=== PATIENT | male | born 1935 | race Caucasian/White ===

== ENCOUNTER 2016-11-15 17:02 | Inpatient (IN) | payer MEDICARE ==
[2016-11-15] MEDS ORDERED: hydrALAZINE HCL 20 MG/ML 1 ML VIAL IVP STA (17:36)
[2016-11-15] MEDS ORDERED: FUROSEMIDE 10 MG/ML 4 ML VIAL IV STA (17:44)
[2016-11-15] MEDS ORDERED: NITROGLYCERIN OINT 1 INCH/GM PACKET TOPICAL STA (17:44)
[2016-11-15] MEDS ORDERED: ASPIRIN 325 MG TAB PO STA (17:44)
[2016-11-15 18:03] LABS: Basophils % (A) 1 %; CH 30.2; CHCM 34.1; Eosinophils # (A) 0.3 k/uL (0-0.7); Eosinophils % (A) 4 %; HCT 45.7 % (39.0-53.0); HDW 2.97; HGB 15.4 gm/dL (13.0-17.5); Luc # (Auto) 0.15; Luc % (Auto) 2; Lymphocytes # (A) 0.7 k/uL (1.0-4.8); Lymphocytes % (A) 8 %; MCHC 33.7 g/dL (31.0-37.0); MCV 88.9 fL (80.0-100.0); Mean Platelet Volume 7.1; Monocytes # (A) 0.5 k/uL (0-1.0); Monocytes % (A) 6 %; Neutrophils # (A) 6.9 k/uL (1.3-7.7); Neutrophils % (A) 80 %; RBC 5.15 m/uL (4.30-5.90); RDW 13.2 % (11.5-15.5); WBC 8.6 k/uL (3.8-10.6); WBC (Perox) 7.59
[2016-11-15 18:13] LABS: ALT 36 U/L (21-72); AST 33 U/L (17-59); Alkaline Phosphatase 127 U/L (38-126); Anion Gap 13 mmol/L; Blood Urea Nitrogen 14 mg/dL (9-20); Calcium 9.7 mg/dL (8.4-10.2); Carbon Dioxide 26 mmol/L (22-30); Chloride 102 mmol/L (98-107); Glucose 125 mg/dL (74-99); INR 1.1 (<1.1); Non-African American GFR(MDRD) >60 (>60 ml/min/1.73 sqM); Partial Thromboplastin Time 26.5 sec (22.0-30.0); Potassium 3.7 mmol/L (3.5-5.1); Prothrombin Time 11.3 sec (9.0-12.0); Sodium 141 mmol/L (137-145); Total Bilirubin 0.9 mg/dL (0.2-1.3); Total Protein 7.4 g/dL (6.3-8.2)
[2016-11-15 18:39] LABS: Troponin I 0.035 ng/mL (0.000-0.034)
--- NOTE | 2016-11-15 18:48 | XR ---
EXAMINATION TYPE: XR chest 2V DATE OF EXAM: 11/15/2016 6:42 PM COMPARISON: NONE HISTORY: History of open-heart surgery presents with difficulty in breathing. TECHNIQUE: Frontal and lateral views of the chest are obtained. FINDINGS: Post-CABG changes with mediastinal clips and sternal wires is present. There is chronic pa renchymal change without suspicious focal air space opacity or pneumothorax seen. The cardiac silhou ette size is enlarged with atherosclerotic thoracic aorta. Small bilateral pleural effusions are pres ent. Underlying scoliosis is noted. IMPRESSION: Suspect CHF exacerbation as there is cardiomegaly with small bilateral pleural effusions , clinical correlation advised.
--- NOTE | 2016-11-15 19:47 | ED ---
SOB HPI - General Chief Complaint: Shortness of Breath Stated Complaint: Blood Pressure Time Seen by Provider: 11/15/16 17:34 Source: patient Mode of arrival: ambulatory Limitations: no limitations - History of Present Illness Initial Comments: This 81-year-old white male presents with a complaint of some shortness of breath. He is had it for approximately one month. He's had a dry cough. He complains of lower extremity edema. It feels like his abdomen is bloated. He states that the shortness of breath is worse with any exertion or with lying flat. He also presents with severe elevation of his blood pressure. He denies any actual chest pain. He states that the lower extremity edema has been present for approximately 3 weeks. His last stress test was approximately 10 years ago. 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 He has had approximately an 8 pound weight gain in the last 2-3 weeks. He was sent over from his primary care physician's office for further evaluation and treatment. No other complaints or modifying factors. - Related Data Home Medications Medication Instructions Recorded Confirmed Finasteride [Proscar] 5 mg PO DAILY 11/15/16 11/15/16 Latanoprost [Xalatan 0.005%] 1 drop RIGHT EYE HS 11/15/16 11/15/16 Naproxen Sodium [Aleve] 220 mg PO BID PRN 11/15/16 11/15/16 Allergies Allergy/AdvReac Type Severity Reaction Status Date / Time No Known Allergies Allergy Verified 11/15/16 19:07 Review of Systems ROS Statement: Those systems with pertinent positive or pertinent negative responses have been documented in the HPI. ROS Other: All systems not noted in ROS Statement are negative. Past Medical History Past Medical History: Heart Failure, Hypertension History of Any Multi-Drug Resistant Organisms: None Reported Past Surgical History: Coronary Bypass/CABG, Tonsillectomy Past Psychological History: PTSD Smoking Status: Never smoker Past Alcohol Use History: None Reported Past Drug Use History: None Reported General Exam - General Exam Comments Initial Comments: GENERAL: The patient is well nourished and well hydrated. The patient is severely hypertensive. VITAL SIGNS: Heart rate, blood pressure, respiratory rate reviewed as recorded in nurse's notes. EYES: Pupils are round and reactive. Extraocular movements are intact. No conjunctival / lid redness or swelling. ENT: No external evidence of injury, swelling, or ecchymosis. Airway is patent. Throat is clear. NECK: Nontender. No swelling or evidence of injury. No subcutaneous emphysema. Trachea is midline. No thyroid mass. HEART: Regular rate and rhythm. Good peripheral pulses. LUNGS/CHEST: Breath sounds clear and equal bilaterally. No rales, rhonchi, or wheezes. No ecchymosis, subcutaneous emphysema, or tenderness. ABDOMEN: Abdomen soft without tenderness. No palpable masses or organomegaly. No peritoneal signs. No abdominal wall swelling or ecchymosis. EXTREMITIES: No extremity tenderness. Normal muscle tone and function. No thoracolumbar tenderness. There is bilateral lower extremity pitting edema noted. NEUROLOGIC: Sensation is grossly intact. Cranial nerve exam reveals face is symmetrical, tongue is midline, speech is clear. SKIN: No abrasions or ecchymosis is noted. No induration or masses noted. PSYCHIATRIC: Alert and oriented. Appropriate behavior and judgment. Limitations: no limitations Course Vital Signs 11/15/16 11/15/16 11/15/16 17:16 17:52 18:25 Temperature 97.2 F L Pulse Rate 112 H 77 122 H Respiratory 18 18 18 Rate Blood Pressure 271/110 242/108 234/104 O2 Sat by Pulse 97 99 100 Oximetry 11/15/16 11/15/16 18:49 19:24 Temperature Pulse Rate 125 H 90 Respiratory 18 18 Rate Blood Pressure 194/91 182/77 O2 Sat by Pulse 96 97 Oximetry Medical Decision Making - Medical Decision Making The patient was seen and examined. All diagnostics were reviewed. An EKG was started and shows a normal sinus rhythm with a sinus arrhythmia with first- degree AV block. Is possible left atrial enlargement. There is left ventricular hypertrophy. There is ST-T wave changes noted diffusely. The CA interval is 218, QRS duration is 102, and QTC intervals 454. The patient had a chest x-ray which shows signs of congestive heart failure. Laboratory is reviewed and shows elevation of the BNP as well as elevation of the troponin. It is felt as though he does have congestive heart failure. Possibility of a non-ST elevation NV as well as possible as well. He doesn't appear to have a hypertensive crisis. He was given aspirin and nitroglycerin as well as some Lasix and hydralazine. He is doing markedly improved on recheck. He felt significant amount of urine. The case is discussed with internal medicine and they're agreeable to admission with cardiology to consult. Approximately 30 minutes critical care time was utilized and the treatment of the patient. - Lab Data Result diagrams: 11/15/16 17:40 11/15/16 17:40 Lab Results 11/15/16 11/15/16 11/15/16 Range/Units 17:40 17:40 17:40 WBC 8.6 (3.8-10.6) k/uL RBC 5.15 (4.30-5.90) m/uL Hgb 15.4 (13.0-17.5) gm/dL Hct 45.7 (39.0-53.0) % MCV 88.9 (80.0-100.0) fL MCH 30.0 (25.0-35.0) pg MCHC 33.7 (31.0-37.0) g/dL RDW 13.2 (11.5-15.5) % Plt Count 219 (150-450) k/uL Neutrophils % 80 % Lymphocytes % 8 % Monocytes % 6 % Eosinophils % 4 % Basophils % 1 % Neutrophils # 6.9 (1.3-7.7) k/uL Lymphocytes # 0.7 L (1.0-4.8) k/uL Monocytes # 0.5 (0-1.0) k/uL Eosinophils # 0.3 (0-0.7) k/uL Basophils # 0.0 (0-0.2) k/uL PT (9.0-12.0) sec INR (<1.1) APTT (22.0-30.0) sec Sodium 141 (137-145) mmol/L Potassium 3.7 (3.5-5.1) mmol/L Chloride 102 (98-107) mmol/L Carbon Dioxide 26 (22-30) mmol/L Anion Gap 13 mmol/L BUN 14 (9-20) mg/dL Creatinine 0.90 (0.66-1.25) mg/dL Est GFR (MDRD) Af Amer >60 (>60 ml/min/1.73 sqM) Est GFR (MDRD) Non-Af >60 (>60 ml/min/1.73 sqM) Glucose 125 H (74-99) mg/dL Calcium 9.7 (8.4-10.2) mg/dL Total Bilirubin 0.9 (0.2-1.3) mg/dL AST 33 (17-59) U/L ALT 36 (21-72) U/L Alkaline Phosphatase 127 H (38-126) U/L Total Creatine Kinase 174 H (55-170) U/L CK-MB (CK-2) 5.0 H* (0.0-2.4) ng/mL CK-MB (CK-2) Rel Index 2.9 Troponin I 0.035 H* (0.000-0.034) ng/mL NT-Pro-B Natriuret Pep pg/mL Total Protein 7.4 (6.3-8.2) g/dL Albumin 4.1 (3.5-5.0) g/dL 11/15/16 11/15/16 Range/Units 17:40 17:40 WBC (3.8-10.6) k/uL RBC (4.30-5.90) m/uL Hgb (13.0-17.5) gm/dL Hct (39.0-53.0) % MCV (80.0-100.0) fL MCH (25.0-35.0) pg MCHC (31.0-37.0) g/dL RDW (11.5-15.5) % Plt Count (150-450) k/uL Neutrophils % % Lymphocytes % % Monocytes % % Eosinophils % % Basophils % % Neutrophils # (1.3-7.7) k/uL Lymphocytes # (1.0-4.8) k/uL Monocytes # (0-1.0) k/uL Eosinophils # (0-0.7) k/uL Basophils # (0-0.2) k/uL PT 11.3 (9.0-12.0) sec INR 1.1 (<1.1) APTT 26.5 (22.0-30.0) sec Sodium (137-145) mmol/L Potassium (3.5-5.1) mmol/L Chloride (98-107) mmol/L Carbon Dioxide (22-30) mmol/L Anion Gap mmol/L BUN (9-20) mg/dL Creatinine (0.66-1.25) mg/dL Est GFR (MDRD) Af Amer (>60 ml/min/1.73 sqM) Est GFR (MDRD) Non-Af (>60 ml/min/1.73 sqM) Glucose (74-99) mg/dL Calcium (8.4-10.2) mg/dL Total Bilirubin (0.2-1.3) mg/dL AST (17-59) U/L ALT (21-72) U/L Alkaline Phosphatase (38-126) U/L Total Creatine Kinase (55-170) U/L CK-MB (CK-2) (0.0-2.4) ng/mL CK-MB (CK-2) Rel Index Troponin I (0.000-0.034) ng/mL NT-Pro-B Natriuret Pep 6510 pg/mL Total Protein (6.3-8.2) g/dL Albumin (3.5-5.0) g/dL Disposition Clinical Impression: Hypertensive crisis, CHF (congestive heart failure), NSTEMI (non-ST elevated myocardial infarction), Lower extremity edema Disposition: ADMITTED IP TO THIS HOSP Condition: Fair Referrals: Tay Edge MD [Primary Care Provider] - 1-2 days Time of Disposition: 19:50 Decision Date: 11/15/16 Decision Time: 19:50
[2016-11-15] MEDS ORDERED: hydrALAZINE HCL 20 MG/ML 1 ML VIAL IVP PRN (19:55)
[2016-11-15] MEDS ORDERED: HEPARIN SODIUM,PORCINE 5,000 UNIT/ML 1 ML VIAL IV ONE (19:55)
[2016-11-15] MEDS ORDERED: HEPARIN SODIUM,PORCINE 5,000 UNIT/ML 1 ML VIAL IV PRN (19:55)
[2016-11-15] MEDS ORDERED: HEPARIN SODIUM,PORCINE/D5W PMX 25,000 UNIT in DEXTROSE/WATER 1 500ML.BAG IV SCH (20:00)
[2016-11-15] MEDS ORDERED: FUROSEMIDE 10 MG/ML 4 ML VIAL IV SCH (20:00)
[2016-11-15] MEDS: LISINOPRIL 10 MG TAB PO SCH (20:55)
[2016-11-15] MEDS ORDERED: NITROGLYCERIN OINT 1 INCH/GM PACKET TOPICAL SCH (22:00)
[2016-11-16] MEDS: FUROSEMIDE 10 MG/ML 4 ML VIAL IV SCH ×3 (00:47→16:17)
[2016-11-16 03:29] LABS: Basophils % (A) 1 %; CH 30.1; CHCM 33.1; Eosinophils # (A) 0.1 k/uL (0-0.7); Eosinophils % (A) 1 %; HCT 48.5 % (39.0-53.0); HDW 2.77; HGB 15.8 gm/dL (13.0-17.5); Luc % (Auto) 1; Lymphocytes # (A) 0.9 k/uL (1.0-4.8); Lymphocytes % (A) 11 %; MCH 29.8 pg (25.0-35.0); MCHC 32.5 g/dL (31.0-37.0); MCV 91.6 fL (80.0-100.0); Mean Platelet Volume 7.1; Monocytes # (A) 0.3 k/uL (0-1.0); Monocytes % (A) 4 %; Neutrophils # (A) 6.5 k/uL (1.3-7.7); Neutrophils % (A) 82 %; RDW 13.5 % (11.5-15.5); WBC 7.9 k/uL (3.8-10.6); WBC (Perox) 8.13
[2016-11-16 04:20] LABS: Creatine Kinase MB 4.5 ng/mL (0.0-2.4); Troponin I 0.081 ng/mL (0.000-0.034)
[2016-11-16 06:44] LABS: Troponin I 0.102 ng/mL (0.000-0.034)
[2016-11-16] MEDS: LISINOPRIL 10 MG TAB PO SCH (08:05)
[2016-11-16] MEDS ORDERED: ASPIRIN 325 MG TAB PO SCH (09:00)
--- NOTE | 2016-11-16 09:58 | P.CRDCN ---
<Aurea Llanos E - Last Filed: 11/16/16 09:59> History of Present Illness Consult date: 11/16/16 Requesting physician: Winston Cooper Consult reason: congestive heart failure Chief complaint: Shortness of breath and weight gain History of present illness: This is an 81-year-old gentleman with history of coronary artery disease and prior bypass surgery 12 years ago, hypertension, hyperlipidemia. 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 According to the patient he had stopped taking all of his medications approximately 5 years ago. He states that for the past one month or so he has noticed worsening shortness of breath as well as increase in peripheral edema and abdominal swelling. He states that he has put on approximately 8 pounds over the past one month. Chest x-ray on admission revealed congestive heart failure exacerbation, cardiomegaly, and small bilateral pleural effusions. EKG on admission showed a normal sinus rhythm with inferior lateral ST-T wave changes and evidence of LVH strain pattern. Let pressure on arrival 271/110 with a heart rate of 112, 97% on room air. Blood pressure this morning 156/70 with a heart rate in the 70s, 97% on 2 L of oxygen. White blood cell count 7.9 , hemoglobin 15.8, platelet count 227. Potassium 3.7, BUN 14, creatinine 0.9. Troponins 0.035, 0.08, 0.102. BNP level 6510. TSH level 2.1. Patient was initiated on IV Lasix in the emergency room as well as aspirin, IV heparin, hydralazine when necessary, lisinopril 10 mg daily, and Nitropaste. Weight is down 2 kg from admission. Patient this morning does state that his breathing is improving, and he has noticed significant improvement in his peripheral edema. Past Medical History Past Medical History: Heart Failure, Eye Disorder, Hypertension Additional Past Medical History / Comment(s): glacoma, surgical procedure on bilateral eyes, PTSD History of Any Multi-Drug Resistant Organisms: None Reported Past Surgical History: Coronary Bypass/CABG, Tonsillectomy Past Anesthesia/Blood Transfusion Reactions: No Reported Reaction Past Psychological History: No Psychological Hx Reported, PTSD Smoking Status: Never smoker Past Alcohol Use History: None Reported Past Drug Use History: None Reported - Past Family History Father Family Medical History: Cancer, Congestive Heart Failure (CHF), Coronary Artery Disease (CAD) Mother Family Medical History: Congestive Heart Failure (CHF), Coronary Artery Disease (CAD) Medications and Allergies Home Medications Medication Instructions Recorded Confirmed Type Finasteride [Proscar] 5 mg PO DAILY 11/15/16 11/15/16 History Latanoprost [Xalatan 0.005%] 1 drop RIGHT EYE HS 11/15/16 11/15/16 History Naproxen Sodium [Aleve] 220 mg PO BID PRN 11/15/16 11/15/16 History Allergies Allergy/AdvReac Type Severity Reaction Status Date / Time No Known Allergies Allergy Verified 11/15/16 19:07 Physical Exam Vitals: Vital Signs Temp Pulse Pulse Resp BP BP Pulse Ox 11/16/16 07:31 98.9 F 76 16 156/70 97 11/16/16 06:02 97.8 F 71 18 144/69 98 11/16/16 04:29 75 20 142/70 98 11/16/16 03:49 69 18 141/67 99 11/16/16 02:28 97.2 F L 84 20 141/67 96 11/16/16 01:10 182/83 11/16/16 00:50 235/102 11/16/16 00:30 97.6 F 88 17 170/97 97 11/15/16 23:48 97.6 F 72 16 163/72 97 11/15/16 22:49 90 16 157/70 96 11/15/16 22:36 80 16 184/81 96 11/15/16 21:59 98 16 156/76 97 11/15/16 21:24 195/85 11/15/16 20:55 104 H 18 163/81 97 11/15/16 20:21 119 H 18 186/85 98 11/15/16 20:15 145/83 11/15/16 19:50 103 H 175/82 11/15/16 19:24 90 18 182/77 97 11/15/16 18:49 125 H 18 194/91 96 11/15/16 18:25 122 H 18 234/104 100 11/15/16 17:52 77 18 242/108 99 11/15/16 17:50 18 11/15/16 17:16 97.2 F L 112 H 18 271/110 97 Intake and Output 11/15/16 11/16/16 11/16/16 22:59 06:59 14:59 Intake Total 110.84 Output Total 2200 Balance -2200 110.84 Intake: Intake, IV Titration 110.84 Amount Heparin Sodium,Porcine/ 110.84 D5w Pmx 25,000 unit In Dextrose/Water 1 500ml. bag @ 12 UNITS/KG/HR 13.6 mls/hr IV .Q24H [facility] Rx#: [id number] Output: Urine 2200 Other: Weight 53.9 kg 51.392 kg Patient Weight 11/17/16 06:59 Weight 51.392 kg PHYSICAL EXAMINATION: HEENT: Head is atraumatic, normocephalic. Pupils equal, round. Neck is supple. There is elevated jugular venous pressure. HEART EXAMINATION: Heart S1 and S2 systolic murmur is heard. CHEST EXAMINATION: Lungs reveal diminished air entry to bilateral bases. ABDOMEN: Soft, nontender. Bowel sounds are heard. No organomegaly noted. EXTREMITIES: 2+ peripheral pulses with no evidence of peripheral edema and no calf tenderness noted. NEUROLOGIC patient is awake, alert and oriented -3. . Results 11/16/16 02:51 11/15/16 17:40 Cardiac Enzymes 11/15/16 11/15/16 11/16/16 Range/Units 17:40 17:40 02:51 AST 33 (17-59) U/L CK-MB (CK-2) 5.0 H* 4.5 H* (0.0-2.4) ng/mL Troponin I 0.035 H* 0.081 H* (0.000-0.034) ng/mL 11/16/16 Range/Units 05:42 AST (17-59) U/L CK-MB (CK-2) 4.0 H* (0.0-2.4) ng/mL Troponin I 0.102 H* (0.000-0.034) ng/mL Coagulation 11/15/16 11/16/16 Range/Units 17:40 02:51 PT 11.3 (9.0-12.0) sec APTT 26.5 45.3 H (22.0-30.0) sec CBC 11/15/16 11/16/16 Range/Units 17:40 02:51 WBC 8.6 7.9 (3.8-10.6) k/uL RBC 5.15 5.30 (4.30-5.90) m/uL Hgb 15.4 15.8 (13.0-17.5) gm/dL Hct 45.7 48.5 (39.0-53.0) % Plt Count 219 227 (150-450) k/uL Comprehensive Metabolic Panel 11/15/16 Range/Units 17:40 Sodium 141 (137-145) mmol/L Potassium 3.7 (3.5-5.1) mmol/L Chloride 102 (98-107) mmol/L Carbon Dioxide 26 (22-30) mmol/L BUN 14 (9-20) mg/dL Creatinine 0.90 (0.66-1.25) mg/dL Glucose 125 H (74-99) mg/dL Calcium 9.7 (8.4-10.2) mg/dL AST 33 (17-59) U/L ALT 36 (21-72) U/L Alkaline Phosphatase 127 H (38-126) U/L Total Protein 7.4 (6.3-8.2) g/dL Albumin 4.1 (3.5-5.0) g/dL Current Medications Generic Name Dose Route Start Last Admin Trade Name Freq PRN Reason Stop Dose Admin Aspirin 325 mg 11/16/16 09:00 11/16/16 08:05 Aspirin PO 325 mg DAILY [facility]OF[facility] Administration Furosemide 40 mg 11/16/16 00:00 11/16/16 08:05 Lasix IV 40 mg Q8HR [facility]OF[facility] Administration Heparin Sodium (Porcine) 0 unit 11/15/16 19:55 11/16/16 04:26 Heparin IV 1,350 unit PER PROTOCOL PRN Administration Low PTT Protocol Hydralazine HCl 10 mg 11/15/16 19:55 11/16/16 00:47 Apresoline IVP 10 mg Q4H PRN Administration Hypertension Heparin Sodium/Dextrose 25,000 500 mls @ 13.6 mls/hr 11/15/16 20:00 11/16/16 04:26 unit/ IV Solution IV 14 units/kg/hr .Q24H [facility] 15.87 mls/hr Protocol Titration 12 UNITS/KG/HR Lisinopril 10 mg 11/15/16 20:00 11/16/16 08:05 Zestril PO 10 mg DAILY [facility]OF[facility] Administration Nitroglycerin 1 inch 11/15/16 22:00 11/16/16 00:47 Nitro-Bid Oint TOPICAL 1 inch QID ZOFIA Administration Intake and Output 11/15/16 11/16/16 11/16/16 22:59 06:59 14:59 Intake Total 110.84 Output Total 2200 Balance -2200 110.84 Intake: Intake, IV Titration 110.84 Amount Heparin Sodium,Porcine/ 110.84 D5w Pmx 25,000 unit In Dextrose/Water 1 500ml. bag @ 12 UNITS/KG/HR 13.6 mls/hr IV .Q24H [facility] Rx#: [id number] Output: Urine 2200 Other: Weight 53.9 kg 51.392 kg Patient Weight 11/17/16 06:59 Weight 51.392 kg 11/16/16 02:51 11/15/16 17:40 EKG Interpretations (text) EKG shows a normal sinus rhythm with inferior lateral ST-T wave changes and evidence of LVH strain pattern. Assessment and Plan Plan: Assessment and plan #1 congestive cardiac failure, LV function unknown at this time. #2 accelerated hypertension #3 history of hypertension #4 history of hyperlipidemia #5 known history of coronary artery disease with prior bypass surgery 12 years ago at [facility] #6 PTSD #7 abnormal troponins, likely reflecting a type II myocardial infarction secondary to oxygen supply and demand mismatch Plan We will obtain an echocardiogram with Doppler study. Decrease aspirin to 81 mg daily. Discontinue Nitropaste and when necessary hydralazine. Add beta markus to the patient's medication regime. Optimize blood pressure. Continue IV Lasix and monitor intake and output along with daily weights. Further recommendations to follow. DNP note has been reviewed, I agree with a documented findings and plan of care. Patient was seen and examined. <Hollis Tolentino - Last Filed: 11/16/16 13:36> Physical Exam Vitals: Vital Signs Temp Pulse Pulse Resp BP BP Pulse Ox 11/16/16 12:00 98.3 F 60 18 137/60 97 11/16/16 08:00 98.0 F 72 18 192/82 98 11/16/16 07:31 98.9 F 76 16 156/70 97 11/16/16 06:02 97.8 F 71 18 144/69 98 11/16/16 04:29 75 20 142/70 98 11/16/16 03:49 69 18 141/67 99 11/16/16 02:28 97.2 F L 84 20 141/67 96 11/16/16 01:10 182/83 11/16/16 00:50 235/102 11/16/16 00:30 97.6 F 88 17 170/97 97 11/15/16 23:48 97.6 F 72 16 163/72 97 11/15/16 22:49 90 16 157/70 96 11/15/16 22:36 80 16 184/81 96 11/15/16 21:59 98 16 156/76 97 11/15/16 21:24 195/85 11/15/16 20:55 104 H 18 163/81 97 11/15/16 20:21 119 H 18 186/85 98 11/15/16 20:15 145/83 11/15/16 19:50 103 H 175/82 11/15/16 19:24 90 18 182/77 97 11/15/16 18:49 125 H 18 194/91 96 11/15/16 18:25 122 H 18 234/104 100 11/15/16 17:52 77 18 242/108 99 11/15/16 17:50 18 11/15/16 17:16 97.2 F L 112 H 18 271/110 97 Intake and Output 11/15/16 11/16/16 11/16/16 22:59 06:59 14:59 Intake Total 110.84 240 Output Total 2200 Balance -2200 110.84 240 Intake: Intake, IV Titration 110.84 Amount Heparin Sodium,Porcine/ 110.84 D5w Pmx 25,000 unit In Dextrose/Water 1 500ml. bag @ 12 UNITS/KG/HR 13.6 mls/hr IV .Q24H [facility] Rx#: [id number] Oral 240 Output: Urine 2200 Other: Weight 53.9 kg 51.392 kg Patient Weight 11/17/16 06:59 Weight 51.392 kg Results 11/16/16 02:51 11/15/16 17:40 Cardiac Enzymes 11/15/16 11/15/16 11/16/16 Range/Units 17:40 17:40 02:51 AST 33 (17-59) U/L CK-MB (CK-2) 5.0 H* 4.5 H* (0.0-2.4) ng/mL Troponin I 0.035 H* 0.081 H* (0.000-0.034) ng/mL 11/16/16 Range/Units 05:42 AST (17-59) U/L CK-MB (CK-2) 4.0 H* (0.0-2.4) ng/mL Troponin I 0.102 H* (0.000-0.034) ng/mL Coagulation 11/15/16 11/16/16 Range/Units 17:40 02:51 PT 11.3 (9.0-12.0) sec APTT 26.5 45.3 H (22.0-30.0) sec CBC 11/15/16 11/16/16 Range/Units 17:40 02:51 WBC 8.6 7.9 (3.8-10.6) k/uL RBC 5.15 5.30 (4.30-5.90) m/uL Hgb 15.4 15.8 (13.0-17.5) gm/dL Hct 45.7 48.5 (39.0-53.0) % Plt Count 219 227 (150-450) k/uL Comprehensive Metabolic Panel 11/15/16 Range/Units 17:40 Sodium 141 (137-145) mmol/L Potassium 3.7 (3.5-5.1) mmol/L Chloride 102 (98-107) mmol/L Carbon Dioxide 26 (22-30) mmol/L BUN 14 (9-20) mg/dL Creatinine 0.90 (0.66-1.25) mg/dL Glucose 125 H (74-99) mg/dL Calcium 9.7 (8.4-10.2) mg/dL AST 33 (17-59) U/L ALT 36 (21-72) U/L Alkaline Phosphatase 127 H (38-126) U/L Total Protein 7.4 (6.3-8.2) g/dL Albumin 4.1 (3.5-5.0) g/dL Current Medications Generic Name Dose Route Start Last Admin Trade Name Freq PRN Reason Stop Dose Admin Aspirin 81 mg 11/17/16 09:00 Aspirin PO DAILY [facility]OFIA Furosemide 40 mg 11/16/16 00:00 11/16/16 08:05 Lasix IV 40 mg Q8HR [facility] Administration Heparin Sodium (Porcine) 0 unit 11/15/16 19:55 11/16/16 04:26 Heparin IV 1,350 unit PER PROTOCOL PRN Administration Low PTT Protocol Heparin Sodium/Dextrose 25,000 500 mls @ 13.6 mls/hr 11/15/16 20:00 11/16/16 04:26 unit/ IV Solution IV 14 units/kg/hr .Q24H [facility] 15.87 mls/hr Protocol Titration 12 UNITS/KG/HR Lisinopril 10 mg 11/15/16 20:00 11/16/16 08:05 Zestril PO 10 mg DAILY [facility]OF[facility] Administration Metoprolol Tartrate 25 mg 11/16/16 10:00 11/16/16 10:56 Lopressor PO 25 mg BID ZOFIA Administration Intake and Output 11/15/16 11/16/16 11/16/16 22:59 06:59 14:59 Intake Total 110.84 240 Output Total 2200 Balance -2200 110.84 240 Intake: Intake, IV Titration 110.84 Amount Heparin Sodium,Porcine/ 110.84 D5w Pmx 25,000 unit In Dextrose/Water 1 500ml. bag @ 12 UNITS/KG/HR 13.6 mls/hr IV .Q24H [facility] Rx#: [id number] Oral 240 Output: Urine 2200 Other: Weight 53.9 kg 51.392 kg Patient Weight 11/17/16 06:59 Weight 51.392 kg 11/16/16 02:51 11/15/16 17:40
[2016-11-16] MEDS: METOPROLOL TARTRATE 25 MG TAB PO SCH ×2 (10:56→20:28)
--- NOTE | 2016-11-16 11:13 | ECHOF ---
Referral Reason:Heart Failure MEASUREMENTS -------- HEIGHT: 175.3 cm WEIGHT: 53.5 kg BP: 156/70 IVSd: 2.3 cm (0.6 - 1.1) LVIDd: 3.9 cm (3.9 - 5.3) LVPWd: 2.1 cm (0.6 - 1.1) IVSs: 2.5 cm LVIDs: 2.9 cm LVPWs: 2.4 cm LAESV Index (A-L): 21.67 ml/m Ao Diam: 4.4 cm (2.0 - 3.7) AV Cusp: 1.6 cm (1.5 - 2.6) LA Diam: 1.9 cm (2.7 - 3.8) MV EXCURSION: 11.453 mm (> 18.000) MV EF SLOPE: 68 mm/s (70 - 150) EPSS: 1.0 cm MV E Derrek: 0.66 m/s MV DecT: 284 ms MV A Derrek: 1.00 m/s MV E/A Ratio: 0.66 AR PHT: 440 ms RAP: 5.00 mmHg RVSP: 7.97 mmHg FINDINGS -------- Sinus rhythm. This was a technically good study. There is severe concentric left ventricular hypertrophy. Overall left ventricular systolic function is normal with, an EF between 60 - 65 %. The right ventricle is normal in size and function. Normal LA size by volume 22+/-6 ml/m2. The right atrium is normal in size. Aortic valve is trileaflet and is mildly thickened. There is mild to moderate aortic valve sclerosis. There is moderate aortic regurgitation. The mitral valve leaflets are mildly thickened. Mild mitral annular calcification present. There is trace to mild mitral regurgitation. Trace tricuspid regurgitation present. There is no evidence of pulmonary hypertension. The right ventricular systolic pressure, as measured by Doppler, is 7.97mmHg. The pulmonic valve was not well visualized. The aortic root size is normal. There is no pericardial effusion. CONCLUSIONS -------- 1. Sinus rhythm. 2. Mild mitral annular calcification present. 3. There is trace to mild mitral regurgitation. 4. Trace tricuspid regurgitation present. 5. There is no evidence of pulmonary hypertension. 6. The right ventricular systolic pressure, as measured by Doppler, is 7.97mmHg. 7. The pulmonic valve was not well visualized. 8. The aortic root size is normal. 9. There is no pericardial effusion. 10. This was a technically good study. 11. There is severe concentric left ventricular hypertrophy. 12. Overall left ventricular systolic function is normal with, an EF between 60 - 65 %. 13. Normal LA size by volume 22+/-6 ml/m2. 14. Aortic valve is trileaflet and is mildly thickened. 15. There is mild to moderate aortic valve sclerosis. 16. There is moderate aortic regurgitation. 17. The mitral valve leaflets are mildly thickened. [employer] CONSULTANT: Dewayne Good RDCS
[2016-11-16 14:40] VITALS: BMI 16.7
[2016-11-16] MEDS: FINASTERIDE 5 MG TAB PO SCH (17:55)
--- NOTE | 2016-11-16 18:16 | HP ---
DATE OF ADMISSION: PRESENTING COMPLAINT: Short of breath. HISTORY OF PRESENTING COMPLAINT: This is a pleasant 81-year-old patient of Dr. Edge, had a coronary artery bypass about 12 years ago. Patient's other chronic stable medical conditions include hypertension, PTSD. The patient presented with 4 weeks of progressive short of breath, increased leg edema, orthopnea, actually was sitting up for the last 2 to 3 days and decided to come in, found to be in congestive heart failure. No chest pressure. REVIEW OF SYSTEMS: CONSTITUTIONAL: Weak and tired. HEENT: None. RESPIRATORY: As above. CARDIOVASCULAR: As above. GASTROINTESTINAL: None. GENITOURINARY: None. MUSCULOSKELETAL: None. DERMATOLOGICAL: None. HEMATOLOGICAL: None. LYMPHATIC: None. PSYCHIATRY: None. NEUROLOGICAL: None. PAST MEDICAL HISTORY: Congestive heart failure, hypertension, glaucoma, PTSD, coronary artery disease. PAST SURGICAL HISTORY: Coronary artery bypass, tonsillectomy. SOCIAL HISTORY: No smoking. No alcohol. Lives by himself. FAMILY HISTORY: Coronary artery disease, congestive heart failure. HOME MEDICATIONS: 1. Aleve 220 mg p.o. b.i.d. p.r.n. 2. Xalatan 0.05, 1 drop to right eye q.h.s. 3. Proscar 5 mg p.o. daily. ALLERGIES: None. On exam, vital signs on presentation: Temperature 97.2, pulse 120, respiration 18, blood pressure 242/108, pulse ox 99% on 2L. GENERAL APPEARANCE: Thin build. BMI 6.7. Sitting up, short of breath. EYES: Pupils equal. Conjunctivae normal. HEENT: Oral cavity normal. NECK: JVD not raised. Mass not palpable. Respiratory effort increased. LUNGS: Decreased breath sounds. CARDIOVASCULAR: First and second sounds normal. Edema present. ABDOMEN: Soft, nontender. Liver and spleen not palpable. LYMPHATIC: No lymph nodes palpable in neck or axillae. PSYCHIATRY: Alert and oriented x3. Mood and affect normal. NEUROLOGICAL: Pupils equal. Cranial nerves grossly intact. Power and sensation grossly intact. INVESTIGATIONS: White count 8.6, hemoglobin 13.4. Potassium 3.9, BUN and creatinine are normal. Troponin 0.035 0.081, 0.102. ProBNP 6510. Chest x-ray shows venous prominence, cardiomegaly, small pleural effusion. EKG shows some ST segment depression, especially in the lateral inferolateral leads. Two-D echo EF of 60% to 65%, moderate aortic regurgitation. ASSESSMENT: 1. Acute on chronic congestive heart failure exacerbation from diastolic dysfunction; ejection fraction 60 to 65%, underlying coronary artery disease. 2. Posttraumatic stress disorder. 3. Essential hypertension, accelerated, present on admission. 4. Troponin leak because of congestive heart failure. 5. Moderate aortic regurgitation, nonrheumatic. PLAN: Patient is on IV heparin, IV Lasix. Cardiology was consulted. The patient is responding to IV Lasix.
[2016-11-16] MEDS: LATANOPROST 0.005% OPHTH DROPS 2.5 ML BTL RIGHT EYE SCH (20:30)
[2016-11-17] MEDS: FUROSEMIDE 10 MG/ML 4 ML VIAL IV SCH ×3 (00:19→16:40)
[2016-11-17 06:21] LABS: Basophils % (A) 1 %; CH 30.3; CHCM 33.2; Eosinophils # (A) 0.3 k/uL (0-0.7); Eosinophils % (A) 4 %; HDW 2.64; HGB 14.3 gm/dL (13.0-17.5); Luc # (Auto) 0.17; Luc % (Auto) 2; Lymphocytes # (A) 0.9 k/uL (1.0-4.8); Lymphocytes % (A) 13 %; MCH 30.6 pg (25.0-35.0); MCHC 33.3 g/dL (31.0-37.0); MCV 91.8 fL (80.0-100.0); Mean Platelet Volume 7.2; Monocytes # (A) 0.5 k/uL (0-1.0); Monocytes % (A) 7 %; Neutrophils # (A) 5.3 k/uL (1.3-7.7); Neutrophils % (A) 73 %; RBC 4.68 m/uL (4.30-5.90); RDW 13.4 % (11.5-15.5); WBC 7.3 k/uL (3.8-10.6); WBC (Perox) 7.62
[2016-11-17] MEDS: METOPROLOL TARTRATE 25 MG TAB PO SCH (08:39)
[2016-11-17] MEDS: LISINOPRIL 10 MG TAB PO SCH (08:39)
[2016-11-17] MEDS: ASPIRIN 81 MG CHEW PO SCH (08:39)
[2016-11-17] MEDS: FINASTERIDE 5 MG TAB PO SCH (08:39)
--- NOTE | 2016-11-17 15:40 | P.PN ---
Subjective Principal diagnosis: Congestive heart failure This is an 81-year-old gentleman with history of coronary artery disease and prior bypass surgery 12 years ago, hypertension, hyperlipidemia. 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 According to the patient he had stopped taking all of his medications approximately 5 years ago. He states that for the past one month or so he has noticed worsening shortness of breath as well as increase in peripheral edema and abdominal swelling. He states that he has put on approximately 8 pounds over the past one month. Chest x-ray on admission revealed congestive heart failure exacerbation, cardiomegaly, and small bilateral pleural effusions. EKG on admission showed a normal sinus rhythm with inferior lateral ST-T wave changes and evidence of LVH strain pattern. 11/17/2016 Patient was initiated on IV Lasix yesterday, diuresed well through the night last night. Heart rate in the 40s to 50s, blood pressure 145/67. We will discontinue the Lopressor and start the patient on Coreg today. CBC normal, and there were no lytes BUN and creatinine drawn today. We will continue current dose of IV Lasix, check daily lytes BUN and creatinine. Echocardiogram with Doppler study was performed which revealed an ejection fraction of 60-65%. Mild to moderate aortic valve sclerosis, moderate aortic regurgitation. DNP note has been reviewed, I agree with a documented findings and plan of care. Patient was seen and examined. Objective - Vital Signs Vital signs: Vital Signs Temp 97.0 F L 11/17/16 12:00 Pulse 48 L 11/17/16 12:00 Resp 18 11/17/16 12:00 BP 145/67 11/17/16 12:00 Pulse Ox 98 11/17/16 12:00 Intake & Output 11/16/16 11/17/16 11/17/16 18:59 06:59 18:59 Intake Total 480 420 Output Total 450 1600 450 Balance 30 -1600 -30 Weight 51.392 kg 53.3 kg 53.3 kg Intake: Oral 480 420 Output: Urine 450 1600 450 Other: Voiding Method Toilet Toilet Urinal Urinal # Voids 2 1 - Exam PHYSICAL EXAMINATION: HEENT: Head is atraumatic, normocephalic. Pupils equal, round. Neck is supple. There is elevated jugular venous pressure. HEART EXAMINATION: Heart S1 and S2 systolic murmur is heard. CHEST EXAMINATION: Lungs reveal diminished air entry to bilateral bases. ABDOMEN: Soft, nontender. Bowel sounds are heard. No organomegaly noted. EXTREMITIES: 2+ peripheral pulses with no evidence of peripheral edema and no calf tenderness noted. NEUROLOGIC patient is awake, alert and oriented -3. - Labs CBC & Chem 7: 11/17/16 05:47 11/15/16 17:40 Labs: Abnormal Lab Results - Last 24 Hours (Table) 11/17/16 Range/Units 05:47 Lymphocytes # 0.9 L (1.0-4.8) k/uL Assessment and Plan Plan: Assessment and plan #1 congestive cardiac failure, diastolic acute on chronic #2 accelerated hypertension #3 history of hypertension #4 history of hyperlipidemia #5 known history of coronary artery disease with prior bypass surgery 12 years ago at [facility] #6 PTSD #7 abnormal troponins, likely reflecting a type II myocardial infarction secondary to oxygen supply and demand mismatch Plan Continue current dose of IV Lasix. Discontinue beta markus and change patient to Corex 3.125 mg by mouth twice a day. Continue IV Lasix for another 24 hours check daily lytes BUN and creatinine. DNP note has been reviewed, I agree with a documented findings and plan of care. Patient was seen and examined.
[2016-11-17 16:22] LABS: Anion Gap 11 mmol/L; Blood Urea Nitrogen 37 mg/dL (9-20); Calcium 9.1 mg/dL (8.4-10.2); Carbon Dioxide 32 mmol/L (22-30); Chloride 96 mmol/L (98-107); Glucose 117 mg/dL (74-99); Non-African American GFR(MDRD) 55 (>60 ml/min/1.73 sqM); Potassium 3.5 mmol/L (3.5-5.1); Sodium 139 mmol/L (137-145)
[2016-11-17] MEDS: CARVEDILOL 3.125 MG TAB PO SCH (16:40)
--- NOTE | 2016-11-17 19:13 | PN ---
DATE OF SERVICE: 11/17/2016 PRESENTING COMPLAINT: Shortness of breath. INTERVAL HISTORY: This is an 81-year-old gentleman who presented to the emergency department with 4 weeks of progressive shortness of breath, increasing leg edema, orthopnea. Today patient looks comfortable sitting up in bed, breathing easily. No acute distress noted or voiced. No audible wheezing. Patient states he feels much better. Review of systems done for constitutional, cardiovascular, GI, pulmonary, with relevant findings as above. CURRENT MEDICATIONS: 1. Coreg. 2. Lasix. 3. Zestril. PHYSICAL EXAMINATION: VITAL SIGNS: Temperature 97.1, pulse 51, respiratory rate 18, blood pressure 173/72, heart rate 93, oxygen saturation 98% on 2 L nasal cannula. GENERAL APPEARANCE: Patient sitting up in bed. Alert, oriented. No discomfort noted or voiced. EYES: Pupils equal. Conjunctivae normal. NECK: JVD not raised. Mass not palpable. LUNGS: Breath sounds diminished with diffuse crackles noted bilaterally. RESPIRATORY: Effort normal, unlabored. CARDIOVASCULAR: First and second sounds noted. No edema. ABDOMEN: Soft, nontender. Liver and spleen not palpable. PSYCHIATRY: Alert and oriented x3. Mood and affect normal. INVESTIGATIONS: Sodium 139, potassium 3.5. BUN 37, creatinine 1.25. ASSESSMENT: 1. Acute on chronic congestive heart failure exacerbation from diastolic dysfunction; ejection fraction 60% to 65%; underlying coronary artery disease. 2. Post-traumatic stress disorder. 3. Essential hypertension, accelerated, present on admission. 4. Troponin leak because of congestive heart failure. 5. Moderate aortic regurgitation, non-rheumatic. PLAN: Patient remains on IV heparin and IV Lasix per cardiology recommendations. Patient has so far had a good response to the Lasix. Will follow labs daily. Tentative discharge planning in the next 1 to 2 days. Patient was seen and examined by nurse practitioner, Nanette Vega, and all elements of the case were discussed with attending, Dr. Cooper.
[2016-11-17] MEDS: LATANOPROST 0.005% OPHTH DROPS 2.5 ML BTL RIGHT EYE SCH (21:14)
[2016-11-18] MEDS: FUROSEMIDE 10 MG/ML 4 ML VIAL IV SCH ×2 (00:36→08:23)
[2016-11-18 07:07] LABS: Basophils % (A) 0 %; CH 30.3; CHCM 33.8; Eosinophils # (A) 0.5 k/uL (0-0.7); Eosinophils % (A) 7 %; HCT 40.9 % (39.0-53.0); HDW 2.79; HGB 13.8 gm/dL (13.0-17.5); Luc # (Auto) 0.18; Luc % (Auto) 2; Lymphocytes # (A) 0.9 k/uL (1.0-4.8); Lymphocytes % (A) 12 %; MCH 30.3 pg (25.0-35.0); MCHC 33.6 g/dL (31.0-37.0); MCV 90.1 fL (80.0-100.0); Mean Platelet Volume 6.9; Monocytes # (A) 0.5 k/uL (0-1.0); Monocytes % (A) 6 %; Neutrophils # (A) 5.3 k/uL (1.3-7.7); Neutrophils % (A) 72 %; RBC 4.54 m/uL (4.30-5.90); RDW 13.1 % (11.5-15.5); WBC 7.3 k/uL (3.8-10.6); WBC (Perox) 7.35
[2016-11-18 07:41] LABS: Anion Gap 12 mmol/L; Blood Urea Nitrogen 37 mg/dL (9-20); Calcium 8.7 mg/dL (8.4-10.2); Carbon Dioxide 30 mmol/L (22-30); Chloride 98 mmol/L (98-107); Glucose 125 mg/dL (74-99); Non-African American GFR(MDRD) >60 (>60 ml/min/1.73 sqM); Potassium 3.2 mmol/L (3.5-5.1); Sodium 140 mmol/L (137-145)
[2016-11-18] MEDS: ASPIRIN 81 MG CHEW PO SCH (08:22)
[2016-11-18] MEDS: LISINOPRIL 10 MG TAB PO SCH (08:22)
[2016-11-18] MEDS: FINASTERIDE 5 MG TAB PO SCH (08:22)
[2016-11-18] MEDS: CARVEDILOL 3.125 MG TAB PO SCH ×2 (08:23→16:40)
[2016-11-18] MEDS ORDERED: POTASSIUM CHLORIDE ER 20 MEQ TAB.ER PO SCH (09:00)
[2016-11-18] MEDS ORDERED: LISINOPRIL 20 MG TAB PO SCH (10:42)
[2016-11-18] MEDS: FUROSEMIDE 40 MG TAB PO SCH (10:58)
--- NOTE | 2016-11-18 12:57 | CONS ---
DATE OF CONSULTATION: Mr. Venegas is looking very comfortable. He is breathing normally. He is sitting up comfortably in bed. His vitals are stable. His temperature is 97.8 degrees Fahrenheit. Pulse rate is in the 60s on Coreg. His blood pressure 134/62 mmHg, but a repeat blood pressure was 169/70 mmHg. Head and neck examination is normal. No JVD, thyromegaly, or carotid bruits. Heart sounds S1 and S2 are normal. Lungs are clear to auscultation. Extremities are warm. No edema. A 2-D echo, his LV systolic function is normal, ejection fraction of 60% to 65%. IMPRESSION: 1. Accelerated hypertension. Blood pressure is somewhat better controlled now. 2. History of coronary artery disease, history of prior bypass surgery 12 years back. 3. Abnormal troponins possibly demand ischemia, but he will need reevaluation for ischemia once his heart failure is better controlled. 4. Congestive heart failure, diastolic, switch to p.o. Lasix today. Aldactone is being added since his potassium is on the lower end of normal. Oral potassium is being discontinued. Lisinopril increased for hypertension management. IV heparin is to be discontinued now. Electrolytes daily. I will try to increase his Aldactone tomorrow.
--- NOTE | 2016-11-18 13:01 | CDI ---
In responding to this query, please exercise your independent professional judgment. The [facility] Coding Staff and Clinical Documentation Specialists appreciate your assistance in clarifying documentation, maintaining compliance with coding guidelines, accurately documenting patients condition and capturing severity of illness. The fact that a question is asked does not imply that any particular answer is desired or expected. Communication forms are a method of clarifying documentation and are not made part of the Legal Health Record. Thank you in advance for your clarification. Last Revision, May 2015 [address] [place] [address] Documentation Clarification Form Date: 11/18/2016 12:38:00 PM From: Marla Pendleton RN, CDS Admit Date: 11/15/2016 7:50:00 PM Patient Name: Grant Venegas Visit Number: [id number] Nanette Vega, ERIKA-C and Dr. Winston Cooper, 81 y/o patient admitted for shortness of breath lower extremity edema, diagnosed with Acute on Chronic Diastolic CHF and Type 2 Nstemi, patient hypertensive on presentation to ED. Patient history/risk factors: H/O HTN, CAD Clinical Indicators: BP 271/110, 242/108, 234/104, "accelerated Hypertension" documented in H&P, 11/17/16 progress note and per Cardiology Treatment: IV Hydralazine 20mg given in ED, then 10 mg given on 11/16/16, Lisinopril 20 mg Consults: Cardiology In order to capture the severity of condition, please document and specify the appropriate condition: - Hypertensive Crisis - Hypertensive Emergency - Unable to determine - Other Condition, please specify Please document in your progress notes and discharge summary in order to capture severity of illness and risk of mortality. Include clinical findings that support your diagnosis. FYI: Press F11 to launch patient chart. Place X here if this finding has no clinical significance, is not applicable or if you are not able to provide any additional documentation. MTDD
[2016-11-18] MEDS: SPIRONOLACTONE 25 MG TAB PO SCH (13:34)
--- NOTE | 2016-11-18 17:42 | PN ---
DATE OF SERVICE: 11/18/2016 PRESENTING COMPLAINT: Shortness of breath. INTERVAL HISTORY: This is an 81-year-old gentleman who presented to the emergency department with 4 weeks of progressive shortness of breath, including leg edema, orthopnea. Today patient looks comfortable sitting in bed, breathing easily. No acute distress noted or voiced. No audible wheezing. Patient states he feels much better and would like to go home. Review of systems done for constitutional, cardiovascular, GI, pulmonary, with relevant findings as above. CURRENT MEDICATIONS: 1. Coreg. 2. Lasix. 3. Zestril. PHYSICAL EXAMINATION: VITAL SIGNS: Temperature 97.8, pulse 58, respiratory rate 18, blood pressure 134/62, oxygen saturation 98% on 2 L nasal cannula. GENERAL APPEARANCE: Patient is sitting up in bed reading a book; looks comfortable. No distress noted. EYES: Pupils equal. Conjunctivae normal. NECK: JVD not raised. Mass not palpable. LUNGS: Breath sounds diminished with diffuse crackles noted to the right base. RESPIRATORY: Effort normal, unlabored. CARDIOVASCULAR: First and second sounds noted. No edema. ABDOMEN: Soft, nontender. Liver and spleen not palpable. PSYCHIATRY: Alert and oriented x3. Mood and affect normal. INVESTIGATIONS: White blood cell count 7.3, hemoglobin 13.8, platelet count 209. Sodium 140, potassium 3.2. BUN 37, creatinine 1.15. ASSESSMENT: 1. Acute on chronic congestive heart failure exacerbation from diastolic dysfunction, ejection fraction 60% to 65%; underlying coronary artery disease. 2. Post-traumatic stress disorder. 3. Essential hypertension, accelerated, present on admission. 4. Troponin leak secondary to congestive heart failure. 5. Moderate aortic regurgitation, non-rheumatic. PLAN: Patient was switched to p.o. Lasix today. IV heparin was discontinued. Aldactone will be increased tomorrow by Cardiology. We will continue the current medication and treatment plan. Patient was seen and examined by nurse practitioner, Nanette Vega. All elements of the case were discussed with attending, Dr. Cooper.
--- NOTE | 2016-11-18 20:42 | PN ---
DATE OF SERVICE: 11/17/2016 ATTENDING NOTE: This patient was seen and examined by me yesterday on 11/17/16. This patient was admitted with CHF exacerbation. Breathing is better. Edema is coming down. Seems a bit less tired. Current medications are reviewed. On examination, pulse 48, respiration 18, blood pressure 145/67, pulse ox 98% on 2 L. GENERAL APPEARANCE: Lying in bed, not in distress. EYES: Pupils equal. Conjunctivae normal. NECK: JVD not raised. RESPIRATORY: Effort increased. LUNGS: Decreased breath sounds. Some crackles. INVESTIGATIONS: BUN 37, creatinine 1.25. ASSESSMENT: Acute on chronic congestive heart failure exacerbation from diastolic dysfunction, ejection fraction 60% to 65%, with underlying coronary artery disease, slow to respond. PLAN: Continue with IV Lasix. Patient encouraged to be out of bed. Follow up with Cardiology.
[2016-11-18] MEDS: LATANOPROST 0.005% OPHTH DROPS 2.5 ML BTL RIGHT EYE SCH (21:41)
--- NOTE | 2016-11-18 22:16 | PN ---
DATE OF SERVICE: 11/18/2016 ATTENDING NOTE: This patient was seen and examined by me earlier today. I reviewed the note of my nurse practitioner, Ms. Vega, and agree with the same. I discussed this with her. This is a patient who presented with CHF exacerbation. Breathing is getting better. He has been up to the bathroom. Current medications include IV Lasix earlier. On examination, blood pressure 130/62. LUNGS: Decreased breath sounds with improved crackles. CARDIOVASCULAR: First and second sounds normal. INVESTIGATIONS: BUN 37, creatinine 1.15. ASSESSMENT: Acute congestive heart failure exacerbation from diastolic dysfunction from underlying coronary artery disease, clinically improving. PLAN: Patient will be switched over to p.o. Lasix. Overall doing better. Keep an eye on the electrolytes. Encourage to be out of bed.
[2016-11-19 07:29] LABS: Basophils % (A) 1 %; CH 29.9; CHCM 32.7; Eosinophils # (A) 0.7 k/uL (0-0.7); Eosinophils % (A) 9 %; HDW 2.62; HGB 14.8 gm/dL (13.0-17.5); Luc % (Auto) 3; Lymphocytes # (A) 0.9 k/uL (1.0-4.8); Lymphocytes % (A) 12 %; MCH 30.3 pg (25.0-35.0); MCHC 32.9 g/dL (31.0-37.0); Mean Platelet Volume 7.5; Monocytes # (A) 0.5 k/uL (0-1.0); Monocytes % (A) 6 %; Neutrophils # (A) 5.6 k/uL (1.3-7.7); Neutrophils % (A) 70 %; RBC 4.89 m/uL (4.30-5.90); RDW 13.2 % (11.5-15.5); WBC (Perox) 8.31
[2016-11-19] MEDS: CARVEDILOL 3.125 MG TAB PO SCH ×2 (07:36→18:24)
[2016-11-19] MEDS: FINASTERIDE 5 MG TAB PO SCH (08:05)
[2016-11-19] MEDS: ASPIRIN 81 MG CHEW PO SCH (08:05)
[2016-11-19] MEDS: FUROSEMIDE 40 MG TAB PO SCH (08:05)
[2016-11-19] MEDS: SPIRONOLACTONE 25 MG TAB PO SCH (08:05)
[2016-11-19 08:16] LABS: Anion Gap 9 mmol/L; Blood Urea Nitrogen 39 mg/dL (9-20); Calcium 9.4 mg/dL (8.4-10.2); Carbon Dioxide 32 mmol/L (22-30); Chloride 98 mmol/L (98-107); Glucose 136 mg/dL (74-99); Non-African American GFR(MDRD) >60 (>60 ml/min/1.73 sqM); Sodium 139 mmol/L (137-145)
[2016-11-19] MEDS ORDERED: POTASSIUM CHLORIDE ER 20 MEQ TAB.ER PO SCH (09:00)
--- NOTE | 2016-11-19 14:42 | P.PN ---
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 According to the patient he stopped taking all his medications several years ago. He states that the past month he noticed worsening shortness of breath and increased peripheral edema and abdominal swelling he states that he had put on approximately 8 pounds in a month. X-ray on admission confirms congestive heart failure exacerbation, cardiomegaly and small bilateral pleural effusions. He was switched to by mouth Lasix yesterday. His breathing is improved. He denies complaints of shortness of breath. Has no orthopnea, palpitations or chest pain. Blood pressure is quite elevated with about 20 millimeter mercury difference between the right and left arm. Objective - Vital Signs Vital signs: Vital Signs Temp 98.5 F 11/19/16 12:00 Pulse 69 11/19/16 12:00 Resp 16 11/19/16 12:00 BP 136/72 11/19/16 12:00 Pulse Ox 95 11/19/16 12:00 Intake & Output 11/18/16 11/19/16 11/19/16 18:59 06:59 18:59 Intake Total 600 298 Balance 600 298 Weight 52.4 kg 53.1 kg Intake: Oral 600 298 Other: Voiding Method Toilet Toilet Toilet Urinal Urinal Urinal # Voids 0 2 1 - Exam PHYSICAL EXAMINATION: HEENT: Head is atraumatic, normocephalic. Pupils equal, round. Neck is supple. There is no elevated jugular venous pressure. HEART EXAMINATION: Heart sounds regular, S1 and S2 with a systolic murmur. CHEST EXAMINATION: Lungs are clear to auscultation and precussion. No chest wall tenderness is noted on palpation or with deep breathing. ABDOMEN: Soft, nontender. Bowel sounds are heard. No organomegaly noted. EXTREMITIES: 2+ peripheral pulses with no evidence of peripheral edema and no calf tenderness noted. NEUROLOGIC patient is awake, alert and oriented x3. . - Labs CBC & Chem 7: 11/19/16 06:55 11/19/16 06:55 Labs: Abnormal Lab Results - Last 24 Hours (Table) 11/19/16 11/19/16 Range/Units 06:55 06:55 Lymphocytes # 0.9 L (1.0-4.8) k/uL Carbon Dioxide 32 H (22-30) mmol/L BUN 39 H (9-20) mg/dL Glucose 136 H (74-99) mg/dL Assessment and Plan Plan: Assessment and plan #1 acute on chronic diastolic congestive heart failure #2 accelerated hypertension #3 hyperlipidemia #4 known history of coronary artery disease with prior bypass surgery 12 years ago at [facility] 5 PTSD #6 abnormal troponins likely secondary to oxygen supply demand mismatch At this time increase lisinopril to 20 mg by mouth twice a day and increase spironolactone to 50 mg daily. Monitor the patient's renal function and blood pressures. Patient will require further outpatient workup for blood pressure variations bilaterally. Further recommendations to follow. SECURITIES TELLER note has been reviewed, I agree with a documented findings and plan of care. Patient was seen and examined.
--- NOTE | 2016-11-19 18:32 | PN ---
DATE OF SERVICE: 11/19/2016 PRESENTING COMPLAINT: Shortness of breath. INTERVAL HISTORY: This is a patient who has CHF exacerbation. Today, patient is lying in bed, stating that he does not "feel well." No specific symptoms, just stating that he does not feel well. Patient is able to walk in the halls as well as to and from the bathroom. Tolerating the his diet. Able to use the bathroom without assistance. Review of systems done for constitutional, cardiovascular, GI, pulmonary, with relevant findings as above. CURRENT MEDICATIONS: Aspirin, Coreg 3.125 mg b.i.d., Proscar 5 mg p.o. daily, Lasix 40 mg p.o. daily, Zestril 20 mg p.o. daily, Aldactone 50 mg p.o. daily. PHYSICAL EXAMINATION: VITAL SIGNS: Temperature 97.8, pulse 60, respirations 16, blood pressure 153/86, oxygen saturation 97% on room air. GENERAL APPEARANCE: Patient lying in bed, looks pale, breathing easily. EYES: Pupils equal. Conjunctivae normal. NECK: JVD not raised. Mass not palpable LUNGS: Diminished breath sounds bilaterally. RESPIRATORY: Effort normal. CARDIOVASCULAR: First and second sounds noted. No edema. ABDOMEN: Soft, nontender. Liver and spleen not palpable. PSYCHIATRY: Alert and oriented x3. Mood and affect are normal. INVESTIGATIONS: Hemoglobin 14.8, white blood cell count 8.0, platelets 207, sodium 139, potassium 4.0. BUN 39, creatinine 1.06. ASSESSMENT: 1. Acute on chronic congestive heart failure exacerbation from diastolic dysfunction, ejection fraction 60 to 65%. Underlying coronary artery disease improving. 2. Posttraumatic stress disorder. 3. Essential hypertension, accelerated, present on admission. 4. Troponin leak secondary to congestive heart failure. 5. Moderate aortic regurgitation, nonrheumatic. 6. Hypertensive heart disease. PLAN: Patient's Aldactone was increased today. Patient encouraged to be up in the hallways walking. We will continue current medication and treatment plan. Patient was seen and examined by nurse practitioner, Nanette Vega, and all elements of the case what were discussed with Dr. Cooper.
--- NOTE | 2016-11-19 19:49 | XR ---
EXAMINATION TYPE: XR chest 2V DATE OF EXAM: 11/19/2016 7:35 PM COMPARISON: 11/15/2016 HISTORY: 81-year-old male follow-up CHF TECHNIQUE: Frontal and lateral views FINDINGS: Median sternotomy wires are present with post-CABG clips. The heart remains borderline to mildly enla rged. Hyperinflation with flattening of the hemidiaphragms. Interval clearance of the patient's small pleural effusions. No consolidation or pleural effusion. Reverse S-shaped scoliosis. IMPRESSION: Similar borderline to mild cardiomegaly and COPD. Interval clearance of patient's pleural effusions.
[2016-11-19] MEDS: LISINOPRIL 20 MG TAB PO SCH (21:37)
[2016-11-19] MEDS: LATANOPROST 0.005% OPHTH DROPS 2.5 ML BTL RIGHT EYE SCH (21:38)
--- NOTE | 2016-11-19 22:28 | PN ---
DATE OF SERVICE: 11/19/2016 ATTENDING NOTE: This patient was seen and examined by me earlier today. I reviewed the note of my nurse practitioner, Ms. Vega, and discussed with her. Patient feels a bit tired. Walking the hallways, but still gets a bit short-winded. Blood pressure has been running high. On examination, blood pressure this morning was up to 118 systolic. GENERAL APPEARANCE: Lying in bed, a bit tired-appearing. LUNGS: Decreased breath sounds. No crackles. CARDIOVASCULAR: First and second sounds normal. No edema. INVESTIGATIONS: Chest x-ray reviewed. No pulmonary edema. ASSESSMENT: 1. Acute on chronic congestive heart failure from diastolic dysfunction; ejection fraction 60% to 65% from underlying coronary artery disease, improved. 2. Essential hypertension with urgency, accelerated. PLAN: The patient's dose of Aldactone was increased today. Also, TRUDY inhibitor was increased. Care was discussed with the patient. I expected the blood pressure to be ( ) by tomorrow.
--- NOTE | 2016-11-20 06:32 | P.PN ---
Subjective Patient is doing well. No chest discomfort no breathing trouble ambulating in the room and the hallway. No dizziness no palpitations On examination blood pressure 143/66. His mercury, heart rate in the 50s, afebrile 97.1F Breath sounds are equal bilaterally no rhonchi no crackles Heart sounds S1 and S2 are normal Abdomen is soft nontender Extremities are warm no edema Impression Hypertension, uncontrolled CAD, coronary artery bypass grafting 12 years back Abnormal troponins in the setting of accelerated hypertension Diastolic congestive heart failure Left ventricular ejection fraction 60% Plan Continue current medical treatment May go home from a cardiac standpoint an outpatient follow-up Continue aspirin, carvedilol, Lasix, spironolactone and lisinopril at the current dosage Objective - Vital Signs Vital signs: Vital Signs Temp 97.1 F L 11/19/16 20:00 Pulse 58 L 11/19/16 20:00 Resp 18 11/19/16 20:00 BP 143/66 11/19/16 20:00 Pulse Ox 95 11/19/16 20:00 Intake & Output 11/19/16 11/19/16 11/20/16 06:59 18:59 06:59 Intake Total 748 Output Total 325 Balance 423 Weight 53.1 kg 53.4 kg Intake: Oral 748 Output: Urine 325 Other: Voiding Method Toilet Toilet Toilet Urinal Urinal Urinal # Voids 2 1 1 - Labs CBC & Chem 7: 11/19/16 06:55 11/19/16 06:55 Labs: Abnormal Lab Results - Last 24 Hours (Table) 11/19/16 11/19/16 Range/Units 06:55 06:55 Lymphocytes # 0.9 L (1.0-4.8) k/uL Carbon Dioxide 32 H (22-30) mmol/L BUN 39 H (9-20) mg/dL Glucose 136 H (74-99) mg/dL
[2016-11-20 06:43] LABS: Basophils # (A) 0.1 k/uL (0-0.2); Basophils % (A) 1 %; CH 30.1; CHCM 32.9; Eosinophils # (A) 0.7 k/uL (0-0.7); Eosinophils % (A) 11 %; HCT 43.3 % (39.0-53.0); HDW 2.59; Luc # (Auto) 0.18; Luc % (Auto) 3; Lymphocytes # (A) 0.9 k/uL (1.0-4.8); Lymphocytes % (A) 15 %; MCH 29.8 pg (25.0-35.0); MCHC 32.4 g/dL (31.0-37.0); Mean Platelet Volume 7.3; Monocytes # (A) 0.4 k/uL (0-1.0); Monocytes % (A) 6 %; Neutrophils # (A) 4.1 k/uL (1.3-7.7); Neutrophils % (A) 65 %; RBC 4.71 m/uL (4.30-5.90); RDW 13.3 % (11.5-15.5); WBC 6.3 k/uL (3.8-10.6); WBC (Perox) 6.29
[2016-11-20 07:06] LABS: Anion Gap 9 mmol/L; Blood Urea Nitrogen 32 mg/dL (9-20); Calcium 9.3 mg/dL (8.4-10.2); Carbon Dioxide 30 mmol/L (22-30); Chloride 99 mmol/L (98-107); Glucose 129 mg/dL (74-99); Non-African American GFR(MDRD) >60 (>60 ml/min/1.73 sqM); Potassium 4.2 mmol/L (3.5-5.1); Sodium 138 mmol/L (137-145)
[2016-11-20] MEDS: CARVEDILOL 3.125 MG TAB PO SCH (07:08)
[2016-11-20] MEDS: LISINOPRIL 20 MG TAB PO SCH (08:45)
[2016-11-20] MEDS: FUROSEMIDE 40 MG TAB PO SCH (08:45)
[2016-11-20] MEDS: FINASTERIDE 5 MG TAB PO SCH (08:45)
[2016-11-20] MEDS: ASPIRIN 81 MG CHEW PO SCH (08:45)
[2016-11-20] MEDS ORDERED: SPIRONOLACTONE 25 MG TAB PO SCH (09:00)
[2016-11-20 10:08] VITALS: RESP 16
[2016-11-20 12:08] VITALS: BP 156/70; PULSE 53; TEMP 98.5
--- NOTE | 2016-11-21 10:10 | DS ---
DATE OF ADMISSION: 11/15/2016 DATE OF DISCHARGE: 11/20/2016 FINAL DIAGNOSES: 1. Acute on chronic congestive heart failure from diastolic dysfunction, ejection fraction 60% to 65% from underlying coronary artery disease, improved. 2. Essential hypertension with urgency, accelerated, improved. 3. Posttraumatic stress disorder, controlled. 4. Troponin leak secondary to congestive heart failure, improved. 5. Moderate aortic regurgitation, nonrheumatic, stable. CONSULTANTS: Dr. Tolentino from Cardiology. HOSPITAL COURSE: Patient presented with acute on chronic congestive heart failure exacerbation. Received Lasix. Cardiology was consulted. Medications were adjusted. Patient's breathing improved. Acute exacerbation has now been resolved. Patient medications were adjusted by Cardiology include: 1. Carvedilol. 2. Lasix. 3. Spironolactone. 4. Lisinopril. The should be continued at the current dosage. Patient also was hypertensive on admission. Cardiology was also consulted and medications were adjusted. Blood pressure is now within appropriate parameters. Posttraumatic stress disorder is currently under control. Troponin leak because of congestive heart failure is resolved. Moderate aortic regurgitation, nonrheumatic is stable. PHYSICAL EXAM: Bilateral breath sounds clear to auscultation. No nasal flaring noted. No accessory muscle use noted. CARDIOVASCULAR: First and second sounds noted. No edema. Blood pressure 156/72. All care questions that were asked were answered. Plan of discharge was discussed with patient. DISCHARGE MEDICATIONS: 1. Finasteride 5 mg p.o. daily. 2. Latanoprost 1 drop right eye at bedtime. 3. Naproxen sodium 220 mg p.o. b.i.d. p.r.n. 4. Carvedilol 3.125 mg p.o. b.i.d. with meals. 5. Furosemide 40 mg p.o. daily. 6. Aspirin 81 mg p.o. daily. 7. Lisinopril 20 mg p.o. b.i.d. 8. Spironolactone 50 mg p.o. daily. DISPOSITION: Patient is being discharged to home. Patient was seen and examined by nurse practitioner, Nanette Vega and all elements of the case discussed with attending, Dr. Cooper.
--- NOTE | 2016-11-22 10:07 | DS ---
DATE OF ADMISSION: 11/15/2016 DATE OF DISCHARGE: 11/20/2016 FINAL DIAGNOSES: 1. Acute on chronic congestive heart failure exacerbation from diastolic dysfunction, ejection fraction 60% to 65%, from underlying coronary artery disease. 2. Posttraumatic stress disorder. 3. Essential hypertension, accelerated, present on admission. 4. Troponin leak because of congestive heart failure. 5. Moderate aortic regurgitation, nonrheumatic. HOSPITAL COURSE: The patient presented with CHF exacerbation. Doing better at the time of discharge. The 2-D echo showed preserved LV function. The patient's blood pressure is running high. Medications had to be adjusted. Doing better by the time of discharge. On exam, lungs decreased breath sounds, clear. No edema. PSYCH: Alert and oriented x3. CONSULTATION: Dr. Tolentino from cardiology. DISCHARGE MEDICATIONS: 1. Proscar 5 mg p.o. daily. 2. Xalatan 0.005% one drop to right eye q.h.s. 3. Aleve 220 mg p.o. b.i.d. p.r.n. 4. Coreg 3.125 p.o. b.i.d. 5. Lasix 40 mg p.o. daily. 6. Aspirin 81 mg daily. 7. Zestril 20 mg p.o. b.i.d. 8. Aldactone 50 mg p.o. daily. Follow up with Dr. Tolentino in one week. Follow up with Dr. Edge in one week. BMP 3 to 5 days. Discharge planning more than 35 minutes including discussion with the patient.
== END 2016-11-20 15:27 | disposition home or self-care (01) | DRG 282 ==
LOC: EC 17:02 → 6SEL 19:50
PROVIDERS: ADMIT Hospitalist; ATTEND Hospitalist
DX: I11.0 Hypertensive heart disease with heart failure (principal); I21.4 Non-ST elevation (NSTEMI) myocardial infarction; I35.1 Nonrheumatic aortic (valve) insufficiency; I50.33 Acute on chronic diastolic (congestive) heart failure; Z95.1 Presence of aortocoronary bypass graft; E78.5 Hyperlipidemia, unspecified; F43.10 Post-traumatic stress disorder, unspecified; I16.0 Hypertensive urgency; H40.9 Unspecified glaucoma; I25.10 Atherosclerotic heart disease of native coronary artery without angina pectoris; Z79.899 Other long term (current) drug therapy; Z82.49 Family history of ischemic heart disease and other diseases of the circulatory system
CPT/HCPCS: 36415; 71020; 80048; 80053; 82550; 82553; 83880; 84443; 84484; 85025; 85610; 85730; 93005; 93306; 94760; 96365; 96366; 96375; 96376; 99285

== ENCOUNTER 2017-05-18 16:21 | Inpatient (IN) | payer MEDICARE ==
[2017-05-18] MEDS ORDERED: SODIUM CHLORIDE 0.9% 1,000 ML IV STA ×3 (16:44→20:50)
[2017-05-18] MEDS ORDERED: IPRATROPIUM-ALBUTEROL 3 ML NEB INHALATION STA (16:44)
--- NOTE | 2017-05-18 16:50 | ED ---
SOB HPI - General Chief Complaint: Shortness of Breath Stated Complaint: Diff Breathing Time Seen by Provider: 05/18/17 16:38 Source: patient, RN notes reviewed Mode of arrival: wheelchair Limitations: no limitations - History of Present Illness Initial Comments: This is a 82-year-old male history of COPD/emphysema who was brought in for 2 reasons they wanted shortness of breath with exertional dyspnea also for a left fifth toe that has infection to does not seem to be getting better with antibiotics. He's had an infection to his feet for about a month the right one seems be clearing up the left was not he's has exertional dyspnea he has some chills some cough no overt chest pain. MD Complaint: shortness of breath - Related Data Home Medications Medication Instructions Recorded Confirmed Finasteride [Proscar] 5 mg PO DAILY 11/15/16 05/18/17 Latanoprost [Xalatan 0.005%] 1 drop RIGHT EYE HS 11/15/16 05/18/17 Naproxen Sodium [Aleve] 220 mg PO BID PRN 11/15/16 05/18/17 Nystatin 100,000 Unit/gm Powd 1 applic TOPICAL TID 05/18/17 05/18/17 [Mycostatin Powder] Nystatin 100,000Unit/gm Cream 1 applic TOPICAL TID 05/18/17 05/18/17 [Mycostatin Cream] Spironolactone [Aldactone] 25 mg PO BID 05/18/17 05/18/17 Sulfamethoxazole/Trimethoprim 1 tab PO BID 05/18/17 05/18/17 [Bactrim DS 800-160 mg] Previous Rx's Medication Instructions Recorded Carvedilol [Coreg] 3.125 mg PO BID-W/MEALS #60 tab 11/18/16 Furosemide [Lasix] 40 mg PO DAILY #30 tab 11/18/16 Aspirin 81 mg PO DAILY 11/20/16 Lisinopril [Zestril] 20 mg PO BID #60 tab 11/20/16 Allergies Allergy/AdvReac Type Severity Reaction Status Date / Time No Known Allergies Allergy Verified 05/18/17 17:43 Review of Systems ROS Statement: Those systems with pertinent positive or pertinent negative responses have been documented in the HPI. ROS Other: All systems not noted in ROS Statement are negative. Past Medical History Past Medical History: Heart Failure, Eye Disorder, Hypertension Additional Past Medical History / Comment(s): glacoma, surgical procedure on bilateral eyes, PTSD History of Any Multi-Drug Resistant Organisms: None Reported Past Surgical History: Coronary Bypass/CABG, Tonsillectomy Past Anesthesia/Blood Transfusion Reactions: No Reported Reaction Past Psychological History: PTSD Smoking Status: Never smoker Past Alcohol Use History: None Reported Past Drug Use History: None Reported - Past Family History Father Family Medical History: Cancer, Congestive Heart Failure (CHF), Coronary Artery Disease (CAD) Mother Family Medical History: Congestive Heart Failure (CHF), Coronary Artery Disease (CAD) General Exam - General Exam Comments Initial Comments: This a well-developed well-nourished awake alert oriented times 3 male Limitations: no limitations General appearance: alert, anxious Head exam: Present: atraumatic, normocephalic, normal inspection Eye exam: Present: normal appearance, PERRL, EOMI. Absent: scleral icterus, conjunctival injection, periorbital swelling ENT exam: Present: normal exam, mucous membranes moist Neck exam: Present: normal inspection. Absent: tenderness, meningismus, lymphadenopathy Respiratory exam: Present: wheezes, accessory muscle use, decreased breath sounds. Absent: respiratory distress, rales, rhonchi, stridor Cardiovascular Exam: Present: normal rhythm, tachycardia, normal heart sounds. Absent: systolic murmur, diastolic murmur, rubs, gallop, clicks GI/Abdominal exam: Present: soft, normal bowel sounds. Absent: distended, tenderness, guarding, rebound, rigid Extremities exam: Present: full ROM, normal capillary refill, other ( Examination left lower sternum he demonstrates evidence of erythema with some ecchymosis over the left fifth toe no definite drainage. Is consistent with an infection. No lymphangitis.). Absent: tenderness, pedal edema, joint swelling , calf tenderness Back exam: Present: normal inspection Neurological exam: Present: alert, oriented X3, CN II-XII intact Psychiatric exam: Present: normal affect, normal mood Skin exam: Present: warm, dry, intact, normal color. Absent: rash Course Vital Signs 05/18/17 05/18/17 05/18/17 16:28 16:49 17:00 Temperature 96.9 F L Pulse Rate 62 90 89 Respiratory 22 Rate Blood Pressure 142/65 O2 Sat by Pulse 96 Oximetry 1105/18/17 05/18/17 17:08 17:30 17:57 Temperature Pulse Rate 99 Respiratory 20 20 Rate Blood Pressure 104/66 100/64 O2 Sat by Pulse Oximetry 05/18/17 18:48 Temperature Pulse Rate 94 Respiratory 19 Rate Blood Pressure 104/51 O2 Sat by Pulse Oximetry - Reevaluation(s) Reevaluation #1: 05/18/17 19:31 Patient is breathing somewhat better after the initial treatment repeat EKG was done shows a rate of 90 FL interval 232 QRS 90 QTC last QTC of 372/455 right axis deviation nonspecific ST configuration first-degree AV block who does appear to be some improvement in the T-wave configuration. Reevaluation #2: 05/18/17 19:32 I did discuss the case with Dr. Shore the initial treatment has begun. I also discussed. Dr. Fontanez. A repeat potassium level will be done about an hour after the initial treatment Medical Decision Making - Lab Data Result diagrams: 05/18/17 17:00 05/18/17 17:00 Lab Results 05/18/17 05/18/17 05/18/17 Range/Units 17:00 17:00 17:00 WBC 15.0 H (3.8-10.6) k/uL RBC 3.65 L (4.30-5.90) m/uL Hgb 11.7 L (13.0-17.5) gm/dL Hct 35.3 L (39.0-53.0) % MCV 96.8 (80.0-100.0) fL MCH 32.1 (25.0-35.0) pg MCHC 33.2 (31.0-37.0) g/dL RDW 13.8 (11.5-15.5) % Plt Count 261 (150-450) k/uL Neutrophils % 90 % Lymphocytes % 4 % Monocytes % 5 % Eosinophils % 1 % Basophils % 0 % Neutrophils # 13.5 H (1.3-7.7) k/uL Lymphocytes # 0.5 L (1.0-4.8) k/uL Monocytes # 0.7 (0-1.0) k/uL Eosinophils # 0.1 (0-0.7) k/uL Basophils # 0.1 (0-0.2) k/uL PT (9.0-12.0) sec INR (<1.2) APTT (22.0-30.0) sec Sodium 134 L (137-145) mmol/L Potassium 7.8 H* (3.5-5.1) mmol/L Chloride 100 (98-107) mmol/L Carbon Dioxide 18 L (22-30) mmol/L Anion Gap 16 mmol/L BUN 75 H (9-20) mg/dL Creatinine 5.40 H* (0.66-1.25) mg/dL Est GFR (MDRD) Af Amer 12 (>60 ml/min/1.73 sqM) Est GFR (MDRD) Non-Af 10 (>60 ml/min/1.73 sqM) Glucose 162 H (74-99) mg/dL Calcium 10.1 (8.4-10.2) mg/dL Magnesium 2.4 H (1.6-2.3) mg/dL Total Bilirubin 0.7 (0.2-1.3) mg/dL AST 34 (17-59) U/L ALT 29 (21-72) U/L Alkaline Phosphatase 77 (38-126) U/L Total Creatine Kinase 425 H (55-170) U/L CK-MB (CK-2) 9.7 H* (0.0-2.4) ng/mL CK-MB (CK-2) Rel Index 2.3 Troponin I 0.021 (0.000-0.034) ng/mL NT-Pro-B Natriuret Pep pg/mL Total Protein 7.3 (6.3-8.2) g/dL Albumin 4.4 (3.5-5.0) g/dL 05/18/17 05/18/17 Range/Units 17:00 17:00 WBC (3.8-10.6) k/uL RBC (4.30-5.90) m/uL Hgb (13.0-17.5) gm/dL Hct (39.0-53.0) % MCV (80.0-100.0) fL MCH (25.0-35.0) pg MCHC (31.0-37.0) g/dL RDW (11.5-15.5) % Plt Count (150-450) k/uL Neutrophils % % Lymphocytes % % Monocytes % % Eosinophils % % Basophils % % Neutrophils # (1.3-7.7) k/uL Lymphocytes # (1.0-4.8) k/uL Monocytes # (0-1.0) k/uL Eosinophils # (0-0.7) k/uL Basophils # (0-0.2) k/uL PT 11.3 (9.0-12.0) sec INR 1.1 (<1.2) APTT 22.1 (22.0-30.0) sec Sodium (137-145) mmol/L Potassium (3.5-5.1) mmol/L Chloride (98-107) mmol/L Carbon Dioxide (22-30) mmol/L Anion Gap mmol/L BUN (9-20) mg/dL Creatinine (0.66-1.25) mg/dL Est GFR (MDRD) Af Amer (>60 ml/min/1.73 sqM) Est GFR (MDRD) Non-Af (>60 ml/min/1.73 sqM) Glucose (74-99) mg/dL Calcium (8.4-10.2) mg/dL Magnesium (1.6-2.3) mg/dL Total Bilirubin (0.2-1.3) mg/dL AST (17-59) U/L ALT (21-72) U/L Alkaline Phosphatase (38-126) U/L Total Creatine Kinase (55-170) U/L CK-MB (CK-2) (0.0-2.4) ng/mL CK-MB (CK-2) Rel Index Troponin I (0.000-0.034) ng/mL NT-Pro-B Natriuret Pep 705 pg/mL Total Protein (6.3-8.2) g/dL Albumin (3.5-5.0) g/dL - EKG Data -: EKG Interpreted by Al EKG shows normal: sinus rhythm (Sinus rhythm rate of 71. Interval to 16 QRS 156 QT since QTC of 386/474 left exodeviation right bundle-branch block first degree AV block noted. Some artifact is present) Critical Care Time Critical Care Time: Yes Critical Care Time: 39 minutes of critical care time which includes initial presentation with history physical labs x-rays multiple re-evaluations the patient. Discussion with the admitting physician service discussion with nephrology and critical care medicine. Admission orders documentation the above. Disposition Clinical Impression: Acute renal failure, Hyperkalemia, COPD with exacerbation, Osteomyelitis of toe of left foot Disposition: ADMITTED IP TO THIS HOSP Condition: Serious Referrals: Tay Edge MD [Primary Care Provider] - 1-2 days
[2017-05-18 17:21] LABS: Basophils # (A) 0.1 k/uL (0-0.2); Basophils % (A) 0 %; CH 30.9; CHCM 32.2; Eosinophils # (A) 0.1 k/uL (0-0.7); Eosinophils % (A) 1 %; HCT 35.3 % (39.0-53.0); HDW 2.36; HGB 11.7 gm/dL (13.0-17.5); Luc % (Auto) 1; Lymphocytes # (A) 0.5 k/uL (1.0-4.8); Lymphocytes % (A) 4 %; MCH 32.1 pg (25.0-35.0); MCHC 33.2 g/dL (31.0-37.0); MCV 96.8 fL (80.0-100.0); Mean Platelet Volume 7.7; Monocytes # (A) 0.7 k/uL (0-1.0); Monocytes % (A) 5 %; Neutrophils # (A) 13.5 k/uL (1.3-7.7); Neutrophils % (A) 90 %; RBC 3.65 m/uL (4.30-5.90); RDW 13.8 % (11.5-15.5); WBC (Perox) 15.87
--- NOTE | 2017-05-18 17:21 | XR ---
EXAMINATION TYPE: XR foot limited LT , 2 VIEWS DATE OF EXAM ORDERED: 05/18/2017 HISTORY: Pain. COMPARISON: None. FINDINGS: There is generalized osteopenia likely on the basis of osteoporosis. There are mild degene rative changes in the first MTP joint. There is loss of cortical definition of the head of the fifth metatarsal. There is some associated soft tissue swelling. It would be difficult to exclude osteomyel itis. No fracture or dislocation is seen. IMPRESSION: 1. LOSS OF CORTICAL DEFINITION OF THE HEAD OF THE FIFTH METATARSAL MAY BE SECONDARY TO OSTEOMYELITIS. 2. MILD DEGENERATIVE CHANGE. 3. OSTEOPENIA.
--- NOTE | 2017-05-18 17:22 | XR ---
EXAMINATION TYPE: XR chest 2V DATE OF EXAM: 05/18/2017 HISTORY: difficulty breathing. REFERENCE: Previous study dated 11/19/2016. FINDINGS: There has been a midline sternotomy. Lungs are overinflated but clear. Pleural spaces are clear. Heart is mildly enlarged. There is a mild dextroscoliosis. IMPRESSION: 1. COPD. 2. MILD CARDIOMEGALY.
[2017-05-18 17:25] LABS: INR 1.1 (<1.2); Prothrombin Time 11.3 sec (9.0-12.0)
[2017-05-18 17:26] LABS: Partial Thromboplastin Time 22.1 sec (22.0-30.0)
[2017-05-18 17:29] LABS: Calcium 10.1 mg/dL (8.4-10.2); Magnesium 2.4 mg/dL (1.6-2.3); Total Bilirubin 0.7 mg/dL (0.2-1.3); Total Protein 7.3 g/dL (6.3-8.2)
[2017-05-18 17:32] LABS: Potassium 7.8 mmol/L (3.5-5.1)
[2017-05-18 17:38] LABS: Troponin I 0.021 ng/mL (0.000-0.034)
[2017-05-18 17:42] LABS: Creatine Kinase MB 9.7 ng/mL (0.0-2.4)
[2017-05-18] MEDS ORDERED: DEXTROSE 50%-WATER 50 ML SYRINGE IVP STA (18:06)
[2017-05-18] MEDS ORDERED: INSULIN REGULAR 100 UNIT/ML VIAL IV ONE ×2 (18:06→20:52)
[2017-05-18] MEDS ORDERED: SODIUM POLYSTYRENE SULFONATE 15 GM/60 ML BOTTLE PO ONE (18:07)
[2017-05-18] MEDS ORDERED: CALCIUM GLUCONATE 1,000 MG in SODIUM CHLORIDE 0.9% 100 ML IVPB ONE ×2 (18:07→20:52)
[2017-05-18] MEDS ORDERED: FUROSEMIDE 10 MG/ML 4 ML VIAL IV STA (18:07)
[2017-05-18] MEDS ORDERED: SODIUM BICARB 8.4% 50 ML SYR (1 MEQ/ML) IV STA (19:05)
[2017-05-18] MEDS ORDERED: IV VANCOMYCIN PER PHARMACY 1 EACH MISC MISCELLANE PRN (19:38)
[2017-05-18] MEDS ORDERED: NALOXONE 0.4 MG/ML 1 ML VIAL IV PRN (19:46)
[2017-05-18] MEDS ORDERED: ONDANSETRON 4 MG/2 ML VIAL IVP PRN (19:46)
[2017-05-18] MEDS ORDERED: NAPROXEN 250 MG TAB PO PRN (19:50)
[2017-05-18] MEDS ORDERED: VANCOMYCIN 1,500 MG in SODIUM CHLORIDE 0.9% 250 ML IVPB ONE (20:00)
[2017-05-18] MEDS: SODIUM CHLORIDE 0.9% 1,000 ML IV SCH (20:18)
[2017-05-18] MEDS ORDERED: DEXTROSE 50%-WATER 50 ML SYRINGE IVP ONE (20:52)
[2017-05-18] MEDS ORDERED: SODIUM BICARB 8.4% 50 ML SYR (1 MEQ/ML) IV ONE (20:52)
[2017-05-18] MEDS ORDERED: LISINOPRIL 20 MG TAB PO SCH ×2 (21:00)
[2017-05-18] MEDS ORDERED: SPIRONOLACTONE 25 MG TAB PO SCH (21:00)
[2017-05-18] MEDS ORDERED: SULFAMETHOX-TMP 800-160MG 1 EACH TAB PO SCH (21:00)
[2017-05-19] MEDS: LATANOPROST 0.005% OPHTH DROPS 2.5 ML BTL RIGHT EYE SCH ×2 (00:38→21:34)
[2017-05-19] MEDS: NYSTATIN 100,000UNIT/GM CREAM 30 GM TUBE TOPICAL SCH ×5 (00:38→23:42)
[2017-05-19 06:07] LABS: Calcium 8.6 mg/dL (8.4-10.2); Potassium 5.5 mmol/L (3.5-5.1)
[2017-05-19 06:11] LABS: Basophils % (A) 0 %; CH 31.5; CHCM 33.2; Eosinophils # (A) 0.4 k/uL (0-0.7); Eosinophils % (A) 5 %; HCT 27.7 % (39.0-53.0); HDW 2.44; Luc # (Auto) 0.09; Luc % (Auto) 1; Lymphocytes # (A) 0.6 k/uL (1.0-4.8); Lymphocytes % (A) 7 %; MCH 31.2 pg (25.0-35.0); MCHC 32.7 g/dL (31.0-37.0); MCV 95.6 fL (80.0-100.0); Mean Platelet Volume 7.1; Monocytes # (A) 0.4 k/uL (0-1.0); Monocytes % (A) 4 %; Neutrophils # (A) 7.7 k/uL (1.3-7.7); Neutrophils % (A) 84 %; RBC 2.89 m/uL (4.30-5.90); RDW 12.6 % (11.5-15.5); WBC 9.2 k/uL (3.8-10.6)
[2017-05-19] MEDS: NYSTATIN 100,000 UNIT/GM POWD 15 GM TOPICAL SCH ×4 (06:29→21:34)
[2017-05-19] MEDS: CARVEDILOL 3.125 MG TAB PO SCH ×2 (08:07→17:07)
[2017-05-19] MEDS: SODIUM CHLORIDE 0.9% 1,000 ML IV SCH ×2 (08:08→11:40)
[2017-05-19] MEDS: ASPIRIN 81 MG PO SCH (08:43)
[2017-05-19] MEDS: FINASTERIDE 5 MG TAB PO SCH (08:43)
--- NOTE | 2017-05-19 08:54 | P.NPCON ---
History of Present Illness - Reason for Consult acute renal failure, hyperkalemia - History of Present Illness Reason for consultation: Acute kidney injury and hyperkalemia next History of present illness: Patient is a 82-year-old male seen in renal consultation for acute kidney injury and hyperkalemia. His baseline creatinine is 1 and was elevated at 5.4 on admission. His potassium level was also elevated at 7.8 and he was acidotic as well. Patient presented to the hospital with generalized weakness and dyspnea. He denies any edema. He did note that his urine output had decreased quite a bit the last few days. He states his oral intake has been quite poor the last few days but he has been trying to drink to the best of his ability. And his home medications and to note that he was taking lisinopril as well as Aldactone, and Bactrim as well. Patient states she was taking Bactrim for foot infection which was started about 4-5 days ago. Additionally he admits to taking naproxen about 4-5 times in the last week or so as needed for pain. He denies hematuria or dysuria. His potassium was medically treated with IV insulin, bicarb, Lasix and also received calcium gluconate. His potassium level this morning is 5.5. He is nonoliguric. He has a Rock catheter in place. Denies fever or chills. Does admit to a chronic cough. He does have history of COPD. No history of diabetes. Vital signs are stable. General: The patient appeared well nourished and normally developed. HEENT: Head exam is unremarkable. Neck is without jugular venous distension. LUNGS: Lungs are clear to auscultation and percussion. Breath sounds decreased. HEART: Rate and Rhythm are regular. First and second heart sounds normal. No murmurs, rubs or gallops. ABDOMEN: Abdominal exam reveals normal bowel sounds. Non-tender and non- distended. No evidence of peritonitis. EXTREMITITES: No clubbing, cyanosis, or edema. Left toe erythema noted. No obvious drainage. Past Medical History Past Medical History: Heart Failure, Eye Disorder, Hypertension Additional Past Medical History / Comment(s): glaucoma, surgical procedure on bilateral eyes, PTSD, hernia History of Any Multi-Drug Resistant Organisms: None Reported Past Surgical History: Coronary Bypass/CABG, Tonsillectomy Additional Past Surgical History / Comment(s): CABG in 2004- numbness in left arm with activity before procedure Past Anesthesia/Blood Transfusion Reactions: No Reported Reaction Past Psychological History: PTSD Smoking Status: Never smoker Past Alcohol Use History: None Reported Past Drug Use History: None Reported - Past Family History Father Family Medical History: Cancer, Congestive Heart Failure (CHF), Coronary Artery Disease (CAD) Mother Family Medical History: Congestive Heart Failure (CHF), Coronary Artery Disease (CAD) Medications and Allergies Home Medications Medication Instructions Recorded Confirmed Type Finasteride [Proscar] 5 mg PO DAILY 11/15/16 05/18/17 History Latanoprost [Xalatan 0.005%] 1 drop RIGHT EYE HS 11/15/16 05/18/17 History Naproxen Sodium [Aleve] 220 mg PO BID PRN 11/15/16 05/18/17 History Carvedilol [Coreg] 3.125 mg PO BID-W/MEALS #60 tab 11/18/16 05/18/17 Rx Furosemide [Lasix] 40 mg PO DAILY #30 tab 11/18/16 05/18/17 Rx Aspirin 81 mg PO DAILY 11/20/16 05/18/17 Rx Lisinopril [Zestril] 20 mg PO BID #60 tab 11/20/16 05/18/17 Rx Nystatin 100,000 Unit/gm Powd 1 applic TOPICAL TID 05/18/17 05/18/17 History [Mycostatin Powder] Nystatin 100,000Unit/gm Cream 1 applic TOPICAL TID 05/18/17 05/18/17 History [Mycostatin Cream] Spironolactone [Aldactone] 25 mg PO BID 05/18/17 05/18/17 History Sulfamethoxazole/Trimethoprim 1 tab PO BID 05/18/17 05/18/17 History [Bactrim DS 800-160 mg] Allergies Allergy/AdvReac Type Severity Reaction Status Date / Time No Known Allergies Allergy Verified 05/18/17 17:43 Physical Exam Vitals: Vital Signs Temp Pulse Pulse Resp BP BP Pulse Ox 05/19/17 04:00 97.0 F L 102 H 20 95/57 93 L 05/19/17 00:00 96.8 F L 105 H 20 92/61 95 05/18/17 21:10 97.0 F L 112 H 20 132/68 93 L 05/18/17 20:54 97.7 F 89 19 108/59 92 L 05/18/17 18:48 94 19 104/51 05/18/17 17:57 100/64 05/18/17 17:30 99 20 104/66 05/18/17 17:08 20 05/18/17 17:00 89 05/18/17 16:49 90 05/18/17 16:28 96.9 F L 62 22 142/65 96 Intake and Output 05/18/17 05/19/17 05/19/17 22:59 06:59 14:59 Intake Total 1000 476 Output Total 700 Balance 300 476 Intake: Intake, IV Titration 1000 Amount Sodium Chloride 0.9% 1, 1000 000 ml @ 125 mls/hr IV . Q8H [facility] Rx#:[id number] Oral 476 Output: Urine 700 Other: Voiding Method Indwelling Catheter Weight 54 kg 53 kg Results - Lab Results Most recent lab results Calcium 8.6 mg/dL (8.4-10.2) 05/19/17 05:28 Magnesium 2.4 mg/dL (1.6-2.3) H 05/18/17 17:00 05/19/17 05:28 05/19/17 05:28 Assessment and Plan Plan: Assessment: #1. Nonoliguric acute kidney injury secondary to ATN secondary to poor oral intake and further worsened from the use of diuretics, TRUDY inhibitor as well as NSAIDs. Additionally he was started on Bactrim about a week ago which can further impair creatinine secretion. Creatinine was 5.4 on admission and is down to 4.4 today. His baseline creatinine is near 1. #2. Hyperkalemia secondary to acute kidney injury and further worsened with the use of TRUDY inhibitor, Aldactone and Bactrim. Improved with medical management. #3. Anemia. Rule out iron deficiency. #4. Benign hypertension. Blood pressures are now on the lower side. Antihypertensives held. #5. Metabolic acidosis secondary to acute kidney injury. Improved. Plan: Continue normal saline at 125 mL an hour. Check urinalysis. Check iron studies. Check renal ultrasound. Avoid nephrotoxic agents and hypotensive episodes. Hold TRUDY inhibitor, Aldactone, Bactrim and NSAIDs for now. Repeat potassium level at 4 PM today. Monitor vancomycin levels closely. Thank you for the consultation. I will continue to follow the patient with you during his hospital stay.
[2017-05-19] MEDS ORDERED: FUROSEMIDE 40 MG TAB PO SCH (09:00)
[2017-05-19] MEDS ORDERED: SPIRONOLACTONE 25 MG TAB PO SCH (09:00)
[2017-05-19] MEDS: LACTATED RINGERS 1,000 ML IV SCH ×2 (12:33→19:48)
--- NOTE | 2017-05-19 12:56 | US ---
EXAMINATION TYPE: US kidneys/renal and bladder DATE OF EXAM: 05/19/2017 COMPARISON: NONE CLINICAL HISTORY: [email or web address]. KEANU, renal failure, hyperkalemia EXAM MEASUREMENTS: Right Kidney: 9.6 x 4.4 x 4.0 cm Left Kidney: 9.6 x 4.8 x 4.2 cm Right Kidney: 1.2 x 1.1cm exophytic hypoechoic area lateral mid pole, inferior pole limited by overly ing bowel gas Left Kidney: 1.9 x 1.9 x 1.8cm isoechoic area mid pole, possibly a column of Anthony Bladder: not fully distended, lockett catheter Bilateral Jets seen: no There is cortical thinning bilaterally. Cortical medullary differentiation is maintained however shalini ical echogenicity is increased. IMPRESSION: Findings suggest medical renal disease. Cystic focus in the right kidney does not appear simple cysti c in exophytic location, consider follow-up to assess for stability. Possible column of 13 left kidne y, follow-up.
[2017-05-19 13:13] LABS: Appearance,Urine Clear (Clear); Bilirubin,Urine Negative (Negative); Glucose,Urine (UA) Negative (Negative); Ketones,Urine Negative (Negative); Leukocyte Esterase,Urine Trace (Negative); Nitrite,Urine Negative (Negative); Particle Count 412; Protein,Urine Negative (Negative); RBC,Urine 3 /hpf (0-5); UA Billing (MACRO vs. MICRO) MICRO; Urobilinogen,Urine <2.0 mg/dL (<2.0); WBC,Urine 3 /hpf (0-5)
--- NOTE | 2017-05-19 13:53 | HP ---
HISTORY AND PHYSICAL DATE OF ADMISSION: 05/18/2017 DATE OF SERVICE: 05/19/2017 PRESENTING COMPLAINT: Short of breath, weak, tired. HISTORY OF PRESENTING COMPLAINT: This is an 82-year-old patient with rather extensive medical history. The patient being followed by Dr. Edge. Chronic stable medical conditions include congestive heart failure, essential hypertension, posttraumatic stress disorder, moderate aortic regurgitation. Patient presents with couple of major symptoms. Number one, the patient has picked up an infection of the left foot started in the fourth toe, which has started to drain some pus, has become painful. The patient has become weak, tired, started to fall at home, although appetite has gone down. Denies any obvious fevers, feeling totally rundown, also short of breath. Sits up on the bed and sleeps. REVIEW OF SYSTEMS: CONSTITUTIONAL: Weak and tired. HEENT: None. RESPIRATORY: Shortness of breath. CARDIOVASCULAR: As above. No edema. GASTROINTESTINAL: None. GENITOURINARY: None. MUSCULOSKELETAL: Aches and pains in the joints. DERMATOLOGICAL: Changes on the toes. HEMATOLOGICAL: None. LYMPHATICS: None. PSYCHIATRY: Feels a bit low. NEUROLOGICAL: Falls with no focal weakness. PAST MEDICAL HISTORY: Congestive heart failure, diastolic dysfunction, hypertension, glaucoma, PTSD, coronary artery disease. PAST SURGICAL HISTORY: Coronary artery bypass, tonsillectomy. SOCIAL HISTORY: No smoking, no alcohol, lives by himself. FAMILY HISTORY: Coronary artery disease, congestive heart failure. HOME MEDICATIONS: 1. Coreg 3.125 p.o. b.i.d. 2. Naproxen 220 mg p.o. b.i.d. p.r.n. 3. Nystatin topical t.i.d. and cream. 4. Xalatan 0.005 one drop to right eye q.h.s. 5. Bactrim DS 1 tablet p.o. b.i.d. 6. Aldactone 25 p.o. b.i.d. 7. Zestril 20 mg p.o. b.i.d. 8. Lasix 40 mg p.o. daily. 9. Proscar 5 mg p.o. daily. 10.Aspirin 81 mg p.o. daily. ALLERGIES: None. PHYSICAL EXAMINATION: On examination, vital signs on presentation: Temperature 96.9, pulse 62, respiratory 22, blood pressure 142/65, pulse ox 96% on room air. GENERAL APPEARANCE: Average build, lying in bed, very tired-appearing. EYES: Pupils equal. Conjunctivae normal. HENT: Oral cavity normal. NECK: JVD not raised. Mass not palpable. RESPIRATORY: Effort . LUNGS: Diminished breath sounds. CARDIOVASCULAR: First and second sounds normal. Minimal edema. ABDOMEN: Soft, nontender. Liver and spleen not palpable. LYMPHATIC: No lymph node palpable in the neck or axillae. PSYCHIATRY: Alert and oriented x3. Mood affect very tired-appearing. EXTREMITIES: The patient has got shiny skin on both feet. Toes are somewhat red with changes of severe disfiguration and discoloration, yellow in nail/onychomycosis. The patient's left foot third and fourth toes rather red and inflamed and we cannot get a good distal pulse. INVESTIGATIONS: White count 15, hemoglobin 11.7, repeat is 9.0. Potassium 7.8, repeat is down to 5.5. BUN 75, creatinine 5.40. Patient's BUN and creatinine was 32/1.1 on 11/20/16. Troponin 0.021. Chest x-ray shows hyperinflation. No infiltrates reported. EKG poor tracing shows sinus rhythm. ASSESSMENT: 1. Acute renal failure probably nonoliguric, probably acute tubular necrosis probably from decreased oral intake and patient is also on multiple renal offensive drugs including Lasix, Zestril, Aldactone, Bactrim, and Aleve. 2. Benign prostatic hypertrophy. 3. Chronic congestive heart failure from diastolic dysfunction, ejection fraction 60% to 65% from underlying coronary artery disease. 4. Essential hypertension. 5. Posttraumatic stress disorder. 6. Moderate aortic regurgitation, nonrheumatic. 7. Coronary artery disease, prior history of coronary artery bypass. 8. Severe hyperkalemia secondary to renal failure and also being on TRUDY inhibitor. 9. Metabolic acidosis, present on admission. 10.Suspect peripheral arterial disease with poor palpable distal pulses and findings including shiny skin. 11.Severe onychomycosis in both the feet in all the nails. 12.Acute cellulitis, cannot rule out an abscess of the left foot fourth toe with some changes of ischemia. PLAN: The patient's renal offensive drugs all will be taken off including the Aleve, Bactrim DS, Zestril, Lasix. The patient will be put on lactated Ringer's to hydrate him. I will also add sodium bicarbonate. Nephrology is also consulted. I will also get a vascular surgery opinion. Patient will need a brachial and ankle index blood pressure measurement and assessment of his vascular status of lower extremity. Infectious Disease also will be consulted. The patient clinically does not have any active CHF. Care was discussed with the patient. Will follow closely. MMPETERL / IJN: [id number] /
[2017-05-19 15:01] LABS: Iron Saturation 13.81 (15.00-50.00)
[2017-05-19] MEDS ORDERED: IPRATROPIUM-ALBUTEROL 3 ML NEB INHALATION PRN (18:14)
[2017-05-19] MEDS: NITROGLYCERIN SL TABS 0.4 MG TAB SUBLINGUAL ONE ×2 (18:22→18:28)
[2017-05-19] MEDS: ACETAMINOPHEN TAB 325 MG TAB PO PRN (18:37)
[2017-05-19] MEDS ORDERED: VANCOMYCIN 1,000 MG in SODIUM CHLORIDE 0.9% 250 ML IVPB ONE (20:00)
[2017-05-19] MEDS: IPRATROPIUM-ALBUTEROL 3 ML NEB INHALATION SCH (20:47)
--- NOTE | 2017-05-19 23:04 | P.CONS ---
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 At the time of his evaluation he has evidence of acute renal failure with a creatinine above 5 as well as significant hyperkalemia with a potassium greater than 7. He was treated with the protocol of insulin glucose and calcium gluconate. His potassium now has improved. The patient relates she's not been feeling well for several days. She's had increasing weakness and increasing shortness of breath and profound fatigue. He relates that last week he was having difficulties with a new lesion onto his left foot. It was a blister and was somewhat tender. He also had some difficulty with some moisture between the toes of his left foot. There is related that he was seen in the outpatient setting was initiated to antibiotic therapy with trimethoprim sulfamethoxazole. The foot was getting in pain he was also taking over the counter nonsteroidals. The patient has been seen by nephrology. It is common for trimethoprim sulfamethoxazole to cause difficulties with renal failure, and specifically hyperkalemia. The patient also was an TURDY inhibitor as well as [id number] nonsteroidals. The patient is receiving fluid resuscitation and has improved. He still feels very poorly overall. Does not recall any specific trauma to the left foot fifth toe where the blister his form. It is however tender interferes with his ability to walk well. He doesn't like to have the sheets on his foot because it so tender. He is not recalling any significant fevers chills rigors or sweats. Review of Systems 82-year-old male feels very poorly. He has somewhat of an unkept appearance HEENT:Denies headache or acute visual change. Denies sinus or mouth discomforts. Denies neck stiffness or pain. Denies significant oral cavity pain. Denies difficulty on swallowing. Lungs: Denies significant shortness of breath, cough, sputum production, or hemoptysis. Cardiovascular: Denies significant shortness of breath, chest pain, chest wall pain, orthopnea, dyspnea on exertion, syncope Gastrointestinal:Denies nausea, vomiting, diarrhea, constipation, hematemesis, melena, hematochezia. No no significant change of bowel habit noticed. Musculoskeletal: denies significant myalgias or arthralgias. No new joint swelling. Denies new back pain. Skin: Denies new rash or lesions. No new ulcers or wounds are related.. Neuro: Denies headache or visual change. Denies any new onset weakness or difficulty with ambulation. Denies falls or seizures. Psychiatric:Denies anxiety or depression. Endocrine: Profound fatigue is losing some weight. He has noted decreased urinary output in the urine was dark Past Medical History Past Medical History: Heart Failure, Eye Disorder, Hypertension Additional Past Medical History / Comment(s): glacoma, surgical procedure on bilateral eyes, PTSD History of Any Multi-Drug Resistant Organisms: None Reported Past Surgical History: Coronary Bypass/CABG, Tonsillectomy Additional Past Surgical History / Comment(s): CABG in 2004- numbness in left arm with activity before procedure Past Anesthesia/Blood Transfusion Reactions: No Reported Reaction Past Psychological History: PTSD Additional Psychological History / Comment(s): Single, never . No children. 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 Born in [facility] emigrated [place] [facility] as a child is not returned back as an adult. Was a tobacco user. Denies alcohol or recreational drug use. Denied animal exposures Smoking Status: Never smoker Past Alcohol Use History: None Reported Past Drug Use History: None Reported - Past Family History Father Family Medical History: Cancer, Congestive Heart Failure (CHF), Coronary Artery Disease (CAD) Mother Family Medical History: Congestive Heart Failure (CHF), Coronary Artery Disease (CAD) Medications and Allergies Home Medications and Allergies Comment(s): Current Medications Acetaminophen (Tylenol Tab) 650 mg PO Q6HR PRN PRN Reason: Mild Pain or Fever > 100.5 Last Admin: 05/19/17 18:37 Dose: 650 mg Albuterol/Ipratropium (Duoneb 0.5 Mg-3 Mg/3 Ml Soln) 3 ml INHALATION RT-Q2H PRN PRN Reason: Shortness Of Breath Or Wheezing Albuterol/Ipratropium (Duoneb 0.5 Mg-3 Mg/3 Ml Soln) 3 ml INHALATION RT-QID [facility] Last Admin: 05/19/17 20:47 Dose: Not Given Aspirin (Aspirin) 81 mg PO DAILY [facility] Last Admin: 05/19/17 08:43 Dose: 81 mg Carvedilol (Coreg) 3.125 mg PO BID-W/MEALS [facility] Last Admin: 05/19/17 17:07 Dose: 3.125 mg Finasteride (Proscar) 5 mg PO DAILY [facility] Last Admin: 05/19/17 08:43 Dose: 5 mg Lactated Ringer's (Lactated Ringers) 1,000 mls @ 125 mls/hr IV .Q8H [facility] Last Admin: 05/19/17 19:48 Dose: 125 mls/hr Latanoprost (Xalatan 0.005%) 1 drops RIGHT EYE [facility] Last Admin: 05/19/17 21:34 Dose: 1 drops Miscellaneous Information (Pharmacy To Dose Iv Vancomycin) 1 each MISCELLANE DIRECTED PRN PRN Reason: Per Protocol Naloxone HCl (Narcan) 0.2 mg IV Q2M PRN PRN Reason: Opioid Reversal Nystatin (Mycostatin Powder) 1 applic TOPICAL TID [facility] Last Admin: 05/19/17 21:34 Dose: 1 applic Nystatin (Mycostatin Cream) 1 applic TOPICAL TID [facility] Last Admin: 05/19/17 21:34 Dose: 1 applic Ondansetron HCl (Zofran) 4 mg IVP Q8HR PRN PRN Reason: Nausea And Vomiting Home Medications Medication Instructions Recorded Confirmed Type Finasteride [Proscar] 5 mg PO DAILY 11/15/16 05/18/17 History Latanoprost [Xalatan 0.005%] 1 drop RIGHT EYE HS 11/15/16 05/18/17 History Naproxen Sodium [Aleve] 220 mg PO BID PRN 11/15/16 05/18/17 History Carvedilol [Coreg] 3.125 mg PO BID-W/MEALS #60 tab 11/18/16 05/18/17 Rx Furosemide [Lasix] 40 mg PO DAILY #30 tab 11/18/16 05/18/17 Rx Aspirin 81 mg PO DAILY 11/20/16 05/18/17 Rx Lisinopril [Zestril] 20 mg PO BID #60 tab 11/20/16 05/18/17 Rx Nystatin 100,000 Unit/gm Powd 1 applic TOPICAL TID 05/18/17 05/18/17 History [Mycostatin Powder] Nystatin 100,000Unit/gm Cream 1 applic TOPICAL TID 05/18/17 05/18/17 History [Mycostatin Cream] Spironolactone [Aldactone] 25 mg PO BID 05/18/17 05/18/17 History Sulfamethoxazole/Trimethoprim 1 tab PO BID 05/18/17 05/18/17 History [Bactrim DS 800-160 mg] Allergies Allergy/AdvReac Type Severity Reaction Status Date / Time No Known Allergies Allergy Verified 05/18/17 17:43 Physical Exam Vitals: Vital Signs Temp Pulse Pulse Resp BP Pulse Ox 05/19/17 20:00 98.7 F 77 16 105/55 97 05/19/17 19:38 84 05/19/17 19:25 84 05/19/17 18:35 93/54 05/19/17 18:30 119/54 05/19/17 18:15 98.2 F 79 14 116/84 96 05/19/17 15:17 97.6 F 71 20 103/59 05/19/17 11:41 97.5 F L 87 20 91/52 95 05/19/17 08:43 97 F L 77 18 86/48 94 L 05/19/17 04:00 97.0 F L 102 H 20 95/57 93 L 05/19/17 00:00 96.8 F L 105 H 20 92/61 95 Intake and Output 05/19/17 05/19/17 05/19/17 06:59 14:59 22:59 Intake Total 1000 1469 118 Output Total 700 1575 Balance 300 1469 -1457 Intake: Intake, IV Titration 1000 875 Amount Lactated Ringers 1,000 ml 125 @ 125 mls/hr IV .Q8H [facility]OF[facility] Rx#:[id number] Sodium Chloride 0.9% 1, 750 000 ml @ 100 mls/hr IV . Q10H STA Rx#:[id number] Sodium Chloride 0.9% 1, 1000 000 ml @ 125 mls/hr IV . Q8H ZOFIA Rx#:[id number] Oral 594 118 Output: Urine 700 1575 Other: Voiding Method Indwelling Catheter Indwelling Catheter Indwelling Catheter Weight 53 kg 82-year-old male who has a long uncut hair, it appeared that is not well trimmed. In is a very thin build HEENT: Anicteric conjunctiva are pink and moist nasal mucosa grossly intact without significant lesions, there is no thrush. Poor dentition Neck: The neck is supple without significant lymphadenopathy or thyromegaly. Lungs: Symmetrical air entry with few expiratory wheezes no bronchial sounds no dullness or egophony Heart: Regular rate and rhythm with an audible S1-S2, no S3 loud S4. There is no significant murmur click or rub, PMI was nondisplaced. Abdomen: Positive bowel sounds soft and nontender without palpable masses or organomegaly. There was no guarding or rebound. Extremities: The upper extremities have excellent pulses they are symmetric, no significant petechiae or telangiectasia. No splinter hemorrhages were noted. Lower extremities have some minimal edema that is symmetric. The right foot shows evidence ofan open lesions just some minimal cutaneous fungus between the toes. Left foot has evidence of the bullous lesion onto the fifth toe. There is bruising and erythema. It is quite tender to touch. There is also significant fungal infection in the toe interspaces on the left foot more significant than on the right. There is minimal erythema to the dorsum of the foot. No ascending erythema. Peripheral pulses are diminished bilaterally to the lower extremities. The foot is not cold. Capillary refill is about 3 seconds. The femoral arteries are bounding. Neuro: Awake alert oriented to person place and time. There are no acute new gross focal sensory motor deficits. Results CBC & Chem 7: 05/19/17 05:28 05/19/17 16:48 Labs: Abnormal Lab Results - Last 24 Hours (Table) 05/18/17 05/19/17 05/19/17 Range/Units 23:48 05:28 05:28 RBC 2.89 L (4.30-5.90) m/uL Hgb 9.0 L D (13.0-17.5) gm/dL Hct 27.7 L (39.0-53.0) % Lymphocytes # 0.6 L (1.0-4.8) k/uL Potassium 5.5 H 5.5 H (3.5-5.1) mmol/L BUN 67 H (9-20) mg/dL Creatinine 4.40 H (0.66-1.25) mg/dL Iron (65-175) ug/dL TIBC (228-460) ug/dL Iron Saturation (15.00-50.00) Ferritin (22.0-322.0) ng/mL Troponin I (0.000-0.034) ng/mL Urine Blood (Negative) Ur Leukocyte Esterase (Negative) 05/19/17 05/19/17 05/19/17 Range/Units 05:28 12:28 16:48 RBC (4.30-5.90) m/uL Hgb (13.0-17.5) gm/dL Hct (39.0-53.0) % Lymphocytes # (1.0-4.8) k/uL Potassium 5.4 H (3.5-5.1) mmol/L BUN (9-20) mg/dL Creatinine (0.66-1.25) mg/dL Iron 29 L (65-175) ug/dL TIBC 210 L (228-460) ug/dL Iron Saturation 13.81 L (15.00-50.00) Ferritin 774.1 H (22.0-322.0) ng/mL Troponin I (0.000-0.034) ng/mL Urine Blood Small H (Negative) Ur Leukocyte Esterase Trace H (Negative) 05/19/17 Range/Units 17:07 RBC (4.30-5.90) m/uL Hgb (13.0-17.5) gm/dL Hct (39.0-53.0) % Lymphocytes # (1.0-4.8) k/uL Potassium (3.5-5.1) mmol/L BUN (9-20) mg/dL Creatinine (0.66-1.25) mg/dL Iron (65-175) ug/dL TIBC (228-460) ug/dL Iron Saturation (15.00-50.00) Ferritin (22.0-322.0) ng/mL Troponin I 0.097 H* (0.000-0.034) ng/mL Urine Blood (Negative) Ur Leukocyte Esterase (Negative) Microbiology - Last 24 Hours (Table) 05/18/17 17:00 Blood Culture - Preliminary Blood No Growth after 24 hours Laboratory Results WBC 9.2 k/uL (3.8-10.6) 05/19/17 05:28 RBC 2.89 m/uL (4.30-5.90) L 05/19/17 05:28 Hgb 9.0 gm/dL (13.0-17.5) L D 05/19/17 05:28 Hct 27.7 % (39.0-53.0) L 05/19/17 05:28 MCV 95.6 fL (80.0-100.0) 05/19/17 05:28 MCH 31.2 pg (25.0-35.0) 05/19/17 05:28 MCHC 32.7 g/dL (31.0-37.0) 05/19/17 05:28 RDW 12.6 % (11.5-15.5) 05/19/17 05:28 Plt Count 167 k/uL (150-450) 05/19/17 05:28 Neutrophils % 84 % 05/19/17 05:28 Lymphocytes % 7 % 05/19/17 05:28 Monocytes % 4 % 05/19/17 05:28 Eosinophils % 5 % 05/19/17 05:28 Basophils % 0 % 05/19/17 05:28 Neutrophils # 7.7 k/uL (1.3-7.7) 05/19/17 05:28 Lymphocytes # 0.6 k/uL (1.0-4.8) L 05/19/17 05:28 Monocytes # 0.4 k/uL (0-1.0) 05/19/17 05:28 Eosinophils # 0.4 k/uL (0-0.7) 05/19/17 05:28 Basophils # 0.0 k/uL (0-0.2) 05/19/17 05:28 PT 11.3 sec (9.0-12.0) 05/18/17 17:00 INR 1.1 (<1.2) 05/18/17 17:00 APTT 22.1 sec (22.0-30.0) 05/18/17 17:00 Sodium 137 mmol/L (137-145) 05/19/17 05:28 Potassium 5.4 mmol/L (3.5-5.1) H 05/19/17 16:48 Chloride 103 mmol/L (98-107) 05/19/17 05:28 Carbon Dioxide 24 mmol/L (22-30) 05/19/17 05:28 Anion Gap 10 mmol/L 05/19/17 05:28 BUN 67 mg/dL (9-20) H 05/19/17 05:28 Creatinine 4.40 mg/dL (0.66-1.25) H 05/19/17 05:28 Est GFR (MDRD) Af Amer 16 (>60 ml/min/1.73 sqM) 05/19/17 05:28 Est GFR (MDRD) Non-Af 13 (>60 ml/min/1.73 sqM) 05/19/17 05:28 Glucose 87 mg/dL (74-99) 05/19/17 05:28 Plasma Lactic Acid Tucker 0.9 mmol/L (0.7-2.0) 05/19/17 05:28 Calcium 8.6 mg/dL (8.4-10.2) 05/19/17 05:28 Magnesium 2.4 mg/dL (1.6-2.3) H 05/18/17 17:00 Iron 29 ug/dL (65-175) L 05/19/17 05:28 TIBC 210 ug/dL (228-460) L 05/19/17 05:28 Iron Saturation 13.81 (15.00-50.00) L 05/19/17 05:28 Ferritin 774.1 ng/mL (22.0-322.0) H 05/19/17 05:28 Total Bilirubin 0.7 mg/dL (0.2-1.3) 05/18/17 17:00 AST 34 U/L (17-59) 05/18/17 17:00 ALT 29 U/L (21-72) 05/18/17 17:00 Alkaline Phosphatase 77 U/L (38-126) 05/18/17 17:00 Total Creatine Kinase 425 U/L (55-170) H 05/18/17 17:00 CK-MB (CK-2) 9.7 ng/mL (0.0-2.4) H* 05/18/17 17:00 CK-MB (CK-2) Rel Index 2.3 05/18/17 17:00 Troponin I 0.097 ng/mL (0.000-0.034) H* 05/19/17 17:07 NT-Pro-B Natriuret Pep 705 pg/mL 05/18/17 17:00 Total Protein 7.3 g/dL (6.3-8.2) 05/18/17 17:00 Albumin 4.4 g/dL (3.5-5.0) 05/18/17 17:00 Urine Color Light Yellow 05/19/17 12:28 Urine Appearance Clear (Clear) 05/19/17 12:28 Urine pH 7.0 (5.0-8.0) 05/19/17 12:28 Ur Specific Solon 1.010 (1.001-1.035) 05/19/17 12:28 Urine Protein Negative (Negative) 05/19/17 12:28 Urine Glucose (UA) Negative (Negative) 05/19/17 12:28 Urine Ketones Negative (Negative) 05/19/17 12:28 Urine Blood Small (Negative) H 05/19/17 12:28 Urine Nitrite Negative (Negative) 05/19/17 12:28 Urine Bilirubin Negative (Negative) 05/19/17 12:28 Urine Urobilinogen <2.0 mg/dL (<2.0) 05/19/17 12:28 Ur Leukocyte Esterase Trace (Negative) H 05/19/17 12:28 Urine RBC 3 /hpf (0-5) 05/19/17 12:28 Urine WBC 3 /hpf (0-5) 05/19/17 12:28 Random Vancomycin 15.4 ug/mL 05/19/17 05:28 Microbiology 05/18/17 17:00 Blood Blood Culture - Preliminary No Growth after 24 hours Assessment and Plan (1) Acute renal failure Current Visit: Yes Status: Acute Code(s): N17.9 - ACUTE KIDNEY FAILURE, UNSPECIFIED SNOMED Code(s): 21563102 (2) Hyperkalemia Current Visit: Yes Status: Acute Code(s): E87.5 - HYPERKALEMIA SNOMED Code (s): 08741304 (3) Osteomyelitis of toe of left foot Narrative/Plan: 82-year-old male presents to Hospital feeling poorly for many days. At admission he is not evidence of acute renal failure as well as hyperkalemia. As related he had been started on from trimethoprim sulfamethoxazole which can cause elevated creatinine as well as marked increase of potassium. The patient also was taking [id number] nonsteroidals as well as TRUDY inhibitor which had been discontinued by the motor vehicles inspector. He received fluid resuscitation and his potassium started to improve. His significant and severe hyperkalemia balsa responded well to therapy. Patient has evidence of the markedly abnormal x-ray to the fifth toe left foot with concerns to osteomyelitis. This is correlating somewhat to the site of the significant blister to this toe. The acuity is not clear. There is also a secondary fungal infection in the digital interspace. With the patient's acute renal failure vancomycin will be discontinued. Ceftaroline will be utilized for treatment of several pathogens including gram-negative organisms and MRSA to the site. He'll be dose adjusted for his renal failure. Local wound care will be initiated with antifungal therapy. Dry dressings will be utilized. Leukocytosis appears to multifactorial including acute renal failure as well as the infectious process to his left foot. Is on the x-ray shows evidence of possible colitis to the fifth metatarsal. If the patient becomes stable within consider further imaging study to determine the extent of this process. Current Visit: Yes Status: Acute Code(s): M86.9 - OSTEOMYELITIS, UNSPECIFIED SNOMED Code(s): 63569555
[2017-05-19] MEDS: CEFTAROLINE FOSAMIL 400 MG in SODIUM CHLORIDE 0.9% 250 ML IVPB SCH (23:34)
[2017-05-20] MEDS: IPRATROPIUM-ALBUTEROL 3 ML NEB INHALATION PRN (03:39)
[2017-05-20 04:02] LABS: Basophils % (A) 0 %; CH 31.1; CHCM 31.4; Eosinophils # (A) 0.9 k/uL (0-0.7); Eosinophils % (A) 13 %; HCT 26.7 % (39.0-53.0); HDW 2.27; HGB 8.3 gm/dL (13.0-17.5); Luc # (Auto) 0.07; Luc % (Auto) 1; Lymphocytes # (A) 0.5 k/uL (1.0-4.8); Lymphocytes % (A) 7 %; MCH 30.9 pg (25.0-35.0); MCV 99.7 fL (80.0-100.0); Mean Platelet Volume 7.5; Monocytes # (A) 0.4 k/uL (0-1.0); Monocytes % (A) 5 %; Neutrophils # (A) 5.4 k/uL (1.3-7.7); Neutrophils % (A) 74 %; RBC 2.67 m/uL (4.30-5.90); RDW 13.5 % (11.5-15.5); WBC 7.3 k/uL (3.8-10.6); WBC (Perox) 7.39
[2017-05-20 04:12] LABS: Calcium 8.1 mg/dL (8.4-10.2)
[2017-05-20] MEDS: LACTATED RINGERS 1,000 ML IV SCH ×2 (04:36→11:33)
[2017-05-20] MEDS: CARVEDILOL 3.125 MG TAB PO SCH ×2 (06:39→17:42)
[2017-05-20] MEDS: IPRATROPIUM-ALBUTEROL 3 ML NEB INHALATION SCH ×4 (07:58→20:21)
[2017-05-20] MEDS ORDERED: SULFAMETHOX-TMP 400-80MG 1 EACH TAB PO SCH (09:00)
[2017-05-20] MEDS: CEFTAROLINE FOSAMIL 400 MG in SODIUM CHLORIDE 0.9% 250 ML IVPB SCH ×2 (09:15→20:19)
[2017-05-20] MEDS: FINASTERIDE 5 MG TAB PO SCH (09:19)
[2017-05-20] MEDS: NYSTATIN 100,000 UNIT/GM POWD 15 GM TOPICAL SCH ×3 (09:19→21:58)
[2017-05-20] MEDS: ASPIRIN 81 MG PO SCH (09:19)
[2017-05-20] MEDS: NYSTATIN 100,000UNIT/GM CREAM 30 GM TUBE TOPICAL SCH ×5 (09:19→21:58)
--- NOTE | 2017-05-20 09:42 | CONS ---
CONSULTATION This 82 -year-old gentleman who has been admitted to [facility] with history of shortness of breath and noticed to have a left fifth toe infection and under the care of infectious disease. I was consulted for further evaluation. He had these symptoms for the last month. MEDICAL HISTORY: History of heart failure. Hypertension. SURGICAL HISTORY: Patient had coronary artery bypass, CABG done in the past. PHYSICAL EXAMINATION: NECK: Supple. No bruit appreciated. Chest is patient is wheezing bilateral. First and second sounds present. Vascular examination femorals are 1+. Posterior dorsalis tibialis not palpable. Patient has a left foot fifth toe some redness but no active discharge noted. At this point, the patient needs local wound care and IV antibiotics. If the patient need any surgical intervention, we will be involved. In the mean time, patient is being seen by infectious disease. Thank you very much for the consult. YOLANDA / LONNY: [id number] /
--- NOTE | 2017-05-20 12:49 | P.CRDCN ---
History of Present Illness Consult date: 05/20/17 Requesting physician: Winston Cooper Reason for Consult (text): chest pressure Chief complaint: Shortness of breath, chest pressure History of present illness: This is a pleasant 82-year-old gentleman does not follow regularly with a oil distributor tender. He has a history of noncompliance has been recently living with a friend and has been taking his medications as prescribed. He has a history of coronary artery disease with prior bypass surgery 12 years ago, hypertension , hyperlipidemia and diastolic heart failure. Most recent echocardiogram earlier this year showed an ejection fraction of 60-65% with moderate aortic regurgitation. Presented to the hospital with complaints of overall not feeling well describes himself as feeling like a wet noodle as well as infection in his toe and shortness of breath.. Admission, patient was found to be in acute renal failure with a BUN of 75 and creatinine 5.4. Renal function was noted to be normal in October. He has been on lisinopril 20 mg by mouth twice a day, Lasix 40 mg by mouth daily and Aldactone 25 mg by mouth twice a day. Troponins came back to be elevated at 0.097, 0.076 and 0.071. He did complain of some mild chest tightness and pressure with his shortness of breath. Upon examination this morning, patient is resting comfortably in bed. He denies further complaints of chest pressure. EKG was reviewed and does show sinus rhythm with ST-T wave abnormalities that are similar to previous EKG from October of this year. Past Medical History Past Medical History: Heart Failure, Eye Disorder, Hypertension Additional Past Medical History / Comment(s): glacoma, surgical procedure on bilateral eyes, PTSD History of Any Multi-Drug Resistant Organisms: None Reported Past Surgical History: Coronary Bypass/CABG, Tonsillectomy Additional Past Surgical History / Comment(s): CABG in 2004- numbness in left arm with activity before procedure Past Anesthesia/Blood Transfusion Reactions: No Reported Reaction Past Psychological History: PTSD Additional Psychological History / Comment(s): Single, never . No children. 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 Born in [facility] [place] [facility] as a child is not returned back as an adult. Was a tobacco user. Denies alcohol or recreational drug use. Denied animal exposures Smoking Status: Never smoker Past Alcohol Use History: None Reported Past Drug Use History: None Reported - Past Family History Father Family Medical History: Cancer, Congestive Heart Failure (CHF), Coronary Artery Disease (CAD) Mother Family Medical History: Congestive Heart Failure (CHF), Coronary Artery Disease (CAD) Medications and Allergies Home Medications Medication Instructions Recorded Confirmed Type Finasteride [Proscar] 5 mg PO DAILY 11/15/16 05/18/17 History Latanoprost [Xalatan 0.005%] 1 drop RIGHT EYE HS 11/15/16 05/18/17 History Naproxen Sodium [Aleve] 220 mg PO BID PRN 11/15/16 05/18/17 History Carvedilol [Coreg] 3.125 mg PO BID-W/MEALS #60 tab 11/18/16 05/18/17 Rx Furosemide [Lasix] 40 mg PO DAILY #30 tab 11/18/16 05/18/17 Rx Aspirin 81 mg PO DAILY 11/20/16 05/18/17 Rx Lisinopril [Zestril] 20 mg PO BID #60 tab 11/20/16 05/18/17 Rx Nystatin 100,000 Unit/gm Powd 1 applic TOPICAL TID 05/18/17 05/18/17 History [Mycostatin Powder] Nystatin 100,000Unit/gm Cream 1 applic TOPICAL TID 05/18/17 05/18/17 History [Mycostatin Cream] Spironolactone [Aldactone] 25 mg PO BID 05/18/17 05/18/17 History Sulfamethoxazole/Trimethoprim 1 tab PO BID 05/18/17 05/18/17 History [Bactrim DS 800-160 mg] Allergies Allergy/AdvReac Type Severity Reaction Status Date / Time No Known Allergies Allergy Verified 05/18/17 17:43 Physical Exam Vitals: Vital Signs Temp Pulse Pulse Resp BP Pulse Ox 05/20/17 08:08 72 05/20/17 08:01 66 0 L 05/20/17 08:00 97.2 F L 56 L 18 104/54 99 05/20/17 04:00 76 20 05/20/17 03:55 96.7 F L 76 20 138/81 98 05/20/17 03:52 76 05/20/17 03:39 72 05/19/17 23:06 70 19 05/19/17 23:01 98.3 F 70 19 125/64 96 05/19/17 20:00 98.7 F 77 16 105/55 97 05/19/17 19:38 84 05/19/17 19:25 84 05/19/17 18:35 93/54 05/19/17 18:30 119/54 05/19/17 18:15 98.2 F 79 14 116/84 96 05/19/17 15:17 97.6 F 71 20 103/59 05/19/17 11:41 97.5 F L 87 20 91/52 95 Intake and Output 05/19/17 05/20/17 05/20/17 22:59 06:59 14:59 Intake Total 118 750 Output Total 1575 700 Balance -1457 50 Intake: Intake, IV Titration 750 Amount Lactated Ringers 1,000 ml 500 @ 125 mls/hr IV .Q8H [facility] Rx#:[id number] Vancomycin 1,000 mg In 250 Sodium Chloride 0.9% 250 ml @ 125 mls/hr IVPB ONCE ONE Rx#:[id number] Oral 118 Output: Urine 1575 700 Other: Voiding Method Indwelling Catheter Indwelling Catheter Indwelling Catheter Weight 54.3 kg PHYSICAL EXAMINATION: HEENT: Head is atraumatic, normocephalic. Pupils equal, round. Neck is supple. There is no elevated jugular venous pressure. HEART EXAMINATION: Heart sounds regular, S1 and S2 with a systolic murmur. CHEST EXAMINATION: Lungs are clear to auscultation and precussion. No chest wall tenderness is noted on palpation or with deep breathing. ABDOMEN: Soft, nontender. Bowel sounds are heard. No organomegaly noted. EXTREMITIES: Diminished peripheral pulses with no evidence of peripheral edema and no calf tenderness noted. NEUROLOGIC patient is awake, drowsy and oriented x3. . Results 05/20/17 03:42 05/20/17 03:42 Cardiac Enzymes 05/19/17 05/19/17 05/20/17 Range/Units 17:07 23:48 03:42 Troponin I 0.097 H* 0.076 H* 0.071 H* (0.000-0.034) ng/mL CBC 05/20/17 Range/Units 03:42 WBC 7.3 (3.8-10.6) k/uL RBC 2.67 L (4.30-5.90) m/uL Hgb 8.3 L (13.0-17.5) gm/dL Hct 26.7 L (39.0-53.0) % Plt Count 114 L (150-450) k/uL Comprehensive Metabolic Panel 05/19/17 05/20/17 Range/Units 16:48 03:42 Sodium 132 L (137-145) mmol/L Potassium 5.4 H 5.0 (3.5-5.1) mmol/L Chloride 104 (98-107) mmol/L Carbon Dioxide 21 L (22-30) mmol/L BUN 52 H (9-20) mg/dL Creatinine 3.00 H (0.66-1.25) mg/dL Glucose 120 H (74-99) mg/dL Calcium 8.1 L (8.4-10.2) mg/dL Current Medications Generic Name Dose Route Start Last Admin Trade Name Freq PRN Reason Stop Dose Admin Acetaminophen 650 mg 05/18/17 19:46 05/19/17 18:37 Tylenol Tab PO 650 mg Q6HR PRN Administration Mild Pain or Fever > 100.5 Albuterol/Ipratropium 3 ml 05/19/17 18:14 05/20/17 03:39 Duoneb 0.5 Mg-3 Mg/3 Ml Soln INHALATION 3 ml RT-Q2H PRN Administration Shortness Of Breath Or Wheezing Albuterol/Ipratropium 3 ml 05/19/17 20:00 05/20/17 07:58 Duoneb 0.5 Mg-3 Mg/3 Ml Soln INHALATION 3 ml RT-QID ZOFIA Administration Aspirin 81 mg 05/19/17 09:00 05/20/17 09:19 Aspirin PO 81 mg DAILY ZOFIA Administration Carvedilol 3.125 mg 05/19/17 07:30 05/20/17 06:39 Coreg PO 3.125 mg BID-W/MEALS ZOFIA Administration Finasteride 5 mg 05/19/17 09:00 05/20/17 09:19 Proscar PO 5 mg DAILY ZOFIA Administration Lactated Ringer's 1,000 mls @ 125 mls/hr 05/19/17 12:15 05/20/17 04:36 Lactated Ringers IV 125 mls/hr .Q8H ZOFIA Administration Ceftaroline Fosamil 400 mg/ 250 mls @ 250 mls/hr 05/19/17 23:30 05/20/17 09: 15 Sodium Chloride IVPB 250 mls/hr Q12HR ZOFIA Administration Latanoprost 1 drops 05/18/17 21:00 05/19/17 21:34 Xalatan 0.005% RIGHT EYE 1 drops HS ZOFIA Administration Naloxone HCl 0.2 mg 05/18/17 19:46 Narcan IV Q2M PRN Opioid Reversal Nystatin 1 applic 05/18/17 22:00 05/20/17 09:19 Mycostatin Powder TOPICAL 1 applic TID ZOFIA Administration Nystatin 1 applic 05/18/17 22:00 05/20/17 09:19 Mycostatin Cream TOPICAL 1 applic TID ZOFIA Administration Nystatin 1 applic 05/19/17 23:15 05/20/17 09:19 Mycostatin Cream TOPICAL 1 applic BID ZOFIA Administration Ondansetron HCl 4 mg 05/18/17 19:46 Zofran IVP Q8HR PRN Nausea And Vomiting Intake and Output 05/19/17 05/20/17 05/20/17 22:59 06:59 14:59 Intake Total 118 750 Output Total 1575 700 Balance -1457 50 Intake: Intake, IV Titration 750 Amount Lactated Ringers 1,000 ml 500 @ 125 mls/hr IV .Q8H [facility] Rx#:[id number] Vancomycin 1,000 mg In 250 Sodium Chloride 0.9% 250 ml @ 125 mls/hr IVPB ONCE ONE Rx#:[id number] Oral 118 Output: Urine 1575 700 Other: Voiding Method Indwelling Catheter Indwelling Catheter Indwelling Catheter Weight 54.3 kg 05/20/17 03:42 05/20/17 03:42 Assessment and Plan Assessment: #1 acute renal failure #2 history of coronary artery disease with prior coronary artery bypass grafting surgery 12 years ago #3 hypertension #4 hyperlipidemia #5 diastolic congestive heart failure, chronic #6; falls #7 abnormal troponins, secondary to renal failure and not consistent with acute myocardial injury. Plan: From cardiology's perspective, elevation in troponin is not consistent with myocardial injury and likely secondary to acute renal failure. We will hydrate the patient. We will give 0.9 normal saline at 200 in our for 5 hours and then 125 mL an hour. We will obtain a 2-D echo with Doppler to reassess LV function. We will continue to follow the patient provide further recommendations accordingly. MONORAIL OPERATOR note has been reviewed, I agree with a documented findings and plan of care. Patient was seen and examined.
--- NOTE | 2017-05-20 13:15 | P.PN ---
Progress Note - Text Progress Note Date: 05/20/17 DATE OF SERVICE: 05/20/2017 PRESENTING COMPLAINT: Shortness of breath HISTORY OF PRESENT ILLNESS: 82-year-old male presented to the emergency department with 2 complaints first exertional dyspnea with chills and cough and second infection to his feet. The right foot seems to be clearing up left is not. Denies any fevers chills, did have general weakness feeling tired and rundown. Admitted for the same. INTERVAL HISTORY: 05/20/2017: Patient seen in follow-up, sitting up in the bed appears tired. Overnight patient complained of chest pressure, nitroglycerin given, EKG obtained troponins ordered cardiology consulted. No further episodes of chest pressure pain. Appetite improved slightly, left foot continues to be tender to palpation. Kidney function improving. REVIEW OF SYSTEMS: Done for constitutional ,cardiovascular, GI, pulmonary with relevant findings as above. CURRENT MEDICATIONS Tylenol, DuoNeb, aspirin, Coreg 3.125 mg by mouth twice a day, ceftriaxone 400 mg, Zofran 4 mg IV push PHYSICAL EXAM VITAL SIGNS: Temperature 97.2, pulse 56, respiratory rate 18, blood pressure 104/54, oxygen saturation 99% on 3 L. GENERAL APPEARANCE: Lying in bed, not in distress. EYES: Pupils equal. Conjunctiva normal. NECK: JVD not raised. Mass not palpable. RESPIRATORY: Respiratory effort normal. Lungs diminished with expiratory wheezing auscultation. CARDIOVASCULAR: First and second sounds normal. No edema. ABDOMEN: Soft. Liver and spleen not palpable. No tenderness. No mass palpable. PSYCHIATRY: Alert and oriented x3. Mood and affect normal. INVESTIGATIONS: Labs: Hemoglobin 8.3, sodium 132, BUN 52, creatinine 3.00 ASSESSMENT: -Acute renal failure probably nonoliguric, probably acute tubular necrosis probably from decreased oral intake the patient was also on multiple renal offensive drugs which have been held including Lasix, Zestril, Aldactone, Bactrim, and Aleve, improving -Benign prostatic hypertrophy. -Chronic congestive heart failure from diastolic dysfunction, ejection fraction 60% to 65% from underlying coronary artery disease. -Essential hypertension. -Posttraumatic stress disorder. -Moderate aortic regurgitation, nonrheumatic. -Coronary artery disease, prior history of coronary artery bypass. -Troponin leak from hemodynamic mismatch, not acute myocardial infarction. -Severe hyperkalemia secondary to renal failure and also being on an TRUDY inhibitor.resolved -Metabolic acidosis present on admission. -Suspect peripheral arterial disease with poor palpable distal pulses and findings including shiny skin. -History of onychomycosis in both feet and all the nails. -Acute cellulitis, cannot rule out an abscess of the left fourth toe with some changes of ischemia also consider underlying osteomyelitis PLAN: Continue holding Lasix, Zestril, Aldactone, Bactrim and Aleve, kidney function improving. Continue IV fluids and IV iron initiated by nephrology. No surgical intervention necessary per vascular surgery, infectious disease recommends Ceftaroline. Cardiology will provide additional fluids obtain a 2-D echo and reassess LV function, troponin leak not consistent with myocardial injury and is likely secondary to acute renal failure. Plan of care discussed at the bedside we will continue to follow. TRAFFIC SIGN ERECTION SUPERVISOR statement: Patient was seen and examined by nurse practitioner Nanette Vega and all elements of the case discussed with attending Dr. Cooper
--- NOTE | 2017-05-20 13:33 | PN ---
PROGRESS NOTE Patient is seen for followup for acute kidney injury. His renal function has improved with serum creatinine decreasing from 5.4-3.0 mg/dL. The patient has an indwelling Rock catheter with good urine output. The 24 hour urine output was at 2.2 L. The patient is a maintained on IV fluids at 100 mL an hour. EXAMINATION: Blood pressure is 108/52, heart rate 61 per minute. He is afebrile. Examination of the heart S1, S2. Examination lungs bilateral breath sounds are heard. Abdomen is soft, nontender. Examination lower extremities shows no evidence of edema. BLOCK CUBER exam is grossly intact. LABS: Sodium of 132, potassium 5.0, chloride 104, BUN 52, serum creatinine 3.0, hemoglobin was 8.3 g/dL. ASSESSMENT: 1. Acute kidney injury, prerenal, currently improving. 2. Hyperkalemia associated with acute kidney injury, use of Bactrim, Aldactone and TRUDY inhibitors, currently improving. 3. Metabolic acidosis secondary to renal failure, currently improved. 4. Anemia. Iron studies were ordered. Iron saturation was low at 13.8%. PLAN: Continue IV fluids. Encourage increased oral intake. Start IV iron and repeat labs in a.m. and continue to avoid nephrotoxic agents. MMODL / IJN: [id number] /
--- NOTE | 2017-05-20 13:36 | PN ---
PROGRESS NOTE DATE OF SERVICE: May 20 7. ATTENDING NOTE: The patient was seen and examined by me. I discussed with nurse practitioner, Juniormarisela. The patient with multiple issues. Lying in bed, tired appearing. Did tolerate some diet. PHYSICAL EXAMINATION: Temperature 97.6, pulse 52, respiratory 18, blood pressure pulse ox 92% on 2 L. lungs decreased breath sounds. Cardiovascular first and second sounds normal. Fungal infection of the feet, onychomycosis, interdigital infection. Also severely infected third and fourth toe. INVESTIGATIONS: White count 7.3, hemoglobin 8.3, BUN 32, creatinine 3.0. Blood cultures are pending. ASSESSMENT: 1. Acute renal failure probably nonoliguric, probably acute tubular necrosis. The patient is on multiple renal offensive drugs including Lasix, Zestril, Aldactone, Bactrim and Aleve, which all have been held now. 2. Benign prostatic hypertrophy. 3. Chronic congestive heart failure from diastolic dysfunction. Ejection fraction 60- 65% underlying coronary artery disease. 4. Essential hypertension. 5. Posttraumatic stress disorder. 6. Moderate aortic regurgitation nonrheumatic. 7. Coronary artery disease, prior history of coronary bypass. 8. Severe hypokalemia secondary to renal failure and also being on TRUDY inhibitor. Now improved. 9. Troponin leak from hemodynamic mismatch, not acute myocardial infarction. 10.Metabolic acidosis, present on admission. 11.Suspect peripheral artery disease with poor palpable distal pulses. 12.History of onychomycosis in both the feet and all the nails. 13.Acute cellulitis, cannot rule out abscess of the left foot, fourth toe, which is ischemia. Also consider underlying osteomyelitis. PLAN: At this point, the patient's Vancomycin will be switched over to ceftaroline because of renal failure. Other medication and treatment plan is to continue. IV fluids to continue. The patient also being followed by Nephrology, Infectious Disease and vascular surgery. Care was discussed with the patient. MMODL / IJN: [id number] /
[2017-05-20] MEDS: SODIUM FERRIC GLUCONAT-SUCROSE 125 MG in SODIUM CHLORIDE 0.9% 100 ML IVPB SCH (14:45)
[2017-05-20] MEDS: SODIUM CHLORIDE 0.9% 1,000 ML IV SCH ×3 (15:41→19:32)
[2017-05-20] MEDS: ACETAMINOPHEN TAB 325 MG TAB PO PRN (15:48)
--- NOTE | 2017-05-20 16:22 | P.PN ---
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 At the time of his evaluation he has evidence of acute renal failure with a creatinine above 5 as well as significant hyperkalemia with a potassium greater than 7. He was treated with the protocol of insulin glucose and calcium gluconate. His potassium now has improved. The patient relates she's not been feeling well for several days. She's had increasing weakness and increasing shortness of breath and profound fatigue. He relates that last week he was having difficulties with a new lesion onto his left foot. It was a blister and was somewhat tender. He also had some difficulty with some moisture between the toes of his left foot. There is related that he was seen in the outpatient setting was initiated to antibiotic therapy with trimethoprim sulfamethoxazole. The foot was getting in pain he was also taking over the counter nonsteroidals. The patient has been seen by nephrology. It is common for trimethoprim sulfamethoxazole to cause difficulties with renal failure, and specifically hyperkalemia. The patient also was an TRUDY inhibitor as well as [id number] nonsteroidals. The patient is receiving fluid resuscitation and has improved. He still feels very poorly overall. Does not recall any specific trauma to the left foot fifth toe where the blister his form. It is however tender interferes with his ability to walk well. He doesn't like to have the sheets on his foot because it so tender. He is not recalling any significant fevers chills rigors or sweats. Feeling somewhat better today. He has several visitors and they do see improvement also. Objective - Vital Signs Vital signs: Vital Signs Temp 97.0 F L 05/20/17 15:35 Pulse 67 05/20/17 16:00 Resp 16 05/20/17 16:00 BP 124/59 05/20/17 15:35 Pulse Ox 98 05/20/17 15:35 Intake & Output 05/19/17 05/20/17 05/20/17 18:59 06:59 18:59 Intake Total 1587 750 360 Output Total 1300 975 200 Balance 287 -225 160 Weight 54.3 kg 54.3 kg Intake: Intake, IV Titration 875 750 Amount Lactated Ringers 1,000 ml 125 500 @ 125 mls/hr IV .Q8H [facility] Rx#:[id number] Sodium Chloride 0.9% 1, 750 000 ml @ 100 mls/hr IV . Q10H [facility] Rx#:[id number] Vancomycin 1,000 mg In 250 Sodium Chloride 0.9% 250 ml @ 125 mls/hr IVPB ONCE ONE Rx#:[id number] Oral 712 360 Output: Urine 1300 975 200 Other: Voiding Method Indwelling Catheter Indwelling Catheter Indwelling Catheter # Voids 1 - Exam 82-year-old male who has a long uncut hair, it appeared that is not well trimmed. In is a very thin build HEENT: Anicteric conjunctiva are pink and moist nasal mucosa grossly intact without significant lesions, there is no thrush. Poor dentition Neck: The neck is supple without significant lymphadenopathy or thyromegaly. Lungs: Symmetrical air entry with few expiratory wheezes no bronchial sounds no dullness or egophony Heart: Regular rate and rhythm with an audible S1-S2, no S3 loud S4. There is no significant murmur click or rub, PMI was nondisplaced. Abdomen: Positive bowel sounds soft and nontender without palpable masses or organomegaly. There was no guarding or rebound. Extremities: The upper extremities have excellent pulses they are symmetric, no significant petechiae or telangiectasia. No splinter hemorrhages were noted. Lower extremities have some minimal edema that is symmetric. The right foot shows evidence ofan open lesions just some minimal cutaneous fungus between the toes. Left foot has evidence of the bullous lesion onto the fifth toe. There is bruising and erythema. It is quite tender to touch. There is also significant fungal infection in the toe interspaces on the left foot more significant than on the right. There is minimal erythema to the dorsum of the foot. No ascending erythema. Peripheral pulses are diminished bilaterally to the lower extremities. The foot is not cold. Capillary refill is about 3 seconds. The femoral arteries are bounding. Neuro: Awake alert oriented to person place and time. There are no acute new gross focal sensory motor deficits. - Labs CBC & Chem 7: 05/20/17 03:42 05/20/17 03:42 Labs: Abnormal Lab Results - Last 24 Hours (Table) 05/19/17 05/19/17 05/19/17 Range/Units 05:28 16:48 17:07 RBC (4.30-5.90) m/uL Hgb (13.0-17.5) gm/dL Hct (39.0-53.0) % Plt Count (150-450) k/uL Lymphocytes # (1.0-4.8) k/uL Eosinophils # (0-0.7) k/uL Sodium (137-145) mmol/L Potassium 5.4 H (3.5-5.1) mmol/L Carbon Dioxide (22-30) mmol/L BUN (9-20) mg/dL Creatinine (0.66-1.25) mg/dL Glucose (74-99) mg/dL Calcium (8.4-10.2) mg/dL Iron 29 L (65-175) ug/dL TIBC 210 L (228-460) ug/dL Iron Saturation 13.81 L (15.00-50.00) Ferritin 774.1 H (22.0-322.0) ng/mL Troponin I 0.097 H* (0.000-0.034) ng/mL 05/19/17 05/20/17 05/20/17 Range/Units 23:48 03:42 03:42 RBC (4.30-5.90) m/uL Hgb (13.0-17.5) gm/dL Hct (39.0-53.0) % Plt Count (150-450) k/uL Lymphocytes # (1.0-4.8) k/uL Eosinophils # (0-0.7) k/uL Sodium 132 L (137-145) mmol/L Potassium (3.5-5.1) mmol/L Carbon Dioxide 21 L (22-30) mmol/L BUN 52 H (9-20) mg/dL Creatinine 3.00 H (0.66-1.25) mg/dL Glucose 120 H (74-99) mg/dL Calcium 8.1 L (8.4-10.2) mg/dL Iron (65-175) ug/dL TIBC (228-460) ug/dL Iron Saturation (15.00-50.00) Ferritin (22.0-322.0) ng/mL Troponin I 0.076 H* 0.071 H* (0.000-0.034) ng/mL 05/20/17 Range/Units 03:42 RBC 2.67 L (4.30-5.90) m/uL Hgb 8.3 L (13.0-17.5) gm/dL Hct 26.7 L (39.0-53.0) % Plt Count 114 L (150-450) k/uL Lymphocytes # 0.5 L (1.0-4.8) k/uL Eosinophils # 0.9 H (0-0.7) k/uL Sodium (137-145) mmol/L Potassium (3.5-5.1) mmol/L Carbon Dioxide (22-30) mmol/L BUN (9-20) mg/dL Creatinine (0.66-1.25) mg/dL Glucose (74-99) mg/dL Calcium (8.4-10.2) mg/dL Iron (65-175) ug/dL TIBC (228-460) ug/dL Iron Saturation (15.00-50.00) Ferritin (22.0-322.0) ng/mL Troponin I (0.000-0.034) ng/mL Microbiology - Last 24 Hours (Table) 05/18/17 17:00 Blood Culture - Preliminary Blood No Growth after 24 hours Laboratory Results WBC 7.3 k/uL (3.8-10.6) 05/20/17 03:42 RBC 2.67 m/uL (4.30-5.90) L 05/20/17 03:42 Hgb 8.3 gm/dL (13.0-17.5) L 05/20/17 03:42 Hct 26.7 % (39.0-53.0) L 05/20/17 03:42 MCV 99.7 fL (80.0-100.0) 05/20/17 03:42 MCH 30.9 pg (25.0-35.0) 05/20/17 03:42 MCHC 31.0 g/dL (31.0-37.0) 05/20/17 03:42 RDW 13.5 % (11.5-15.5) 05/20/17 03:42 Plt Count 114 k/uL (150-450) L 05/20/17 03:42 Neutrophils % 74 % 05/20/17 03:42 Lymphocytes % 7 % 05/20/17 03:42 Monocytes % 5 % 05/20/17 03:42 Eosinophils % 13 % 05/20/17 03:42 Basophils % 0 % 05/20/17 03:42 Neutrophils # 5.4 k/uL (1.3-7.7) 05/20/17 03:42 Lymphocytes # 0.5 k/uL (1.0-4.8) L 05/20/17 03:42 Monocytes # 0.4 k/uL (0-1.0) 05/20/17 03:42 Eosinophils # 0.9 k/uL (0-0.7) H 05/20/17 03:42 Basophils # 0.0 k/uL (0-0.2) 05/20/17 03:42 PT 11.3 sec (9.0-12.0) 05/18/17 17:00 INR 1.1 (<1.2) 05/18/17 17:00 APTT 22.1 sec (22.0-30.0) 05/18/17 17:00 Sodium 132 mmol/L (137-145) L 05/20/17 03:42 Potassium 5.0 mmol/L (3.5-5.1) 05/20/17 03:42 Chloride 104 mmol/L (98-107) 05/20/17 03:42 Carbon Dioxide 21 mmol/L (22-30) L 05/20/17 03:42 Anion Gap 7 mmol/L 05/20/17 03:42 BUN 52 mg/dL (9-20) H 05/20/17 03:42 Creatinine 3.00 mg/dL (0.66-1.25) H 05/20/17 03:42 Est GFR (MDRD) Af Amer 24 (>60 ml/min/1.73 sqM) 05/20/17 03:42 Est GFR (MDRD) Non-Af 20 (>60 ml/min/1.73 sqM) 05/20/17 03:42 Glucose 120 mg/dL (74-99) H 05/20/17 03:42 Plasma Lactic Acid Tucker 1.6 mmol/L (0.7-2.0) 05/20/17 03:42 Calcium 8.1 mg/dL (8.4-10.2) L 05/20/17 03:42 Magnesium 2.0 mg/dL (1.6-2.3) 05/20/17 03:42 Iron 29 ug/dL (65-175) L 05/19/17 05:28 TIBC 210 ug/dL (228-460) L 05/19/17 05:28 Iron Saturation 13.81 (15.00-50.00) L 05/19/17 05:28 Ferritin 774.1 ng/mL (22.0-322.0) H 05/19/17 05:28 Total Bilirubin 0.7 mg/dL (0.2-1.3) 05/18/17 17:00 AST 34 U/L (17-59) 05/18/17 17:00 ALT 29 U/L (21-72) 05/18/17 17:00 Alkaline Phosphatase 77 U/L (38-126) 05/18/17 17:00 Total Creatine Kinase 425 U/L (55-170) H 05/18/17 17:00 CK-MB (CK-2) 9.7 ng/mL (0.0-2.4) H* 05/18/17 17:00 CK-MB (CK-2) Rel Index 2.3 05/18/17 17:00 Troponin I 0.071 ng/mL (0.000-0.034) H* 05/20/17 03:42 NT-Pro-B Natriuret Pep 705 pg/mL 05/18/17 17:00 Total Protein 7.3 g/dL (6.3-8.2) 05/18/17 17:00 Albumin 4.4 g/dL (3.5-5.0) 05/18/17 17:00 Urine Color Light Yellow 05/19/17 12:28 Urine Appearance Clear (Clear) 05/19/17 12:28 Urine pH 7.0 (5.0-8.0) 05/19/17 12:28 Ur Specific Romulus 1.010 (1.001-1.035) 05/19/17 12:28 Urine Protein Negative (Negative) 05/19/17 12:28 Urine Glucose (UA) Negative (Negative) 05/19/17 12:28 Urine Ketones Negative (Negative) 05/19/17 12:28 Urine Blood Small (Negative) H 05/19/17 12:28 Urine Nitrite Negative (Negative) 05/19/17 12:28 Urine Bilirubin Negative (Negative) 05/19/17 12:28 Urine Urobilinogen <2.0 mg/dL (<2.0) 05/19/17 12:28 Ur Leukocyte Esterase Trace (Negative) H 05/19/17 12:28 Urine RBC 3 /hpf (0-5) 05/19/17 12:28 Urine WBC 3 /hpf (0-5) 05/19/17 12:28 Random Vancomycin 15.4 ug/mL 05/19/17 05:28 Microbiology 05/18/17 17:00 Blood Blood Culture - Preliminary No Growth after 24 hours Assessment and Plan (1) Acute renal failure Current Visit: Yes Status: Acute Code(s): N17.9 - ACUTE KIDNEY FAILURE, UNSPECIFIED SNOMED Code(s): 42740513 (2) Hyperkalemia Current Visit: Yes Status: Acute Code(s): E87.5 - HYPERKALEMIA SNOMED Code (s): 20968658 (3) Osteomyelitis of toe of left foot Narrative/Plan: 82-year-old male presents to Hospital feeling poorly for many days. At admission he is not evidence of acute renal failure as well as hyperkalemia. As related he had been started on from trimethoprim sulfamethoxazole which can cause elevated creatinine as well as marked increase of potassium. The patient also was taking [id number] nonsteroidals as well as TRUDY inhibitor which had been discontinued by the pigment presser. He received fluid resuscitation and his potassium started to improve. His significant and severe hyperkalemia has responded well to therapy. Patient has evidence of the markedly abnormal x-ray to the fifth toe left foot with concerns to osteomyelitis. This is correlating somewhat to the site of the significant blister to this toe. The acuity is not clear. There is also a secondary fungal infection in the digital interspace. With the patient's acute renal failure vancomycin will be discontinued. Ceftaroline will be utilized for treatment of several pathogens including gram-negative organisms and MRSA to the site. He'll be dose adjusted for his renal failure. Local wound care will be initiated with antifungal therapy. Dry dressings will be utilized. Leukocytosis appears to multifactorial including acute renal failure as well as the infectious process to his left foot. Is on the x-ray shows evidence of possible osteomyelitis to the fifth metatarsal. If the patient becomes stable within consider further imaging study to determine the extent of this process. Current Visit: Yes Status: Acute Code(s): M86.9 - OSTEOMYELITIS, UNSPECIFIED SNOMED Code(s): 37470949
[2017-05-20] MEDS: LATANOPROST 0.005% OPHTH DROPS 2.5 ML BTL RIGHT EYE SCH (20:23)
[2017-05-21] MEDS: IPRATROPIUM-ALBUTEROL 3 ML NEB INHALATION PRN (03:22)
[2017-05-21] MEDS: SODIUM CHLORIDE 0.9% 1,000 ML IV SCH ×2 (03:55→17:02)
[2017-05-21 06:22] LABS: Basophils % (A) 0 %; CH 31.2; CHCM 32.1; Eosinophils # (A) 0.9 k/uL (0-0.7); Eosinophils % (A) 11 %; HCT 25.8 % (39.0-53.0); HDW 2.44; HGB 8.3 gm/dL (13.0-17.5); Luc # (Auto) 0.17; Luc % (Auto) 2; Lymphocytes # (A) 0.5 k/uL (1.0-4.8); Lymphocytes % (A) 6 %; MCH 31.4 pg (25.0-35.0); Mean Platelet Volume 7.2; Monocytes # (A) 0.4 k/uL (0-1.0); Monocytes % (A) 4 %; Neutrophils # (A) 6.4 k/uL (1.3-7.7); Neutrophils % (A) 77 %; RBC 2.63 m/uL (4.30-5.90); RDW 12.4 % (11.5-15.5); WBC 8.3 k/uL (3.8-10.6); WBC (Perox) 8.28
[2017-05-21 06:26] LABS: Calcium 7.9 mg/dL (8.4-10.2); Potassium 5.2 mmol/L (3.5-5.1)
[2017-05-21] MEDS: CARVEDILOL 3.125 MG TAB PO SCH ×2 (06:58→17:02)
[2017-05-21] MEDS: ASPIRIN 81 MG PO SCH (07:42)
[2017-05-21] MEDS: FINASTERIDE 5 MG TAB PO SCH (07:43)
[2017-05-21] MEDS: CEFTAROLINE FOSAMIL 400 MG in SODIUM CHLORIDE 0.9% 250 ML IVPB SCH ×2 (07:43→21:46)
[2017-05-21] MEDS: IPRATROPIUM-ALBUTEROL 3 ML NEB INHALATION SCH ×4 (08:03→20:24)
[2017-05-21] MEDS: SODIUM FERRIC GLUCONAT-SUCROSE 125 MG in SODIUM CHLORIDE 0.9% 100 ML IVPB SCH (08:50)
[2017-05-21] MEDS: NYSTATIN 100,000 UNIT/GM POWD 15 GM TOPICAL SCH ×3 (08:50→21:51)
[2017-05-21] MEDS: NYSTATIN 100,000UNIT/GM CREAM 30 GM TUBE TOPICAL SCH ×5 (08:50→21:48)
--- NOTE | 2017-05-21 08:52 | ECHOF ---
Referral Reason:chest pressure MEASUREMENTS -------- HEIGHT: 175.3 cm WEIGHT: 54.0 kg BP: 138/81 IVSd: 1.0 cm (0.6 - 1.1) LVIDd: 4.6 cm (3.9 - 5.3) LVPWd: 1.0 cm (0.6 - 1.1) IVSs: 1.6 cm LVIDs: 2.2 cm LVPWs: 2.0 cm Ao Diam: 4.1 cm (2.0 - 3.7) AV Cusp: 2.3 cm (1.5 - 2.6) LA Diam: 2.7 cm (2.7 - 3.8) MV EXCURSION: 6.941 mm (> 18.000) MV EF SLOPE: 43 mm/s (70 - 150) EPSS: 2.0 cm MV E Derrek: 1.29 m/s MV DecT: 254 ms MV A Derrek: 1.27 m/s MV E/A Ratio: 1.02 AR PHT: 351 ms RAP: 5.00 mmHg RVSP: 10.02 mmHg FINDINGS -------- Sinus rhythm. This was a technically good study. The left ventricular size is normal. Left ventricular wall thickness is normal. Overall left vent ricular systolic function is normal with, an EF between 55 - 60 %. Septal wall motion is delayed an d consistent with prior cardiac surgery. The right ventricle is normal in size and function. The left atrium is normal in size. The right atrium is normal in size. Aortic valve is trileaflet and is mildly thickened. There is moderate aortic regurgitation. The mitral valve leaflets are mildly thickened. Mild mitral annular calcification present. Modera te mitral regurgitation is present. Trace tricuspid regurgitation present. The right ventricular systolic pressure, as measured by Dopp ler, is 10.02mmHg. Pulmonic valve appears structurally normal. The aortic root is mildy dilated. Normal inferior vena cava with normal inspiratory collapse consistent with estimated right atrial pre ssure of 5 mmHg. The pericardium is normal. CONCLUSIONS -------- 1. Sinus rhythm. 2. This was a technically good study. 3. The left ventricular size is normal. 4. Left ventricular wall thickness is normal. 5. Overall left ventricular systolic function is normal with, an EF between 55 - 60 %. 6. Septal wall motion is delayed and consistent with prior cardiac surgery. 7. The right ventricle is normal in size and function. 8. The left atrium is normal in size. 9. The right atrium is normal in size. 10. Aortic valve is trileaflet and is mildly thickened. 11. There is moderate aortic regurgitation. 12. The mitral valve leaflets are mildly thickened. 13. Mild mitral annular calcification present. 14. Moderate mitral regurgitation is present. 15. Trace tricuspid regurgitation present. 16. The right ventricular systolic pressure, as measured by Doppler, is 10.02mmHg. 17. Pulmonic valve appears structurally normal. 18. The aortic root is mildy dilated. 19. Normal inferior vena cava with normal inspiratory collapse consistent with estimated right atrial pressure of 5 mmHg. 20. The pericardium is normal. F[employer]ER[employer]AT BUILDER: Anastasia Bond RDCS
--- NOTE | 2017-05-21 12:36 | PN ---
PROGRESS NOTE Grant Venegas has a lot of issues with his lower extremity toe ulcers and ischemia. His dorsalis pedis pulse is palpable, but it looks like the toes are both painful and probably ischemic and he is being seen by Dr. Bravo. Cardiac-lopez, ejection fraction is normal and his renal function has improved with hydration. I am recommending that we cut down the fluids to 75 mL/hour. Continue oral hydration. Vital signs are stable S1, S2 heard normally. Short systolic murmur noted. Lungs revealed decent air entry. Abdomen is soft. Lower extremity reveals no new findings. There is probably ischemia involving the toes and vascular surgery is already seeing the patient. We will continue to follow. MMODL / IJN: [id number] /
--- NOTE | 2017-05-21 15:10 | P.PN ---
Progress Note - Text Progress Note Date: 05/21/17 DATE OF SERVICE: 05/21/2017 PRESENTING COMPLAINT: Shortness of breath HISTORY OF PRESENT ILLNESS: 82-year-old male presented to the emergency department with 2 complaints first exertional dyspnea with chills and cough and second infection to his feet. The right foot seems to be clearing up left is not. Denies any fevers chills, did have general weakness feeling tired and rundown. Admitted for the same. INTERVAL HISTORY: 05/21/2017 Patient seen in follow-up, sitting up in the bed appears tired. Overnight patient complained of chest pressure, nitroglycerin given, EKG obtained troponins ordered cardiology consulted. No further episodes of chest pressure pain. Appetite improved slightly, left foot continues to be tender to palpation. Kidney function improving. REVIEW OF SYSTEMS: Done for constitutional ,cardiovascular, GI, pulmonary with relevant findings as above. CURRENT MEDICATIONS Tylenol, DuoNeb, aspirin, Coreg 3.125 mg by mouth twice a day,ceftaroline fosamil 400 mg IVP, Zofran 4 mg IV push PHYSICAL EXAM VITAL SIGNS: Temperature 97.2, pulse 56, respiratory rate 18, blood pressure 104/54, oxygen saturation 99% on 3 L. GENERAL APPEARANCE: Lying in bed, not in distress. EYES: Pupils equal. Conjunctiva normal. NECK: JVD not raised. Mass not palpable. RESPIRATORY: Respiratory effort normal. Lungs diminished with expiratory wheezing auscultation. CARDIOVASCULAR: First and second sounds normal. No edema. ABDOMEN: Soft. Liver and spleen not palpable. No tenderness. No mass palpable. PSYCHIATRY: Alert and oriented x3. Mood and affect normal. INVESTIGATIONS: Labs: Hemoglobin 8.3, sodium 132, BUN 52, creatinine 3.00 ASSESSMENT: -Acute renal failure probably nonoliguric, probably acute tubular necrosis probably from decreased oral intake the patient was also on multiple renal offensive drugs which have been held including Lasix, Zestril, Aldactone, Bactrim, and Aleve, improving -Benign prostatic hypertrophy. -Chronic congestive heart failure from diastolic dysfunction, ejection fraction 60% to 65% from underlying coronary artery disease. -Essential hypertension. -Posttraumatic stress disorder. -Moderate aortic regurgitation, nonrheumatic. -Coronary artery disease, prior history of coronary artery bypass. -Troponin leak from hemodynamic mismatch, not acute myocardial infarction. -Severe hypokalemia secondary to renal failure and also being on an TRUDY inhibitor.resolved -Metabolic acidosis present on admission. -Suspect peripheral arterial disease with poor palpable distal pulses. -History of onychomycosis in both feet and all the nails. -Acute osteomyelitis or the left 4th toe with fungal infection PLAN: Continue holding Lasix, Zestril, Aldactone, Bactrim and Aleve, kidney function continues to improve. Continue IV fluids and IV iron initiated by nephrology. infectious disease recommends Ceftaroline. Continue dressing changes with antifungal and dry dressing. Plan of care discussed at the bedside we will continue to follow. SOCIAL INSURANCE SPECIALIST statement: Patient was seen and examined by nurse practitioner Nanette Vega and all elements of the case discussed with attending Dr. Cooper
--- NOTE | 2017-05-21 16:27 | PN ---
PROGRESS NOTE Patient is seen for followup for acute kidney injury. His renal function has been progressively improving. The patient is currently sitting up in bed. He is comfortable. He is not in any acute distress. He has had good urine output in the indwelling Rock catheter. Urine output was about 3.2 L. Patient is also maintained on IV fluids at 75 mL an hour. EXAMINATION: Blood pressure was 142/71, heart rate 76 per minute. He is afebrile. Examination of the heart S1, S2. Examination lungs bilateral breath sounds are heard. Abdomen is soft, nontender. Examination lower extremities shows no evidence of edema. TECHNICAL RECRUITER exam shows patient moving all 4 extremities. LAB: Show sodium 135, potassium 5.2, BUN 32, serum creatinine 2.1, hemoglobin 8.3 g/dL. ASSESSMENT: 1. Acute kidney injury, prerenal, currently improving with IV hydration. 2. Hyperkalemia. The serum potassium has improved since admission, and it is down from 7.8 on initial admission, but remains on the high side, fluctuating between 5- 5.2 mEq/L. All the medications which can cause hyperkalemia have been discontinued. The patient should be maintained on a low-potassium diet. He is also mildly acidotic and will benefit from oral sodium bicarb. 3. Anemia with evidence of iron deficiency, maintained on IV iron. No active bleeding noted at this time. PLAN: 1. Maintain patient on low-potassium diet. Add oral sodium bicarb to help with the hyperkalemia. 2. Continue to avoid TRUDY inhibitors and Aldactone for now. MMODL / IJN: [id number] /
[2017-05-21] MEDS: ACETAMINOPHEN TAB 325 MG TAB PO PRN (21:21)
[2017-05-21] MEDS: LATANOPROST 0.005% OPHTH DROPS 2.5 ML BTL RIGHT EYE SCH (21:47)
[2017-05-21] MEDS: SODIUM BICARBONATE TAB 650 MG TAB PO SCH (21:49)
[2017-05-22] MEDS: SODIUM CHLORIDE 0.9% 1,000 ML IV SCH ×2 (01:06→06:44)
--- NOTE | 2017-05-22 06:00 | PN ---
PROGRESS NOTE DATE OF SERVICE: 05/21/2017 ATTENDING NOTE: Patient is seen and examined by me. Discussed with nurse practitioner, Ms. Vega. The patient is doing better, tolerating his diet. ON EXAMINATION: Afebrile, blood pressure 150/74. LUNGS: Decreased breath sounds. CARDIOVASCULAR: First and second sounds normal. Hemoglobin 8.3, potassium 5.2, BUN 32, creatinine 2.10. ASSESSMENT: 1. Acute renal failure likely acute tubular necrosis from multiple strokes, slow to improve. 2. Osteomyelitis of the left foot, toe along with fungal infection. PLAN: Continue current medication and treatment plan, antibiotics. Follow with Dr. Queen. MMJENNIFER / GWENDOLYNN: [id number] /
[2017-05-22 06:26] LABS: Basophils % (A) 0 %; CH 30.7; CHCM 31.3; Eosinophils # (A) 0.8 k/uL (0-0.7); Eosinophils % (A) 12 %; HCT 25.9 % (39.0-53.0); HDW 2.31; HGB 8.5 gm/dL (13.0-17.5); Luc # (Auto) 0.08; Luc % (Auto) 1; Lymphocytes # (A) 0.6 k/uL (1.0-4.8); Lymphocytes % (A) 10 %; MCH 32.4 pg (25.0-35.0); MCHC 32.8 g/dL (31.0-37.0); MCV 98.8 fL (80.0-100.0); Mean Platelet Volume 7.5; Monocytes # (A) 0.3 k/uL (0-1.0); Monocytes % (A) 5 %; Neutrophils # (A) 4.5 k/uL (1.3-7.7); Neutrophils % (A) 72 %; RBC 2.62 m/uL (4.30-5.90); RDW 13.3 % (11.5-15.5); WBC 6.2 k/uL (3.8-10.6); WBC (Perox) 6.78
[2017-05-22 06:42] LABS: Calcium 8.3 mg/dL (8.4-10.2); Potassium 5.2 mmol/L (3.5-5.1)
[2017-05-22] MEDS: IPRATROPIUM-ALBUTEROL 3 ML NEB INHALATION SCH ×4 (07:12→19:25)
[2017-05-22] MEDS: CARVEDILOL 3.125 MG TAB PO SCH ×2 (09:22→16:55)
[2017-05-22] MEDS: ASPIRIN 81 MG PO SCH (09:22)
[2017-05-22] MEDS: FINASTERIDE 5 MG TAB PO SCH (09:22)
[2017-05-22] MEDS: CEFTAROLINE FOSAMIL 400 MG in SODIUM CHLORIDE 0.9% 250 ML IVPB SCH ×2 (09:22→21:16)
[2017-05-22] MEDS: NYSTATIN 100,000 UNIT/GM POWD 15 GM TOPICAL SCH ×3 (09:23→21:17)
[2017-05-22] MEDS: NYSTATIN 100,000UNIT/GM CREAM 30 GM TUBE TOPICAL SCH ×5 (09:23→21:58)
[2017-05-22] MEDS: SODIUM BICARBONATE TAB 650 MG TAB PO SCH ×2 (09:23→22:06)
[2017-05-22] MEDS: SODIUM FERRIC GLUCONAT-SUCROSE 125 MG in SODIUM CHLORIDE 0.9% 100 ML IVPB SCH (10:30)
[2017-05-22] MEDS: ACETAMINOPHEN TAB 325 MG TAB PO PRN ×2 (10:40→21:15)
--- NOTE | 2017-05-22 12:38 | P.PN ---
Subjective Patient is seen in follow-up for acute kidney injury. Renal function continues to improve and creatinine is down to 1.73 today. Potassium level is stable at 5.2. He is nonoliguric. Oral intake is fair. No vomiting or diarrhea. Denies chest pain or shortness of breath. Vital signs are stable. General: The patient appeared well nourished and normally developed. HEENT: Head exam is unremarkable. Neck is without jugular venous distension. LUNGS: Lungs are clear to auscultation and percussion. Breath sounds decreased. HEART: Rate and Rhythm are regular. First and second heart sounds normal. No murmurs, rubs or gallops. ABDOMEN: Abdominal exam reveals normal bowel sounds. Non-tender and non- distended. No evidence of peritonitis. EXTREMITITES: No clubbing, cyanosis, or edema. Objective - Vital Signs Vital signs: Vital Signs Temp 98.0 F 05/22/17 08:00 Pulse 71 05/22/17 12:00 Resp 18 05/21/17 16:00 BP 143/75 05/22/17 12:00 Pulse Ox 97 05/22/17 12:00 Intake & Output 05/21/17 05/22/17 05/22/17 18:59 06:59 18:59 Intake Total 360 Output Total 1200 1300 1200 Balance -1200 -1300 -840 Weight 61 kg Intake: Oral 360 Output: Urine 1200 1300 1200 Other: Voiding Method Indwelling Catheter Bedside Commode Bedside Commode Urinal Urinal # Voids 0 # Bowel Movements 1 - Labs CBC & Chem 7: 05/22/17 05:44 05/22/17 05:44 Labs: Abnormal Lab Results - Last 24 Hours (Table) 05/22/17 05/22/17 Range/Units 05:44 05:44 RBC 2.62 L (4.30-5.90) m/uL Hgb 8.5 L (13.0-17.5) gm/dL Hct 25.9 L (39.0-53.0) % Plt Count 133 L (150-450) k/uL Lymphocytes # 0.6 L (1.0-4.8) k/uL Eosinophils # 0.8 H (0-0.7) k/uL Potassium 5.2 H (3.5-5.1) mmol/L Chloride 112 H (98-107) mmol/L Carbon Dioxide 18 L (22-30) mmol/L Creatinine 1.73 H (0.66-1.25) mg/dL Glucose 100 H (74-99) mg/dL Calcium 8.3 L (8.4-10.2) mg/dL Microbiology - Last 24 Hours (Table) 05/18/17 17:00 Blood Culture - Preliminary Blood No Growth after 72 hours Assessment and Plan Plan: Assessment: #1. Nonoliguric acute kidney injury, prerenal, secondary to NSAIDs and diuretics. Patient was also taking Bactrim prior to admission. Creatinine was elevated at 5.4 on admission and is down to 1.73 today. No evidence of hydronephrosis. Urinalysis benign. #2. Mild hyperkalemia secondary to acute kidney injury and metabolic acidosis. #3. Anemia with iron deficiency noted. Maintained on IV iron. #4. Metabolic acidosis secondary to acute kidney injury and IV fluids. Plan: Continue normal saline at 75 mL an hour. I will increase sodium bicarbonate to 1300 mg twice daily. Avoid nephrotoxic agents and hypotensive episodes. Repeat electrolytes in the morning.
--- NOTE | 2017-05-22 15:17 | PN ---
PROGRESS NOTE Mr. Venegas has issue of ischemia of his toes. Cardiac-lopez, he is stable. No chest pain. S1, S2 are normal. Short systolic murmur noted. Lungs are clear. Abdomen and lower extremity exam is unchanged. Plan is to move him to the regular medical floor. No intervention necessary from a cardiac standpoint at this time. MMODL / IJN: [id number] /
--- NOTE | 2017-05-22 16:46 | P.PN ---
Progress Note - Text Progress Note Date: 05/22/17 DATE OF SERVICE: 05/22/2017 PRESENTING COMPLAINT: Shortness of breath HISTORY OF PRESENT ILLNESS: 82-year-old male presented to the emergency department with 2 complaints first exertional dyspnea with chills and cough and second infection to his feet. The right foot seems to be clearing up left is not. Denies any fevers chills, did have general weakness feeling tired and rundown. Admitted for the same. INTERVAL HISTORY: 05/22/2017: Patient seen in follow-up sitting up in bed appears tired. No overnight complaints. Kidney functions slowly improving, Appetite slowly improving, left foot continues to be tender to palpation. Expect patient to transfer to general medicine floor today. 05/21/2017: Patient seen in follow-up, sitting up in the bed appears tired. Overnight patient complained of chest pressure, nitroglycerin given, EKG obtained troponins ordered cardiology consulted. No further episodes of chest pressure pain. Appetite improved slightly, left foot continues to be tender to palpation. Kidney function improving. REVIEW OF SYSTEMS: Done for constitutional ,cardiovascular, GI, pulmonary with relevant findings as above. CURRENT MEDICATIONS Tylenol, DuoNeb, aspirin, Coreg 3.125 mg by mouth twice a day, Ceftaroline 400 mg, ferric sodium gluconate 125 mg IV piggyback, Proscar 5 mg by mouth daily Zofran 4 mg IV push, Mycostatin powder apply to left foot 3 times a day, Mycostatin cream apply to left foot 3 times a day, sodium bicarbonate tablet 1300 mg by mouth twice a day, 0.9% normal saline at 75 mL an hour PHYSICAL EXAM VITAL SIGNS: Temp to 98.2, pulse 68, respiratory rate 16, blood pressure 177/79, oxygen saturation 97% on room air. GENERAL APPEARANCE: Lying in bed, not in distress. EYES: Pupils equal. Conjunctiva normal. NECK: JVD not raised. Mass not palpable. RESPIRATORY: Respiratory effort normal. Lungs diminished with expiratory wheezing auscultation. CARDIOVASCULAR: First and second sounds normal. No edema. ABDOMEN: Soft. Liver and spleen not palpable. No tenderness. No mass palpable. PSYCHIATRY: Alert and oriented x3. Mood and affect normal. INTEGUMENT: Left foot red and warm, left phalanx #5 red tender to palpation, peeling skin noted on all phalanges INVESTIGATIONS: Labs: Hemoglobin 8.5, potassium 5.2, BUN 20, creatinine 1.73, ASSESSMENT: -Acute renal failure probably nonoliguric, probably acute tubular necrosis probably from decreased oral intake the patient was also on multiple renal offensive drugs which have been held including Lasix, Zestril, Aldactone, Bactrim, and Aleve, improving -Benign prostatic hypertrophy. -Chronic congestive heart failure from diastolic dysfunction, ejection fraction 60% to 65% from underlying coronary artery disease. -Essential hypertension. -Posttraumatic stress disorder. -Moderate aortic regurgitation, nonrheumatic. -Coronary artery disease, prior history of coronary artery bypass. -Troponin leak from hemodynamic mismatch, not acute myocardial infarction. -Severe hypokalemia secondary to renal failure and also being on an TRUDY inhibitor.resolved -Metabolic acidosis present on admission. -Suspect peripheral arterial disease with poor palpable distal pulses. -History of onychomycosis in both feet and all the nails. -Acute osteomyelitis cannot rule out an abscess of the left fourth toe with some changes of ischemia also consider underlying osteomyelitis PLAN: Continue holding Lasix, Zestril, Aldactone, Bactrim and Aleve, kidney function continues to improve. Sodium bicarbonate increased to 1300 mg twice daily per nephrology. Continue IV fluids and IV iron initiated by nephrology. infectious disease recommends Ceftaroline. Continue dressing changes with antifungal and dry dressing. Plan of care discussed at the bedside we will continue to follow. INFORMAL WAITER/WAITRESS statement: Patient was seen and examined by nurse practitioner Nanette Vega and all elements of the case discussed with attending Dr. Cooper
--- NOTE | 2017-05-22 20:42 | PN ---
PROGRESS NOTE DATE OF SERVICE: 05/22/17. ATTENDING NOTE: This patient was seen and examined by me. I discussed with nurse practitioner, Ms. Vega. The patient is eating fair. Tired. Some pain in the feet. EXAMINATION: Fungal infection in the feet, some improvement. Redness of the toes slightly gone down. Afebrile. Blood pressure 150/69. Lungs fair entry. Cardiovascular first and second sounds normal. INVESTIGATIONS: White count 6.2, hemoglobin 8.5, potassium 5.2, creatinine 1.73. ASSESSMENT: Acute osteomyelitis of the toe especially of the left foot, fourth toe. PLAN: Continue current medication and treatment plan. The patient remains on IV ceftaroline. Follow renal function closely. MMODL / IJN: [id number] /
[2017-05-22] MEDS: LATANOPROST 0.005% OPHTH DROPS 2.5 ML BTL RIGHT EYE SCH (21:16)
[2017-05-22] MEDS ORDERED: CARVEDILOL 3.125 MG TAB PO STA (21:38)
--- NOTE | 2017-05-22 23:03 | P.PN ---
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 At the time of his evaluation he has evidence of acute renal failure with a creatinine above 5 as well as significant hyperkalemia with a potassium greater than 7. He was treated with the protocol of insulin glucose and calcium gluconate. His potassium now has improved. The patient relates she's not been feeling well for several days. She's had increasing weakness and increasing shortness of breath and profound fatigue. He relates that last week he was having difficulties with a new lesion onto his left foot. It was a blister and was somewhat tender. He also had some difficulty with some moisture between the toes of his left foot. There is related that he was seen in the outpatient setting was initiated to antibiotic therapy with trimethoprim sulfamethoxazole. The foot was getting in pain he was also taking over the counter nonsteroidals. The patient has been seen by nephrology. It is common for trimethoprim sulfamethoxazole to cause difficulties with renal failure, and specifically hyperkalemia. The patient also was an TRUDY inhibitor as well as [id number] nonsteroidals. The patient is receiving fluid resuscitation and has improved. He still feels very poorly overall. Does not recall any specific trauma to the left foot fifth toe where the blister his form. It is however tender interferes with his ability to walk well. He doesn't like to have the sheets on his foot because it so tender. He is not recalling any significant fevers chills rigors or sweats. Feeling somewhat better today. He has hadseveral visitors and they do see improvement also. Objective - Vital Signs Vital signs: Vital Signs Temp 96.7 F L 05/22/17 16:00 Pulse 62 05/22/17 19:35 Resp 16 05/22/17 16:00 BP 170/72 05/22/17 18:00 Pulse Ox 96 05/22/17 16:00 Intake & Output 05/22/17 05/22/17 05/23/17 06:59 18:59 06:59 Intake Total 360 Output Total 1300 1200 1800 Balance -1300 -840 -1800 Weight 61 kg Intake: Oral 360 Output: Urine 1300 1200 1800 Other: Voiding Method Bedside Commode Bedside Commode Urinal Urinal # Voids 0 - Exam 82-year-old male who has a long uncut hair, it appeared that is not well trimmed. In is a very thin build HEENT: Anicteric conjunctiva are pink and moist nasal mucosa grossly intact without significant lesions, there is no thrush. Poor dentition Neck: The neck is supple without significant lymphadenopathy or thyromegaly. Lungs: Symmetrical air entry with few expiratory wheezes no bronchial sounds no dullness or egophony Heart: Regular rate and rhythm with an audible S1-S2, no S3 loud S4. There is no significant murmur click or rub, PMI was nondisplaced. Abdomen: Positive bowel sounds soft and nontender without palpable masses or organomegaly. There was no guarding or rebound. Extremities: The upper extremities have excellent pulses they are symmetric, no significant petechiae or telangiectasia. No splinter hemorrhages were noted. Lower extremities have some minimal edema that is symmetric. The right foot shows evidence ofan open lesions just some minimal cutaneous fungus between the toes. Left foot has evidence of the bullous lesion onto the fifth toe. There is bruising and erythema. It is quite tender to touch. There is also significant fungal infection in the toe interspaces on the left foot more significant than on the right. There is minimal erythema to the dorsum of the foot. No ascending erythema. Peripheral pulses are diminished bilaterally to the lower extremities. The foot is not cold. Capillary refill is about 3 seconds. The femoral arteries are bounding. Neuro: Awake alert oriented to person place and time. There are no acute new gross focal sensory motor deficits. - Labs CBC & Chem 7: 05/22/17 05:44 05/22/17 05:44 Labs: Abnormal Lab Results - Last 24 Hours (Table) 05/22/17 05/22/17 Range/Units 05:44 05:44 RBC 2.62 L (4.30-5.90) m/uL Hgb 8.5 L (13.0-17.5) gm/dL Hct 25.9 L (39.0-53.0) % Plt Count 133 L (150-450) k/uL Lymphocytes # 0.6 L (1.0-4.8) k/uL Eosinophils # 0.8 H (0-0.7) k/uL Potassium 5.2 H (3.5-5.1) mmol/L Chloride 112 H (98-107) mmol/L Carbon Dioxide 18 L (22-30) mmol/L Creatinine 1.73 H (0.66-1.25) mg/dL Glucose 100 H (74-99) mg/dL Calcium 8.3 L (8.4-10.2) mg/dL Microbiology - Last 24 Hours (Table) 05/18/17 17:00 Blood Culture - Preliminary Blood No Growth after 96 hours Laboratory Results WBC 6.2 k/uL (3.8-10.6) 05/22/17 05:44 RBC 2.62 m/uL (4.30-5.90) L 05/22/17 05:44 Hgb 8.5 gm/dL (13.0-17.5) L 05/22/17 05:44 Hct 25.9 % (39.0-53.0) L 05/22/17 05:44 MCV 98.8 fL (80.0-100.0) 05/22/17 05:44 MCH 32.4 pg (25.0-35.0) 05/22/17 05:44 MCHC 32.8 g/dL (31.0-37.0) 05/22/17 05:44 RDW 13.3 % (11.5-15.5) 05/22/17 05:44 Plt Count 133 k/uL (150-450) L 05/22/17 05:44 Neutrophils % 72 % 05/22/17 05:44 Lymphocytes % 10 % 05/22/17 05:44 Monocytes % 5 % 05/22/17 05:44 Eosinophils % 12 % 05/22/17 05:44 Basophils % 0 % 05/22/17 05:44 Neutrophils # 4.5 k/uL (1.3-7.7) 05/22/17 05:44 Lymphocytes # 0.6 k/uL (1.0-4.8) L 05/22/17 05:44 Monocytes # 0.3 k/uL (0-1.0) 05/22/17 05:44 Eosinophils # 0.8 k/uL (0-0.7) H 05/22/17 05:44 Basophils # 0.0 k/uL (0-0.2) 05/22/17 05:44 PT 11.3 sec (9.0-12.0) 05/18/17 17:00 INR 1.1 (<1.2) 05/18/17 17:00 APTT 22.1 sec (22.0-30.0) 05/18/17 17:00 Sodium 137 mmol/L (137-145) 05/22/17 05:44 Potassium 5.2 mmol/L (3.5-5.1) H 05/22/17 05:44 Chloride 112 mmol/L (98-107) H 05/22/17 05:44 Carbon Dioxide 18 mmol/L (22-30) L 05/22/17 05:44 Anion Gap 7 mmol/L 05/22/17 05:44 BUN 20 mg/dL (9-20) 05/22/17 05:44 Creatinine 1.73 mg/dL (0.66-1.25) H 05/22/17 05:44 Est GFR (MDRD) Af Amer 46 (>60 ml/min/1.73 sqM) 05/22/17 05:44 Est GFR (MDRD) Non-Af 38 (>60 ml/min/1.73 sqM) 05/22/17 05:44 Glucose 100 mg/dL (74-99) H 05/22/17 05:44 Plasma Lactic Acid Tucker 1.6 mmol/L (0.7-2.0) 05/20/17 03:42 Calcium 8.3 mg/dL (8.4-10.2) L 05/22/17 05:44 Magnesium 2.0 mg/dL (1.6-2.3) 05/20/17 03:42 Iron 29 ug/dL (65-175) L 05/19/17 05:28 TIBC 210 ug/dL (228-460) L 05/19/17 05:28 Iron Saturation 13.81 (15.00-50.00) L 05/19/17 05:28 Ferritin 774.1 ng/mL (22.0-322.0) H 05/19/17 05:28 Total Bilirubin 0.7 mg/dL (0.2-1.3) 05/18/17 17:00 AST 34 U/L (17-59) 05/18/17 17:00 ALT 29 U/L (21-72) 05/18/17 17:00 Alkaline Phosphatase 77 U/L (38-126) 05/18/17 17:00 Total Creatine Kinase 425 U/L (55-170) H 05/18/17 17:00 CK-MB (CK-2) 9.7 ng/mL (0.0-2.4) H* 05/18/17 17:00 CK-MB (CK-2) Rel Index 2.3 05/18/17 17:00 Troponin I 0.071 ng/mL (0.000-0.034) H* 05/20/17 03:42 NT-Pro-B Natriuret Pep 705 pg/mL 05/18/17 17:00 Total Protein 7.3 g/dL (6.3-8.2) 05/18/17 17:00 Albumin 4.4 g/dL (3.5-5.0) 05/18/17 17:00 Urine Color Light Yellow 05/19/17 12:28 Urine Appearance Clear (Clear) 05/19/17 12:28 Urine pH 7.0 (5.0-8.0) 05/19/17 12:28 Ur Specific [place] 1.010 (1.001-1.035) 05/19/17 12:28 Urine Protein Negative (Negative) 05/19/17 12:28 Urine Glucose (UA) Negative (Negative) 05/19/17 12:28 Urine Ketones Negative (Negative) 05/19/17 12:28 Urine Blood Small (Negative) H 05/19/17 12:28 Urine Nitrite Negative (Negative) 05/19/17 12:28 Urine Bilirubin Negative (Negative) 05/19/17 12:28 Urine Urobilinogen <2.0 mg/dL (<2.0) 05/19/17 12:28 Ur Leukocyte Esterase Trace (Negative) H 05/19/17 12:28 Urine RBC 3 /hpf (0-5) 05/19/17 12:28 Urine WBC 3 /hpf (0-5) 05/19/17 12:28 Random Vancomycin 10.6 ug/mL 05/21/17 05:19 Microbiology 05/18/17 17:00 Blood Blood Culture - Preliminary No Growth after 96 hours Assessment and Plan (1) Acute renal failure Current Visit: Yes Status: Acute Code(s): N17.9 - ACUTE KIDNEY FAILURE, UNSPECIFIED SNOMED Code(s): 60715211 (2) Hyperkalemia Current Visit: Yes Status: Acute Code(s): E87.5 - HYPERKALEMIA SNOMED Code (s): 25177259 (3) Osteomyelitis of toe of left foot Narrative/Plan: 82-year-old male presents to Hospital feeling poorly for many days. At admission he is not evidence of acute renal failure as well as hyperkalemia. As related he had been started on from trimethoprim sulfamethoxazole which can cause elevated creatinine as well as marked increase of potassium. The patient also was taking [id number] nonsteroidals as well as TRUDY inhibitor which had been discontinued by the stereo map plotter operator. He received fluid resuscitation and his potassium started to improve. His significant and severe hyperkalemia has responded well to therapy. Patient has evidence of the markedly abnormal x-ray to the fifth toe left foot with concerns to osteomyelitis. This is correlating somewhat to the site of the significant blister to this toe. The acuity is not clear. There is also a secondary fungal infection in the digital interspace. With the patient's acute renal failure vancomycin will be discontinued. Ceftaroline will be utilized for treatment of several pathogens including gram-negative organisms and MRSA to the site. He'll be dose adjusted for his renal failure. Local wound care will be initiated with antifungal therapy. Dry dressings will be utilized. Leukocytosis appears to multifactorial including acute renal failure as well as the infectious process to his left foot. Is on the x-ray shows evidence of possible osteomyelitis to the fifth metatarsal. Bone scan will be requested continue local care. Renal failure is fortunately improving. Current Visit: Yes Status: Acute Code(s): M86.9 - OSTEOMYELITIS, UNSPECIFIED SNOMED Code(s): 84039026
[2017-05-23] MEDS: IPRATROPIUM-ALBUTEROL 3 ML NEB INHALATION SCH ×5 (00:34→19:27)
[2017-05-23] MEDS: SODIUM CHLORIDE 0.9% 1,000 ML IV SCH ×2 (05:43→15:52)
[2017-05-23] MEDS: SODIUM BICARBONATE TAB 650 MG TAB PO SCH ×3 (08:50→21:48)
[2017-05-23] MEDS: CEFTAROLINE FOSAMIL 400 MG in SODIUM CHLORIDE 0.9% 250 ML IVPB SCH ×2 (08:50→21:47)
[2017-05-23] MEDS: NYSTATIN 100,000 UNIT/GM POWD 15 GM TOPICAL SCH ×3 (08:50→21:47)
[2017-05-23] MEDS: CARVEDILOL 6.25 MG TAB PO SCH ×2 (08:50→17:30)
[2017-05-23] MEDS: FINASTERIDE 5 MG TAB PO SCH (08:50)
[2017-05-23] MEDS: ASPIRIN 81 MG PO SCH (08:50)
[2017-05-23] MEDS: NYSTATIN 100,000UNIT/GM CREAM 30 GM TUBE TOPICAL SCH ×5 (08:51→21:48)
[2017-05-23] MEDS ORDERED: hydrALAZINE HCL 20 MG/ML 1 ML VIAL IVP PRN (09:35)
[2017-05-23 10:01] LABS: Calcium 8.4 mg/dL (8.4-10.2); Magnesium 1.8 mg/dL (1.6-2.3); Potassium 5.6 mmol/L (3.5-5.1)
[2017-05-23] MEDS ORDERED: INSULIN REGULAR 100 UNIT/ML VIAL IV ONE (10:33)
[2017-05-23] MEDS ORDERED: DEXTROSE 10 % IN WATER 250 ML BAG IV STA (10:34)
--- NOTE | 2017-05-23 10:35 | P.PN ---
Subjective Patient is seen in follow-up for acute kidney injury. Renal function has improved since admission and creatinine is relatively stable at 1.8 today. Potassium level is a little higher at 5.6. He is nonoliguric. Oral intake is fair. No vomiting or diarrhea. Denies chest pain or shortness of breath. Vital signs are stable. General: The patient appeared well nourished and normally developed. HEENT: Head exam is unremarkable. Neck is without jugular venous distension. LUNGS: Lungs are clear to auscultation and percussion. Breath sounds decreased. HEART: Rate and Rhythm are regular. First and second heart sounds normal. No murmurs, rubs or gallops. ABDOMEN: Abdominal exam reveals normal bowel sounds. Non-tender and non- distended. No evidence of peritonitis. EXTREMITITES: No clubbing, cyanosis, or edema. Objective - Vital Signs Vital signs: Vital Signs Temp 97.6 F 05/23/17 07:00 Pulse 92 05/23/17 07:28 Resp 16 05/23/17 07:00 BP 196/88 05/23/17 07:00 Pulse Ox 96 05/23/17 07:18 Intake & Output 05/22/17 05/23/17 05/23/17 18:59 06:59 18:59 Intake Total 360 Output Total 1200 3100 175 Balance -840 -3100 -175 Weight 61.5 kg Intake: Oral 360 Output: Urine 1200 3100 Post Void Residual 175 Other: Voiding Method Bedside Commode Indwelling Catheter Urinal - Labs CBC & Chem 7: 05/22/17 05:44 05/23/17 09:01 Labs: Abnormal Lab Results - Last 24 Hours (Table) 05/23/17 Range/Units 09:01 Sodium 136 L (137-145) mmol/L Potassium 5.6 H (3.5-5.1) mmol/L Chloride 111 H (98-107) mmol/L Carbon Dioxide 17 L (22-30) mmol/L Creatinine 1.80 H (0.66-1.25) mg/dL Glucose 122 H (74-99) mg/dL Microbiology - Last 24 Hours (Table) 05/18/17 17:00 Blood Culture - Preliminary Blood No Growth after 96 hours Assessment and Plan Plan: Assessment: #1. Nonoliguric acute kidney injury, prerenal, secondary to NSAIDs and diuretics. Patient was also taking Bactrim prior to admission. Creatinine was elevated at 5.4 on admission and is stable at 1.8 today. No evidence of hydronephrosis. Urinalysis benign. #2. Mild hyperkalemia secondary to acute kidney injury and metabolic acidosis. #3. Anemia with iron deficiency noted. Maintained on IV iron. #4. Metabolic acidosis secondary to acute kidney injury and IV fluids. #5. Hypertension. Blood pressures on the higher side. Plan: Continue normal saline at 75 mL an hour. I will increase sodium bicarbonate to 1300 mg 3 times daily. I will give him 10 units of IV regular insulin with amp of D50. Continue with low potassium diet. Repeat potassium level at 5 PM today. Avoid nephrotoxic agents and hypotensive episodes. Repeat electrolytes in the morning. Add amlodipine 5 mg once daily. Add hydralazine 10 mg every 4 hours for systolic blood pressure greater than 160.
--- NOTE | 2017-05-23 13:43 | NM ---
EXAMINATION TYPE: NM bone 3 phase DATE OF EXAM: 05/23/2017 COMPARISON: Plain film left foot 05/18/2017 HISTORY: Osteomyelitis, abnormal x-ray of [, bone pain right foot Triple phase bone scintigraphy was performed following the injection of24.6 mCi Tc 99m MDP. Immediat e images and 5 hours post injection images acquired. FINDINGS: There is increased blood flow and blood pool imaging involving the left lower extremity as compared t o the right especially at the level of the digits. Focus of increased uptake also present in the midf oot. Delayed imaging shows abnormal uptake or possibly along the distribution of the first digit of t he left foot. IMPRESSION: No scintigraphic evidence of osteomyelitis to the fifth digit of the left or right foot. Uptake of th e first digit of the left foot could be degenerative or posttraumatic, infection felt to be less like ly. Correlate to exclude cellulitis to the left foot.
--- NOTE | 2017-05-23 14:34 | P.PN ---
Progress Note - Text Progress Note Date: 05/23/17 DATE OF SERVICE: 05/23/2017 PRESENTING COMPLAINT: Shortness of breath HISTORY OF PRESENT ILLNESS: 82-year-old male presented to the emergency department with 2 complaints first exertional dyspnea with chills and cough and second infection to his feet. The right foot seems to be clearing up left is not. Denies any fevers chills, did have general weakness feeling tired and rundown. Admitted for the same. INTERVAL HISTORY: 05/23/2017: Patient seen in follow-up, sitting in the bed appears tired. Overnight patient had some difficulty breathing which was related to him being anxious. Patient agrees he was feeling anxious however discussed with him the idea of taking Xanax and he was not keen on it. Hyperkalemia today. Tolerating his diet, appetite improving eating about 50%, up in the chair with assistance, scheduled for a bone scan today. Last BM 05/21/2017 05/22/2017: Patient seen in follow-up sitting up in bed appears tired. No overnight complaints. Kidney functions slowly improving, Appetite slowly improving, left foot continues to be tender to palpation. Expect patient to transfer to general medicine floor today. 05/21/2017: Patient seen in follow-up, sitting up in the bed appears tired. Overnight patient complained of chest pressure, nitroglycerin given, EKG obtained troponins ordered cardiology consulted. No further episodes of chest pressure pain. Appetite improved slightly, left foot continues to be tender to palpation. Kidney function improving. REVIEW OF SYSTEMS: Done for constitutional ,cardiovascular, GI, pulmonary with relevant findings as above. CURRENT MEDICATIONS Tylenol, DuoNeb, aspirin, Coreg 3.125 mg by mouth twice a day, Ceftaroline 400 mg, Proscar 5 mg by mouth daily, Apresoline 10 mg IV push every 4 hours when necessary, Zofran 4 mg IV push, Mycostatin powder apply to left foot 3 times a day, Mycostatin cream apply to left foot 3 times a day, sodium bicarbonate tablet 1300 mg by mouth twice a day, 0.9% normal saline at 75 mL an hour PHYSICAL EXAM VITAL SIGNS: Temperature 97.6, pulse 69, respiratory rate 16, blood pressure 160/84, oxygen saturation 98% on room air. GENERAL APPEARANCE: Lying in bed, not in distress. EYES: Pupils equal. Conjunctiva normal. NECK: JVD not raised. Mass not palpable. RESPIRATORY: Respiratory effort normal. Lungs diminished with expiratory wheezing auscultation. CARDIOVASCULAR: First and second sounds normal. No edema. ABDOMEN: Soft. Liver and spleen not palpable. No tenderness. No mass palpable. PSYCHIATRY: Alert and oriented x3. Mood and affect normal. INTEGUMENT: Left foot red and warm, left phalanx #5 red tender to palpation, peeling skin noted on all phalanges INVESTIGATIONS: Labs: Sodium 136, potassium 5.6, BUN 19, creatinine 1.80 Bone scan: No scintigraphic evidence of osteomyelitis to the fifth digit of the left or right foot. Uptake of the first digit of the left foot could be degenerative or posttraumatic, infection felt to be less likely. Correlate to exclude cellulitis of the left foot. ASSESSMENT: -Acute renal failure probably nonoliguric, probably acute tubular necrosis probably from decreased oral intake the patient was also on multiple renal offensive drugs which have been held including Lasix, Zestril, Aldactone, Bactrim, and Aleve, improving -Benign prostatic hypertrophy. -Chronic congestive heart failure from diastolic dysfunction, ejection fraction 60% to 65% from underlying coronary artery disease. -Essential hypertension. -Posttraumatic stress disorder. -Moderate aortic regurgitation, nonrheumatic. -Coronary artery disease, prior history of coronary artery bypass. -Troponin leak from hemodynamic mismatch, not acute myocardial infarction. -Severe hypokalemia secondary to renal failure and also being on an TRUDY inhibitor.resolved -Metabolic acidosis present on admission. -Suspect peripheral arterial disease with poor palpable distal pulses. -History of onychomycosis in both feet and all the nails. -Acute osteomyelitis cannot rule out an abscess of the left fourth toe with some changes of ischemia also consider underlying osteomyelitis PLAN: Continue holding Lasix, Zestril, Aldactone, Bactrim and Aleve, kidney function continues to improve. Continue sodium bicarbonate, IV fluids, received 10 units of regular insulin and an amp of dextrose per nephrology for hyperkalemia. Amlodipine 5 mg daily and hydralazine 10 mg every 4 hours added force blood pressure greater than 160 systolic. Continue Ceftaroline and dressing changes with antifungal and dry dressing per ID. Plan of care discussed at the bedside we will continue to follow. MANAGER MEETING statement: Patient was seen and examined by nurse practitioner Nanette Vega and all elements of the case discussed with attending Dr. Cooper
[2017-05-23] MEDS: LATANOPROST 0.005% OPHTH DROPS 2.5 ML BTL RIGHT EYE SCH (21:47)
--- NOTE | 2017-05-23 22:19 | PN ---
PROGRESS NOTE DATE OF SERVICE: 05/23/2017 ATTENDING NOTE: Patient was seen and examined by me. I discussed with my nurse practitioner, Ms. Vega. The patient is feeling better today, is going for a bone scan, is tolerating his diet. EXAMINATION: Temperature 97, pulse 80, respirations 20, blood pressure 159/39. LUNGS: Decreased breath sounds. CARDIOVASCULAR: First and second sounds normal. INVESTIGATIONS: Potassium 5.3, repeat 5.1, creatinine down to 1.8. Bone scan is negative. 1. Acute renal failure, improving. Maybe the patient has a chronic component. 2. Acute cellulitis and abscess of the left 4th toe with acute osteomyelitis unlikely per the bone scan. PLAN: Patient is on IV ceftaroline. Await further input from Dr. Queen. Continue current medication and treatment plan. MMODL / IJN: [id number] /
--- NOTE | 2017-05-23 22:43 | P.PN ---
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 At the time of his evaluation he has evidence of acute renal failure with a creatinine above 5 as well as significant hyperkalemia with a potassium greater than 7. He was treated with the protocol of insulin glucose and calcium gluconate. His potassium now has improved. The patient relates she's not been feeling well for several days. She's had increasing weakness and increasing shortness of breath and profound fatigue. He relates that last week he was having difficulties with a new lesion onto his left foot. It was a blister and was somewhat tender. He also had some difficulty with some moisture between the toes of his left foot. There is related that he was seen in the outpatient setting was initiated to antibiotic therapy with trimethoprim sulfamethoxazole. The foot was getting in pain he was also taking over the counter nonsteroidals. The patient has been seen by nephrology. It is common for trimethoprim sulfamethoxazole to cause difficulties with renal failure, and specifically hyperkalemia. The patient also was an TRUDY inhibitor as well as [id number] nonsteroidals. The patient is receiving fluid resuscitation and has improved. He still feels very poorly overall. Does not recall any specific trauma to the left foot fifth toe where the blister his form. It is however tender interferes with his ability to walk well. He doesn't like to have the sheets on his foot because it so tender. He is not recalling any significant fevers chills rigors or sweats. Feeling somewhat better today. Objective - Vital Signs Vital signs: Vital Signs Temp 97.0 F L 05/23/17 14:36 Pulse 78 05/23/17 19:47 Resp 20 05/23/17 14:36 BP 159/79 05/23/17 14:36 Pulse Ox 98 05/23/17 15:30 Intake & Output 05/23/17 05/23/17 05/24/17 06:59 18:59 06:59 Output Total 3100 1075 Balance -3100 -1075 Weight 61.5 kg 61.5 kg Output: Urine 3100 900 Post Void Residual 175 Other: Voiding Method Indwelling Catheter # Voids 1 - Exam 82-year-old male who has a long uncut hair, it appeared that is not well trimmed. In is a very thin build HEENT: Anicteric conjunctiva are pink and moist nasal mucosa grossly intact without significant lesions, there is no thrush. Poor dentition Neck: The neck is supple without significant lymphadenopathy or thyromegaly. Lungs: Symmetrical air entry with few expiratory wheezes no bronchial sounds no dullness or egophony Heart: Regular rate and rhythm with an audible S1-S2, no S3 loud S4. There is no significant murmur click or rub, PMI was nondisplaced. Abdomen: Positive bowel sounds soft and nontender without palpable masses or organomegaly. There was no guarding or rebound. Extremities: The upper extremities have excellent pulses they are symmetric, no significant petechiae or telangiectasia. No splinter hemorrhages were noted. Lower extremities have some minimal edema that is symmetric. The right foot shows evidence ofan open lesions just some minimal cutaneous fungus between the toes. Left foot has evidence of the bullous lesion onto the fifth toe. There is bruising and erythema. It is quite tender to touch. There is also significant fungal infection in the toe interspaces on the left foot more significant than on the right. There is minimal erythema to the dorsum of the foot. No ascending erythema. Peripheral pulses are diminished bilaterally to the lower extremities. The foot is not cold. Capillary refill is about 3 seconds. The femoral arteries are bounding. Neuro: Awake alert oriented to person place and time. There are no acute new gross focal sensory motor deficits. - Labs CBC & Chem 7: 05/22/17 05:44 05/23/17 17:03 Labs: Abnormal Lab Results - Last 24 Hours (Table) 05/23/17 Range/Units 09:01 Sodium 136 L (137-145) mmol/L Potassium 5.6 H (3.5-5.1) mmol/L Chloride 111 H (98-107) mmol/L Carbon Dioxide 17 L (22-30) mmol/L Creatinine 1.80 H (0.66-1.25) mg/dL Glucose 122 H (74-99) mg/dL Microbiology - Last 24 Hours (Table) 05/18/17 17:00 Blood Culture - Preliminary Blood No Growth after 120 hours Laboratory Results WBC 6.2 k/uL (3.8-10.6) 05/22/17 05:44 RBC 2.62 m/uL (4.30-5.90) L 05/22/17 05:44 Hgb 8.5 gm/dL (13.0-17.5) L 05/22/17 05:44 Hct 25.9 % (39.0-53.0) L 05/22/17 05:44 MCV 98.8 fL (80.0-100.0) 05/22/17 05:44 MCH 32.4 pg (25.0-35.0) 05/22/17 05:44 MCHC 32.8 g/dL (31.0-37.0) 05/22/17 05:44 RDW 13.3 % (11.5-15.5) 05/22/17 05:44 Plt Count 133 k/uL (150-450) L 05/22/17 05:44 Neutrophils % 72 % 05/22/17 05:44 Lymphocytes % 10 % 05/22/17 05:44 Monocytes % 5 % 05/22/17 05:44 Eosinophils % 12 % 05/22/17 05:44 Basophils % 0 % 05/22/17 05:44 Neutrophils # 4.5 k/uL (1.3-7.7) 05/22/17 05:44 Lymphocytes # 0.6 k/uL (1.0-4.8) L 05/22/17 05:44 Monocytes # 0.3 k/uL (0-1.0) 05/22/17 05:44 Eosinophils # 0.8 k/uL (0-0.7) H 05/22/17 05:44 Basophils # 0.0 k/uL (0-0.2) 05/22/17 05:44 PT 11.3 sec (9.0-12.0) 05/18/17 17:00 INR 1.1 (<1.2) 05/18/17 17:00 APTT 22.1 sec (22.0-30.0) 05/18/17 17:00 Sodium 136 mmol/L (137-145) L 05/23/17 09:01 Potassium 5.1 mmol/L (3.5-5.1) 05/23/17 17:03 Chloride 111 mmol/L (98-107) H 05/23/17 09:01 Carbon Dioxide 17 mmol/L (22-30) L 05/23/17 09:01 Anion Gap 8 mmol/L 05/23/17 09:01 BUN 19 mg/dL (9-20) 05/23/17 09:01 Creatinine 1.80 mg/dL (0.66-1.25) H 05/23/17 09:01 Est GFR (MDRD) Af Amer 44 (>60 ml/min/1.73 sqM) 05/23/17 09:01 Est GFR (MDRD) Non-Af 36 (>60 ml/min/1.73 sqM) 05/23/17 09:01 Glucose 122 mg/dL (74-99) H 05/23/17 09:01 Plasma Lactic Acid Tucker 1.6 mmol/L (0.7-2.0) 05/20/17 03:42 Calcium 8.4 mg/dL (8.4-10.2) 05/23/17 09:01 Magnesium 1.8 mg/dL (1.6-2.3) 05/23/17 09:01 Iron 29 ug/dL (65-175) L 05/19/17 05:28 TIBC 210 ug/dL (228-460) L 05/19/17 05:28 Iron Saturation 13.81 (15.00-50.00) L 05/19/17 05:28 Ferritin 774.1 ng/mL (22.0-322.0) H 05/19/17 05:28 Total Bilirubin 0.7 mg/dL (0.2-1.3) 05/18/17 17:00 AST 34 U/L (17-59) 05/18/17 17:00 ALT 29 U/L (21-72) 05/18/17 17:00 Alkaline Phosphatase 77 U/L (38-126) 05/18/17 17:00 Total Creatine Kinase 425 U/L (55-170) H 05/18/17 17:00 CK-MB (CK-2) 9.7 ng/mL (0.0-2.4) H* 05/18/17 17:00 CK-MB (CK-2) Rel Index 2.3 05/18/17 17:00 Troponin I 0.071 ng/mL (0.000-0.034) H* 05/20/17 03:42 NT-Pro-B Natriuret Pep 705 pg/mL 05/18/17 17:00 Total Protein 7.3 g/dL (6.3-8.2) 05/18/17 17:00 Albumin 4.4 g/dL (3.5-5.0) 05/18/17 17:00 Urine Color Light Yellow 05/19/17 12:28 Urine Appearance Clear (Clear) 05/19/17 12:28 Urine pH 7.0 (5.0-8.0) 05/19/17 12:28 Ur Specific [employer] 1.010 (1.001-1.035) 05/19/17 12:28 Urine Protein Negative (Negative) 05/19/17 12:28 Urine Glucose (UA) Negative (Negative) 05/19/17 12:28 Urine Ketones Negative (Negative) 05/19/17 12:28 Urine Blood Small (Negative) H 05/19/17 12:28 Urine Nitrite Negative (Negative) 05/19/17 12:28 Urine Bilirubin Negative (Negative) 05/19/17 12:28 Urine Urobilinogen <2.0 mg/dL (<2.0) 05/19/17 12:28 Ur Leukocyte Esterase Trace (Negative) H 05/19/17 12:28 Urine RBC 3 /hpf (0-5) 05/19/17 12:28 Urine WBC 3 /hpf (0-5) 05/19/17 12:28 Random Vancomycin 10.6 ug/mL 05/21/17 05:19 Laboratory Results WBC 6.2 k/uL (3.8-10.6) 05/22/17 05:44 RBC 2.62 m/uL (4.30-5.90) L 05/22/17 05:44 Hgb 8.5 gm/dL (13.0-17.5) L 05/22/17 05:44 Hct 25.9 % (39.0-53.0) L 05/22/17 05:44 MCV 98.8 fL (80.0-100.0) 05/22/17 05:44 MCH 32.4 pg (25.0-35.0) 05/22/17 05:44 MCHC 32.8 g/dL (31.0-37.0) 05/22/17 05:44 RDW 13.3 % (11.5-15.5) 05/22/17 05:44 Plt Count 133 k/uL (150-450) L 05/22/17 05:44 Neutrophils % 72 % 05/22/17 05:44 Lymphocytes % 10 % 05/22/17 05:44 Monocytes % 5 % 05/22/17 05:44 Eosinophils % 12 % 05/22/17 05:44 Basophils % 0 % 05/22/17 05:44 Neutrophils # 4.5 k/uL (1.3-7.7) 05/22/17 05:44 Lymphocytes # 0.6 k/uL (1.0-4.8) L 05/22/17 05:44 Monocytes # 0.3 k/uL (0-1.0) 05/22/17 05:44 Eosinophils # 0.8 k/uL (0-0.7) H 05/22/17 05:44 Basophils # 0.0 k/uL (0-0.2) 05/22/17 05:44 PT 11.3 sec (9.0-12.0) 05/18/17 17:00 INR 1.1 (<1.2) 05/18/17 17:00 APTT 22.1 sec (22.0-30.0) 05/18/17 17:00 Sodium 136 mmol/L (137-145) L 05/23/17 09:01 Potassium 5.1 mmol/L (3.5-5.1) 05/23/17 17:03 Chloride 111 mmol/L (98-107) H 05/23/17 09:01 Carbon Dioxide 17 mmol/L (22-30) L 05/23/17 09:01 Anion Gap 8 mmol/L 05/23/17 09:01 BUN 19 mg/dL (9-20) 05/23/17 09:01 Creatinine 1.80 mg/dL (0.66-1.25) H 05/23/17 09:01 Est GFR (MDRD) Af Amer 44 (>60 ml/min/1.73 sqM) 05/23/17 09:01 Est GFR (MDRD) Non-Af 36 (>60 ml/min/1.73 sqM) 05/23/17 09:01 Glucose 122 mg/dL (74-99) H 05/23/17 09:01 Plasma Lactic Acid Tucker 1.6 mmol/L (0.7-2.0) 05/20/17 03:42 Calcium 8.4 mg/dL (8.4-10.2) 05/23/17 09:01 Magnesium 1.8 mg/dL (1.6-2.3) 05/23/17 09:01 Iron 29 ug/dL (65-175) L 05/19/17 05:28 TIBC 210 ug/dL (228-460) L 05/19/17 05:28 Iron Saturation 13.81 (15.00-50.00) L 05/19/17 05:28 Ferritin 774.1 ng/mL (22.0-322.0) H 05/19/17 05:28 Total Bilirubin 0.7 mg/dL (0.2-1.3) 05/18/17 17:00 AST 34 U/L (17-59) 05/18/17 17:00 ALT 29 U/L (21-72) 05/18/17 17:00 Alkaline Phosphatase 77 U/L (38-126) 05/18/17 17:00 Total Creatine Kinase 425 U/L (55-170) H 05/18/17 17:00 CK-MB (CK-2) 9.7 ng/mL (0.0-2.4) H* 05/18/17 17:00 CK-MB (CK-2) Rel Index 2.3 05/18/17 17:00 Troponin I 0.071 ng/mL (0.000-0.034) H* 05/20/17 03:42 NT-Pro-B Natriuret Pep 705 pg/mL 05/18/17 17:00 Total Protein 7.3 g/dL (6.3-8.2) 05/18/17 17:00 Albumin 4.4 g/dL (3.5-5.0) 05/18/17 17:00 Urine Color Light Yellow 05/19/17 12:28 Urine Appearance Clear (Clear) 05/19/17 12:28 Urine pH 7.0 (5.0-8.0) 05/19/17 12:28 Ur Specific [employer] 1.010 (1.001-1.035) 05/19/17 12:28 Urine Protein Negative (Negative) 05/19/17 12:28 Urine Glucose (UA) Negative (Negative) 05/19/17 12:28 Urine Ketones Negative (Negative) 05/19/17 12:28 Urine Blood Small (Negative) H 05/19/17 12:28 Urine Nitrite Negative (Negative) 05/19/17 12:28 Urine Bilirubin Negative (Negative) 05/19/17 12:28 Urine Urobilinogen <2.0 mg/dL (<2.0) 05/19/17 12:28 Ur Leukocyte Esterase Trace (Negative) H 05/19/17 12:28 Urine RBC 3 /hpf (0-5) 05/19/17 12:28 Urine WBC 3 /hpf (0-5) 05/19/17 12:28 Random Vancomycin 10.6 ug/mL 05/21/17 05:19 Microbiology 05/18/17 17:00 Blood Blood Culture - Preliminary No Growth after 120 hours Assessment and Plan (1) Acute renal failure Current Visit: Yes Status: Acute Code(s): N17.9 - ACUTE KIDNEY FAILURE, UNSPECIFIED SNOMED Code(s): 33457755 (2) Hyperkalemia Current Visit: Yes Status: Acute Code(s): E87.5 - HYPERKALEMIA SNOMED Code (s): 22206931 (3) Osteomyelitis of toe of left foot Narrative/Plan: 82-year-old male presents to Hospital feeling poorly for many days. At admission he is not evidence of acute renal failure as well as hyperkalemia. As related he had been started on from trimethoprim sulfamethoxazole which can cause elevated creatinine as well as marked increase of potassium. The patient also was taking [id number] nonsteroidals as well as TRUDY inhibitor which had been discontinued by the clinical quality assurance specialist. He received fluid resuscitation and his potassium started to improve. His significant and severe hyperkalemia has responded well to therapy. Patient has evidence of the markedly abnormal x-ray to the fifth toe left foot with concerns to osteomyelitis. This is correlating somewhat to the site of the significant blister to this toe. The acuity is not clear. There is also a secondary fungal infection in the digital interspace. With the patient's acute renal failure vancomycin will be discontinued. Ceftaroline will be utilized for treatment of several pathogens including gram-negative organisms and MRSA to the site. He'll be dose adjusted for his renal failure. Local wound care will be initiated with antifungal therapy. Dry dressings will be utilized. Leukocytosis appears to multifactorial including acute renal failure as well as the infectious process to his left foot. Is on the x-ray shows evidence of possible osteomyelitis to the fifth metatarsal. Bone scan has not revealed osteomyelitis. Will not plan on custodial IV antibiotics, completer treatment for the cellulitis Current Visit: Yes Status: Acute Code(s): M86.9 - OSTEOMYELITIS, UNSPECIFIED SNOMED Code(s): 63408249
[2017-05-24] MEDS: SODIUM CHLORIDE 0.9% 1,000 ML IV SCH ×3 (06:21→14:31)
[2017-05-24] MEDS: IPRATROPIUM-ALBUTEROL 3 ML NEB INHALATION SCH ×2 (07:08→11:23)
[2017-05-24 07:30] VITALS: RESP 18; TEMP 98.2
[2017-05-24] MEDS: NYSTATIN 100,000UNIT/GM CREAM 30 GM TUBE TOPICAL SCH ×2 (08:51→08:53)
[2017-05-24] MEDS: CARVEDILOL 6.25 MG TAB PO SCH (08:52)
[2017-05-24] MEDS: FINASTERIDE 5 MG TAB PO SCH (08:52)
[2017-05-24] MEDS: SODIUM BICARBONATE TAB 650 MG TAB PO SCH (08:52)
[2017-05-24] MEDS: NYSTATIN 100,000 UNIT/GM POWD 15 GM TOPICAL SCH (08:52)
[2017-05-24 08:59] LABS: Calcium 8.7 mg/dL (8.4-10.2); Potassium 4.9 mmol/L (3.5-5.1)
[2017-05-24] MEDS ORDERED: amLODIPine 5 MG TAB PO SCH (09:00)
[2017-05-24] MEDS: CEFTAROLINE FOSAMIL 400 MG in SODIUM CHLORIDE 0.9% 250 ML IVPB SCH (09:25)
[2017-05-24] MEDS: ASPIRIN 81 MG PO SCH (09:26)
[2017-05-24 11:15] VITALS: BP 167/84
[2017-05-24 11:37] VITALS: PULSE 76
--- NOTE | 2017-05-24 11:52 | P.PN ---
Subjective Patient is seen in follow-up for acute kidney injury. Renal function has improved since admission and creatinine is down to 1.66 today. Potassium level is also down to 4.9 today. He is nonoliguric. Oral intake is fair. No vomiting or diarrhea. Denies chest pain or shortness of breath. Vital signs are stable. General: The patient appeared well nourished and normally developed. HEENT: Head exam is unremarkable. Neck is without jugular venous distension. LUNGS: Lungs are clear to auscultation and percussion. Breath sounds decreased. HEART: Rate and Rhythm are regular. First and second heart sounds normal. No murmurs, rubs or gallops. ABDOMEN: Abdominal exam reveals normal bowel sounds. Non-tender and non- distended. No evidence of peritonitis. EXTREMITITES: No clubbing, cyanosis, or edema. Objective - Vital Signs Vital signs: Vital Signs Temp 98.2 F 05/24/17 07:00 Pulse 76 05/24/17 11:33 Resp 18 05/24/17 08:00 BP 167/84 05/24/17 11:13 Pulse Ox 100 05/24/17 07:00 Intake & Output 05/23/17 05/24/17 05/24/17 18:59 06:59 18:59 Intake Total 360 Output Total 1075 650 200 Balance -1075 -650 160 Weight 61.5 kg 60.5 kg Intake: Oral 360 Output: Urine 900 650 200 Post Void Residual 175 Other: Voiding Method Toilet Urinal # Voids 1 450 1 # Bowel Movements 1 - Labs CBC & Chem 7: 05/22/17 05:44 05/24/17 07:55 Labs: Abnormal Lab Results - Last 24 Hours (Table) 05/24/17 Range/Units 07:55 Sodium 136 L (137-145) mmol/L Chloride 110 H (98-107) mmol/L Carbon Dioxide 19 L (22-30) mmol/L Creatinine 1.66 H (0.66-1.25) mg/dL Glucose 144 H (74-99) mg/dL Microbiology - Last 24 Hours (Table) 05/18/17 17:00 Blood Culture - Preliminary Blood No Growth after 120 hours Assessment and Plan Plan: Assessment: #1. Nonoliguric acute kidney injury, prerenal, secondary to NSAIDs and diuretics. Patient was also taking Bactrim prior to admission. Creatinine was elevated at 5.4 on admission and is down to 1.66 today. No evidence of hydronephrosis. Urinalysis benign. #2. Mild hyperkalemia secondary to acute kidney injury and metabolic acidosis. Improved. #3. Anemia with iron deficiency noted. S/p IV iron. #4. Metabolic acidosis secondary to acute kidney injury and IV fluids. #5. Hypertension. Blood pressures on the higher side. Plan: I will decrease the rate of normal saline to 50 mL an hour. Continue sodium bicarbonate 1300 mg 3 times daily. Continue with low potassium diet. Avoid nephrotoxic agents and hypotensive episodes. Repeat electrolytes in the morning. Continue current antihypertensives. Amlodipine was added on May 23. Maintain hydralazine 10 mg every 4 hours for systolic blood pressure greater than 160.
--- NOTE | 2017-05-24 15:01 | P.DS ---
Providers Date of admission: 05/18/17 19:45 Expected date of discharge: 05/24/17 Attending physician: Winston Cooper Consults: 05/18/17 19:47 Consult Physician Urgent Consulting Provider: Balaji Shore Consult Reason/Comments: Acute renal failure, hyperkalemia Do you want consulting provider notified?: Already Contacted 05/19/17 12:21 Consult Physician Routine Consulting Provider: Sherif Queen Consult Reason/Comments: foot infection Do you want consulting provider notified?: Yes 05/19/17 12:22 Consult Physician Routine Consulting Provider: Alfonso Bravo Consult Reason/Comments: foot infection/suspect PAD Do you want consulting provider notified?: Yes Primary care physician: Tay Edge Hospital Course: FINAL DIAGNOSES: -Acute renal failure probably nonoliguric, probably acute tubular necrosis probably from decreased oral intake the patient was also on multiple renal offensive drugs which have been held including Lasix, Zestril, Aldactone, Bactrim, and Aleve, improving -Benign prostatic hypertrophy. -Chronic congestive heart failure from diastolic dysfunction, ejection fraction 60% to 65% from underlying coronary artery disease. -Essential hypertension. -Posttraumatic stress disorder. -Moderate aortic regurgitation, nonrheumatic. -Coronary artery disease, prior history of coronary artery bypass. -Troponin leak from hemodynamic mismatch, not acute myocardial infarction. -Severe hypokalemia secondary to renal failure and also being on an TRUDY inhibitor.resolved -Metabolic acidosis present on admission. -Suspect peripheral arterial disease with poor palpable distal pulses. -History of onychomycosis in both feet and all the nails. -Acute cellulitis of the left 5th toe, slow to respond. HOSPTIAL COURSE: 82-year-old male admitted with acute renal failure and acute osteomyelitis. Infectious disease, vascular surgery, and nephrology consulted. Vascular surgery evaluated the patient's left foot at the present time felt patient needed local wound care and IV antibiotics. The foot was not in need of surgical intervention. Infectious disease evaluated the patient, concerns for osteomyelitis as well as fungal infection between the digital interspaces. Ceftaroline was the antibiotic of choice given patient's renal failure. Local wound care continued with antifungal therapy and dry dressings. Bone scan completed and was negative for osteomyelitis. No long-term IV antibiotics will be required, complete treatment for cellulitis. Nephrology evaluated the patient on admission creatinine was 5.4 potassium 7.8 with a metabolic acidosis. Patient was on several nephrotoxic drugs which were DC'd. Potassium treated with IV insulin and bicarbonate and Lasix as well as calcium gluconate and responded appropriately. Gentle hydration provided avoiding nephrotoxic agents and hypotensive episodes, creatinine improved. Antihypertensives adjusted to to provide appropriate control since stopping lisinopril and Aldactone. Overall patient's condition has improved. Blood pressure controlled , left foot improving. Kidney function improving. Consultants agree patient is stable to discharge to [facility]. PHYSICAL EXAM: CARDIOVASCULAR: First and second sounds noted no edema. RESPIRATORY: Respiratory effort normal lung sounds diminished bilaterally MUSCULOSKELETAL: Left foot with fungal infection, redness noted to fifth metatarsal PSYCHIATRY: Alert and oriented 3, slow to respond at times, mood and affect appropriate for the situation. Patient was seen and examined by nurse practitioner Nanette Vega in all elements of the case discussed with attending Dr. Cooper DISPOSITION: Patient Condition at Discharge: Fair Plan - Discharge Summary New Discharge Prescriptions: New amLODIPine [Norvasc] 5 mg PO DAILY #30 tab Carvedilol [Coreg] 6.25 mg PO BID-W/MEALS #60 tab hydrALAZINE HCL 10 mg PO Q4HR PRN #20 tablet PRN Reason: Hypertension Sodium Bicarbonate Tab 1,300 mg PO TID #90 tab Cefuroxime [Ceftin] 250 mg PO BID #14 tablet Ipratropium-Albuterol Nebulize [Duoneb 0.5 mg-3 mg/3 ml Soln] 3 ml INHALATION RT-QID ampul.neb Ipratropium-Albuterol Nebulize [Duoneb 0.5 mg-3 mg/3 ml Soln] 3 ml INHALATION RT-Q2H PRN ampul.neb PRN Reason: Shortness Of Breath Or Wheezing Continue Latanoprost [Xalatan 0.005%] 1 drop RIGHT EYE HS Finasteride [Proscar] 5 mg PO DAILY Aspirin 81 mg PO DAILY Nystatin 100,000Unit/gm Cream [Mycostatin Cream] 1 applic TOPICAL TID Nystatin 100,000 Unit/gm Powd [Mycostatin Powder] 1 applic TOPICAL TID Discontinued Naproxen Sodium [Aleve] 220 mg PO BID PRN PRN Reason: Pain Carvedilol [Coreg] 3.125 mg PO BID-W/MEALS #60 tab Furosemide [Lasix] 40 mg PO DAILY #30 tab Lisinopril [Zestril] 20 mg PO BID #60 tab Sulfamethoxazole/Trimethoprim [Bactrim DS 800-160 mg] 1 tab PO BID Spironolactone [Aldactone] 25 mg PO BID Discharge Medication List Finasteride [Proscar] 5 mg PO DAILY 11/15/16 [History] Latanoprost [Xalatan 0.005%] 1 drop RIGHT EYE HS 11/15/16 [History] Aspirin 81 mg PO DAILY 11/20/16 [Rx] Nystatin 100,000 Unit/gm Powd [Mycostatin Powder] 1 applic TOPICAL TID 05/18/17 [History] Nystatin 100,000Unit/gm Cream [Mycostatin Cream] 1 applic TOPICAL TID 05/18/17 [ History] Carvedilol [Coreg] 6.25 mg PO BID-W/MEALS #60 tab 05/24/17 [Rx] Cefuroxime [Ceftin] 250 mg PO BID #14 tablet 05/24/17 [Rx] Ipratropium-Albuterol Nebulize [Duoneb 0.5 mg-3 mg/3 ml Soln] 3 ml INHALATION RT -Q2H PRN ampul.neb 05/24/17 [Rx] Ipratropium-Albuterol Nebulize [Duoneb 0.5 mg-3 mg/3 ml Soln] 3 ml INHALATION RT -QID ampul.neb 05/24/17 [Rx] Sodium Bicarbonate Tab 1,300 mg PO TID #90 tab 05/24/17 [Rx] amLODIPine [Norvasc] 5 mg PO DAILY #30 tab 05/24/17 [Rx] hydrALAZINE HCL 10 mg PO Q4HR PRN #20 tablet 05/24/17 [Rx] Follow up Appointment(s)/Referral(s): Jas Perez DO [STAFF PHYSICIAN] - 05/24/17 Heidy Whaley [NON-STAFF] - 1 Week Tay Edge MD [Primary Care Provider] - As Needed Ambulatory/Diagnostic Orders: Basic Metabolic Panel [LAB.AMB] Location: Determined By Patient Complete Blood Count w/diff [LAB.AMB] Location: Determined By Patient Patient Instructions/Handouts: Acute Kidney Injury (DC) Activity/Diet/Wound Care/Special Instructions: continue Left foot treatment and dressings per ID Cardiac, diabetic diet. Discharge Disposition: TRANSFER TO SNF/ECF
--- NOTE | 2017-05-24 22:22 | DS ---
DISCHARGE SUMMARY ATTENDING NOTE: This patient was seen examined by me. I discussed with the nurse practitioner Ms. Vega. The patient's bone scan came back negative. Patient therefore does not have acute osteomyelitis; has acute cellulitis. Toe is doing much better. Breathing is stable. PHYSICAL EXAMINATION: LUNGS: Decreased breath sounds. Awake. Decreased redness of the left 4th toe. FINAL DIAGNOSES: 1. Acute left fourth toe acute cellulitis with possible underlying abscess. No osteomyelitis as per the bone scan. 2. Chronic kidney disease, likely stage III, from nephrosclerosis. 3. Acute renal failure component, improved. PLAN: Care was discussed with the patient. Antibiotics are to be completed as per Dr. Queen. The patient will be discharged to the ECF. MMJENNIFER / IJN: [id number] /
== END 2017-05-24 15:46 | DRG 683 ==
LOC: EC 16:21 → 6SEL 19:45 → 4MS4W 05-22 12:46
PROVIDERS: ADMIT Hospitalist; ATTEND Hospitalist
DX: N17.0 Acute kidney failure with tubular necrosis (principal); E87.2 Acidosis; J44.1 Chronic obstructive pulmonary disease with (acute) exacerbation; I13.0 Hypertensive heart and chronic kidney disease with heart failure and stage 1 through stage 4 chronic kidney disease, or unspecified chronic kidney disease; I50.32 Chronic diastolic (congestive) heart failure; B35.1 Tinea unguium; E87.5 Hyperkalemia; E78.5 Hyperlipidemia, unspecified; D50.9 Iron deficiency anemia, unspecified; F43.10 Post-traumatic stress disorder, unspecified; H40.9 Unspecified glaucoma; I25.10 Atherosclerotic heart disease of native coronary artery without angina pectoris; I35.1 Nonrheumatic aortic (valve) insufficiency; L03.032 Cellulitis of left toe; L97.509 Non-pressure chronic ulcer of other part of unspecified foot with unspecified severity; N18.3 Chronic kidney disease, stage 3 (moderate); N40.0 Benign prostatic hyperplasia without lower urinary tract symptoms; T39.395A Adverse effect of other nonsteroidal anti-inflammatory drugs [NSAID], initial encounter; W19.XXXA Unspecified fall, initial encounter; Y92.009 Unspecified place in unspecified non-institutional (private) residence as the place of occurrence of the external cause; Z79.82 Long term (current) use of aspirin; Z79.899 Other long term (current) drug therapy; Z82.49 Family history of ischemic heart disease and other diseases of the circulatory system; Z86.73 Personal history of transient ischemic attack (TIA), and cerebral infarction without residual deficits; Z87.891 Personal history of nicotine dependence; Z91.19 Patient's noncompliance with other medical treatment and regimen; Z95.1 Presence of aortocoronary bypass graft
CPT/HCPCS: 36415; 71020; 76770; 78315; 80048; 80053; 80202; 81001; 82550; 82553; 82728; 83540; 83550; 83605; 83735; 83880; 84132; 84484; 85025; 85610; 85730; 87040; 93005; 93306; 94640; 94760; 96361; 96365; 96367; 96375; 99291

== ENCOUNTER 2018-05-25 14:41 | Inpatient (IN) | payer MEDICARE ==
[2018-05-25 14:49] LABS: Glucose,Whole Blood >600 mg/dL (75-99)
[2018-05-25] MEDS ORDERED: SODIUM CHLORIDE 0.9% 1,000 ML IV ONE (15:18)
--- NOTE | 2018-05-25 15:20 | ED ---
General Adult HPI - General Chief complaint: Recheck/Abnormal Lab/Rx Stated complaint: high blood sugar Time Seen by Provider: 05/25/18 15:03 Source: patient, RN notes reviewed, old records reviewed Mode of arrival: ambulatory Limitations: no limitations - History of Present Illness Initial comments: 83-year-old male presents with elevated blood sugar from primary care office. Patient was noted to have a blood sugar in excess of 600. No known history diabetes. He does report a two-week history of increased fatigue, thirst and dry mouth as well as increased urination. Patient denies chest pain or shortness of breath. Denies abdominal pain. Denies dysuria, just urinary frequency. No fever chills. No abdominal pain nausea vomiting. - Related Data Home Medications Medication Instructions Recorded Confirmed Finasteride [Proscar] 5 mg PO DAILY 11/15/16 05/25/18 Latanoprost [Xalatan 0.005%] 2 drop BOTH EYES HS 11/15/16 05/25/18 Nystatin 100,000 Unit/gm Powd 1 applic TOPICAL TID 05/18/17 05/25/18 [Mycostatin Powder] Nystatin 100,000Unit/gm Cream 1 applic TOPICAL BID 05/18/17 05/25/18 [Mycostatin Cream] Carvedilol [Coreg] 6.25 mg PO AC-BID 05/25/18 05/25/18 Ergocalciferol [Vitamin D2] 50,000 unit PO Q7D 05/25/18 05/25/18 Furosemide [Lasix] 40 mg PO DAILY 05/25/18 05/25/18 Gabapentin [Neurontin] 2 mg PO TID 05/25/18 05/25/18 Glycopyrrolate/Formoterol Fum 2 puff INHALATION RT-BID 05/25/18 05/25/18 [Bevespi Aerosphere Inhaler] Potassium Chloride ER [K-Dur 10] 10 meq PO DAILY 05/25/18 05/25/18 hydrALAZINE HCL 10 mg PO Q4HR 05/25/18 05/25/18 Previous Rx's Medication Instructions Recorded Aspirin 81 mg PO DAILY 11/20/16 amLODIPine [Norvasc] 5 mg PO DAILY #30 tab 05/24/17 Allergies Allergy/AdvReac Type Severity Reaction Status Date / Time No Known Allergies Allergy Verified 05/25/18 15:31 Review of Systems ROS Statement: Those systems with pertinent positive or pertinent negative responses have been documented in the HPI. ROS Other: All systems not noted in ROS Statement are negative. Past Medical History Past Medical History: Heart Failure, Eye Disorder, Hypertension Additional Past Medical History / Comment(s): glacoma, surgical procedure on bilateral eyes, PTSD History of Any Multi-Drug Resistant Organisms: None Reported Past Surgical History: Coronary Bypass/CABG, Tonsillectomy Additional Past Surgical History / Comment(s): CABG in 2004- numbness in left arm with activity before procedure Past Anesthesia/Blood Transfusion Reactions: No Reported Reaction Past Psychological History: PTSD Smoking Status: Never smoker Past Alcohol Use History: None Reported Past Drug Use History: None Reported - Past Family History Father Family Medical History: Cancer, Congestive Heart Failure (CHF), Coronary Artery Disease (CAD) Mother Family Medical History: Congestive Heart Failure (CHF), Coronary Artery Disease (CAD) General Exam Limitations: no limitations General appearance: alert, in no apparent distress Head exam: Present: atraumatic, normocephalic Eye exam: Present: normal appearance, PERRL ENT exam: Present: mucous membranes dry Neck exam: Present: normal inspection. Absent: tenderness, meningismus Respiratory exam: Present: normal lung sounds bilaterally. Absent: respiratory distress, wheezes Cardiovascular Exam: Present: regular rate, normal rhythm GI/Abdominal exam: Present: soft. Absent: distended, tenderness, guarding Extremities exam: Present: normal inspection, normal capillary refill. Absent: pedal edema Neurological exam: Present: alert, oriented X3, CN II-XII intact. Absent: motor sensory deficit Psychiatric exam: Present: normal affect, normal mood Skin exam: Present: warm, dry, intact. Absent: cyanosis, diaphoretic Course Vital Signs 05/25/18 05/25/18 14:43 16:26 Temperature 97.6 F Pulse Rate 71 64 Respiratory 18 18 Rate Blood Pressure 175/69 133/66 O2 Sat by Pulse 99 98 Oximetry Medical Decision Making - Medical Decision Making 83-year-old male presents with elevated blood sugar. No history of diabetes. Laboratory studies reveal sugar of 977, CO2 is normal at 22, mild anion gap of 20. Urinalysis is positive for both glucose and 1+ ketones. He is acetone positive indicating some mild diabetic ketoacidosis. Sodium 124 which is pseudohyponatremia secondary to hyperglycemia. Patient is given IV hydration, started on IV insulin infusion. He will be admitted for treatment of HHS in DKA. - Lab Data Result diagrams: 05/25/18 15:31 05/25/18 15:31 Lab Results 05/25/18 05/25/18 05/25/18 Range/Units 14:47 15:31 15:31 WBC 6.3 (3.8-10.6) k/uL RBC 4.69 (4.30-5.90) m/uL Hgb 14.4 (13.0-17.5) gm/dL Hct 44.1 (39.0-53.0) % MCV 94.0 (80.0-100.0) fL MCH 30.7 (25.0-35.0) pg MCHC 32.6 (31.0-37.0) g/dL RDW 13.2 (11.5-15.5) % Plt Count 191 (150-450) k/uL Neutrophils % 82 % Lymphocytes % 10 % Monocytes % 5 % Eosinophils % 1 % Basophils % 1 % Neutrophils # 5.2 (1.3-7.7) k/uL Lymphocytes # 0.6 L (1.0-4.8) k/uL Monocytes # 0.3 (0-1.0) k/uL Eosinophils # 0.1 (0-0.7) k/uL Basophils # 0.0 (0-0.2) k/uL Sodium 124 L (137-145) mmol/L Potassium 4.8 (3.5-5.1) mmol/L Chloride 82 L (98-107) mmol/L Carbon Dioxide 22 (22-30) mmol/L Anion Gap 20 mmol/L BUN 17 (9-20) mg/dL Creatinine 1.15 (0.66-1.25) mg/dL Est GFR (CKD-EPI)AfAm 68 (>60 ml/min/1.73 sqM) Est GFR (CKD-EPI)NonAf 59 (>60 ml/min/1.73 sqM) Glucose 977 H* (74-99) mg/dL POC Glucose (mg/dL) >600 H (75-99) mg/dL POC Glu Board Certified Behavioral Analyst Roel Santoro Plasma Lactic Acid Tucker (0.7-2.0) mmol/L Calcium 9.9 (8.4-10.2) mg/dL Total Bilirubin 1.3 (0.2-1.3) mg/dL AST 23 (17-59) U/L ALT 26 (21-72) U/L Alkaline Phosphatase 206 H (38-126) U/L Total Protein 6.9 (6.3-8.2) g/dL Albumin 4.1 (3.5-5.0) g/dL Urine Color Urine Appearance (Clear) Urine pH (5.0-8.0) Ur Specific [place] (1.001-1.035) Urine Protein (Negative) Urine Glucose (UA) (Negative) Urine Ketones (Negative) Urine Blood (Negative) Urine Nitrite (Negative) Urine Bilirubin (Negative) Urine Urobilinogen (<2.0) mg/dL Ur Leukocyte Esterase (Negative) Acetone, Qual Positive (Negative) 05/25/18 05/25/18 Range/Units 15:31 15:31 WBC (3.8-10.6) k/uL RBC (4.30-5.90) m/uL Hgb (13.0-17.5) gm/dL Hct (39.0-53.0) % MCV (80.0-100.0) fL MCH (25.0-35.0) pg MCHC (31.0-37.0) g/dL RDW (11.5-15.5) % Plt Count (150-450) k/uL Neutrophils % % Lymphocytes % % Monocytes % % Eosinophils % % Basophils % % Neutrophils # (1.3-7.7) k/uL Lymphocytes # (1.0-4.8) k/uL Monocytes # (0-1.0) k/uL Eosinophils # (0-0.7) k/uL Basophils # (0-0.2) k/uL Sodium (137-145) mmol/L Potassium (3.5-5.1) mmol/L Chloride (98-107) mmol/L Carbon Dioxide (22-30) mmol/L Anion Gap mmol/L BUN (9-20) mg/dL Creatinine (0.66-1.25) mg/dL Est GFR (CKD-EPI)AfAm (>60 ml/min/1.73 sqM) Est GFR (CKD-EPI)NonAf (>60 ml/min/1.73 sqM) Glucose (74-99) mg/dL POC Glucose (mg/dL) (75-99) mg/dL POC Glu Board Certified Behavioral Analyst ID Plasma Lactic Acid Tucker 2.2 H* (0.7-2.0) mmol/L Calcium (8.4-10.2) mg/dL Total Bilirubin (0.2-1.3) mg/dL AST (17-59) U/L ALT (21-72) U/L Alkaline Phosphatase (38-126) U/L Total Protein (6.3-8.2) g/dL Albumin (3.5-5.0) g/dL Urine Color Colorless Urine Appearance Clear (Clear) Urine pH 5.0 (5.0-8.0) Ur Specific [place] 1.014 (1.001-1.035) Urine Protein Negative (Negative) Urine Glucose (UA) 4+ H (Negative) Urine Ketones 1+ H (Negative) Urine Blood Negative (Negative) Urine Nitrite Negative (Negative) Urine Bilirubin Negative (Negative) Urine Urobilinogen <2.0 (<2.0) mg/dL Ur Leukocyte Esterase Negative (Negative) Acetone, Qual (Negative) Critical Care Time Critical Care Time: Yes Total Critical Care Time: 35 Disposition Clinical Impression: Hyperglycemia, DKA (diabetic ketoacidoses) Disposition: ADMITTED IP TO THIS [facility] Condition: Stable Is patient prescribed a controlled substance at d/c from ED?: No Referrals: Tay Edge MD [Primary Care Provider] - 1-2 days Time of Disposition: 16:45 Decision to Admit Reason: Admit from EC Decision Date: 05/25/18 Decision Time: 16:45
[2018-05-25 16:00] LABS: Basophils % (A) 1 %; Eosinophils # (A) 0.1 k/uL (0-0.7); Eosinophils % (A) 1 %; HCT 44.1 % (39.0-53.0); HGB 14.4 gm/dL (13.0-17.5); Lymphocytes # (A) 0.6 k/uL (1.0-4.8); Lymphocytes % (A) 10 %; MCH 30.7 pg (25.0-35.0); MCHC 32.6 g/dL (31.0-37.0); Mean Platelet Volume 8.2; Monocytes # (A) 0.3 k/uL (0-1.0); Monocytes % (A) 5 %; Neutrophils # (A) 5.2 k/uL (1.3-7.7); Neutrophils % (A) 82 %; Platelet Count 191 k/uL (150-450); RBC 4.69 m/uL (4.30-5.90); RDW 13.2 % (11.5-15.5); WBC 6.3 k/uL (3.8-10.6)
[2018-05-25 16:02] LABS: Appearance,Urine Clear (Clear); Bilirubin,Urine Negative (Negative); Blood,Urine Negative (Negative); Color,Urine Colorless; Glucose,Urine (UA) 4+ (Negative); Ketones,Urine 1+ (Negative); Leukocyte Esterase,Urine Negative (Negative); Nitrite,Urine Negative (Negative); Protein,Urine Negative (Negative); Specific Gravity,Urine 1.014 (1.001-1.035); Urobilinogen,Urine <2.0 mg/dL (<2.0)
[2018-05-25 16:15] LABS: ALT 26 U/L (21-72); AST 23 U/L (17-59); Albumin 4.1 g/dL (3.5-5.0); Alkaline Phosphatase 206 U/L (38-126); Anion Gap 20 mmol/L; Blood Urea Nitrogen 17 mg/dL (9-20); Calcium 9.9 mg/dL (8.4-10.2); Carbon Dioxide 22 mmol/L (22-30); Chloride 82 mmol/L (98-107); Potassium 4.8 mmol/L (3.5-5.1); Sodium 124 mmol/L (137-145); Total Bilirubin 1.3 mg/dL (0.2-1.3); Total Protein 6.9 g/dL (6.3-8.2)
[2018-05-25 16:30] LABS: Glucose 977 mg/dL (74-99)
[2018-05-25] MEDS ORDERED: INSULIN REGULAR BOLUS (FROM DRIP BAG) IV ONE (16:41)
[2018-05-25] MEDS: SODIUM CHLORIDE 0.9% 1,000 ML IV SCH (17:12)
[2018-05-25] MEDS: INSULIN REGULAR 100 UNIT in SODIUM CHLORIDE 0.9% 100 ML IV SCH (17:25)
[2018-05-25 18:35] LABS: Glucose,Whole Blood 567 mg/dL (75-99)
[2018-05-25] MEDS ORDERED: MELATONIN 3 MG TABLET PO PRN (19:32)
[2018-05-25] MEDS ORDERED: ALPRAZolam 0.25 MG TAB PO PRN (19:32)
[2018-05-25 19:58] LABS: Glucose,Whole Blood 414 mg/dL (75-99)
--- NOTE | 2018-05-25 20:40 | HP ---
HISTORY AND PHYSICAL CHIEF COMPLAINTS: Uncontrolled blood sugars. HISTORY OF PRESENT ILLNESS: This 83-year-old gentleman with a past medical history of CHF, history hypertension, history of glaucoma, history of CAD, CABG, history of PTSD, was complaining of increasing weakness, polyuria, polydipsia and also dehydration for the last several days. The patient is complaining of some weight loss of about 15 pounds. The patient came to [facility] and blood sugar was found to be more than 600, initially at 977. There is no evidence of any acidosis, hyper osmolar diabetic ketosis suspected. Patient started on insulin drip at this time. There is no history of fever, rigors. No headache, loss of consciousness or seizures. No chest pain. No palpitations a this time. PAST MEDICAL HISTORY: History of hypertension, history of CHF, glaucoma, CAD, CABG. MEDICATIONS: Prior to admission: 1. Hydralazine 10 mg q.4h p.r.n. 2. Norvasc 5 mg p.o. daily. 3. Mycostatin. 4. K-Dur 10 mg p.o. 5. Mycostatin 1 application t.i.d. 6. Xalatan 0.005 2 drops q.h.s. 7. Bevespi Aerosphere inhaler. 8. Neurontin 1200 mg p.o. t.i.d. 9. Lasix 40 mg p.o. daily. 10.Proscar 5 mg p.o. daily. 11.Vitamin D2 50,000 p.o. q.7 days. 12.Coreg 6.25 mg a.c. b.i.d. 13.Aspirin 81 mg p.o. daily. ALLERGIES: None. FAMILY HISTORY: No history of heart disease or strokes in the family. SOCIAL HISTORY: No history of smoking. No history of alcohol intake. 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 REVIEW OF SYSTEMS: ENT: Diminished hearing and vision. CARDIOVASCULAR: As mentioned earlier. RESPIRATORY: As mentioned earlier. GI: No nausea. : No dysuria. NERVOUS SYSTEM: No numbness or weakness. ALLERGY/IMMUNOLOGY: No asthma. MUSCULOSKELETAL: As mentioned earlier. HEMATOLOGY/ONCOLOGY: As mentioned. ENDOCRINE: No history of diabetes or hypothyroid. CONSTITUTIONAL: As mentioned earlier. DERMATOLOGY: Negative. RHEUMATOLOGY: Negative. PSYCHIATRY: As mentioned earlier. PHYSICAL EXAMINATION: Alert and oriented x3. Pulse 56, blood pressure 118/56, respirations 16, temperature 98 degrees, pulse ox 97% on room air. HEENT: Conjunctivae normal. Oral mucosa moist. Neck is no jugular venous distention. No carotid bruit. No lymph node enlargement. CARDIOVASCULAR: S1, S2. RESPIRATORY: Breath sounds diminished in the bases. A few scattered rhonchi and expiratory wheezing also present. ABDOMEN: Soft, nontender. No mass palpable. LEGS: No edema, no swelling. NERVOUS SYSTEM: Higher function as mentioned. Moves all four limbs. No focal motor or sensory deficits. LYMPHATIC: No lymphadenopathy in the neck, axillae, groin. SKIN: No ulcer, rash or bleeding. LAB STUDIES: CBC within normal limits. Sodium 124, glucose 977 and lactic acid 2.2. ASSESSMENT: 1. Diabetes mellitus type 2 new onset with hyperosmolar state, uncontrolled with hyperglycemia. 2. Hyponatremia and possibly pseudohyponatremia. 3. History of congestive heart failure. 4. Hypertension. 5. History of glaucoma. 6. History of posttraumatic stress disorder. 7. History of coronary artery disease, CABG. RECOMMENDATIONS AND DISCUSSION: In this 83-year-old gentleman who presented with multiple complex medical issues, we will monitor the patient closely. Continue the current management and symptomatic treatment. Will initiate insulin drip. Monitor closely otherwise at this time I would recommend resume the home medications. Accu-Cheks a.c. and at bedtime and diabetic education. When the blood sugar is controlled we will send the patient on home Lantus. Hemoglobin A1c will be checked. Prognosis guarded. Further recommendations to follow. MMODL / IJN: [id number] /
[2018-05-25 20:46] LABS: Phosphorus 2.3 mg/dL (2.5-4.5); Potassium 3.2 mmol/L (3.5-5.1)
[2018-05-25 21:10] LABS: Glucose,Whole Blood 351 mg/dL (75-99)
[2018-05-25] MEDS: FORMOTEROL FUMARATE 20 MCG/2 ML NEBU INHALATION SCH (21:20)
[2018-05-25] MEDS ORDERED: POTASSIUM CHLORIDE ER 20 MEQ TAB.ER PO STA (21:21)
[2018-05-25] MEDS ORDERED: POTASSIUM CHLORIDE 20 MEQ in WATER FOR INJECTION 1 100ML.BAG IVPB ONE (22:00)
[2018-05-25] MEDS: hydrALAZINE HCL 10 MG TAB PO SCH ×2 (22:08→23:05)
[2018-05-25] MEDS: GABAPENTIN 100 MG CAP PO SCH (22:09)
[2018-05-25] MEDS: HEPARIN SODIUM,PORCINE 5,000 UNIT/ML 1 ML VIAL SQ SCH (22:09)
[2018-05-25] MEDS: LATANOPROST 0.005% OPHTH DROPS 2.5 ML BTL BOTH EYES SCH (22:09)
[2018-05-25] MEDS: NYSTATIN 100,000UNIT/GM CREAM 30 GM TUBE TOPICAL SCH (22:09)
[2018-05-25 22:23] LABS: Glucose,Whole Blood 229 mg/dL (75-99)
[2018-05-25] MEDS ORDERED: INSULIN ASPART 100 UNIT/ML 1 ML 10 ML VIAL SQ ONE (22:36)
[2018-05-25] MEDS: IPRATROPIUM 0.5 MG/2.5 ML NEBU INHALATION SCH (23:01)
[2018-05-26 00:15] LABS: Glucose,Whole Blood 304 mg/dL (75-99)
[2018-05-26 00:27] LABS: Phosphorus 2.8 mg/dL (2.5-4.5); Potassium 3.6 mmol/L (3.5-5.1)
[2018-05-26 02:26] LABS: Glucose,Whole Blood 341 mg/dL (75-99)
[2018-05-26] MEDS: hydrALAZINE HCL 10 MG TAB PO SCH ×5 (03:01→20:34)
[2018-05-26 06:15] LABS: Glucose,Whole Blood 298 mg/dL (75-99)
[2018-05-26] MEDS: CARVEDILOL 6.25 MG TAB PO SCH ×2 (06:27→16:40)
[2018-05-26 06:53] LABS: Basophils % (A) 0 %; Eosinophils # (A) 0.2 k/uL (0-0.7); Eosinophils % (A) 3 %; HCT 38.3 % (39.0-53.0); HGB 12.7 gm/dL (13.0-17.5); Lymphocytes # (A) 1.2 k/uL (1.0-4.8); Lymphocytes % (A) 22 %; MCH 30.1 pg (25.0-35.0); MCHC 33.2 g/dL (31.0-37.0); MCV 90.7 fL (80.0-100.0); Mean Platelet Volume 7.5; Monocytes # (A) 0.2 k/uL (0-1.0); Monocytes % (A) 4 %; Neutrophils # (A) 3.6 k/uL (1.3-7.7); Neutrophils % (A) 68 %; Platelet Count 185 k/uL (150-450); RBC 4.22 m/uL (4.30-5.90); RDW 13.4 % (11.5-15.5); WBC 5.2 k/uL (3.8-10.6)
[2018-05-26 07:09] LABS: Anion Gap 8 mmol/L; Blood Urea Nitrogen 13 mg/dL (9-20); Calcium 8.7 mg/dL (8.4-10.2); Carbon Dioxide 25 mmol/L (22-30); Chloride 101 mmol/L (98-107); Glucose 294 mg/dL (74-99); Potassium 4.2 mmol/L (3.5-5.1); Sodium 134 mmol/L (137-145)
[2018-05-26] MEDS ORDERED: INSULIN ASPART 100 UNIT/ML 1 ML 10 ML VIAL SQ SCH (07:30)
[2018-05-26] MEDS: FORMOTEROL FUMARATE 20 MCG/2 ML NEBU INHALATION SCH ×2 (08:00→20:12)
[2018-05-26] MEDS: IPRATROPIUM 0.5 MG/2.5 ML NEBU INHALATION SCH ×4 (08:00→20:12)
[2018-05-26] MEDS: SODIUM CHLORIDE 0.9% 1,000 ML IV SCH ×2 (08:29→16:33)
[2018-05-26] MEDS: NYSTATIN 100,000UNIT/GM CREAM 30 GM TUBE TOPICAL SCH ×2 (08:31→22:12)
[2018-05-26] MEDS: MULTIVITAMINS, THERA 1 EACH TAB PO SCH (08:37)
[2018-05-26] MEDS: ASPIRIN 81 MG PO SCH (08:37)
[2018-05-26] MEDS: GABAPENTIN 100 MG CAP PO SCH ×3 (08:37→20:29)
[2018-05-26] MEDS: POTASSIUM CHLORIDE ER 10 MEQ TAB.ER.PRT PO SCH (08:37)
[2018-05-26] MEDS: FUROSEMIDE 40 MG TAB PO SCH (08:37)
[2018-05-26] MEDS: FINASTERIDE 5 MG TAB PO SCH (08:37)
[2018-05-26] MEDS: amLODIPine 5 MG TAB PO SCH (08:38)
[2018-05-26] MEDS: HEPARIN SODIUM,PORCINE 5,000 UNIT/ML 1 ML VIAL SQ SCH ×2 (08:38→20:35)
[2018-05-26] MEDS: INSULIN REGULAR 100 UNIT in SODIUM CHLORIDE 0.9% 100 ML IV SCH (08:39)
[2018-05-26 11:35] LABS: Glucose,Whole Blood 445 mg/dL (75-99)
[2018-05-26] MEDS ORDERED: INSULIN REGULAR BOLUS (FROM DRIP BAG) IV ONE (12:10)
[2018-05-26] MEDS ORDERED: INSULIN REGULAR 100 UNIT in SODIUM CHLORIDE 0.9% 100 ML IV SCH (12:15)
[2018-05-26 13:19] LABS: Hemoglobin A1C 16.8 % (4.0-6.0)
[2018-05-26 14:39] LABS: Glucose,Whole Blood 531 mg/dL (75-99)
[2018-05-26 15:03] LABS: Glucose,Whole Blood 453 mg/dL (75-99)
[2018-05-26 15:44] LABS: Glucose,Whole Blood 433 mg/dL (75-99)
[2018-05-26 15:59] VITALS: BMI 32.5
[2018-05-26 16:06] LABS: Glucose,Whole Blood 394 mg/dL (75-99)
[2018-05-26 16:28] LABS: Glucose,Whole Blood 322 mg/dL (75-99)
[2018-05-26] MEDS: metFORMIN 500 MG TAB PO SCH (16:39)
[2018-05-26 17:00] LABS: Glucose,Whole Blood 271 mg/dL (75-99)
[2018-05-26] MEDS: INSULIN DETEMIR 100 UNIT/ML 10 ML VIAL SQ SCH (17:15)
[2018-05-26 17:31] LABS: Glucose,Whole Blood 202 mg/dL (75-99)
--- NOTE | 2018-05-26 17:41 | PN ---
PROGRESS NOTE DATE OF SERVICE: 05/26/2018 This 83-year-old gentleman admitted with new onset uncontrolled diabetes type 2, is being closely monitored. No chest pain. No palpitations. No fever. Pressure is still elevated. EXAM: Alert and oriented x3. Pulse 85, blood pressure 139/60, respiration 18, temperature 97.2, pulse ox 97% on room air. HEENT: Conjunctivae normal. NECK: No jugular venous distention. CARDIOVASCULAR: S1, S2. RESPIRATORY: Breath sounds diminished in the bases. A few scattered rhonchi and crackles. ABDOMEN: Soft, nontender. LEGS: No edema. NERVOUS SYSTEM: No focal deficits. LABS: WBC 5.9, hemoglobin 12.7. ASSESSMENT: 1. Diabetes mellitus type 2 new onset with hyperosmolar state, uncontrolled with hyperglycemia. 2. Hyponatremia, possibly pseudo hyponatremia. 3. History of congestive heart failure. 4. Hypertension. 5. History of glaucoma. 6. History of posttraumatic stress disorder. 7. History of coronary artery disease, CABG. RECOMMENDATIONS AND DISCUSSION: I recommend to continue current management, continue monitoring and symptomatic treatment. Continue the insulin drip. Once insulin drip is stopped, we will start the patient on Lantus insulin and also I would also recommend diabetic education and as well as metformin also. Repeat labs. Continue the rest of medications. Prognosis guarded. Further recommendations to follow. MMPETERL / GWENDOLYNN: [id number] /
[2018-05-26] MEDS: INSULIN ASPART 100 UNIT/ML 1 ML 10 ML VIAL SQ SCH (20:52)
[2018-05-26 21:01] LABS: Glucose,Whole Blood 81 mg/dL (75-99)
[2018-05-26 21:10] LABS: Glucose,Whole Blood 75 mg/dL (75-99)
[2018-05-26 22:12] LABS: Glucose,Whole Blood 109 mg/dL (75-99)
[2018-05-26] MEDS: LATANOPROST 0.005% OPHTH DROPS 2.5 ML BTL BOTH EYES SCH (22:12)
[2018-05-27] MEDS: hydrALAZINE HCL 10 MG TAB PO SCH ×7 (00:01→23:45)
[2018-05-27] MEDS: CARVEDILOL 6.25 MG TAB PO SCH ×2 (06:06→16:26)
[2018-05-27] MEDS: INSULIN ASPART 100 UNIT/ML 1 ML 10 ML VIAL SQ SCH ×4 (06:06→20:59)
[2018-05-27] MEDS: metFORMIN 500 MG TAB PO SCH ×2 (06:06→17:02)
[2018-05-27 06:07] LABS: Glucose,Whole Blood 103 mg/dL (75-99)
[2018-05-27 06:11] LABS: Basophils % (A) 0 %; Eosinophils # (A) 0.3 k/uL (0-0.7); Eosinophils % (A) 5 %; HCT 38.1 % (39.0-53.0); HGB 12.6 gm/dL (13.0-17.5); Lymphocytes # (A) 1.3 k/uL (1.0-4.8); Lymphocytes % (A) 24 %; MCH 30.2 pg (25.0-35.0); MCHC 33.1 g/dL (31.0-37.0); MCV 91.3 fL (80.0-100.0); Mean Platelet Volume 7.5; Monocytes # (A) 0.3 k/uL (0-1.0); Monocytes % (A) 5 %; Neutrophils # (A) 3.6 k/uL (1.3-7.7); Neutrophils % (A) 65 %; Platelet Count 163 k/uL (150-450); RBC 4.18 m/uL (4.30-5.90); RDW 13.5 % (11.5-15.5); WBC 5.6 k/uL (3.8-10.6)
[2018-05-27 06:32] LABS: Calcium 8.9 mg/dL (8.4-10.2); Potassium 3.6 mmol/L (3.5-5.1)
[2018-05-27] MEDS: FORMOTEROL FUMARATE 20 MCG/2 ML NEBU INHALATION SCH ×2 (07:14→19:46)
[2018-05-27] MEDS: IPRATROPIUM 0.5 MG/2.5 ML NEBU INHALATION SCH ×4 (07:14→19:46)
[2018-05-27] MEDS: FINASTERIDE 5 MG TAB PO SCH (08:31)
[2018-05-27] MEDS: INSULIN DETEMIR 100 UNIT/ML 10 ML VIAL SQ SCH ×2 (08:31→21:19)
[2018-05-27] MEDS: GABAPENTIN 100 MG CAP PO SCH ×3 (08:31→20:59)
[2018-05-27] MEDS: POTASSIUM CHLORIDE ER 10 MEQ TAB.ER.PRT PO SCH (08:31)
[2018-05-27] MEDS: MULTIVITAMINS, THERA 1 EACH TAB PO SCH (08:31)
[2018-05-27] MEDS: amLODIPine 5 MG TAB PO SCH (08:31)
[2018-05-27] MEDS: FUROSEMIDE 40 MG TAB PO SCH (08:31)
[2018-05-27] MEDS: ASPIRIN 81 MG PO SCH (08:31)
[2018-05-27] MEDS: HEPARIN SODIUM,PORCINE 5,000 UNIT/ML 1 ML VIAL SQ SCH ×2 (08:32→21:19)
[2018-05-27] MEDS: NYSTATIN 100,000UNIT/GM CREAM 30 GM TUBE TOPICAL SCH ×2 (08:46→21:19)
[2018-05-27 11:38] LABS: Glucose,Whole Blood 162 mg/dL (75-99)
[2018-05-27 16:36] LABS: Glucose,Whole Blood 341 mg/dL (75-99)
[2018-05-27 20:39] LABS: Glucose,Whole Blood 196 mg/dL (75-99)
--- NOTE | 2018-05-27 21:03 | PN ---
PROGRESS NOTE DATE OF SERVICE: 05/27/2018. This 83-year-old gentleman admitted with diabetes type 2 had the patient new onset diabetes. There is no evidence of ketosis but however the blood sugar is elevated and fluctuating also. The blood sugars are 109, 106, 103, 162 and 341 , sodium is 136, hemoglobin 12.6. PAST MEDICAL HISTORY: Reviewed. REVIEW OF SYSTEMS: Cardiovascular: No angina or palpitations. Respirations: As mentioned earlier. GI as mentioned earlier. : No dysuria. Central nervous system: No numbness or weakness. CURRENT MEDICATIONS: Reviewed and include: 1. Xanax 0.5 t.i.d. 2. Norvasc 5 mg daily. 3. Aspirin 81 mg. 4. Coreg 6.25 mg. 5. Vitamin D2. 6. Proscar 5 mg. 7. Perforomist 20 mg. 8. Neurontin. 9. NovoLog scale. 10.Levemir units subcu b.i.d. 11.Melatonin. 12.Glucophage. 13.K-Dur. EXAM: Patient is alert, oriented x3. Pulse 74. Blood pressure 128/60, respirations 16 , temperature is normal. Pulse ox 97% on room air. HEENT: Conjunctivae normal. Oral mucosa moist. Neck is no jugular venous distention. No carotid bruit. No lymph node enlargement. Cardiovascular: S1, S2 muffled. Respiration: Breath sounds diminished in the bases. A few scattered rhonchi. No crackles. ABDOMEN: Soft, nontender. No mass palpable. Legs are no edema. No swelling. Central nervous system: No focal deficits. LABS: WBC 5.6, hemoglobin 12.6, sodium 130, Accu-Cheks noted. ASSESSMENT: 1. New onset diabetes type 2 with uncontrolled hyperglycemia with hyperosmolar state. 2. No evidence of ketoacidosis. 3. Hyponatremia. 4. History of congestive heart failure. 5. Hypertension. 6. History of glaucoma. 7. History of posttraumatic stress disorder. 8. History of coronary artery disease, coronary artery bypass grafting. RECOMMENDATIONS AND DISCUSSION: Recommend to continue current medications, management and symptomatic treatment. Otherwise, the patient is currently on Levemir twice daily and scale also. We will continue to monitor. Glucophage has been added to the regimen. The prognosis guarded. Further recommendations to follow. See orders for details. Dr. Cooper will follow. MMODL / IJN: [id number] / MTDD
[2018-05-27] MEDS: SODIUM CHLORIDE 0.9% 1,000 ML IV SCH (21:04)
[2018-05-27] MEDS: LATANOPROST 0.005% OPHTH DROPS 2.5 ML BTL BOTH EYES SCH (21:19)
[2018-05-28 01:35] VITALS: RESP 16
[2018-05-28] MEDS: hydrALAZINE HCL 10 MG TAB PO SCH ×6 (04:02→23:04)
[2018-05-28 06:13] LABS: Glucose,Whole Blood 60 mg/dL (75-99)
[2018-05-28 06:31] LABS: Basophils % (A) 0 %; Eosinophils # (A) 0.3 k/uL (0-0.7); Eosinophils % (A) 4 %; HCT 39.2 % (39.0-53.0); HGB 13.3 gm/dL (13.0-17.5); Lymphocytes # (A) 1.3 k/uL (1.0-4.8); Lymphocytes % (A) 17 %; MCH 30.7 pg (25.0-35.0); MCV 90.5 fL (80.0-100.0); Mean Platelet Volume 7.4; Monocytes # (A) 0.4 k/uL (0-1.0); Monocytes % (A) 5 %; Neutrophils # (A) 5.6 k/uL (1.3-7.7); Neutrophils % (A) 71 %; Platelet Count 205 k/uL (150-450); RBC 4.33 m/uL (4.30-5.90); RDW 13.5 % (11.5-15.5); WBC 7.9 k/uL (3.8-10.6)
[2018-05-28] MEDS: INSULIN ASPART 100 UNIT/ML 1 ML 10 ML VIAL SQ SCH ×4 (06:33→22:00)
[2018-05-28] MEDS: metFORMIN 500 MG TAB PO SCH ×2 (06:33→18:01)
[2018-05-28 06:40] LABS: Calcium 9.2 mg/dL (8.4-10.2); Potassium 3.5 mmol/L (3.5-5.1)
[2018-05-28] MEDS: CARVEDILOL 6.25 MG TAB PO SCH ×2 (07:11→18:01)
[2018-05-28] MEDS: IPRATROPIUM 0.5 MG/2.5 ML NEBU INHALATION SCH ×4 (08:27→20:26)
[2018-05-28] MEDS: FORMOTEROL FUMARATE 20 MCG/2 ML NEBU INHALATION SCH ×2 (08:27→20:26)
[2018-05-28] MEDS ORDERED: ERGOCALCIFEROL 50,000 UNIT CAP PO SCH (09:00)
[2018-05-28] MEDS: INSULIN DETEMIR 100 UNIT/ML 10 ML VIAL SQ SCH (09:12)
[2018-05-28] MEDS: ASPIRIN 81 MG PO SCH (09:20)
[2018-05-28] MEDS: NYSTATIN 100,000UNIT/GM CREAM 30 GM TUBE TOPICAL SCH ×2 (09:20→22:01)
[2018-05-28] MEDS: POTASSIUM CHLORIDE ER 10 MEQ TAB.ER.PRT PO SCH (09:20)
[2018-05-28] MEDS: FINASTERIDE 5 MG TAB PO SCH (09:20)
[2018-05-28] MEDS: amLODIPine 5 MG TAB PO SCH (09:20)
[2018-05-28] MEDS: FUROSEMIDE 40 MG TAB PO SCH (09:20)
[2018-05-28] MEDS: GABAPENTIN 100 MG CAP PO SCH ×3 (09:20→20:00)
[2018-05-28] MEDS: HEPARIN SODIUM,PORCINE 5,000 UNIT/ML 1 ML VIAL SQ SCH ×2 (09:25→22:00)
[2018-05-28 11:48] LABS: Glucose,Whole Blood 274 mg/dL (75-99)
[2018-05-28] MEDS: MULTIVITAMINS, THERA 1 EACH TAB PO SCH (12:25)
[2018-05-28 17:38] LABS: Glucose,Whole Blood 311 mg/dL (75-99)
[2018-05-28] MEDS: INSULN ASP PRT/INSULIN ASPART 100 UNIT/ML 10 ML VIAL SQ SCH (18:02)
[2018-05-28 21:23] LABS: Glucose,Whole Blood 194 mg/dL (75-99)
[2018-05-28] MEDS: LATANOPROST 0.005% OPHTH DROPS 2.5 ML BTL BOTH EYES SCH (22:01)
[2018-05-29] MEDS: hydrALAZINE HCL 10 MG TAB PO SCH ×4 (02:52→16:45)
[2018-05-29 05:50] LABS: Basophils % (A) 1 %; Eosinophils # (A) 0.2 k/uL (0-0.7); Eosinophils % (A) 4 %; HCT 39.6 % (39.0-53.0); HGB 12.6 gm/dL (13.0-17.5); Lymphocytes # (A) 1.2 k/uL (1.0-4.8); Lymphocytes % (A) 25 %; MCH 29.5 pg (25.0-35.0); MCHC 31.7 g/dL (31.0-37.0); MCV 93.1 fL (80.0-100.0); Mean Platelet Volume 8.6; Monocytes # (A) 0.3 k/uL (0-1.0); Monocytes % (A) 6 %; Neutrophils % (A) 62 %; Platelet Count 174 k/uL (150-450); RBC 4.26 m/uL (4.30-5.90); RDW 13.7 % (11.5-15.5); WBC 4.9 k/uL (3.8-10.6)
[2018-05-29 06:07] LABS: Calcium 9.1 mg/dL (8.4-10.2); Potassium 3.5 mmol/L (3.5-5.1)
[2018-05-29 06:39] LABS: Glucose,Whole Blood 117 mg/dL (75-99)
[2018-05-29] MEDS: INSULIN ASPART 100 UNIT/ML 1 ML 10 ML VIAL SQ SCH ×3 (06:53→17:51)
[2018-05-29] MEDS: metFORMIN 500 MG TAB PO SCH ×2 (06:53→16:46)
[2018-05-29] MEDS: CARVEDILOL 6.25 MG TAB PO SCH ×2 (06:53→16:46)
[2018-05-29] MEDS ORDERED: INSULN ASP PRT/INSULIN ASPART 100 UNIT/ML 10 ML VIAL SQ SCH ×2 (07:30→12:30)
--- NOTE | 2018-05-29 07:41 | PN ---
PROGRESS NOTE DATE OF SERVICE: 05/28/2018 PRESENTING COMPLAINT: High sugars. INTERVAL HISTORY: This patient presented with new onset of diabetes. Sugars have been rather fluctuating. They were up to 300s and this morning has come down to 60s. Patient has some trouble with his vision. Patient was started on Levemir 20 twice a day, but the sugar this morning was rather low. REVIEW OF SYSTEMS: Done for constitutional, cardiovascular, GI, pulmonary; relevant findings as above. CURRENT MEDICATIONS: Current medications are reviewed that include Levemir. PHYSICAL EXAMINATION: On examination, temperature 98, pulse 77, respiration 16, blood pressure 136/67, pulse ox 97% on room air. GENERAL APPEARANCE: Sitting up, comfortable. EYES: Pupils equal. Conjunctivae normal. HENT: External appearance of nose and ears normal. Oral cavity normal. NECK: JVD not raised. Mass not palpable. RESPIRATORY: Effort normal LUNGS: Decreased breath sounds. CARDIOVASCULAR: First and second sounds normal. No edema. ABDOMEN: Soft, nontender. Liver and spleen not palpable. PSYCHIATRY: Alert and oriented x3. Mood and affect normal. INVESTIGATIONS: White count 7.9, hemoglobin 13.3. Accu-Cheks 60, 274. ASSESSMENT: 1. Diabetes mellitus type 2, uncontrolled with both hypo- and hyperglycemia with hyperosmolar state. 2. Essential hypertension. 3. Posttraumatic stress disorder. 4. Coronary artery disease, prior history of coronary artery bypass. PLAN: I had a very lengthy talk with the patient, the cardiovascular rn and the briefcase sewer. The patient's meal preference is that his major meal is breakfast and lunch and a small supper. Based on that, given his age of 83 and his dexterity, decided to send him on insulin pen. We will use insulin 70/30 for convenience. The patient had already received his Levemir this morning and hence will start on 70/30 in the evening. Will give him 7 units tonight and 12 units for his breakfast tomorrow morning. Hope to give him about 4 to 5 units at lunch to see how his sugars does overnight and plan accordingly. Total time spent today was about 40 minutes with over 25 minutes of discussion. MMODL / IJN: [id number] /
[2018-05-29] MEDS: FINASTERIDE 5 MG TAB PO SCH (08:30)
[2018-05-29] MEDS: amLODIPine 5 MG TAB PO SCH (08:30)
[2018-05-29] MEDS: HEPARIN SODIUM,PORCINE 5,000 UNIT/ML 1 ML VIAL SQ SCH (08:30)
[2018-05-29] MEDS: POTASSIUM CHLORIDE ER 10 MEQ TAB.ER.PRT PO SCH (08:30)
[2018-05-29] MEDS: FUROSEMIDE 40 MG TAB PO SCH (08:30)
[2018-05-29] MEDS: GABAPENTIN 100 MG CAP PO SCH ×2 (08:30→16:45)
[2018-05-29] MEDS: ASPIRIN 81 MG PO SCH (08:30)
[2018-05-29] MEDS: NYSTATIN 100,000UNIT/GM CREAM 30 GM TUBE TOPICAL SCH (08:31)
[2018-05-29] MEDS: FORMOTEROL FUMARATE 20 MCG/2 ML NEBU INHALATION SCH (08:40)
[2018-05-29] MEDS: IPRATROPIUM 0.5 MG/2.5 ML NEBU INHALATION SCH ×3 (08:40→16:02)
[2018-05-29 11:23] LABS: Glucose,Whole Blood 284 mg/dL (75-99)
[2018-05-29 11:32] VITALS: TEMP 98.3
[2018-05-29] MEDS: MULTIVITAMINS, THERA 1 EACH TAB PO SCH (12:31)
[2018-05-29 16:21] LABS: Glucose,Whole Blood 197 mg/dL (75-99)
[2018-05-29 16:56] VITALS: BP 171/79; PULSE 93
[2018-05-29] MEDS: INSULN ASP PRT/INSULIN ASPART 100 UNIT/ML 10 ML VIAL SQ SCH (17:47)
--- NOTE | 2018-05-30 07:33 | DS ---
DISCHARGE SUMMARY DATE OF ADMISSION: 05/25/2018 DATE OF DISCHARGE: 05/29/2018 FINAL DIAGNOSES: 1. New onset of diabetes mellitus type 2, uncontrolled with both hypo- and hyperglycemia with hyperosmolar state. 2. Essential hypertension. 3. Posttraumatic stress disorder. 4. Coronary artery disease prior history of coronary artery bypass. 5. Gait dysfunction, uses a walker. HOSPITAL COURSE: This patient admitted with uncontrolled diabetes in a hyperosmolar state. Patient has slight visual impairment. Diabetic coordinator also was involved and so was social media community manager. I talked at length with the patient about his diet. Will be sent home with a Humalog pen. PHYSICAL EXAMINATION: Temperature 98.3, pulse 73 , respiration 16, blood pressure 115/67. LUNGS: Fair entry. CARDIOVASCULAR: First and second sounds normal. Last Accu-Cheks was 197. Discussion and discharge planning more than 35 minutes. DISCHARGE MEDICATIONS: 1. Proscar 5 mg p.o. daily. 2. Xalatan 0.005% two drops both eyes q.h.s. 3. Aspirin 81 mg a day. 4. Mycostatin powder topical t.i.d. 5. Norvasc 5 mg a day. 6. Coreg 6.25 p.o. b.i.d. 7. Vitamin D2 fifty thousand units q.7 days. 8. Lasix 40 mg a day. 9. Neurontin 200 mg t.i.d. 10.BEVESPI inhaler 2 puffs b.i.d. 11.Potassium 10 mEq a day. 12.Hydralazine 10 mg p.o. q.4. 13.Humalog Mix 75/25 KwikPen as directed, 14 units with breakfast, 5 units with lunch and 7 units with supper. The patient was told to maintain a log of a.c. and at bedtime and follow up with his family doctor. FOLLOWUP: Follow up with Dr. Edge on 06/01/2018. [facility] is involved in [facility]. Discussion and discharge planning more than 35 minutes. MMODL / IJN: [id number] /
== END 2018-05-29 18:00 | disposition home health service (06) | DRG 638 ==
LOC: EC 14:41 → 3SCARD 16:41
PROVIDERS: ADMIT Hospitalist; ATTEND Hospitalist
DX: E11.10 Type 2 diabetes mellitus with ketoacidosis without coma (principal); E87.1 Hypo-osmolality and hyponatremia; F43.10 Post-traumatic stress disorder, unspecified; H40.9 Unspecified glaucoma; I11.0 Hypertensive heart disease with heart failure; I25.10 Atherosclerotic heart disease of native coronary artery without angina pectoris; I50.9 Heart failure, unspecified; Z79.4 Long term (current) use of insulin; Z79.82 Long term (current) use of aspirin; Z82.49 Family history of ischemic heart disease and other diseases of the circulatory system; Z95.1 Presence of aortocoronary bypass graft; Z79.899 Other long term (current) drug therapy
CPT/HCPCS: 36415; 80048; 80051; 80053; 81003; 82009; 82565; 82947; 83036; 83605; 84100; 84520; 85025; 94640; 96361; 96365; 96366; 96372; 99291

== ENCOUNTER 2018-11-19 20:36 | Inpatient (IN) | payer MEDICARE ==
[2018-11-19] MEDS ORDERED: HEPARIN SODIUM,PORCINE 5,000 UNIT/ML 1 ML VIAL IV ONE (21:07)
[2018-11-19] MEDS ORDERED: HEPARIN SODIUM,PORCINE 5,000 UNIT/ML 1 ML VIAL IV PRN (21:07)
[2018-11-19] MEDS ORDERED: ASPIRIN 81 MG PO STA (21:08)
--- NOTE | 2018-11-19 21:16 | ED ---
General Adult HPI - General Chief complaint: Recheck/Abnormal Lab/Rx Stated complaint: Abnormal Labs Time Seen by Provider: 11/19/18 20:53 Source: patient Mode of arrival: ambulatory Limitations: no limitations - History of Present Illness Initial comments: Dictation was produced using gBox dictation software. please excuse any gramm atical, word or spelling errors. Chief Complaint: A 3-year-old male presents with abnormal lab. History of Present Illness: Patient is an 83-year-old male is has past medical history of coronary artery disease status post CABG several years ago. He was seen by his primary care physician where he had labs performed. He was told to come to the emergency department for elevated troponin. Patient has a history of coronary artery disease and congestive heart failure. He normally has elevated troponin. He reports that on he had an episode where he had left anterior chest pain every down his left arm. He denies any symptoms at this time. On states his symptoms lasted for couple minutes before it subsided. The ROS documented in this emergency department record has been reviewed and confirmed by me. Those systems with pertinent positive or negative responses have been documented in the HPI. All other systems are other negative and/or noncontributory. PHYSICAL EXAM: General Impression: Alert and oriented x3, not in acute distress HEENT: Normocephalic atraumatic, extra-ocular movements intact, pupils equal and reactive to light bilaterally, mucous membranes moist. Cardiovascular: Heart regular rate and rhythm, S1&S2 audible, no murmurs, rubs or gallops Chest: Lungs clear to auscultation bilaterally, no rhonchi, no wheeze, no rales Abdomen: Bowel sounds present, abdomen soft, non-tender, non-distended, no organomegaly Musculoskeletal: Pulses present and equal in all extremities, no peripheral edema Motor: no focal deficits noted Neurological: CN II-XII grossly intact, no focal motor or sensory deficits noted Skin: Intact with no visualized rashes Psych: Normal affect and mood ED course: 83 yo male presents with an episode of chest pain on and elevated troponin outpatient. Vital signs upon arrival shows heart rate of 108, blood pressure 209/92, rest of vital signs within acceptable limits. Patient is asymptomatic at this time. Patient also not any blood thinners no history of atrial fibrillation. Patient started on heparin for new onset atrial fibrillation. Laboratory evaluation obtained. CBC, coag panel, metabolic panel is unremarkable. Troponin 0.054. This appears to be likely croup likely given that this is around normal for patient's troponin level. Patient started on low-dose Cardizem drip and that his heart rate decreased into the 100s. Patient admitted to Dr. Cooper's service. Cardiology to be on consultation. Patient given aspirin. EKG interpretation: Ventricular rate 100, A. fib, QRS 154, QTC 438. Right bundle branch block. Compared to EKG from 05/18/2017 with new onset A. fib. Patient denies any blood thinners. - Related Data Home Medications Medication Instructions Recorded Confirmed Finasteride [Proscar] 5 mg PO DAILY 11/15/16 11/19/18 Latanoprost [Xalatan 0.005%] 2 drop BOTH EYES HS 11/15/16 11/19/18 Nystatin 100,000 Unit/gm Powd 1 applic TOPICAL TID 05/18/17 11/19/18 [Mycostatin Powder] Carvedilol [Coreg] 6.25 mg PO AC-BID 05/25/18 11/19/18 Ergocalciferol [Vitamin D2 50,000 unit PO Q7D 05/25/18 11/19/18 (DRISDOL)] Furosemide [Lasix] 40 mg PO DAILY 05/25/18 11/19/18 Gabapentin [Neurontin] 200 mg PO TID 05/25/18 11/19/18 Glycopyrrolate/Formoterol Fum 2 puff INHALATION RT-BID 05/25/18 11/19/18 [Bevespi Aerosphere Inhaler] Potassium Chloride ER [K-Dur 10] 10 meq PO DAILY 05/25/18 11/19/18 hydrALAZINE HCL 10 mg PO Q4HR 05/25/18 11/19/18 Insulin Glargine,Hum.rec.anlog 8 unit SQ DAILY 11/19/18 11/19/18 [Mauricio Osorio] Previous Rx's Medication Instructions Recorded Aspirin 81 mg PO DAILY 11/20/16 amLODIPine [Norvasc] 5 mg PO DAILY #30 tab 05/24/17 Allergies Allergy/AdvReac Type Severity Reaction Status Date / Time No Known Allergies Allergy Verified 11/19/18 21:11 Review of Systems ROS Statement: Those systems with pertinent positive or pertinent negative responses have been documented in the HPI. ROS Other: All systems not noted in ROS Statement are negative. Past Medical History Past Medical History: Heart Failure, Eye Disorder, Hypertension Additional Past Medical History / Comment(s): glacoma, surgical procedure on bilateral eyes, PTSD History of Any Multi-Drug Resistant Organisms: None Reported Past Surgical History: Coronary Bypass/CABG, Tonsillectomy Additional Past Surgical History / Comment(s): CABG in 2004- numbness in left arm with activity before procedure Past Anesthesia/Blood Transfusion Reactions: No Reported Reaction Past Psychological History: PTSD Smoking Status: Never smoker Past Alcohol Use History: None Reported Past Drug Use History: None Reported - Past Family History Father Family Medical History: Cancer, Congestive Heart Failure (CHF), Coronary Artery Disease (CAD) Mother Family Medical History: Congestive Heart Failure (CHF), Coronary Artery Disease (CAD) General Exam Limitations: no limitations Course Vital Signs 11/19/18 11/19/18 20:38 21:28 Temperature 97.8 F Pulse Rate 108 H 103 H Respiratory 18 20 Rate Blood Pressure 209/92 175/100 O2 Sat by Pulse 97 97 Oximetry Medical Decision Making - Lab Data Result diagrams: 11/19/18 21:05 11/19/18 21:05 Lab Results 11/19/18 11/19/18 11/19/18 Range/Units 21:05 21:05 21:05 WBC 9.0 (3.8-10.6) k/uL RBC 5.74 (4.30-5.90) m/uL Hgb 16.9 (13.0-17.5) gm/dL Hct 49.8 (39.0-53.0) % MCV 86.7 (80.0-100.0) fL MCH 29.4 (25.0-35.0) pg MCHC 33.9 (31.0-37.0) g/dL RDW 15.0 (11.5-15.5) % Plt Count 227 (150-450) k/uL Neutrophils % 80 % Lymphocytes % 9 % Monocytes % 6 % Eosinophils % 3 % Basophils % 0 % Neutrophils # 7.2 (1.3-7.7) k/uL Lymphocytes # 0.8 L (1.0-4.8) k/uL Monocytes # 0.6 (0-1.0) k/uL Eosinophils # 0.3 (0-0.7) k/uL Basophils # 0.0 (0-0.2) k/uL PT (9.0-12.0) sec INR (<1.2) APTT (22.0-30.0) sec Sodium 138 (137-145) mmol/L Potassium 3.4 L (3.5-5.1) mmol/L Chloride 99 (98-107) mmol/L Carbon Dioxide 28 (22-30) mmol/L Anion Gap 11 mmol/L BUN 25 H (9-20) mg/dL Creatinine 1.07 (0.66-1.25) mg/dL Est GFR (CKD-EPI)AfAm 74 (>60 ml/min/1.73 sqM) Est GFR (CKD-EPI)NonAf 64 (>60 ml/min/1.73 sqM) Glucose 170 H (74-99) mg/dL Calcium 9.7 (8.4-10.2) mg/dL Magnesium 1.9 (1.6-2.3) mg/dL Total Bilirubin 0.8 (0.2-1.3) mg/dL AST 47 (17-59) U/L ALT 31 (21-72) U/L Alkaline Phosphatase 184 H (38-126) U/L Troponin I (0.000-0.034) ng/mL NT-Pro-B Natriuret Pep 1230 pg/mL Total Protein 7.2 (6.3-8.2) g/dL Albumin 4.2 (3.5-5.0) g/dL 11/19/18 11/19/18 Range/Units 21:05 21:05 WBC (3.8-10.6) k/uL RBC (4.30-5.90) m/uL Hgb (13.0-17.5) gm/dL Hct (39.0-53.0) % MCV (80.0-100.0) fL MCH (25.0-35.0) pg MCHC (31.0-37.0) g/dL RDW (11.5-15.5) % Plt Count (150-450) k/uL Neutrophils % % Lymphocytes % % Monocytes % % Eosinophils % % Basophils % % Neutrophils # (1.3-7.7) k/uL Lymphocytes # (1.0-4.8) k/uL Monocytes # (0-1.0) k/uL Eosinophils # (0-0.7) k/uL Basophils # (0-0.2) k/uL PT 10.1 (9.0-12.0) sec INR 0.9 (<1.2) APTT 25.0 (22.0-30.0) sec Sodium (137-145) mmol/L Potassium (3.5-5.1) mmol/L Chloride (98-107) mmol/L Carbon Dioxide (22-30) mmol/L Anion Gap mmol/L BUN (9-20) mg/dL Creatinine (0.66-1.25) mg/dL Est GFR (CKD-EPI)AfAm (>60 ml/min/1.73 sqM) Est GFR (CKD-EPI)NonAf (>60 ml/min/1.73 sqM) Glucose (74-99) mg/dL Calcium (8.4-10.2) mg/dL Magnesium (1.6-2.3) mg/dL Total Bilirubin (0.2-1.3) mg/dL AST (17-59) U/L ALT (21-72) U/L Alkaline Phosphatase (38-126) U/L Troponin I 0.054 H* (0.000-0.034) ng/mL NT-Pro-B Natriuret Pep pg/mL Total Protein (6.3-8.2) g/dL Albumin (3.5-5.0) g/dL Disposition Clinical Impression: New onset a-fib, Elevated troponin Disposition: ADMITTED IP TO THIS HOSP Condition: Fair Referrals: Tay Edge MD [Primary Care Provider] - 1-2 days Decision Time: 22:21
[2018-11-19] MEDS: HEPARIN SOD,PORK IN 0.45% NACL 25,000 UNIT in 0.45% NACL 1 250ML.BAG IV SCH (21:26)
[2018-11-19 21:28] LABS: Basophils % (A) 0 %; Eosinophils # (A) 0.3 k/uL (0-0.7); Eosinophils % (A) 3 %; HCT 49.8 % (39.0-53.0); HGB 16.9 gm/dL (13.0-17.5); Lymphocytes # (A) 0.8 k/uL (1.0-4.8); Lymphocytes % (A) 9 %; MCH 29.4 pg (25.0-35.0); MCHC 33.9 g/dL (31.0-37.0); MCV 86.7 fL (80.0-100.0); Mean Platelet Volume 7.1; Monocytes # (A) 0.6 k/uL (0-1.0); Monocytes % (A) 6 %; Neutrophils # (A) 7.2 k/uL (1.3-7.7); Neutrophils % (A) 80 %; Platelet Count 227 k/uL (150-450); RBC 5.74 m/uL (4.30-5.90)
[2018-11-19 21:32] LABS: INR 0.9 (<1.2); Prothrombin Time 10.1 sec (9.0-12.0)
[2018-11-19 21:33] LABS: Albumin 4.2 g/dL (3.5-5.0); Calcium 9.7 mg/dL (8.4-10.2); Magnesium 1.9 mg/dL (1.6-2.3); Potassium 3.4 mmol/L (3.5-5.1); Total Bilirubin 0.8 mg/dL (0.2-1.3); Total Protein 7.2 g/dL (6.3-8.2)
--- NOTE | 2018-11-19 22:05 | XR ---
EXAMINATION TYPE: XR chest 1V portable DATE OF EXAM: 11/19/2018 COMPARISON: 05/18/2017 HISTORY: Chest pain TECHNIQUE: Single frontal view of the chest is obtained. FINDINGS: There is no heart failure nor confluent pneumonic infiltrate. There is mild thoracic dextr oscoliosis. There are are sternal wires. IMPRESSION: No active cardiopulmonary disease. No change.
[2018-11-19] MEDS ORDERED: NALOXONE 0.4 MG/ML 1 ML VIAL IV PRN (22:21)
[2018-11-19] MEDS ORDERED: DILTIAZEM 125 MG in SODIUM CHLORIDE 0.9% 100 ML IV SCH (22:30)
[2018-11-19] MEDS: SODIUM CHLORIDE 0.9% 1,000 ML IV SCH (23:30)
[2018-11-19 23:36] LABS: Glucose,Whole Blood 215 mg/dL (75-99)
[2018-11-19] MEDS: hydrALAZINE HCL 10 MG TAB PO SCH (23:39)
[2018-11-20 00:17] LABS: Glucose,Whole Blood 216 mg/dL (75-99)
[2018-11-20] MEDS: INSULIN ASPART (NovoLOG) 100 UNIT/ML VIAL SQ SCH ×5 (00:42→20:56)
[2018-11-20] MEDS ORDERED: CARVEDILOL 6.25 MG TAB PO STA (01:22)
[2018-11-20] MEDS: hydrALAZINE HCL 10 MG TAB PO SCH (03:42)
[2018-11-20 03:53] LABS: Basophils % (A) 1 %; Eosinophils # (A) 0.3 k/uL (0-0.7); Eosinophils % (A) 4 %; HCT 44.8 % (39.0-53.0); HGB 14.8 gm/dL (13.0-17.5); Lymphocytes # (A) 1.1 k/uL (1.0-4.8); Lymphocytes % (A) 15 %; MCH 28.8 pg (25.0-35.0); MCHC 33.1 g/dL (31.0-37.0); MCV 86.9 fL (80.0-100.0); Mean Platelet Volume 6.7; Monocytes # (A) 0.5 k/uL (0-1.0); Monocytes % (A) 7 %; Neutrophils # (A) 5.1 k/uL (1.3-7.7); Neutrophils % (A) 71 %; Platelet Count 195 k/uL (150-450); RBC 5.16 m/uL (4.30-5.90); RDW 14.3 % (11.5-15.5); WBC 7.1 k/uL (3.8-10.6)
[2018-11-20 06:03] LABS: Calcium 9.4 mg/dL (8.4-10.2); Potassium 2.9 mmol/L (3.5-5.1)
[2018-11-20] MEDS ORDERED: Potassium Replacement Protocol 1 EACH MISC MISCELLANE PRN (06:09)
[2018-11-20] MEDS: PANTOPRAZOLE 40 MG TABLET PO SCH (06:44)
[2018-11-20] MEDS: POTASSIUM CHLORIDE ER 20 MEQ TAB.ER PO SCH ×3 (06:44→10:06)
[2018-11-20 06:58] LABS: Glucose,Whole Blood 88 mg/dL (75-99)
[2018-11-20] MEDS: CARVEDILOL 6.25 MG TAB PO SCH ×2 (07:08→17:39)
--- NOTE | 2018-11-20 08:30 | CONS ---
CONSULTATION Mr. Venegas is an 83-year-old male, status post coronary artery bypass grafting about 14 years ago with 5 bypass at [facility], history of hypertension, hyperlipidemia and diabetes mellitus who last had some chest and arm discomfort, subsequently resolved. Yesterday, he was seen by Dr. Edge and lab withdrawn and his troponin came back mildly positive. In view of that he was called back to come into the emergency room. On presentation to the emergency room, he was in atrial fibrillation and subsequently he converted to sinus mechanism. He has no further symptoms since . He is pain free at this time. He has some dyspnea on exertion, although his activity is a little bit limited but getting better. He denies any dizziness or palpitation. He is unaware of the arrhythmia. He had no syncopal episode. He has no clear PND or orthopnea. He has some peripheral edema that resolved in the past. He was in the hospital in May of 2018 and he was in sinus mechanism at that time and presented at that time with a hyperosmolar state with uncontrolled blood sugar that was not documented in the past. The patient had a prior history of congestive heart failure, but his left ventricular systolic function was normal in October of 2016. His coronary risk factors are positive for the history of diabetes, hypertension. He is a nonsmoker. PAST MEDICAL HISTORY: Past medical history remarkable for history of coronary disease, history of PTSD, history of hypertension. MEDICATIONS: Medications at home include hydralazine 10 mg 4 times a day, amlodipine 5 mg daily, insulin, Neurontin, Lasix 40 mg daily, Proscar, Coreg 6.25 mg twice a day, and aspirin once a day. REVIEW OF SYSTEMS: RESPIRATORY SYSTEM: He has history of dyspnea, but no recent wheezing or cough. GI SYSTEM: No recent GI bleeding. No peptic ulcer disease. SYSTEM: No dysuria or hematuria. NERVOUS SYSTEM: No stroke or seizure. PHYSICAL EXAMINATION: He is an 83-year-old male, alert, oriented, in no apparent distress. Blood pressure 140/80 with the heart rate in the 60s. His blood pressure was higher earlier in the 210s. HEAD: Normocephalic. EYES: Sclerae anicteric. NECK: Good upstroke. No bruit. LUNGS: Clear to auscultation. HEART: Regular rate and rhythm. S1, S2. No S3 with systolic murmur heard at the base and a diastolic murmur. No rub. ABDOMEN: Soft, nontender. Positive bowel sounds. No organomegaly. EXTREMITIES: No edema. Intact distal pulses. LAB DATA: Lab data revealed a potassium of 2.9, BUN and creatinine 28 and 1.16. Hemoglobin of 14.8. Troponin of 0.054. Of note that his troponin in 2017 were mildly elevated as well. His initial EKG revealed atrial fibrillation with a right bundle branch block and nonspecific ST-T wave changes. Subsequently, he is in sinus mechanism with a rate of 62 and T-wave inversion in the lateral leads that was documented in the past. His chest x-ray shows no acute infiltrate. IMPRESSION: 1. Paroxysmal atrial fibrillation back in sinus mechanism. 2. Probable non ST-segment elevation myocardial infarction. 3. History of coronary artery disease, status post coronary artery bypass grafting 14 years ago. 4. Hypertension. 5. Diabetes mellitus. 6. Prior history of congestive heart failure. 7. History of posttraumatic stress disorder. RECOMMENDATION: I discussed with the patient the finding. I have discussed with him the issue of the atrial fibrillation, anticoagulation as well as the possibility of requiring coronary angiography. We discussed both option of maximizing medical therapy versus aggressive treatment. He is in favor of maximizing medical therapy and is not in favor of angioplasty or repeating coronary angiography at this time. We will replace his potassium. The patient will need to be switched to oral anticoagulation, but I will hold on that until we see the rest of his lab data and make final decision. Depending on his progress, further recommendation will be made. I will add to his regimen statin and an TRUDY inhibitor to optimize his blood pressure control. Depending on his progress, further recommendation will be made. Thank you for this consult. We will follow with you. MMODL / IJN: [id number] / ROSALBA
[2018-11-20] MEDS: FUROSEMIDE 40 MG TAB PO SCH (08:48)
[2018-11-20] MEDS: ATORVASTATIN 40 MG TAB PO SCH (08:48)
[2018-11-20] MEDS: LISINOPRIL 5 MG TAB PO SCH ×3 (08:48→23:00)
[2018-11-20 09:18] LABS: Magnesium 1.9 mg/dL (1.6-2.3)
[2018-11-20 11:43] LABS: Glucose,Whole Blood 112 mg/dL (75-99)
--- NOTE | 2018-11-20 12:47 | ECHOF ---
Referral Reason:cad MEASUREMENTS -------- HEIGHT: 175.3 cm WEIGHT: 54.4 kg BP: 141/82 RVIDd: 2.7 cm (< 3.3) IVSd: 1.5 cm (0.6 - 1.1) LVIDd: 4.4 cm (3.9 - 5.3) LVPWd: 1.3 cm (0.6 - 1.1) IVSs: 1.7 cm LVIDs: 3.0 cm LVPWs: 1.4 cm LA Diam: 3.1 cm (2.7 - 3.8) LAESV Index (A-L): 18.12 ml/m Ao Diam: 4.3 cm (2.0 - 3.7) AV Cusp: 1.4 cm (1.5 - 2.6) MV EXCURSION: 9.414 mm (> 18.000) MV EF SLOPE: 12 mm/s (70 - 150) EPSS: 1.4 cm MV E Derrek: 0.72 m/s MV DecT: 233 ms MV A Derrek: 0.97 m/s MV E/A Ratio: 0.74 AR PHT: 560 ms FINDINGS -------- Atrial fibrillation. This was a technically good study. The left ventricular size is normal. There is moderate concentric left ventricular hypertrophy. O verall left ventricular systolic function is moderately impaired with, an EF between 35 - 40 %. The right ventricle is normal in size. Normal LA size by volume 22+/-6 ml/m2. The right atrium is normal in size. Interatrial and interventricular septum intact. Aortic valve is trileaflet and is mildly thickened. There is moderate aortic regurgitation. Mild mitral annular calcification present. Mild mitral regurgitation is present. Trace tricuspid regurgitation present. Trace/mild (physiologic) pulmonic regurgitation. The aortic root is dilated measuring 4.3cm. Normal inferior vena cava with normal inspiratory collapse consistent with estimated right atrial pre ssure of 5 mmHg. There is no pericardial effusion. CONCLUSIONS -------- 1. Atrial fibrillation. 2. This was a technically good study. 3. The left ventricular size is normal. 4. There is moderate concentric left ventricular hypertrophy. 5. Overall left ventricular systolic function is moderately impaired with, an EF between 35 - 40 %. 6. The right ventricle is normal in size. 7. Normal LA size by volume 22+/-6 ml/m2. 8. The right atrium is normal in size. 9. Interatrial and interventricular septum intact. 10. Aortic valve is trileaflet and is mildly thickened. 11. There is moderate aortic regurgitation. 12. Mild mitral annular calcification present. 13. Mild mitral regurgitation is present. 14. Trace tricuspid regurgitation present. 15. Trace/mild (physiologic) pulmonic regurgitation. 16. The aortic root is dilated measuring 4.3cm. 17. Normal inferior vena cava with normal inspiratory collapse consistent with estimated right atrial pressure of 5 mmHg. 18. There is no pericardial effusion. ENTRY LEVEL: [place] RDCS
[2018-11-20 14:10] LABS: Hemoglobin A1C 6.5 % (4.0-6.0)
[2018-11-20 17:35] LABS: Glucose,Whole Blood 176 mg/dL (75-99)
[2018-11-20 20:58] LABS: Glucose,Whole Blood 117 mg/dL (75-99)
[2018-11-20] MEDS: HEPARIN SOD,PORK IN 0.45% NACL 25,000 UNIT in 0.45% NACL 1 250ML.BAG IV SCH (21:57)
--- NOTE | 2018-11-20 22:10 | XR ---
EXAM: XR Chest, 2 Views CLINICAL HISTORY: Shortness of breath TECHNIQUE: Frontal and lateral views of the chest. COMPARISON: Chest x-ray dated 11/19/2018 FINDINGS: Lungs: Hyperexpanded lungs suggesting COPD. Pleural space: Unremarkable. No pneumothorax. Heart: Unremarkable. No cardiomegaly. Mediastinum: Unremarkable. Bones/joints: Evidence of prior median sternotomy. Scoliosis of the spine. IMPRESSION: Hyperexpanded lungs suggesting COPD.
--- NOTE | 2018-11-20 22:33 | HP ---
HISTORY AND PHYSICAL DATE OF ADMISSION: 11/19/2018 DATE OF SERVICE: 11/20/2018 PRESENTING COMPLAINT: Chest pain. HISTORY OF PRESENTING COMPLAINT: This is a pleasant 83-year-old patient of Dr. Edge in [place]. Chronic stable medical conditions include diabetes, hypertension, coronary artery disease with bypass 14 years ago. About 5 days ago the patient was sitting down, developed left precordial pain for about 2 minutes and had a choking sensation. The episode lasted for a few minutes. The patient was slightly short of breath. No perspiration. No dizziness. No lightheadedness. The patient called up his family doctor about the episode yesterday and his doctor told him to come to the ER. The patient was admitted for the same. The patient was found to be in atrial fibrillation that did revert to sinus rhythm. Also the patient's troponin did show rise and a fall, and it is believed that the patient probably had an acute non-Q-wave myocardial infarction. I saw the patient earlier today. He has been feeling more short of breath than usual. The patient was offered cardiac catheterization by Dr. Sethi, but at this point he has decided to proceed with medical management. REVIEW OF SYSTEMS: CONSTITUTIONAL: Tired. HEENT: None. RESPIRATORY: More short of breath than usual. CARDIOVASCULAR: As above. GASTROINTESTINAL: None. GENITOURINARY: None. MUSCULOSKELETAL: None. DERMATOLOGICAL: None. HEMATOLOGICAL: None. LYMPHATICS: None. PSYCHIATRY: None. NEUROLOGICAL: None. PAST MEDICAL HISTORY: 1. Congestive heart failure. 2. Hypertension. 3. Glaucoma. 4. Surgical procedure on both eyes. 5. PTSD. 6. Coronary artery disease with bypass. 7. Diabetes. PAST SURGICAL HISTORY: Coronary artery bypass in 2004. PSYCH HISTORY: PTSD. 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 Born in [facility] and emigrated to the [place] as a child. No smoking. No alcohol. Lives with someone. FAMILY HISTORY: Coronary artery disease, congestive heart failure. HOME MEDICATIONS: 1. Hydralazine 10 mg p.o. q.4. 2. Norvasc 5 mg p.o. daily. 3. Potassium 10 mEq daily. 4. Mycostatin powder topically t.i.d. 5. Xalatan 0.005% two drops both eyes at bedtime. 6. Insulin Glargine 8 units subcutaneously daily. 7. Bevespi Aerosphere 2 puffs b.i.d. 8. Neurontin 200 mg t.i.d. 9. Lasix 40 mg p.o. daily. 10.Proscar 5 mg p.o. daily. 11.Vitamin D2 50,000 units every 7 days. 12.Coreg 6.25 p.o. b.i.d. 13.Aspirin 81 mg p.o. daily. ALLERGIES: NONE. PHYSICAL EXAMINATION: VITAL SIGNS ON PRESENTATION: Temperature 97.8, pulse 108 to 110, respiration 26, blood pressure 209/92, pulse ox 97%. Repeat blood pressure was 175/100. GENERAL APPEARANCE: Thin build; BMI 17.8. Sitting up. Slightly short of breath. EYES: Pupils equal. Conjunctivae normal. HEENT: External appearance of nose and ears normal. Oral cavity normal. NECK: JVD unable to assess. Mass not palpable. RESPIRATORY: Effort increased. LUNGS: Left basal crackles. CARDIOVASCULAR: First and second sounds normal. No edema. ABDOMEN: Soft, non-tender. Liver and spleen not palpable. LYMPHATIC: No lymph node palpable in neck or axillae. PSYCHIATRY: Alert and oriented x3. Mood and affect slightly anxious-appearing. NEUROLOGICAL: Pupils equal. Cranial nerves grossly intact. Power and sensation grossly intact. INVESTIGATIONS: White count 9, hemoglobin 16.9, platelets 227. Potassium 3.4, BUN 25, creatinine 1.07. Accu-Cheks are noted. Troponin I 0.054, 0.1, 0.08. ProBNP 1230. EKG tracing, personally reviewed by me, shows right bundle branch block with underlying atrial fibrillation pattern and some ST-segment changes. Chest x-ray film, personally reviewed by me, shows a portable film, cardiomegaly. ASSESSMENT: 1. Acute non-Q-wave myocardial infarction, POA. 2. Paroxysmal atrial fibrillation, new onset. 3. Hypertensive urgency. 4. Diabetes mellitus, type 2, chronically on insulin. 5. Chronic congestive heart failure from systolic dysfunction, ejection fraction 30% to 35%; suspect acute exacerbation. PLAN: Home medications are resumed. Patient was put on IV heparin. The patient was seen by Dr. Sethi from Cardiology. Patient was offered cardiac catheterization, but wants medical management at the present time. Other home medications will be resumed. Accu- Cheks will be closely followed. Will repeat a chest x-ray. Patient may need IV Lasix. Care was discussed the patient. Questions were answered. MMODL / IJN: [id number] /
[2018-11-20] MEDS: GABAPENTIN 100 MG CAP PO SCH (22:38)
[2018-11-20] MEDS: NYSTATIN 100,000 UNIT/GM POWD 15 GM TOPICAL SCH (22:38)
[2018-11-20] MEDS: LATANOPROST 0.005% OPHTH DROPS 2.5 ML BTL BOTH EYES SCH (22:39)
[2018-11-20] MEDS: FINASTERIDE 5 MG TAB PO SCH (22:39)
[2018-11-20] MEDS ORDERED: INSULIN ASPART (NovoLOG) 100 UNIT/ML VIAL SQ SCH (23:54)
[2018-11-21] MEDS: SODIUM CHLORIDE 0.9% 1,000 ML IV SCH (01:19)
[2018-11-21 06:16] LABS: Glucose,Whole Blood 154 mg/dL (75-99)
[2018-11-21 06:23] LABS: Basophils % (A) 0 %; Eosinophils # (A) 0.3 k/uL (0-0.7); Eosinophils % (A) 5 %; HCT 40.8 % (39.0-53.0); HGB 13.3 gm/dL (13.0-17.5); Lymphocytes # (A) 0.7 k/uL (1.0-4.8); Lymphocytes % (A) 14 %; MCH 28.7 pg (25.0-35.0); MCHC 32.6 g/dL (31.0-37.0); MCV 88.1 fL (80.0-100.0); Mean Platelet Volume 6.6; Monocytes # (A) 0.3 k/uL (0-1.0); Monocytes % (A) 5 %; Neutrophils # (A) 3.9 k/uL (1.3-7.7); Neutrophils % (A) 73 %; Platelet Count 178 k/uL (150-450); RBC 4.63 m/uL (4.30-5.90); RDW 14.4 % (11.5-15.5); WBC 5.3 k/uL (3.8-10.6)
[2018-11-21 06:38] LABS: D-Dimer 0.41 mg/L FEU (<0.60); Partial Thromboplastin Time 47.6 sec (22.0-30.0)
[2018-11-21] MEDS: CARVEDILOL 6.25 MG TAB PO SCH ×2 (06:46→17:48)
[2018-11-21] MEDS: INSULIN ASPART (NovoLOG) 100 UNIT/ML VIAL SQ SCH ×4 (06:46→22:08)
[2018-11-21] MEDS: PANTOPRAZOLE 40 MG TABLET PO SCH (06:46)
[2018-11-21 07:00] LABS: Calcium 8.7 mg/dL (8.4-10.2); Potassium 3.4 mmol/L (3.5-5.1)
[2018-11-21] MEDS ORDERED: Potassium Replacement Protocol 1 EACH MISC MISCELLANE PRN (07:34)
[2018-11-21] MEDS: LISINOPRIL 5 MG TAB PO SCH ×2 (09:25→22:07)
[2018-11-21] MEDS: GABAPENTIN 100 MG CAP PO SCH ×3 (09:26→22:07)
[2018-11-21] MEDS: FUROSEMIDE 40 MG TAB PO SCH (09:26)
[2018-11-21] MEDS: amLODIPine 5 MG TAB PO SCH (09:26)
[2018-11-21] MEDS: ATORVASTATIN 40 MG TAB PO SCH (09:26)
[2018-11-21] MEDS: ASPIRIN 81 MG PO SCH (09:27)
[2018-11-21] MEDS: POTASSIUM CHLORIDE ER 20 MEQ TAB.ER PO SCH ×2 (09:27→10:52)
[2018-11-21] MEDS: FINASTERIDE 5 MG TAB PO SCH (09:28)
[2018-11-21] MEDS: HEPARIN SOD,PORK IN 0.45% NACL 25,000 UNIT in 0.45% NACL 1 250ML.BAG IV SCH (09:32)
[2018-11-21] MEDS: NYSTATIN 100,000 UNIT/GM POWD 15 GM TOPICAL SCH ×3 (09:38→22:09)
[2018-11-21 11:38] LABS: Glucose,Whole Blood 137 mg/dL (75-99)
--- NOTE | 2018-11-21 14:04 | P.PN ---
Subjective Progress Note Date: 11/21/18 This is an 83-year-old male who is status post coronary bypass grafting surgery approximately 14 years ago by [facility], history of hypertension, hyperlipidemia, diabetes, who presented to the hospital with symptoms of chest discomfort. On presentation to the emergency room patient was found to be in atrial fibrillation and subsequently converted to normal sinus rhythm. He was also noted to have abnormality in troponin. Seen in consultation yesterday by Dr. Sethi. His coronary risk factors are positive for hypertension, diabetes, hyperlipidemia, he is a nonsmoker. He does have a history of PTSD. Dr. Sethi did have a lengthy discussion with the patient regarding the need for possible cardiac catheterization, yesterday he was not wanting to have any procedures done, and just wished to go with medical therapy. Today he said at some point he may consider proceeding with cath if recommended. His blood pressure today running in the range of 200, to 180 systolic, after his medication administration it did come down to the 1:30 range. Echocardiogram with Doppler study was performed which revealed an ejection fraction of 35-40%, moderate AI. Objective - Vital Signs Vital signs: Vital Signs Temp 97.5 F L 11/21/18 11:26 Pulse 57 L 11/21/18 11:26 Resp 17 11/21/18 11:26 BP 161/71 11/21/18 11:26 Pulse Ox 96 11/21/18 11:26 Intake & Output 11/20/18 11/21/18 11/21/18 18:59 06:59 18:59 Intake Total 820 711.87 Output Total 850 Balance -850 820 711.87 Weight 54.7 kg 54.7 kg Intake: IV 340 Invasive Line 1 20 Sodium Chloride 0.9% 1, 320 000 ml @ 20 mls/hr IV . Q24H ZOFIA Rx#:[id number] Intake, IV Titration 231.87 Amount Heparin Sod,Pork in 0.45% 231.87 NaCl 25,000 unit In 0.45 % NaCl 1 250ml.bag @ 12 UNITS/KG/HR 6.423 mls/hr IV .Q24H ZOFIA Rx#: [id number] Oral 480 480 Output: Urine 850 Other: Voiding Method Urinal Urinal Urinal # Voids 1 2 # Bowel Movements 1 - Exam PHYSICAL EXAMINATION: GENERAL: 83-year-old gentleman in no acute distress at the time of my examination HEENT: Head is atraumatic, normocephalic. Pupils equal, round. Sclera anicteric. Conjunctiva are clear. Mucous membranes of the mouth are moist. Neck is supple. There is no elevated jugular venous pressure. No carotid bruit is heard. HEART EXAMINATION: Heart S1 S2 1 systolic murmur is heard CHEST EXAMINATION: Lungs are clear to auscultation and precussion. No chest wall tenderness is noted on palpation or with deep breathing. ABDOMEN: Soft, nontender. Bowel sounds are heard. No organomegaly noted. EXTREMITIES: 2+ peripheral pulses with no evidence of peripheral edema and no calf tenderness noted. NEUROLOGIC patient is awake, alert and oriented 3 . - Labs CBC & Chem 7: 11/21/18 05:50 11/21/18 05:50 Labs: Abnormal Lab Results - Last 24 Hours (Table) 11/19/18 11/20/18 11/20/18 Range/Units 21:05 14:13 17:23 Lymphocytes # (1.0-4.8) k/uL APTT (22.0-30.0) sec Potassium (3.5-5.1) mmol/L BUN (9-20) mg/dL Glucose (74-99) mg/dL POC Glucose (mg/dL) 176 H (75-99) mg/dL Hemoglobin A1c 6.5 H (4.0-6.0) % Troponin I 0.089 H* (0.000-0.034) ng/mL 11/20/18 11/20/18 11/21/18 Range/Units 20:13 20:56 05:50 Lymphocytes # 0.7 L (1.0-4.8) k/uL APTT (22.0-30.0) sec Potassium (3.5-5.1) mmol/L BUN (9-20) mg/dL Glucose (74-99) mg/dL POC Glucose (mg/dL) 117 H (75-99) mg/dL Hemoglobin A1c (4.0-6.0) % Troponin I 0.078 H* (0.000-0.034) ng/mL 11/21/18 11/21/18 11/21/18 Range/Units 05:50 05:50 06:14 Lymphocytes # (1.0-4.8) k/uL APTT 47.6 H (22.0-30.0) sec Potassium 3.4 L (3.5-5.1) mmol/L BUN 29 H (9-20) mg/dL Glucose 149 H (74-99) mg/dL POC Glucose (mg/dL) 154 H (75-99) mg/dL Hemoglobin A1c (4.0-6.0) % Troponin I (0.000-0.034) ng/mL 11/21/18 Range/Units 11:26 Lymphocytes # (1.0-4.8) k/uL APTT (22.0-30.0) sec Potassium (3.5-5.1) mmol/L BUN (9-20) mg/dL Glucose (74-99) mg/dL POC Glucose (mg/dL) 137 H (75-99) mg/dL Hemoglobin A1c (4.0-6.0) % Troponin I (0.000-0.034) ng/mL Assessment and Plan Plan: Assessment and plan #1 paroxysmal atrial fibrillation, remaining in normal sinus rhythm #2 probable non-ST elevation [place] #3 history of coronary artery disease with prior bypass surgery 14 years ago #4 hypertension #5 diabetes #6 history of PTSD #7 hyperlipidemia Plan Echocardiogram with Doppler study was performed which revealed an ejection fraction of 35-40%. We will continue with the current therapy at this point in time. DNP note has been reviewed, I agree with a documented findings and plan of care. Patient was seen and examined.
[2018-11-21] MEDS ORDERED: NITROGLYCERIN SL TABS 0.4 MG TAB SUBLINGUAL PRN (16:04)
[2018-11-21] MEDS ORDERED: CARVEDILOL 6.25 MG TAB PO STA (16:04)
[2018-11-21] MEDS ORDERED: ALPRAZolam 0.25 MG TAB PO PRN (16:04)
[2018-11-21] MEDS ORDERED: SODIUM CHLORIDE 0.9% 1,000 ML in EMPTY BAG 1 BAG IV ONE (16:04)
--- NOTE | 2018-11-21 16:07 | P.PN ---
Progress Note - Text Progress Note Date: 11/21/18 This is an addendum to the cardiology progress note of today. Patient will be scheduled to undergo cardiac catheterization tomorrow with Dr. Sethi, the risks and benefits were explained to him in detail. Further recommendations will be based on these findings and the patient's clinical course. DNP note has been reviewed, I agree with a documented findings and plan of care. Patient was seen and examined.
[2018-11-21 16:38] LABS: Glucose,Whole Blood 147 mg/dL (75-99)
[2018-11-21 20:59] LABS: Glucose,Whole Blood 166 mg/dL (75-99)
[2018-11-21] MEDS: LATANOPROST 0.005% OPHTH DROPS 2.5 ML BTL BOTH EYES SCH (22:08)
[2018-11-22] MEDS ORDERED: ATORVASTATIN 80 MG TAB PO ONE (06:00)
[2018-11-22] MEDS ORDERED: ASPIRIN 325 MG TAB PO ONE (06:00)
[2018-11-22 06:15] LABS: Glucose,Whole Blood 164 mg/dL (75-99)
--- NOTE | 2018-11-22 06:23 | PN ---
PROGRESS NOTE DATE OF SERVICE: 11/21/2018 PRESENTING COMPLAINT: Chest pain, short of breath. INTERVAL HISTORY: Patient admitted with acute non-Q-wave myocardial infarction and new onset atrial fibrillation, also CHF exacerbation. Patient remains short of breath. The patient is undecided about cardiac catheterization, but after I talked to him this morning he now does wish to proceed with cardiac catheterization. Still short of breath. REVIEW OF SYSTEMS: Done for constitutional, cardiovascular, GI, pulmonary; relevant findings as above. CURRENT MEDICATIONS: Current medications are reviewed that include IV heparin. PHYSICAL EXAMINATION: On examination, temperature 98.2, pulse 70, respiration 15, blood pressure 161/71, pulse ox 96% on room air. GENERAL APPEARANCE: Sitting up, short of breath. EYES: Pupils equal. Conjunctivae normal. NECK: JVD unable to assess. Mass not palpable. RESPIRATORY: Effort increased. LUNGS: Decreased breath sounds. CARDIOVASCULAR: Heart sounds irregular. No edema. ABDOMEN: Soft, nontender. Liver and spleen not palpable. PSYCHIATRY: Alert and oriented x3. Mood and affect anxious. INVESTIGATIONS: White count 5.3, potassium 3.4, BUN 29, creatinine 1.05. Troponin 0.078. Two-D echocardiogram shows EF of 35% to 40%, moderate aortic regurgitation. ASSESSMENT: 1. Acute non-Q-wave myocardial infarction, POA. 2. Paroxysmal atrial fibrillation, new onset. 3. Hypertensive urgency on presentation. 4. Diabetes mellitus type 2, chronically on insulin. 5. Moderate aortic regurgitation, nonrheumatic. 6. Hypertensive heart disease. 7. Acute on chronic congestive heart failure exacerbation from systolic dysfunction, ejection fraction 30% to 35%. 8. IV heparin monitoring. PLAN: Continue current medication and treatment plan. Patient remains on IV heparin. Care was discussed at length with the patient. He has agreed to proceed with cardiac catheterization. I did talk to Aurea from Cardiology. Will follow closely. MMODL / IJN: [id number] /
[2018-11-22] MEDS: SODIUM CHLORIDE 0.9% 1,000 ML IV SCH ×2 (06:25→21:22)
[2018-11-22] MEDS: amLODIPine 5 MG TAB PO SCH (06:50)
[2018-11-22] MEDS: GABAPENTIN 100 MG CAP PO SCH ×3 (06:50→21:22)
[2018-11-22] MEDS: CARVEDILOL 6.25 MG TAB PO SCH ×2 (06:50→15:08)
[2018-11-22] MEDS: LISINOPRIL 5 MG TAB PO SCH ×2 (06:50→21:22)
[2018-11-22] MEDS: INSULIN ASPART (NovoLOG) 100 UNIT/ML VIAL SQ SCH ×4 (06:59→21:19)
[2018-11-22] MEDS: PANTOPRAZOLE 40 MG TABLET PO SCH (06:59)
[2018-11-22 07:01] LABS: Basophils % (A) 1 %; Eosinophils # (A) 0.3 k/uL (0-0.7); Eosinophils % (A) 5 %; HCT 44.6 % (39.0-53.0); HGB 14.5 gm/dL (13.0-17.5); Lymphocytes # (A) 0.7 k/uL (1.0-4.8); Lymphocytes % (A) 12 %; MCH 29.1 pg (25.0-35.0); MCHC 32.5 g/dL (31.0-37.0); MCV 89.7 fL (80.0-100.0); Mean Platelet Volume 7.2; Monocytes # (A) 0.3 k/uL (0-1.0); Monocytes % (A) 6 %; Neutrophils # (A) 3.9 k/uL (1.3-7.7); Neutrophils % (A) 74 %; Platelet Count 188 k/uL (150-450); RBC 4.98 m/uL (4.30-5.90); RDW 15.4 % (11.5-15.5); WBC 5.3 k/uL (3.8-10.6)
[2018-11-22 07:08] LABS: Calcium 8.7 mg/dL (8.4-10.2)
[2018-11-22] MEDS: ASPIRIN 81 MG PO SCH (07:33)
[2018-11-22] MEDS: ATORVASTATIN 40 MG TAB PO SCH (07:34)
--- NOTE | 2018-11-22 08:33 | XR ---
EXAMINATION TYPE: XR chest 2V DATE OF EXAM: 11/22/2018 COMPARISON: Prior chest x-ray 11/20/2018 HISTORY: Congestive heart failure, abnormal chest x-ray TECHNIQUE: Frontal and lateral views of the chest are obtained. FINDINGS: There is a spinal curvature. Patient is post median sternotomy. There are overlying cardia c leads. Hyperinflation is compatible with underlying COPD. The aorta is dense. There is no focal air space opacity, pleural effusion, or pneumothorax seen. The cardiac silhouette size is within normal limits. The osseous structures are intact. IMPRESSION: No acute cardiopulmonary process.
[2018-11-22] MEDS ORDERED: LIDOCAINE 1% INJ 10MG/ML (20 ML MDV) ONE (10:13)
[2018-11-22] MEDS ORDERED: fentaNYL (PF) 50 MCG/ML 2 ML AMP ONE (10:20)
[2018-11-22] MEDS ORDERED: IV FLUID CONTINUATION 1,000 ML IV ONE (10:21)
[2018-11-22] MEDS ORDERED: fentaNYL (PF) 50 MCG/ML 2 ML AMP IV ONE (11:02)
[2018-11-22] MEDS ORDERED: LIDOCAINE 1% INJ 10MG/ML (20 ML MDV) SQ ONE (11:05)
[2018-11-22] MEDS ORDERED: IOPAMIDOL-370 100ML BTL INJ ONE ×4 (11:26→13:09)
[2018-11-22] MEDS ORDERED: CLOPIDOGREL 75 MG TAB ONE (12:06)
[2018-11-22] MEDS ORDERED: BIVALIRUDIN BOLUS 250 MG/50 ML IV ONE (12:07)
[2018-11-22] MEDS ORDERED: BIVALIRUDIN 250 MG in SODIUM CHLORIDE 0.9% 50 ML IV ONE ×2 (12:08→13:10)
[2018-11-22] MEDS ORDERED: CLOPIDOGREL 75 MG TAB PO ONE (12:10)
[2018-11-22] MEDS ORDERED: NITROGLYCERIN 1000MCG/10ML SYRINGE INTRACORON ONE (12:30)
[2018-11-22] MEDS ORDERED: MAG HYDROX/AL HYDROX/SIMETH 30 ML CUP PO PRN (13:21)
[2018-11-22] MEDS ORDERED: ZOLPIDEM 5 MG TAB PO PRN (13:21)
[2018-11-22] MEDS ORDERED: NITROGLYCERIN SL TABS 0.4 MG TAB SUBLINGUAL PRN (13:21)
[2018-11-22] MEDS ORDERED: ATROPINE SULFATE 0.1 MG/ML 10ML SYRINGE IV PRN (13:21)
[2018-11-22] MEDS ORDERED: RX INFO: IV CONTRAST WAS GIVEN 1 EACH MISC MISCELLANE PRN (13:21)
[2018-11-22] MEDS ORDERED: SODIUM CHLORIDE 0.9% 1,000 ML IV SCH (13:30)
[2018-11-22 13:53] VITALS: BMI 17.6
--- NOTE | 2018-11-22 14:14 | CC ---
CARDIAC CATHETERIZATION REPORT Mr. Venegas is an 83-year-old male with a history of coronary artery disease, status post coronary artery bypass grafting about 14 years ago at [facility] who presented with symptoms of fatigue, shortness of breath and minimal troponin elevation. He had an episode of atrial fibrillation and subsequently converted to sinus mechanism. His echocardiogram revealed evidence of cardiomyopathy. Discussion regarding the options of conservative treatment versus coronary angiography were made with the patient who elected to proceed with coronary angiography. The procedures, risks and complications were discussed with the patient, who is in full understanding and agreement. PROCEDURE: Patient was brought to laboratory helper in a fasting semi-sedated state after receiving fentanyl and Benadryl and achieving moderate conscious sedated state. A 6-Northern [place] sheath was introduced. Using Seldinger technique, a 6-[place] sheath was introduced in the right femoral artery. Selective right and left coronary angiography was performed using 6-Northern Irish 4 bend right and left José Miguel catheter. Multiple views of the coronary artery including hemiaxial views were obtained. Following that, the 6-Northern Irish right José Miguel was used to attempt to cannulate the saphenous vein graft but that was unsuccessful. An ALT 2 6-Northern Irish was introduced and that was unsuccessful in cannulating the grafts either. At that point, an MARY catheter was used to cannulate the RIDDLE to the LAD. Subsequently, a 6-Northern Irish tight pigtail catheter was introduced in the left ventricle and an the ventricle and pressures were calculated. Following that, an MEXICAN view of the ascending aorta was performed. Following that, catheter were removed. Images were reviewed. FINDINGS: 1. FLUOROSCOPY: There was severe calcification involving the coronary arteries. 2. LEFT MAIN: This is a short size vessel, bifurcating immediately left circumflex, left anterior descending artery. Left main coronary artery has no evidence of high- grade stenosis. 3. LEFT ANTERIOR DESCENDING ARTERY: This vessel is diffusely diseased in the proximal segment with an area of stenosis up to 90%, gives rise to a diagonal branch that has a 99% stenosis proximally. The LAD beyond that has no high-grade stenosis. There is competitive flow from the RIDDLE. 4. LEFT CIRCUMFLEX: This is a large-sized vessel, codominant, giving rise to a proximal obtuse marginal branch that has diffuse intimal disease of about 50%. The second obtuse marginal branch is small in caliber, distally bifurcating to PDA and posterolateral segment and branches at the bifurcation of the PDA, there is a 60% plaque. The rest of the vessel has no high-grade stenosis. 5. RIGHT CORONARY ARTERY: This is a codominant vessel, moderate in caliber, tortuous, has diffuse intimal disease throughout its course up to 70%-80%. The distal vessel has no high-grade stenosis. 6. Two saphenous vein grafts stumps were noted of unclear destination. 7. RIDDLE to LAD; The distal anastomotic site is patent. The flow into the LAD is brisk. There was no evidence of obstructive disease. 8. SAPHENOUS VEIN GRAFT TO THE DIAGONAL BRANCH: The proximal distal anastomotic sites are patent. The graft proximally has a 99% eccentric lesion. Beyond that, there is no evidence of high-grade stenosis. 9. LEFT VENTRICULOGRAM: Left ventriculogram was not performed. 10.AORTOGRAM: Aortogram was performed in the MEXICAN view and revealed a dilated aorta with a 3+ aortic regurgitation. No additional saphenous vein graft were identified. CONCLUSION: 1. Severe stenosis in a long segment of the proximal left anterior descending artery. 2. Moderate to severe disease involving the left circumflex and the right coronary artery. 3. Patent RIDDLE to LAD. 4. Patent saphenous vein graft to the diagonal branch with critical stenosis in the proximal segment of the body of the graft. 5. Two stumps were identified of unclear destination. 6. 3+ aortic regurgitation. RECOMMENDATION: In view of finding anatomy, I recommend proceeding with attempted angioplasty and stenting of the saphenous vein graft to the diagonal branch. The procedures, risks and complications were discussed with the patient who is in full understanding and agreement. MMODL / IJN: [id number] /
--- NOTE | 2018-11-22 14:35 | PTCA ---
PERCUTANEOUSTRANS CORORONARY ANGIOGRAPHY Mr. Venegas is an 83-year-old male with known history of coronary artery disease, status post percutaneous CAD, status post coronary artery bypass grafting, who presented with symptoms of chest pain, mild troponin elevation underwent cardiac catheterization, was found to have critical stenosis involving the saphenous vein graft to the diagonal branch. The recommendation made regarding angioplasty and stenting the procedures risks and complication were discussed with the patient who is in full understanding and agreement. PROCEDURE: A 6-Citizen Of [place] FR attempt to cannulate that graft was done with multiple guide catheters, subsequently, a 6-Citizen [place] FR5 catheter was introduced. After cannulating the ostium of the graft, a 0.014 balanced medium J-wire was advanced and could not cross the lesion. That wire was removed and 0.014 whisper J-wire was advanced positioned distally subsequently a 2.5 x 8 mm Trek balloon was advanced and two inflation at to 10 atmospheres were done. Following that the balloon was removed and another 0.014 balanced medium weight J-wire was advanced next to the first one and positioned and another 0.014 after a whisper J-wire was advanced and positioned distally. Subsequently, multiple attempts to advance a 2.5 x 15 mm Xience Nadia stent were unsuccessful because of the acute angulation of the takeoff of the graft and the poor backup at that point the guiding catheter, the balloon and the guidewire were removed and after attempting care cannulate the graft with multiple S guide catheter, a 6- Citizen [place] left coronary bypass guiding catheter was introduced and attempt to recannulate to rewire the vessel were unsuccessful as well. There was evidence of a stable dissection with CRICKET-3 flow. The patient had no chest discomfort at that point, the decision was made to stop the procedure. Of note, the patient had no chest discomfort or EKG changes. He has received Angiomax per protocol as well as oral loading dose of clopidogrel. RESULTS: Successful angioplasty of the saphenous vein graft to the diagonal branch with reduction of stenosis from 99% to less than 50% with stable dissection and CRICKET-3 flow. RECOMMENDATION: Patient be continued on aspirin, Plavix, beta markus, and statin. The importance of dual antiplatelet treatment were discussed with the patient who is in full understanding and agreement. Duration of procedure is minutes. MMODL / IJN: [id number] /
[2018-11-22] MEDS: FUROSEMIDE 40 MG TAB PO SCH (15:07)
[2018-11-22] MEDS: ISOSORBIDE MONONITRATE ER 30 MG TAB.ER.24H PO SCH (15:07)
[2018-11-22] MEDS: ALPRAZolam 0.5 MG TAB PO PRN (15:08)
[2018-11-22] MEDS: FINASTERIDE 5 MG TAB PO SCH (15:08)
[2018-11-22 16:46] LABS: Glucose,Whole Blood 217 mg/dL (75-99)
[2018-11-22] MEDS: NYSTATIN 100,000 UNIT/GM POWD 15 GM TOPICAL SCH ×3 (17:27→21:22)
[2018-11-22 21:00] LABS: Glucose,Whole Blood 178 mg/dL (75-99)
--- NOTE | 2018-11-23 05:56 | PN ---
PROGRESS NOTE DATE OF SERVICE: 11/22/2018 PRESENTING COMPLAINT: Chest pain, short of breath. INTERVAL HISTORY: Patient presented with acute non-Q-wave myocardial infarction, new onset atrial fibrillation, CHF exacerbation, in a short of breath. Seen by me this morning, is awaiting cardiac catheterization. No other new symptoms are present. REVIEW OF SYSTEMS: Done for constitutional, cardiovascular, GI, pulmonary; relevant findings as above. CURRENT MEDICATIONS: Current medications had included IV heparin. PHYSICAL EXAMINATION: On examination, temperature 96.6, pulse 63, respiration 16, blood pressure 140/60, pulse ox 97% on room air. GENERAL APPEARANCE: Sitting up, slightly short of breath. EYES: Pupils equal. Conjunctivae normal. NECK: JVD unable to assess. Mass not palpable. RESPIRATORY: Effort normal. LUNGS: Diminished breath sounds. CARDIOVASCULAR: Heart sounds irregular. No edema. ABDOMEN: Soft, nontender. Liver and spleen not palpable. PSYCHIATRY: Alert and oriented x3. Mood and affect normal. INVESTIGATIONS: White count 5.3, hemoglobin 14.5. Potassium 4.0. BUN 29, creatinine 1.17. Accu-Cheks are noted. ASSESSMENT: 1. Acute non-Q-wave myocardial infarction, POA. 2. Paroxysmal atrial fibrillation, new onset. 3. Hypertensive urgency on presentation. 4. Diabetes mellitus type 2, chronically on insulin. 5. Moderate aortic regurgitation, nonrheumatic. 6. Hypertensive heart disease. 7. Acute on chronic congestive heart failure exacerbation from systolic dysfunction, ejection fraction 30% to 35% from underlying coronary artery disease. 8. IV heparin monitoring. PLAN: Continue current medication and treatment plan. Patient awaiting a cardiac catheterization. Will follow. MMODL / IJN: [id number] /
[2018-11-23 06:05] LABS: Glucose,Whole Blood 163 mg/dL (75-99)
[2018-11-23] MEDS: LATANOPROST 0.005% OPHTH DROPS 2.5 ML BTL BOTH EYES SCH (06:21)
[2018-11-23] MEDS: PANTOPRAZOLE 40 MG TABLET PO SCH (06:22)
[2018-11-23] MEDS: CARVEDILOL 6.25 MG TAB PO SCH ×2 (06:22→17:05)
[2018-11-23] MEDS: INSULIN ASPART (NovoLOG) 100 UNIT/ML VIAL SQ SCH ×3 (06:22→16:59)
[2018-11-23 06:38] LABS: Calcium 8.6 mg/dL (8.4-10.2); Potassium 3.3 mmol/L (3.5-5.1)
[2018-11-23 06:40] LABS: Basophils % (A) 0 %; Eosinophils # (A) 0.2 k/uL (0-0.7); Eosinophils % (A) 3 %; HGB 11.7 gm/dL (13.0-17.5); Lymphocytes # (A) 0.7 k/uL (1.0-4.8); Lymphocytes % (A) 11 %; MCH 29.6 pg (25.0-35.0); MCHC 33.5 g/dL (31.0-37.0); MCV 88.2 fL (80.0-100.0); Mean Platelet Volume 7.2; Monocytes # (A) 0.3 k/uL (0-1.0); Monocytes % (A) 5 %; Neutrophils % (A) 78 %; Platelet Count 166 k/uL (150-450); RBC 3.97 m/uL (4.30-5.90); RDW 14.9 % (11.5-15.5); WBC 6.4 k/uL (3.8-10.6)
[2018-11-23 08:21] VITALS: TEMP 97.3
[2018-11-23] MEDS: ASPIRIN 81 MG PO SCH (08:35)
[2018-11-23] MEDS: amLODIPine 5 MG TAB PO SCH (08:35)
[2018-11-23] MEDS: ATORVASTATIN 40 MG TAB PO SCH (08:35)
[2018-11-23] MEDS: ISOSORBIDE MONONITRATE ER 30 MG TAB.ER.24H PO SCH (08:36)
[2018-11-23] MEDS: GABAPENTIN 100 MG CAP PO SCH ×2 (08:37→14:48)
[2018-11-23] MEDS: FUROSEMIDE 40 MG TAB PO SCH (08:37)
[2018-11-23] MEDS: FINASTERIDE 5 MG TAB PO SCH (08:37)
[2018-11-23] MEDS: LISINOPRIL 5 MG TAB PO SCH (08:40)
[2018-11-23] MEDS ORDERED: ASPIRIN 81 MG PO SCH (09:00)
[2018-11-23 11:32] LABS: Glucose,Whole Blood 218 mg/dL (75-99)
--- NOTE | 2018-11-23 11:37 | P.PN ---
Subjective Progress Note Date: 11/23/18 This is an 83-year-old male who is status post coronary bypass grafting surgery approximately 14 years ago by [facility], history of hypertension, hyperlipidemia, diabetes, who presented to the hospital with symptoms of chest discomfort. On presentation to the emergency room patient was found to be in atrial fibrillation and subsequently converted to normal sinus rhythm. He was also noted to have abnormality in troponin. Seen in consultation yesterday by Dr. Sethi. His coronary risk factors are positive for hypertension, diabetes, hyperlipidemia, he is a nonsmoker. He does have a history of PTSD. Dr. Sethi did have a lengthy discussion with the patient regarding the need for possible cardiac catheterization, yesterday he was not wanting to have any procedures done, and just wished to go with medical therapy. Today he said at some point he may consider proceeding with cath if recommended. His blood pressure today running in the range of 200, to 180 systolic, after his medication administration it did come down to the 1:30 range. Echocardiogram with Doppler study was performed which revealed an ejection fraction of 35-40%, moderate AI. 11/23/2018 Patient seen and examined this morning, overall doing well, denies any chest pain or difficulty in breathing. He was taken to the cardiac catheterization lab yesterday where he underwent successful angioplasty of the saphenous vein graft to the diagonal branch with reduction in stenosis from 99% to less than or stent with stable dissection and CRICKET-3 flow. Patient was seen and examined this morning, he is doing well, hemodynamically stable. Denies any chest pain and his breathing is stable. White blood cell count 6.4, hemoglobin 11.7, platelet count 166. Sodium 135, potassium 3.3, BUN 26 and creatinine 1.2. Objective - Vital Signs Vital signs: Vital Signs Temp 97.3 F L 11/23/18 08:00 Pulse 68 11/23/18 08:00 Resp 16 11/23/18 08:00 BP 110/56 11/23/18 08:00 Pulse Ox 96 11/23/18 08:00 Intake & Output 11/22/18 11/23/18 11/23/18 18:59 06:59 18:59 Intake Total 85 237 Output Total 400 725 400 Balance -315 -725 -163 Weight 54 kg 55.2 kg Intake: IV 85 Oral 237 Output: Urine 400 725 400 Other: Voiding Method Urinal Urinal Toilet # Voids 3 1 1 - Exam PHYSICAL EXAMINATION: GENERAL: 83-year-old gentleman in no acute distress at the time of my examination HEENT: Head is atraumatic, normocephalic. Pupils equal, round. Sclera anicteric. Conjunctiva are clear. Mucous membranes of the mouth are moist. Neck is supple. There is no elevated jugular venous pressure. No carotid bruit is heard. HEART EXAMINATION: Heart S1 S2 1 systolic murmur is heard CHEST EXAMINATION: Lungs are clear to auscultation and precussion. No chest wall tenderness is noted on palpation or with deep breathing. ABDOMEN: Soft, nontender. Bowel sounds are heard. No organomegaly noted. EXTREMITIES: 2+ peripheral pulses with no evidence of peripheral edema and no calf tenderness noted. Right groin soft, no evidence of any hematoma. NEUROLOGIC patient is awake, alert and oriented 3 . - Labs CBC & Chem 7: 11/23/18 05:27 11/23/18 05:27 Labs: Abnormal Lab Results - Last 24 Hours (Table) 11/22/18 11/22/18 11/23/18 Range/Units 16:44 20:59 05:27 RBC 3.97 L (4.30-5.90) m/uL Hgb 11.7 L (13.0-17.5) gm/dL Hct 35.0 L (39.0-53.0) % Lymphocytes # 0.7 L (1.0-4.8) k/uL Sodium (137-145) mmol/L Potassium (3.5-5.1) mmol/L BUN (9-20) mg/dL Glucose (74-99) mg/dL POC Glucose (mg/dL) 217 H 178 H (75-99) mg/dL 11/23/18 11/23/18 11/23/18 Range/Units 05:27 06:04 11:31 RBC (4.30-5.90) m/uL Hgb (13.0-17.5) gm/dL Hct (39.0-53.0) % Lymphocytes # (1.0-4.8) k/uL Sodium 135 L (137-145) mmol/L Potassium 3.3 L (3.5-5.1) mmol/L BUN 26 H (9-20) mg/dL Glucose 143 H (74-99) mg/dL POC Glucose (mg/dL) 163 H 218 H (75-99) mg/dL Assessment and Plan Plan: Assessment and plan #1 paroxysmal atrial fibrillation, remaining in normal sinus rhythm #2 probable non-ST elevation [place], status post PTCA of the saphenous vein graft to the diagonal #3 history of coronary artery disease with prior bypass surgery 14 years ago #4 hypertension #5 diabetes #6 history of PTSD #7 hyperlipidemia Plan From cardiology's perspective, patient may be able to be discharged home today. We'll make a follow-up appointment in the office post discharge. Patient will continue on Plavix, baby aspirin, Eliquis 2-1/2 mg one tablet by mouth twice a day for one month. After one month the aspirin will be discontinued. DNP note has been reviewed, I agree with a documented findings and plan of care. Patient was seen and examined.
[2018-11-23] MEDS ORDERED: CLOPIDOGREL 75 MG TAB PO SCH (12:00)
[2018-11-23] MEDS: POTASSIUM CHLORIDE ER 20 MEQ TAB.ER PO SCH ×3 (12:16→17:05)
[2018-11-23] MEDS: NYSTATIN 100,000 UNIT/GM POWD 15 GM TOPICAL SCH (14:47)
[2018-11-23] MEDS: ALPRAZolam 0.5 MG TAB PO PRN (14:48)
[2018-11-23 16:30] LABS: Glucose,Whole Blood 128 mg/dL (75-99)
[2018-11-23 18:35] VITALS: BP 152/69; PULSE 82; RESP 16
--- NOTE | 2018-11-23 23:31 | DS ---
DISCHARGE SUMMARY DATE OF SERVICE: November 23, 2018. FINAL DIAGNOSES: 1. Acute non-Q-wave myocardial infarction, POA. 2. Paroxysmal atrial fibrillation, new onset. 3. Hypertensive urgency on presentation. 4. Diabetes mellitus type 2, chronically on insulin. 5. Moderate aortic regurgitation, nonrheumatic. 6. Hypertensive heart disease. 7. Acute on chronic congestive heart failure exacerbation from systolic dysfunction, EF 35% from underlying coronary artery disease. 8. IV heparin monitoring. 9. Moderate aortic regurgitation, non-rheumatic. CONSULTATIONS: Dr. Sethi from Cardiology. PROCEDURE: 1. Cardiac catheterization. 2. Angioplasty stenting of the saphenous vein graft to the diagonal branch. HOSPITAL COURSE: This pleasant gentleman presented with chest pain, shortness of breath, found to be in acute non-Q-wave NM, CHF exacerbation, atrial fibrillation. Ruled in for an acute non-Q- wave NM. Also with CHF. Cardiac catheterization was done, more details in Dr. Sethi's notes. Above intervention was carried out. The patient was doing better by the time of discharge. Care was discussed with the patient's family at the bedside. It was explained to him that he still has significant coronary disease. The patient's EF was 35 to 40 percent. PHYSICAL EXAMINATION: Afebrile, pulse 68, respirations 16, blood pressure 140/62, pulse ox 95% on room air. LUNGS: Decreased breath sounds. PSYCH: Alert and oriented x3. INVESTIGATIONS: Hemoglobin 11.7, BUN 26, creatinine 1.22. DISCUSSION AND DISCHARGE PLANNING: More than 35 minutes. DISCHARGE MEDICATIONS: 1. Proscar 5 mg p.o. daily. 2. Xalatan 0.005% 2 drops to both eyes at bedtime. 3. Aspirin 81 mg a day. 4. Mycostatin powder topical t.i.d. 5. Coreg 6.25 p.o. b.i.d. 6. Vitamin D2, 50,000 units p.o. every 7 days. 7. Lasix 40 mg p.o. daily. 8. Neurontin 200 mg p.o. t.i.d. 9. 2 puffs b.i.d. 10.Potassium 10 mEq a day. 11.Lipitor 40 mg p.o. daily. 12.Plavix 75 mg a day. 13.Imdur ER 30 mg p.o. daily. 14.Zestril 10 mg b.i.d. 15.Nitrostat 0.4 sublingual every 5 p.r.n. 16.Norvasc 10 mg p.o. daily. 17.Glyburide 2.5 mg before breakfast. FOLLOWUP: 1. Follow up with Cardiology in 1 week. 2. Follow up with Dr. Julian Edge in [place] on 11/27/2018. The patient was advised to check his blood sugars every day and keep a log. MMODL / IJN: [id number] /
--- NOTE | 2018-11-26 06:07 | CDI ---
Documentation Clarification Form Date: 11/26/18 From: Erasto Gillette Phone: call [phone] if questions. Admit Date: 11/19/2018 10:23:00 PM Patient Name: Grant Venegas Visit Number: [id number] Discharge Date: 11/23/2018 6:35:00 PM ATTENTION: The Clinical Documentation Specialists (CDI) and [facility] Coding Staff appreciate your assistance in clarifying documentation. Please respond to the clarification below the line at the bottom and electronically sign. The CDI & [facility] Coding staff will review the response and follow-up if needed. Please note: Queries are made part of the Legal Health Record. If you have any questions, please contact the author of this message via ITS. Dr. Winston Cooper, 11/21 progress note and discharge summary state Acute on chronic systolic heart failure and CHF Exacerbation. Clinical Indicators documented: Echocardiogram Results: EF 35-40% Chest X Ray: No pleural effusion identified, No Acute cardiopulmonary process. Treatment: Lasix 40mg p o BNP: Not obtained In your professional opinion, can you please clarify the most appropriate diagnosis for this patient? Chronic Systolic Heart Failure Acute on chronic systolic heart failure Unable to Determine Other, please specify This is addressed in Discharge Summary. MTDD
== END 2018-11-23 18:35 | disposition home or self-care (01) | DRG 250 ==
LOC: EC 20:36 → 2SICU 22:23 → 3SCARD 11-20 21:09
PROVIDERS: ADMIT Hospitalist; ATTEND Hospitalist
PROC: 4A023N7 Measurement of Cardiac Sampling and Pressure, Left Heart, Percutaneous Approach (ICD-10-PCS; principal; 2018-11-22 10:09)
PROC: 02703ZZ Dilation of Coronary Artery, One Artery, Percutaneous Approach (ICD-10-PCS; principal; 2018-11-22 10:09)
PROC: B3101ZZ Fluoroscopy of Thoracic Aorta using Low Osmolar Contrast (ICD-10-PCS; principal; 2018-11-22 10:09)
DX: I21.4 Non-ST elevation (NSTEMI) myocardial infarction (principal); I50.23 Acute on chronic systolic (congestive) heart failure; I48.0 Paroxysmal atrial fibrillation; I11.0 Hypertensive heart disease with heart failure; E78.5 Hyperlipidemia, unspecified; E11.9 Type 2 diabetes mellitus without complications; F43.10 Post-traumatic stress disorder, unspecified; H40.9 Unspecified glaucoma; I35.1 Nonrheumatic aortic (valve) insufficiency; I45.10 Unspecified right bundle-branch block; I16.0 Hypertensive urgency; I25.10 Atherosclerotic heart disease of native coronary artery without angina pectoris; Z79.82 Long term (current) use of aspirin; Z79.4 Long term (current) use of insulin; Z79.899 Other long term (current) drug therapy; Z82.49 Family history of ischemic heart disease and other diseases of the circulatory system; Z98.61 Coronary angioplasty status; Z95.1 Presence of aortocoronary bypass graft; Z90.89 Acquired absence of other organs
CPT/HCPCS: 36415; 71045; 71046; 80048; 80053; 80061; 82550; 82552; 82553; 83036; 83735; 83880; 84132; 84484; 85025; 85379; 85610; 85730; 92920; 93306; 93459; 93567; 96365; 96366; 96376; 99285

== ENCOUNTER → 2018-11-19 | Outpatient (CLI) | payer MEDICARE ==
[2018-11-19 19:13] LABS: Basophils % (A) 0 %; Eosinophils # (A) 0.3 k/uL (0-0.7); Eosinophils % (A) 4 %; HCT 49.9 % (39.0-53.0); HGB 16.6 gm/dL (13.0-17.5); Lymphocytes # (A) 0.9 k/uL (1.0-4.8); Lymphocytes % (A) 10 %; MCH 28.8 pg (25.0-35.0); MCHC 33.3 g/dL (31.0-37.0); MCV 86.3 fL (80.0-100.0); Mean Platelet Volume 7.2; Monocytes # (A) 0.5 k/uL (0-1.0); Monocytes % (A) 5 %; Neutrophils # (A) 6.8 k/uL (1.3-7.7); Neutrophils % (A) 78 %; Platelet Count 237 k/uL (150-450); RBC 5.78 m/uL (4.30-5.90); RDW 15.2 % (11.5-15.5); WBC 8.8 k/uL (3.8-10.6)
[2018-11-19 19:52] LABS: Troponin I 0.043 ng/mL (0.000-0.034)
== END | disposition home or self-care (01) ==
LOC: LABMAIN 18:27
PROVIDERS: ATTEND Family Medicine
DX: R07.89 Other chest pain (principal)
CPT/HCPCS: 36415; 82550; 82553; 84484; 85025

== ENCOUNTER → 2019-02-05 | Outpatient (CLI) | payer MEDICARE ==
[2019-02-05 15:57] LABS: African American GFR (CKD) 45.2 (60.0-200.0); Albumin 4.2 g/dL (3.80-4.90); Albumin/Globulin Ratio 2.1 (1.60-3.17); Anion Gap 8.6 mmol/L (4.00-12.00); BUN/Creat Ratio 26.25 Ratio (12.00-20.00); Calcium 9.6 mg/dL (8.7-10.3); Carbon Dioxide 27.4 mmol/L (21.6-31.8); LDL Cholesterol,Calculated 45.6 mg/dL (0.0-131.0); Potassium 4.7 mmol/L (3.5-5.5); Total Bilirubin 0.6 mg/dL (0.2-1.2); Total Protein 6.2 g/dL (6.2-8.2); VLDL Calculation 18.4 mg/dL (5.00-40.00)
== END | disposition home or self-care (01) ==
LOC: LABWHC1 10:18
PROVIDERS: ATTEND Internal Medicine Interventional Cardiology
DX: E78.2 Mixed hyperlipidemia (principal)
CPT/HCPCS: 36415; 80053; 80061

== ENCOUNTER → 2019-02-19 | Outpatient (CLI) | payer MEDICARE ==
[2019-02-19 18:26] LABS: Non-African American GFR(CKD) 55.2 (60.0-200.0)
[2019-02-19 18:27] LABS: Anion Gap 9.1 mmol/L (4.00-12.00); Carbon Dioxide 23.9 mmol/L (21.6-31.8); Potassium 5.1 mmol/L (3.5-5.5)
== END | disposition home or self-care (01) ==
LOC: LABWHC1 11:13
PROVIDERS: ATTEND Internal Medicine Interventional Cardiology
DX: I10 Essential (primary) hypertension (principal)
CPT/HCPCS: 36415; 80051; 82565; 84520

== ENCOUNTER 2019-03-25 16:46 | Observation (INO) | payer MEDICARE ==
[2019-03-25] MEDS ORDERED: SODIUM CHLORIDE 0.9% 500 ML 500 ML IV STA (17:34)
[2019-03-25 17:43] LABS: Basophils # (A) 0.1 k/uL (0-0.2); Basophils % (A) 0 %; Eosinophils # (A) 0.1 k/uL (0-0.7); Eosinophils % (A) 1 %; HCT 43.6 % (39.0-53.0); HGB 14.2 gm/dL (13.0-17.5); Lymphocytes # (A) 0.8 k/uL (1.0-4.8); Lymphocytes % (A) 5 %; MCH 30.3 pg (25.0-35.0); MCHC 32.5 g/dL (31.0-37.0); MCV 93.1 fL (80.0-100.0); Mean Platelet Volume 6.6; Monocytes # (A) 0.6 k/uL (0-1.0); Monocytes % (A) 4 %; Neutrophils # (A) 15.1 k/uL (1.3-7.7); Neutrophils % (A) 90 %; Platelet Count 284 k/uL (150-450); RBC 4.69 m/uL (4.30-5.90); RDW 14.1 % (11.5-15.5); WBC 16.8 k/uL (3.8-10.6)
[2019-03-25 17:52] LABS: Albumin 4.8 g/dL (3.5-5.0); Calcium 9.9 mg/dL (8.4-10.2); Potassium 4.9 mmol/L (3.5-5.1); Total Bilirubin 0.8 mg/dL (0.2-1.3); Total Protein 7.9 g/dL (6.3-8.2)
[2019-03-25 17:58] LABS: Appearance,Urine Clear (Clear); Bilirubin,Urine Negative (Negative); Blood,Urine Negative (Negative); Color,Urine Yellow; Glucose,Urine (UA) Negative (Negative); Ketones,Urine Negative (Negative); Leukocyte Esterase,Urine Negative (Negative); Mucus,Urine Rare /hpf; Nitrite,Urine Negative (Negative); Protein,Urine 2+ (Negative); RBC,Urine 1 /hpf (0-5); Specific Gravity,Urine 1.012 (1.001-1.035); Urobilinogen,Urine <2.0 mg/dL (<2.0); WBC,Urine 1 /hpf (0-5)
--- NOTE | 2019-03-25 18:20 | XR ---
EXAMINATION TYPE: XR KUB DATE OF EXAM: 03/25/2019 COMPARISON: NONE HISTORY: Constipation TECHNIQUE: 2 views supine FINDINGS: There is lumbar levoscoliosis with multilevel spondylotic change. There is some retained fecal material in the large bowel in the rectum. There is no evidence of free air. There is pulmonary hyperinflation and flattening of the diaphragm. There is atheromatous abdomin al aorta. IMPRESSION: There is evidence for rectal fecal impaction. Nonacute no free air.
--- NOTE | 2019-03-25 19:54 | ED ---
General Adult HPI - General Chief complaint: Abdominal Pain Stated complaint: Weakness Time Seen by Provider: 03/25/19 17:08 Source: patient, EMS, RN notes reviewed Mode of arrival: EMS Limitations: no limitations - History of Present Illness Initial comments: 83-year-old male presents to the emergency department for chief command of lower abdominal pain. Patient states this has been ongoing since yesterday. Patient is concerned he may be constipated. Patient recently had increase in his [place] about a week ago. States that yesterday he had a very small bowel movement with feels like he needs to have a larger bowel movement. Patient denies any nausea vomiting.Patient has no other complaints at this time including shortness of breath, chest pain, nausea or vomiting, headache, or visual changes. - Related Data Home Medications Medication Instructions Recorded Confirmed Finasteride [Proscar] 5 mg PO DAILY 11/15/16 03/25/19 Latanoprost [Xalatan 0.005%] 2 drop BOTH EYES HS 11/15/16 03/25/19 Nystatin 100,000 Unit/gm Powd 1 applic TOPICAL TID 05/18/17 03/25/19 [Mycostatin Powder] Carvedilol [Coreg] 6.25 mg PO AC-BID@0700,1900 05/25/18 03/25/19 Ergocalciferol [Vitamin D2 50,000 unit PO SA 05/25/18 03/25/19 (DRISDOL)] Furosemide [Lasix] 40 mg PO DAILY PRN 05/25/18 03/25/19 Gabapentin [Neurontin] 200 mg PO TID 05/25/18 03/25/19 Glycopyrrolate/Formoterol Fum 2 puff INHALATION RT-BID 05/25/18 03/25/19 [Bevespi Aerosphere Inhaler] Potassium Chloride ER [K-Dur 10] 10 meq PO DAILY 05/25/18 03/25/19 HYDROcodone/APAP 7.5-325MG [[place] 1 tab PO Q6H PRN 03/25/19 03/25/19 7.5-325] Previous Rx's Medication Instructions Recorded Aspirin 81 mg PO DAILY 11/20/16 Atorvastatin [Lipitor] 40 mg PO DAILY #30 tab 11/23/18 Clopidogrel [Plavix] 75 mg PO DAILY #30 tab 11/23/18 Isosorbide Mononitrate ER [Imdur] 30 mg PO DAILY #30 tab.er.24h 11/23/18 Lisinopril [Zestril] 10 mg PO BID #603 tab 11/23/18 Nitroglycerin Sl Tabs [Nitrostat] 0.4 mg SUBLINGUAL Q5M PRN #25 tab 11/23/18 amLODIPine [Norvasc] 10 mg PO DAILY #30 tab 11/23/18 Allergies Allergy/AdvReac Type Severity Reaction Status Date / Time No Known Allergies Allergy Verified 03/25/19 17:47 Review of Systems ROS Statement: Those systems with pertinent positive or pertinent negative responses have been documented in the HPI. ROS Other: All systems not noted in ROS Statement are negative. Past Medical History Past Medical History: Heart Failure, Eye Disorder, Hypertension, Renal Disease Additional Past Medical History / Comment(s): glacoma, surgical procedure on bilateral eyes, PTSD, chronic migraines History of Any Multi-Drug Resistant Organisms: None Reported Past Surgical History: Coronary Bypass/CABG, Tonsillectomy Additional Past Surgical History / Comment(s): CABG in 2004- numbness in left arm with activity before procedure Past Anesthesia/Blood Transfusion Reactions: No Reported Reaction Past Psychological History: PTSD Smoking Status: Never smoker Past Alcohol Use History: None Reported Past Drug Use History: None Reported - Past Family History Father Family Medical History: Cancer, Congestive Heart Failure (CHF), Coronary Artery Disease (CAD) Additional Family Medical History / Comment(s): glacoma Mother Family Medical History: Congestive Heart Failure (CHF), Coronary Artery Disease (CAD) Additional Family Medical History / Comment(s): macular degeneration General Exam Limitations: no limitations General appearance: alert, in no apparent distress Head exam: Present: atraumatic, normocephalic, normal inspection Eye exam: Present: normal appearance, PERRL, EOMI. Absent: scleral icterus, conjunctival injection, periorbital swelling ENT exam: Present: normal exam, mucous membranes moist Neck exam: Present: normal inspection, full ROM. Absent: tenderness, meningismus, lymphadenopathy Respiratory exam: Present: normal lung sounds bilaterally. Absent: respiratory distress, wheezes, rales, rhonchi, stridor Cardiovascular Exam: Present: regular rate, normal rhythm, normal heart sounds. Absent: systolic murmur, diastolic murmur, rubs, gallop, clicks GI/Abdominal exam: Present: soft, tenderness (Diffuse lower abdominal tenderness with mild guarding present.), normal bowel sounds, hernia (Large left inguinal hernia, soft and nontender non-erythematous). Absent: distended, guarding, magalis ound, rigid Neurological exam: Present: alert Course Vital Signs 03/25/19 03/25/19 03/25/19 16:54 17:30 19:00 Temperature 98.1 F Pulse Rate 61 Respiratory 18 17 Rate Blood Pressure 167/83 163/84 161/67 O2 Sat by Pulse 92 L 96 Oximetry 03/25/19 03/25/19 20:02 21:15 Temperature 97.7 F Pulse Rate 70 100 Respiratory 18 18 Rate Blood Pressure 159/83 O2 Sat by Pulse 98 97 Oximetry Medical Decision Making - Medical Decision Making 83-year-old male presents for lower abdominal pain. Patient feels as if he is constipated and recently had an increase in his [place]. Fecal impaction was performed initially. X-ray was obtained which showed fecal impaction without free air. Patient was then given enema had small bowel movement. However patient had worsening of pain so lab work was obtained which showed a white count of 16.4. CT was obtained which showed a scrotal hernia without free air. Upon review of the image there is significant amount stool in the colon. Fecal impaction was again performed and patient did have a small stool after this as well. However patient now feels weak and shaky. Does not feel he can go home with this pain. Therefore patient will be kept for monitoring and for GoLYTELY. - Lab Data Result diagrams: 03/25/19 17:15 03/25/19 17:15 Lab Results 03/25/19 03/25/19 03/25/19 Range/Units 17:15 17:15 17:50 WBC 16.8 H (3.8-10.6) k/uL RBC 4.69 (4.30-5.90) m/uL Hgb 14.2 (13.0-17.5) gm/dL Hct 43.6 (39.0-53.0) % MCV 93.1 (80.0-100.0) fL MCH 30.3 (25.0-35.0) pg MCHC 32.5 (31.0-37.0) g/dL RDW 14.1 (11.5-15.5) % Plt Count 284 (150-450) k/uL Neutrophils % 90 % Lymphocytes % 5 % Monocytes % 4 % Eosinophils % 1 % Basophils % 0 % Neutrophils # 15.1 H (1.3-7.7) k/uL Lymphocytes # 0.8 L (1.0-4.8) k/uL Monocytes # 0.6 (0-1.0) k/uL Eosinophils # 0.1 (0-0.7) k/uL Basophils # 0.1 (0-0.2) k/uL Sodium 138 (137-145) mmol/L Potassium 4.9 (3.5-5.1) mmol/L Chloride 100 (98-107) mmol/L Carbon Dioxide 24 (22-30) mmol/L Anion Gap 14 mmol/L BUN 23 H (9-20) mg/dL Creatinine 1.15 (0.66-1.25) mg/dL Est GFR (CKD-EPI)AfAm 68 (>60 ml/min/1.73 sqM) Est GFR (CKD-EPI)NonAf 59 (>60 ml/min/1.73 sqM) Glucose 161 H (74-99) mg/dL Calcium 9.9 (8.4-10.2) mg/dL Total Bilirubin 0.8 (0.2-1.3) mg/dL AST 33 (17-59) U/L ALT 20 L (21-72) U/L Alkaline Phosphatase 76 (38-126) U/L Total Protein 7.9 (6.3-8.2) g/dL Albumin 4.8 (3.5-5.0) g/dL Amylase 53 (30-110) U/L Lipase 112 (23-300) U/L Urine Color Yellow Urine Appearance Clear (Clear) Urine pH 6.0 (5.0-8.0) Ur Specific [place] 1.012 (1.001-1.035) Urine Protein 2+ H (Negative) Urine Glucose (UA) Negative (Negative) Urine Ketones Negative (Negative) Urine Blood Negative (Negative) Urine Nitrite Negative (Negative) Urine Bilirubin Negative (Negative) Urine Urobilinogen <2.0 (<2.0) mg/dL Ur Leukocyte Esterase Negative (Negative) Urine RBC 1 (0-5) /hpf Urine WBC 1 (0-5) /hpf Urine Mucus Rare H (None) /hpf Disposition Clinical Impression: Intractable abdominal pain, Fecal impaction Disposition: ADMITTED IP TO THIS HOSP Condition: Fair Is patient prescribed a controlled substance at d/c from ED?: No Referrals: Tay Edge MD [Primary Care Provider] - 1-2 days Time of Disposition: 21:40
[2019-03-25] MEDS ORDERED: POLYETHYLENE GLYCOL 3350 17 GM POWD.PACK PO STA (20:05)
--- NOTE | 2019-03-25 20:45 | CT ---
EXAMINATION TYPE: CT abdomen pelvis w con DATE OF EXAM: 03/25/2019 COMPARISON: None HISTORY: Diarrhea CT DLP: 614.2 mGycm Automated exposure control for dose reduction was used. TECHNIQUE: Helical acquisition of images was performed from the lung bases through the pelvis. CONTRAST: Performed without Oral Contrast and with IV Contrast, patient injected with 80 mL of Isovue 300. FINDINGS: Lung bases are clear. There is no pleural effusion. Heart size is normal. There are a few small cysts in the liver that measure up to 1 cm. The bile ducts are not dilated. Gal lbladder appears normal. Spleen appears normal. There is no evidence of pancreatic mass. There is merida creatic atrophy. Stomach is intact. There is no adrenal mass. Kidneys show satisfactory contrast opacification. There is no hydronephrosi s. There is mild cortical thinning on the posterior left kidney. There is no evidence of a renal mass . There is no retroperitoneal adenopathy. Abdominal aorta is atheromatous. Bladder distends smoothly. There is large left side scrotal hernia that contains the sigmoid colon. T here is no sign of a bowel obstruction. There is no mesenteric edema. There is no ascites. There is n o free fluid in the pelvis. Appendix is not definitely seen. There is no sign of thickened appendix. There is atherosclerotic vascular calcification. There is lumbar levoscoliosis. There is multilevel s pondylotic changes in the lumbar spine. IMPRESSION: MODERATE SIZE LEFT SCROTAL HERNIA WITHOUT EVIDENCE OF A BOWEL OBSTRUCTION. NO SIGN OF APPENDICITIS. 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
[2019-03-25] MEDS ORDERED: PEG 3350-NA SULF,BICARB,CL/KCL 4,000 ML BOTTLE PO ONE (21:40)
[2019-03-25] MEDS ORDERED: NALOXONE 0.4 MG/ML 1 ML VIAL IV PRN (21:41)
[2019-03-25] MEDS ORDERED: FUROSEMIDE 40 MG TAB PO PRN (21:42)
[2019-03-26] MEDS: SODIUM CHLORIDE 0.9% 1,000 ML IV SCH ×2 (00:28→22:17)
[2019-03-26] MEDS: GABAPENTIN 100 MG CAP PO SCH ×4 (00:30→22:17)
[2019-03-26] MEDS: POTASSIUM CHLORIDE ER 10 MEQ TAB.ER.PRT PO SCH (08:28)
[2019-03-26] MEDS: ATORVASTATIN 40 MG TAB PO SCH (08:29)
[2019-03-26] MEDS: FINASTERIDE 5 MG TAB PO SCH (08:29)
[2019-03-26] MEDS: ISOSORBIDE MONONITRATE ER 30 MG TAB.ER.24H PO SCH (08:29)
[2019-03-26] MEDS: CARVEDILOL 6.25 MG TAB PO SCH ×2 (08:29→21:04)
[2019-03-26] MEDS: LISINOPRIL 10 MG TAB PO SCH ×2 (08:29→21:04)
[2019-03-26] MEDS: CLOPIDOGREL 75 MG TAB PO SCH (08:29)
[2019-03-26] MEDS: ASPIRIN 81 MG PO SCH (08:29)
[2019-03-26] MEDS: amLODIPine 10 MG TAB PO SCH (08:29)
[2019-03-26] MEDS ORDERED: LISINOPRIL 5 MG TAB PO SCH (09:00)
[2019-03-26] MEDS ORDERED: amLODIPine 5 MG TAB PO SCH (09:00)
[2019-03-26 16:59] VITALS: RESP 16
[2019-03-26 20:17] LABS: Glucose,Whole Blood 181 mg/dL (75-99)
[2019-03-26] MEDS ORDERED: LATANOPROST 0.005% OPHTH DROPS 2.5 ML BTL BOTH EYES SCH (21:00)
[2019-03-26] MEDS: INSULIN ASPART (NovoLOG) 100 UNIT/ML VIAL SQ SCH (21:14)
--- NOTE | 2019-03-26 23:07 | P.HPIM ---
History of Present Illness H&P Date: 03/26/19 Chief Complaint: Abdominal pain History of presenting complaint: This is a very pleasant 83-year-old patient being followed by Dr. barrios out of [place]. Chronic stable medical conditions include diabetes, hypertension, coronary artery disease bypass, acute [place] in October of this year, paroxysmal atrial fibrillation, moderate aortic regurgitation, congestive heart failure with EF of 35%, moderate aortic regurgitation. Patient does take [place] for his lower back pain. Patient was previously taking Ultram was having problem tolerating the same. Recently his family doctor gave him [place]. Patient normally has a bowel movement every day. Patient did not have a bowel m ovement for at least 24 hours and started having double discomfort and decided to come in. No nausea vomiting. No fever no chills. Patient does take Metamucil at home. Review of systems: GEN.: Tired] EYES: None HEENT: Decreased hearing NECK: None RESPIRATORY: None CARDIOVASCULAR: None GASTROINTESTINAL: As above GENITOURINARY: None MUSCULOSKELETAL: . 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 No alcohol. Lives with a friend Family history: Coronary artery disease, congestive heart failure Physical examination: VITAL SIGNS: 98.1, 61, 18, 167/83, 92% room air GENERAL: BMI 19.2, laying in bed not in distress. EYES: Pupils equal. Conjunctiva normal. HEENT: External appearance of nose and ears normal, oral cavity grossly normal. NECK: JVD not raised; masses not palpable. HEART: First and second heart sounds are normal; no edema. LUNGS: Respiratory rate normal; decreased breath sounds. ABDOMEN: Soft, nontender, liver spleen not palpable, no masses palpable. PSYCH: Alert and oriented x3; mood and affect anxiousl. NEUROLOGICAL: Cranial nerves grossly intact; no facial asymmetry, power and sensation grossly intact. LYMPHATICS: No lymph nodes palpable in the axilla and neck MUSCULOSKELETAL:: Evidence of OA in the hands and knees INVESTIGATIONS, reviewed in the clinical context: White count 16.8 1114.2 creatinine 1.15 Computed tomography scan of the abdomen-large left-sided scrotal hernia containing sigmoid colon Assessment: -Acute constipation secondary to side effect of pain medication [place] -Diabetes mellitus type 2 -Essential hypertension -Coronary artery disease with bypass and stent -Paroxysmal atrial fibrillation -Moderate aortic regurgitation nonrheumatic -Congestive heart failure from systolic dysfunction EF 35% from underlying coronary artery disease -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 Had a good bowel movement. Feels better. We will have the patient see Gen. surgery for the scrotal hernia this can be followed as an outpatient. Did discuss with the patient. At this point he will not be using any more [place]. He'll use a muscle relaxer heating pad which he does have at home and may use naproxen on a when necessary basis. Past Medical History Past Medical History: Heart Failure, Eye Disorder, Hypertension, Renal Disease Additional Past Medical History / Comment(s): glacoma, surgical procedure on bilateral eyes, PTSD, chronic migraines History of Any Multi-Drug Resistant Organisms: None Reported Past Surgical History: Coronary Bypass/CABG, Tonsillectomy Additional Past Surgical History / Comment(s): CABG in 2004- numbness in left arm with activity before procedure Past Anesthesia/Blood Transfusion Reactions: No Reported Reaction Past Psychological History: PTSD Smoking Status: Never smoker Past Alcohol Use History: None Reported Past Drug Use History: None Reported - Past Family History Father Family Medical History: Cancer, Congestive Heart Failure (CHF), Coronary Artery Disease (CAD) Additional Family Medical History / Comment(s): glacoma Mother Family Medical History: Congestive Heart Failure (CHF), Coronary Artery Disease (CAD) Additional Family Medical History / Comment(s): macular degeneration Medications and Allergies Home Medications Medication Instructions Recorded Confirmed Type Finasteride [Proscar] 5 mg PO DAILY 11/15/16 03/25/19 History Latanoprost [Xalatan 0.005%] 2 drop BOTH EYES HS 11/15/16 03/25/19 History Aspirin 81 mg PO DAILY 11/20/16 03/25/19 Rx Nystatin 100,000 Unit/gm Powd 1 applic TOPICAL TID 05/18/17 03/25/19 History [Mycostatin Powder] Carvedilol [Coreg] 6.25 mg PO AC-BID@0700,1900 05/25/18 03/25/19 History Ergocalciferol [Vitamin D2 50,000 unit PO SA 05/25/18 03/25/19 History (DRISDOL)] Furosemide [Lasix] 40 mg PO DAILY PRN 05/25/18 03/25/19 History Gabapentin [Neurontin] 200 mg PO TID 05/25/18 03/25/19 History Glycopyrrolate/Formoterol Fum 2 puff INHALATION RT-BID 05/25/18 03/25/19 History [Bevespi Aerosphere Inhaler] Potassium Chloride ER [K-Dur 10] 10 meq PO DAILY 05/25/18 03/25/19 History Atorvastatin [Lipitor] 40 mg PO DAILY #30 tab 11/23/18 03/25/19 Rx Clopidogrel [Plavix] 75 mg PO DAILY #30 tab 11/23/18 03/25/19 Rx Isosorbide Mononitrate ER [Imdur] 30 mg PO DAILY #30 tab.er.24h 11/23/18 Rx Lisinopril [Zestril] 10 mg PO BID #603 tab 11/23/18 03/25/19 Rx Nitroglycerin Sl Tabs [Nitrostat] 0.4 mg SUBLINGUAL Q5M PRN #25 tab 11/23/18 03/25/19 Rx amLODIPine [Norvasc] 10 mg PO DAILY #30 tab 11/23/18 03/25/19 Rx HYDROcodone/APAP 7.5-325MG [[place] 1 tab PO Q6H PRN 03/25/19 03/25/19 History 7.5-325] Allergies Allergy/AdvReac Type Severity Reaction Status Date / Time No Known Allergies Allergy Verified 03/25/19 17:47 Physical Exam Vitals: Vital Signs Temp Pulse Resp BP Pulse Ox 03/26/19 06:38 98 F 47 L 18 137/98 98 03/26/19 04:30 86 17 145/69 97 03/26/19 02:44 64 17 144/84 98 03/26/19 00:30 64 18 176/74 98 03/25/19 21:15 100 18 159/83 97 03/25/19 20:02 97.7 F 70 18 98 03/25/19 19:00 161/67 03/25/19 17:30 17 163/84 96 09/23/19 16:54 98.1 F 61 18 167/83 92 L Intake and Output 03/25/19 03/26/19 03/26/19 22:59 06:59 14:59 Other: Weight 58.967 kg Results CBC & Chem 7: 03/25/19 17:15 03/25/19 17:15 Labs: Abnormal Lab Results - Last 24 Hours (Table) 03/25/19 03/25/19 03/25/19 Range/Units 17:15 17:15 17:50 WBC 16.8 H (3.8-10.6) k/uL Neutrophils # 15.1 H (1.3-7.7) k/uL Lymphocytes # 0.8 L (1.0-4.8) k/uL BUN 23 H (9-20) mg/dL Glucose 161 H (74-99) mg/dL ALT 20 L (21-72) U/L Urine Protein 2+ H (Negative) Urine Mucus Rare H (None) /hpf
[2019-03-26] MEDS ORDERED: NAPROXEN 250 MG TAB PO PRN (23:08)
[2019-03-26] MEDS ORDERED: BACLOFEN 10 MG TAB PO PRN (23:08)
[2019-03-27] MEDS: CARVEDILOL 6.25 MG TAB PO SCH (06:29)
[2019-03-27 07:18] LABS: Glucose,Whole Blood 99 mg/dL (75-99)
[2019-03-27] MEDS: INSULIN ASPART (NovoLOG) 100 UNIT/ML VIAL SQ SCH ×2 (07:32→12:50)
[2019-03-27] MEDS: CLOPIDOGREL 75 MG TAB PO SCH (08:09)
[2019-03-27] MEDS: ISOSORBIDE MONONITRATE ER 30 MG TAB.ER.24H PO SCH (08:09)
[2019-03-27] MEDS: amLODIPine 10 MG TAB PO SCH (08:09)
[2019-03-27] MEDS: LISINOPRIL 10 MG TAB PO SCH (08:09)
[2019-03-27] MEDS: GABAPENTIN 100 MG CAP PO SCH (08:09)
[2019-03-27] MEDS: ASPIRIN 81 MG PO SCH (08:09)
[2019-03-27] MEDS: FINASTERIDE 5 MG TAB PO SCH (08:09)
[2019-03-27] MEDS: POTASSIUM CHLORIDE ER 10 MEQ TAB.ER.PRT PO SCH (08:09)
[2019-03-27] MEDS: ATORVASTATIN 40 MG TAB PO SCH (08:09)
[2019-03-27] MEDS ORDERED: ENOXAPARIN 40 MG/0.4 ML SYRINGE SQ SCH (09:00)
[2019-03-27] MEDS ORDERED: PSYLLIUM HUSK 100% 6 GM PACKET PO SCH (09:00)
[2019-03-27 12:18] LABS: Glucose,Whole Blood 164 mg/dL (75-99)
[2019-03-27] MEDS: SODIUM CHLORIDE 0.9% 1,000 ML IV SCH (12:50)
[2019-03-27 13:33] VITALS: BMI 18.8
[2019-03-27 14:52] VITALS: BP 134/59; PULSE 66; TEMP 97.6
[2019-03-27 19:03] LABS: Hemoglobin A1C 6.1 % (4.0-6.0)
--- NOTE | 2019-03-27 22:55 | P.DS ---
Providers Date of admission: 03/25/19 21:13 Expected date of discharge: 03/27/19 Attending physician: Winston Cooper Primary care physician: Tay Edge [facility] Course: Chief Complaint: Abdominal pain Present Hospital course: This is a very pleasant 83-year-old patient being followed by Dr. edge out of [place]. Chronic stable medical conditions include diabetes, hypertension, coronary artery disease bypass, acute [place] in October of this year, paroxysmal atrial fibrillation, moderate aortic regurgitation, congestive heart failure with EF of 35%, moderate aortic regurgitation. Patient does take [place] for his lower back pain. Patient was previously taking Ultram was having problem tolerating the same. Recently his family doctor gave him [place]. Patient normally has a bowel movement every day. Patient did not have a bowel movement for at least 24 hours and started having double discomfort and decided to come in. No nausea vomiting. No fever no chills. Patient does take Metamucil at home. patient better with severe constipation. Had a good bowel movement. Patient also has a scrotal hernia asymptomatic that can be followed as an outpatient. Constipation is called. By patient taking [place]. That was discontinued. Today care was discussed at length with the patient. Antispasmodic is being given. Metamucil also added. Discussion discharge planning more than 35 minutes Physical examination: VITAL SIGNS: 97.6, 66, 16, 134.59, 96% room air GENERAL: BMI 19.2, laying in bed , comfortable EYES: Pupils equal. Conjunctiva normal. HEENT: External appearance of nose and ears normal, oral cavity grossly normal. NECK: JVD not raised; masses not palpable. HEART: First and second heart sounds are normal; no edema. LUNGS: Respiratory rate normal; decreased breath sounds. ABDOMEN: Soft, nontender, liver spleen not palpable, no masses palpable. PSYCH: Alert and oriented x3; mood and affect anxiousl. 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 -Large left scrotal hernia, asymptomatic disposition: Home Patient Condition at Discharge: Stable Plan - Discharge Summary Discharge Rx Participant: No New Discharge Prescriptions: New Baclofen 5 mg PO Q8H PRN #30 tablet PRN Reason: Spasms Psyllium Husk 100% [Metamucil Packet] 6 gm PO DAILY #30 packet Naproxen [Naprosyn] 250 mg PO BID PRN #30 tab PRN Reason: Breakthrough Pain Continue Latanoprost [Xalatan 0.005%] 2 drop BOTH EYES HS Finasteride [Proscar] 5 mg PO DAILY Aspirin 81 mg PO DAILY Nystatin 100,000 Unit/gm Powd [Mycostatin Powder] 1 applic TOPICAL TID Potassium Chloride ER [K-Dur 10] 10 meq PO DAILY Gabapentin [Neurontin] 200 mg PO TID Furosemide [Lasix] 40 mg PO DAILY PRN PRN Reason: Edema Ergocalciferol [Vitamin D2 (DRISDOL)] 50,000 unit PO SA Glycopyrrolate/Formoterol Fum [Bevespi Aerosphere Inhaler] 2 puff INHALATION RT-BID Carvedilol [Coreg] 6.25 mg PO AC-BID@0700,1900 Isosorbide Mononitrate ER [Imdur] 30 mg PO DAILY #30 tab.er.24h Atorvastatin [Lipitor] 40 mg PO DAILY #30 tab Nitroglycerin Sl Tabs [Nitrostat] 0.4 mg SUBLINGUAL Q5M PRN #25 tab PRN Reason: Chest Pain amLODIPine [Norvasc] 10 mg PO DAILY #30 tab Clopidogrel [Plavix] 75 mg PO DAILY #30 tab Lisinopril [Zestril] 10 mg PO BID #603 tab Discontinued HYDROcodone/APAP 7.5-325MG [[place] 7.5-325] 1 tab PO Q6H PRN PRN Reason: Pain Discharge Medication List Finasteride [Proscar] 5 mg PO DAILY 11/15/16 [History] Latanoprost [Xalatan 0.005%] 2 drop BOTH EYES HS 11/15/16 [History] Aspirin 81 mg PO DAILY 11/20/16 [Rx] Nystatin 100,000 Unit/gm Powd [Mycostatin Powder] 1 applic TOPICAL TID 05/18/17 [History] Carvedilol [Coreg] 6.25 mg PO AC-BID@0700,1900 05/25/18 [History] Ergocalciferol [Vitamin D2 (DRISDOL)] 50,000 unit PO SA 05/25/18 [History] Furosemide [Lasix] 40 mg PO DAILY PRN 05/25/18 [History] Gabapentin [Neurontin] 200 mg PO TID 05/25/18 [History] Glycopyrrolate/Formoterol Fum [Bevespi Aerosphere Inhaler] 2 puff INHALATION RT- BID 05/25/18 [History] Potassium Chloride ER [K-Dur 10] 10 meq PO DAILY 05/25/18 [History] Atorvastatin [Lipitor] 40 mg PO DAILY #30 tab 11/23/18 [Rx] Clopidogrel [Plavix] 75 mg PO DAILY #30 tab 11/23/18 [Rx] Isosorbide Mononitrate ER [Imdur] 30 mg PO DAILY #30 tab.er.24h 11/23/18 [Rx] Lisinopril [Zestril] 10 mg PO BID #603 tab 11/23/18 [Rx] Nitroglycerin Sl Tabs [Nitrostat] 0.4 mg SUBLINGUAL Q5M PRN #25 tab 11/23/18 [Rx] amLODIPine [Norvasc] 10 mg PO DAILY #30 tab 11/23/18 [Rx] Baclofen 5 mg PO Q8H PRN #30 tablet 03/27/19 [Rx] Naproxen [Naprosyn] 250 mg PO BID PRN #30 tab 03/27/19 [Rx] Psyllium Husk 100% [Metamucil Packet] 6 gm PO DAILY #30 packet 03/27/19 [Rx] Follow up Appointment(s)/Referral(s): Michelle Chinchilla MD [STAFF PHYSICIAN] - 1 Week (scrotal hernia) Tay Edge MD [Primary Care Provider] - 1-2 days Discharge Disposition: HOME SELF-CARE
== END 2019-03-27 16:49 | disposition home or self-care (01) ==
LOC: EC 16:46 → 4MS4W 21:13
PROVIDERS: ADMIT Hospitalist; ATTEND Hospitalist
DX: K59.00 Constipation, unspecified (principal); T40.2X5A Adverse effect of other opioids, initial encounter; I13.0 Hypertensive heart and chronic kidney disease with heart failure and stage 1 through stage 4 chronic kidney disease, or unspecified chronic kidney disease; I50.20 Unspecified systolic (congestive) heart failure; N18.9 Chronic kidney disease, unspecified; I48.0 Paroxysmal atrial fibrillation; I35.1 Nonrheumatic aortic (valve) insufficiency; I25.2 Old myocardial infarction; I25.10 Atherosclerotic heart disease of native coronary artery without angina pectoris; E11.9 Type 2 diabetes mellitus without complications; M54.5 Low back pain; K40.90 Unilateral inguinal hernia, without obstruction or gangrene, not specified as recurrent; F43.10 Post-traumatic stress disorder, unspecified; G43.909 Migraine, unspecified, not intractable, without status migrainosus; H40.9 Unspecified glaucoma; M19.91 Primary osteoarthritis, unspecified site; M47.816 Spondylosis without myelopathy or radiculopathy, lumbar region; M17.0 Bilateral primary osteoarthritis of knee; M19.042 Primary osteoarthritis, left hand; M19.041 Primary osteoarthritis, right hand; Z79.82 Long term (current) use of aspirin; Z79.02 Long term (current) use of antithrombotics/antiplatelets; Z79.899 Other long term (current) drug therapy; Z95.1 Presence of aortocoronary bypass graft; Z95.5 Presence of coronary angioplasty implant and graft; Z82.49 Family history of ischemic heart disease and other diseases of the circulatory system; Z83.511 Family history of glaucoma; Z83.518 Family history of other specified eye disorder
CPT/HCPCS: 96372; 96361 ×2; 96360; 99285; 36415; 80053; 82150; 83690; 85025; 81001; 83036; 74018; 74177; G0378 ×3; S0138 ×2; J1650

== ENCOUNTER → 2019-06-06 | Outpatient (CLI) | payer MEDICARE ==
[2019-06-06 16:33] LABS: African American GFR (CKD) 70.6 (60.0-200.0); Albumin 4.1 g/dL (3.80-4.90); Albumin/Globulin Ratio 2.05 (1.60-3.17); Anion Gap 6.9 mmol/L (4.00-12.00); BUN/Creat Ratio 22.73 Ratio (12.00-20.00); Calcium 9.4 mg/dL (8.7-10.3); Carbon Dioxide 26.1 mmol/L (21.6-31.8); Chol/HDL Ratio 3.02; Non-African American GFR(CKD) 60.9 (60.0-200.0); Potassium 4.5 mmol/L (3.5-5.5); Total Bilirubin 0.4 mg/dL (0.3-1.2); Total Protein 6.1 g/dL (6.2-8.2)
== END | disposition home or self-care (01) ==
LOC: LABWHC1 09:13
PROVIDERS: ATTEND Internal Medicine Interventional Cardiology
DX: E78.2 Mixed hyperlipidemia (principal)
CPT/HCPCS: 36415; 80053; 80061

== ENCOUNTER 2020-03-25 11:17 | Inpatient (IN) | payer MEDICARE ==
[2020-03-25] MEDS ORDERED: ALBUTEROL NEBULIZED 2.5 MG/3 ML INHALATION STA (11:57)
[2020-03-25] MEDS ORDERED: IPRATROPIUM 0.5 MG/2.5 ML NEBU INHALATION STA (11:57)
--- NOTE | 2020-03-25 12:09 | ED ---
General Adult HPI - General Chief complaint: Shortness of Breath Stated complaint: ZEINAB Time Seen by Provider: 03/25/20 11:25 Source: patient, EMS, RN notes reviewed, old records reviewed Mode of arrival: EMS Limitations: no limitations - History of Present Illness Initial comments: This is an 84-year-old male who presents emergency department with past medical history significant for COPD and congestive heart. Patient's also had bypass surgery as well as coronary artery stents. Patient comes in today because he been experiencing difficulty breathing for the last week. Patient states he went to his primary medical care doctor his doctor told him to get on the Lasix and he didn't but has not decreased difficulty breathing. Patient states short ness of breath difficulty worse with any Movement. Patient denies any chest pain or palpitations. Patient denies any headache patient denies numbness weakness. Patient denies any lightheadedness or dizziness. Patient denies abdominal pain patient denies nausea vomiting diarrhea. Patient denies any edema to the legs or calf tenderness. - Related Data Home Medications Medication Instructions Recorded Confirmed Finasteride [Proscar] 5 mg PO DAILY 11/15/16 03/25/20 Ergocalciferol [Vitamin D2 50,000 unit PO SA 05/25/18 03/25/20 (DRISDOL)] Gabapentin [Neurontin] 200 mg PO TID 05/25/18 03/25/20 Glycopyrrolate/Formoterol Fum 2 puff INHALATION RT-BID 05/25/18 03/25/20 [Bevespi Aerosphere Inhaler] carvediloL [Coreg] 6.25 mg PO AC-BID@0700,1900 05/25/18 03/25/20 Baclofen 5 mg PO Q8H 03/25/20 03/25/20 Insulin Degludec [Tresiba 12 units SQ DAILY 03/25/20 03/25/20 Flextouch U-200] Latanoprost Ophth [Xalatan 0.005%] 1 drop RIGHT EYE HS 03/25/20 03/25/20 Losartan [Cozaar] 50 mg PO DAILY 03/25/20 03/25/20 Rivaroxaban [Xarelto] 2.5 mg PO AC-BID 03/25/20 03/25/20 Previous Rx's Medication Instructions Recorded Aspirin 81 mg PO DAILY 05/21/17 Atorvastatin [Lipitor] 40 mg PO DAILY #30 tab 11/23/18 Clopidogrel [Plavix] 75 mg PO DAILY #30 tab 11/23/18 Isosorbide Mononitrate ER [Imdur] 30 mg PO DAILY #30 tab.er.24h 11/23/18 Nitroglycerin Sl Tabs [Nitrostat] 0.4 mg SUBLINGUAL Q5M PRN #25 tab 11/23/18 amLODIPine [Norvasc] 10 mg PO DAILY #30 tab 11/23/18 Allergies Allergy/AdvReac Type Severity Reaction Status Date / Time No Known Allergies Allergy Verified 03/25/20 12:51 Review of Systems ROS Statement: Those systems with pertinent positive or pertinent negative responses have been documented in the HPI. ROS Other: All systems not noted in ROS Statement are negative. Past Medical History Past Medical History: Heart Failure, Eye Disorder, Hypertension, Renal Disease Additional Past Medical History / Comment(s): glacoma, surgical procedure on bilateral eyes, PTSD, chronic migraines Last Myocardial Infarction Date:: 11/19/18 History of Any Multi-Drug Resistant Organisms: None Reported Past Surgical History: Coronary Bypass/CABG, Tonsillectomy Additional Past Surgical History / Comment(s): CABG in 2004- numbness in left arm with activity before procedure Past Anesthesia/Blood Transfusion Reactions: No Reported Reaction Past Psychological History: PTSD Smoking Status: Never smoker Past Alcohol Use History: Rare Past Drug Use History: None Reported - Past Family History Father Family Medical History: Cancer, Congestive Heart Failure (CHF), Coronary Artery Disease (CAD) Additional Family Medical History / Comment(s): glacoma Mother Family Medical History: Congestive Heart Failure (CHF), Coronary Artery Disease (CAD) Additional Family Medical History / Comment(s): macular degeneration General Exam - General Exam Comments Initial Comments: GENERAL: Patient is well-developed and well-nourished. Patient is nontoxic and well- hydrated and is in mild distress. ENT: Neck is soft and supple. No significant lymphadenopathy is noted. Oropharynx is clear. Moist mucous membranes. Neck has full range of motion without eliciting any pain. EYES: The sclera were anicteric and conjunctiva were pink and moist. Extraocular movements were intact and pupils were equal round and reactive to light. Eyelids were unremarkable. PULMONARY: Patient is extremely wheezing diffusely crackles in the left base. CARDIOVASCULAR: Patient has an irregular heartbeat at about 100 beats a minute. ABDOMEN: Soft and nontender with normal bowel sounds. No palpable organomegaly was noted. There is no palpable pulsatile mass. SKIN: Skin is clear with no lesions or rashes and otherwise unremarkable. NEUROLOGIC: Patient is alert and oriented x3. Cranial nerves II through XII are grossly intact. Motor and sensory are also intact. Normal speech, volume and content. Symmetrical smile. MUSCULOSKELETAL: Normal extremities with adequate strength and full range of motion. No lower extremity swelling or edema. No calf tenderness. LYMPHATICS: No significant lymphadenopathy is noted PSYCHIATRIC: Normal psychiatric evaluation. Limitations: no limitations Course Vital Signs 03/25/20 03/25/20 03/25/20 11:21 12:10 12:36 Temperature 97.4 F L Pulse Rate 106 H 89 93 Respiratory 22 Rate Blood Pressure 146/92 O2 Sat by Pulse 97 Oximetry 03/25/20 15:04 Temperature Pulse Rate 98 Respiratory 16 Rate Blood Pressure 133/77 O2 Sat by Pulse 99 Oximetry Medical Decision Making - Medical Decision Making EKG shows atrial fibrillation with frequent PVCs at 91 bpm QRS 110 QT interval 426 QTC is 523. Patient's EKG shows no ST segment elevation. Rations EKG is compared to an old EKG. Chest x-ray showed no acute abnormality. I'll begin the room as the patient received a breathing treatment and the patient continued to wheeze diffusely. With any minimal exertion patient was very short of breath - Lab Data Result diagrams: 03/25/20 12:00 03/25/20 12:00 Lab Results 03/25/20 03/25/20 03/25/20 Range/Units 12:00 12:00 12:00 WBC 8.9 (3.8-10.6) k/uL RBC 4.82 (4.30-5.90) m/uL Hgb 15.1 (13.0-17.5) gm/dL Hct 45.8 (39.0-53.0) % MCV 95.0 (80.0-100.0) fL MCH 31.4 (25.0-35.0) pg MCHC 33.1 (31.0-37.0) g/dL RDW 12.3 (11.5-15.5) % Plt Count 248 (150-450) k/uL Neutrophils % 79 % Lymphocytes % 10 % Monocytes % 4 % Eosinophils % 6 % Basophils % 1 % Neutrophils # 7.0 (1.3-7.7) k/uL Lymphocytes # 0.9 L (1.0-4.8) k/uL Monocytes # 0.3 (0-1.0) k/uL Eosinophils # 0.5 (0-0.7) k/uL Basophils # 0.0 (0-0.2) k/uL PT 11.8 (9.0-12.0) sec INR 1.2 H (<1.2) APTT 30.0 (22.0-30.0) sec D-Dimer 0.27 (<0.60) mg/L FEU Sodium 137 (137-145) mmol/L Potassium 3.9 (3.5-5.1) mmol/L Chloride 100 (98-107) mmol/L Carbon Dioxide 27 (22-30) mmol/L Anion Gap 10 mmol/L BUN 20 (9-20) mg/dL Creatinine 0.99 (0.66-1.25) mg/dL Est GFR (CKD-EPI)AfAm 80 (>60 ml/min/1.73 sqM) Est GFR (CKD-EPI)NonAf 69 (>60 ml/min/1.73 sqM) Glucose 171 H (74-99) mg/dL Plasma Lactic Acid Tucker (0.7-2.0) mmol/L Calcium 9.2 (8.4-10.2) mg/dL Magnesium 1.9 (1.6-2.3) mg/dL Total Bilirubin 1.1 (0.2-1.3) mg/dL AST 32 (17-59) U/L ALT 17 (4-49) U/L Alkaline Phosphatase 103 (38-126) U/L Troponin I (0.000-0.034) ng/mL NT-Pro-B Natriuret Pep pg/mL Total Protein 7.0 (6.3-8.2) g/dL Albumin 4.4 (3.5-5.0) g/dL 03/25/20 03/25/20 03/25/20 Range/Units 12:00 12:00 12:00 WBC (3.8-10.6) k/uL RBC (4.30-5.90) m/uL Hgb (13.0-17.5) gm/dL Hct (39.0-53.0) % MCV (80.0-100.0) fL MCH (25.0-35.0) pg MCHC (31.0-37.0) g/dL RDW (11.5-15.5) % Plt Count (150-450) k/uL Neutrophils % % Lymphocytes % % Monocytes % % Eosinophils % % Basophils % % Neutrophils # (1.3-7.7) k/uL Lymphocytes # (1.0-4.8) k/uL Monocytes # (0-1.0) k/uL Eosinophils # (0-0.7) k/uL Basophils # (0-0.2) k/uL PT (9.0-12.0) sec INR (<1.2) APTT (22.0-30.0) sec D-Dimer (<0.60) mg/L FEU Sodium (137-145) mmol/L Potassium (3.5-5.1) mmol/L Chloride (98-107) mmol/L Carbon Dioxide (22-30) mmol/L Anion Gap mmol/L BUN (9-20) mg/dL Creatinine (0.66-1.25) mg/dL Est GFR (CKD-EPI)AfAm (>60 ml/min/1.73 sqM) Est GFR (CKD-EPI)NonAf (>60 ml/min/1.73 sqM) Glucose (74-99) mg/dL Plasma Lactic Acid Tucker 1.2 (0.7-2.0) mmol/L Calcium (8.4-10.2) mg/dL Magnesium (1.6-2.3) mg/dL Total Bilirubin (0.2-1.3) mg/dL AST (17-59) U/L ALT (4-49) U/L Alkaline Phosphatase (38-126) U/L Troponin I 0.018 (0.000-0.034) ng/mL NT-Pro-B Natriuret Pep 1930 pg/mL Total Protein (6.3-8.2) g/dL Albumin (3.5-5.0) g/dL Disposition Clinical Impression: Acute exacerbation of chronic obstructive pulmonary disease (COPD) Disposition: ADMITTED IP TO THIS HOSP Referrals: Tay Edge MD [Primary Care Provider] - 1-2 days Time of Disposition: 15:28
[2020-03-25 12:27] LABS: Basophils % (A) 1 %; Eosinophils # (A) 0.5 k/uL (0-0.7); Eosinophils % (A) 6 %; HCT 45.8 % (39.0-53.0); HGB 15.1 gm/dL (13.0-17.5); Lymphocytes # (A) 0.9 k/uL (1.0-4.8); Lymphocytes % (A) 10 %; MCH 31.4 pg (25.0-35.0); MCHC 33.1 g/dL (31.0-37.0); Mean Platelet Volume 7.1; Monocytes # (A) 0.3 k/uL (0-1.0); Monocytes % (A) 4 %; Neutrophils % (A) 79 %; Platelet Count 248 k/uL (150-450); RBC 4.82 m/uL (4.30-5.90); RDW 12.3 % (11.5-15.5); WBC 8.9 k/uL (3.8-10.6)
[2020-03-25 12:37] LABS: Albumin 4.4 g/dL (3.5-5.0); Calcium 9.2 mg/dL (8.4-10.2); Magnesium 1.9 mg/dL (1.6-2.3); Potassium 3.9 mmol/L (3.5-5.1); Total Bilirubin 1.1 mg/dL (0.2-1.3)
[2020-03-25 13:01] LABS: D-Dimer 0.27 mg/L FEU (<0.60); INR 1.2 (<1.2); Prothrombin Time 11.8 sec (9.0-12.0)
--- NOTE | 2020-03-25 13:01 | XR ---
EXAMINATION TYPE: XR chest 2V DATE OF EXAM: 03/25/2020 COMPARISON: 11/22/2018 TECHNIQUE: PA and lateral views submitted. HISTORY: Shortness of breath FINDINGS: The lungs are clear and there is no pneumothorax, pleural effusion, or focal pneumonia. Postoperati ve changes seen and there is mild cardiomegaly. Scoliosis of the spine with diffuse osteopenia. Hyper inflation compatible COPD. Pleural-based calcification along the left apex could be associated with a sbestos related disease. IMPRESSION: 1. COPD.
[2020-03-25] MEDS ORDERED: methylPREDNISolone SOD SUCCI 125 MG/2 ML VIAL IV STA (15:12)
[2020-03-25] MEDS ORDERED: RX INFO: IV CONTRAST WAS GIVEN 1 EACH MISC MISCELLANE PRN (15:54)
[2020-03-25] MEDS ORDERED: NITROGLYCERIN SL TABS 0.4 MG TAB SUBLINGUAL PRN (15:57)
--- NOTE | 2020-03-25 16:44 | CT ---
EXAMINATION TYPE: CT chest wo con DATE OF EXAM: 03/25/2020 COMPARISON: None HISTORY: Possible pulmonary fibrosis. CT DLP: 423.5 mGycm, Automated exposure control for dose reduction was used. CONTRAST: None TECHNIQUE: Axial images were obtained at 1 mm thick sections at 10 mm intervals. This will limit po rtions of the examination which may not be visualized within the [id number]. Images were obtained in the prone and supine views. FINDINGS: Thyroid is poorly visualized. No suspicious mediastinal masses are identified. Some minimal streak opacity along the major fissure on the left is present. No discrete nodules or boucher spicious infiltrates are evident. No suspicious areas of pneumonitis are identified. There is some br onchiectasis at the left lung base. No enlarged mediastinal or hilar adenopathy is evident. The ascending aorta diameter at the level o f the main pulmonary artery is 5.0 cm. The main pulmonary artery diameter at the bifurcation is 3.[address] sections are obtained through the upper abdomen. Abdomen is essentially unremarkable. IMPRESSIONS: 1. Mild left lower lobe bronchiectasis. 2. Mild streak atelectasis. 3. Typical changes suspicious for pulmonary fibrosis are not evident.
[2020-03-25] MEDS: IPRATROPIUM-ALBUTEROL 3 ML NEB INHALATION SCH ×3 (17:06→20:41)
[2020-03-25 17:12] LABS: Glucose,Whole Blood 228 mg/dL (75-99)
[2020-03-25] MEDS: GABAPENTIN 100 MG CAP PO SCH ×2 (17:19→20:18)
[2020-03-25] MEDS: BACLOFEN 10 MG TAB PO SCH ×2 (17:20→21:30)
[2020-03-25] MEDS: RIVAROXABAN 2.5 MG TABLET PO SCH (17:22)
[2020-03-25] MEDS ORDERED: IPRATROPIUM-ALBUTEROL 3 ML NEB INHALATION PRN (18:02)
[2020-03-25] MEDS: carvediloL 6.25 MG TAB PO SCH (18:10)
[2020-03-25] MEDS: INSULIN ASPART (NovoLOG) 100 UNIT/ML VIAL SQ SCH ×3 (18:10→20:36)
--- NOTE | 2020-03-25 18:16 | P.HPIM ---
History of Present Illness H&P Date: 03/25/20 Chief Complaint: Shortness of breath History of presenting complaint: This is a very pleasant 84-year-old patient being followed by Dr. barrios from [place]. Chronic stable medical conditions include diabetes, hypertension, coronary artery disease bypass, acute OR in October of 2018, paroxysmal atrial fibrillation, moderate aortic regurgitation, congestive heart failure with EF of 35%, moderate aortic regurgitation. Chronic lower back pain. In October 2018 patient underwent a cardiac catheterization he did have a stent placed to graft but there were other areas that could not be angioplastied or stented. For last 2 weeks patient has progressively been getting more and more short of breath. Does feel a heaviness in the chest. Has a slight dry cough. No fever no c hills. Appetite is okay. No edema. Review of systems: GEN.: Tired] EYES: None HEENT: Decreased hearing NECK: None RESPIRATORY: As above CARDIOVASCULAR: As above GASTROINTESTINAL: As above GENITOURINARY: None MUSCULOSKELETAL: . 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 No alcohol. Lives with caregiver, M.D. Family history: Coronary artery disease, congestive heart failure Physical examination: VITAL SIGNS: 97.4, 106, 22, 146/92, 97% on 2 L GENERAL: BMI 17.7, sitting up on bed, tired, EYES: Pupils equal. Conjunctiva normal. HEENT: External appearance of nose and ears normal, oral cavity grossly normal. NECK: JVD not raised; masses not palpable. HEART: First and second heart sounds are normal; no edema. LUNGS: Respiratory rate normal; decreased breath sounds. ABDOMEN: Soft, nontender, liver spleen not palpable, no masses palpable. PSYCH: Alert and oriented x3; mood and affect anxious. NEUROLOGICAL: Cranial nerves grossly intact; no facial asymmetry, power and sensation grossly intact. LYMPHATICS: No lymph nodes palpable in the axilla and neck MUSCULOSKELETAL:: Evidence of OA INVESTIGATIONS, reviewed in the clinical context: White count 8.9 hemoglobin 15.1 platelets 248 potassium 3.9 creatinine 0.99 Troponin I 0.018, proBNP 1930 EKG tracing personally reviewed by me-ST segment depression, sinus rhythm Chest x-ray film personally reviewed by me and looked at the report-scoliosis, osteopenia, hyperinflation, pleural-based calcifications at the left apex Assessment: -This patient presents with progressive shortness of breath chest tightness pressure coming on for last few days. Patient's last cardiac catheterization in October 2018 showed significant stenosis, 1 graft did have a stent put in it. Patient's picture is not entirely compatible with CHF most likely this is unstable angina. -Essential hypertension -Coronary artery disease with bypass and stent -Paroxysmal atrial fibrillation -Moderate aortic regurgitation nonrheumatic -Possible acute Congestive heart failure exacerbation from systolic dysfunction EF 35% from underlying coronary artery disease -Primary osteoarthritis multiple joints including the lumbar spine -Large left scrotal hernia, asymptomatic Plan: Home medications resumed. Patient is only on xarelto. We will increase the dose of Imdur. Questionable element of COPD. Given his steroids and bronchodilators. Get a cardiology opinion. Care was discussed with the patient question also. Past Medical History Past Medical History: Heart Failure, Eye Disorder, Hypertension, Renal Disease Additional Past Medical History / Comment(s): glacoma, surgical procedure on bilateral eyes, PTSD, chronic migraines Last Myocardial Infarction Date:: 11/19/18 History of Any Multi-Drug Resistant Organisms: None Reported Past Surgical History: Coronary Bypass/CABG, Tonsillectomy Additional Past Surgical History / Comment(s): CABG in 2004- numbness in left arm with activity before procedure Past Anesthesia/Blood Transfusion Reactions: No Reported Reaction Past Psychological History: PTSD Additional Psychological History / Comment(s): Single, never . No children. 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 Born in [facility] emig[place] [facility] as a child is not returned back as an adult. Was a tobacco user. Denies alcohol or recreational drug use. Denied animal exposures Smoking Status: Never smoker Past Alcohol Use History: Rare Past Drug Use History: None Reported - Past Family History Father Family Medical History: Cancer, Congestive Heart Failure (CHF), Coronary Artery Disease (CAD) Additional Family Medical History / Comment(s): glacoma Mother Family Medical History: Congestive Heart Failure (CHF), Coronary Artery Disease (CAD) Additional Family Medical History / Comment(s): macular degeneration Medications and Allergies Home Medications Medication Instructions Recorded Confirmed Type Finasteride [Proscar] 5 mg PO DAILY 11/15/16 03/25/20 History Aspirin 81 mg PO DAILY 11/20/16 03/25/20 Rx Ergocalciferol [Vitamin D2 50,000 unit PO SA 05/25/18 03/25/20 History (DRISDOL)] Gabapentin [Neurontin] 200 mg PO TID 05/25/18 03/25/20 History Glycopyrrolate/Formoterol Fum 2 puff INHALATION RT-BID 05/25/18 03/25/20 History [Bevespi Aerosphere Inhaler] carvediloL [Coreg] 6.25 mg PO AC-BID@0700,1900 05/25/18 03/25/20 History Atorvastatin [Lipitor] 40 mg PO DAILY #30 tab 11/23/18 03/25/20 Rx Clopidogrel [Plavix] 75 mg PO DAILY #30 tab 11/23/18 03/25/20 Rx Isosorbide Mononitrate ER [Imdur] 30 mg PO DAILY #30 tab.er.24h 11/23/18 03/25/20 Rx Nitroglycerin Sl Tabs [Nitrostat] 0.4 mg SUBLINGUAL Q5M PRN #25 tab 11/23/18 03/25/20 Rx amLODIPine [Norvasc] 10 mg PO DAILY #30 tab 11/23/18 03/25/20 Rx Baclofen 5 mg PO Q8H 03/25/20 03/25/20 History Insulin Degludec [Tresiba 12 units SQ DAILY 03/25/20 03/25/20 History Flextouch U-200] Latanoprost Ophth [Xalatan 0.005%] 1 drop RIGHT EYE HS 03/25/20 03/25/20 History Losartan [Cozaar] 50 mg PO DAILY 03/25/20 03/25/20 History Rivaroxaban [Xarelto] 2.5 mg PO AC-BID 03/25/20 03/25/20 History Allergies Allergy/AdvReac Type Severity Reaction Status Date / Time No Known Allergies Allergy Verified 03/25/20 12:51 Physical Exam Vitals: Vital Signs Temp Pulse Resp BP BP Pulse Ox 03/25/20 17:49 108 H 03/25/20 17:35 104 H 03/25/20 16:47 97.5 F L 18 160/81 96 03/25/20 15:04 98 16 133/77 99 03/25/20 12:36 93 03/25/20 12:10 89 03/25/20 11:21 97.4 F L 106 H 22 146/92 97 Intake and Output 03/25/20 03/25/20 03/25/20 06:59 14:59 22:59 Other: Voiding Method Toilet # Voids 1 Weight 54.431 kg 54.431 kg Results CBC & Chem 7: 03/25/20 12:00 03/25/20 12:00 Labs: Abnormal Lab Results - Last 24 Hours (Table) 03/25/20 03/25/20 03/25/20 Range/Units 12:00 12:00 12:00 Lymphocytes # 0.9 L (1.0-4.8) k/uL INR 1.2 H (<1.2) Glucose 171 H (74-99) mg/dL POC Glucose (mg/dL) (75-99) mg/dL 03/25/20 Range/Units 17:10 Lymphocytes # (1.0-4.8) k/uL INR (<1.2) Glucose (74-99) mg/dL POC Glucose (mg/dL) 228 H (75-99) mg/dL Thrombosis Risk Factor Assmnt - Choose All That Apply Any of the Below Risk Factors Present?: No Other Risk Factors: Yes Each Risk Factor Represents 3 Points: Age 75 years or older Thrombosis Risk Factor Assessment Total Risk Factor Score: 3 Thrombosis Risk Factor Assessment Level: Moderate Risk
[2020-03-25] MEDS ORDERED: MAGNESIUM HYDROXIDE 2,400 MG/10 ML CUP PO PRN (18:17)
[2020-03-25] MEDS ORDERED: CALCIUM CARBONATE 500 MG CHEWABLE PO PRN (18:17)
[2020-03-25] MEDS ORDERED: LACTULOSE 20 GM/30 ML CUP PO PRN (18:17)
[2020-03-25] MEDS ORDERED: NALOXONE 0.4 MG/ML 1 ML VIAL IV PRN (18:17)
[2020-03-25] MEDS ORDERED: ONDANSETRON 4 MG/2 ML VIAL IVP PRN (18:17)
[2020-03-25] MEDS ORDERED: MAG HYDROX/AL HYDROX/SIMETH 30 ML CUP PO PRN (18:17)
[2020-03-25] MEDS ORDERED: ALPRAZolam 0.25 MG TAB PO PRN (18:17)
[2020-03-25] MEDS ORDERED: ACETAMINOPHEN TAB 325 MG TAB PO PRN (18:17)
[2020-03-25] MEDS ORDERED: MELATONIN 3 MG TABLET PO PRN (18:17)
[2020-03-25 20:16] LABS: Glucose,Whole Blood 219 mg/dL (75-99)
[2020-03-25] MEDS: LATANOPROST 0.005% OPHTH DROPS 2.5 ML BTL RIGHT EYE SCH (20:18)
[2020-03-25] MEDS: ISOSORBIDE MONONITRATE ER 60 MG TAB.ER.24H PO SCH (20:18)
[2020-03-25] MEDS: FORMOTEROL FUMARATE 20 MCG/2 ML NEBU INHALATION SCH (20:41)
[2020-03-25] MEDS: BUDESONIDE 1 MG/2 ML NEBU INHALATION SCH (20:41)
[2020-03-25] MEDS: IPRATROPIUM 0.5 MG/2.5 ML NEBU INHALATION SCH (20:43)
[2020-03-25] MEDS ORDERED: methylPREDNISolone SOD SUCCI 125 MG/2 ML VIAL IV SCH (22:00)
[2020-03-25] MEDS: methylPREDNISolone SOD SUCCI 40 MG/ML 1 ML VIAL IV SCH (23:34)
[2020-03-26] MEDS: INSULIN ASPART (NovoLOG) 100 UNIT/ML VIAL SQ SCH ×8 (06:49→20:55)
[2020-03-26 06:59] LABS: Glucose,Whole Blood 169 mg/dL (75-99)
[2020-03-26] MEDS: IPRATROPIUM 0.5 MG/2.5 ML NEBU INHALATION SCH ×3 (07:02→14:43)
[2020-03-26] MEDS: carvediloL 6.25 MG TAB PO SCH ×2 (07:02→17:53)
[2020-03-26] MEDS: BUDESONIDE 1 MG/2 ML NEBU INHALATION SCH ×2 (07:02→19:38)
[2020-03-26] MEDS: FORMOTEROL FUMARATE 20 MCG/2 ML NEBU INHALATION SCH ×2 (07:02→19:38)
[2020-03-26] MEDS: IPRATROPIUM-ALBUTEROL 3 ML NEB INHALATION SCH ×4 (07:02→19:38)
[2020-03-26] MEDS ORDERED: ASPIRIN 81 MG PO SCH (09:00)
[2020-03-26] MEDS ORDERED: INSULIN DETEMIR (LEVEMIR) 100 UNIT/ML SYR SQ SCH ×2 (09:00→15:33)
[2020-03-26] MEDS ORDERED: ISOSORBIDE MONONITRATE ER 30 MG TAB.ER.24H PO SCH (09:00)
[2020-03-26] MEDS: RIVAROXABAN 2.5 MG TABLET PO SCH (09:14)
[2020-03-26] MEDS: GABAPENTIN 100 MG CAP PO SCH ×3 (09:15→20:55)
[2020-03-26] MEDS: methylPREDNISolone SOD SUCCI 40 MG/ML 1 ML VIAL IV SCH ×2 (09:15→16:59)
[2020-03-26] MEDS: BACLOFEN 10 MG TAB PO SCH ×2 (09:15→16:59)
[2020-03-26] MEDS: FINASTERIDE 5 MG TAB PO SCH (09:48)
[2020-03-26] MEDS: CLOPIDOGREL 75 MG TAB PO SCH (09:48)
[2020-03-26] MEDS: LOSARTAN 50 MG TAB PO SCH (09:48)
[2020-03-26] MEDS: ISOSORBIDE MONONITRATE ER 60 MG TAB.ER.24H PO SCH (09:48)
[2020-03-26] MEDS: ATORVASTATIN 40 MG TAB PO SCH (09:48)
[2020-03-26] MEDS: amLODIPine 10 MG TAB PO SCH (09:48)
[2020-03-26 12:06] LABS: Glucose,Whole Blood 260 mg/dL (75-99)
--- NOTE | 2020-03-26 12:20 | ECHOF ---
Referral Reason:Difficulty breathing MEASUREMENTS -------- HEIGHT: 152.4 cm WEIGHT: 54.4 kg BP: IVSd: 1.7 cm (0.6 - 1.1) LVIDd: 2.3 cm (3.9 - 5.3) LVPWd: 1.5 cm (0.6 - 1.1) IVSs: 2.2 cm LVIDs: 1.3 cm LVPWs: 1.7 cm LAESV Index (A-L): 27.06 ml/m Ao Diam: 4.3 cm (2.0 - 3.7) AV Cusp: 1.5 cm (1.5 - 2.6) LA Diam: 2.4 cm (2.7 - 3.8) MV EXCURSION: 8.360 mm (> 18.000) MV EF SLOPE: 54 mm/s (70 - 150) EPSS: 2.1 cm MV E Derrek: 0.59 m/s MV DecT: 124 ms MV A Derrek: 1.54 m/s MV E/A Ratio: 0.38 AR PHT: 476 ms RAP: 5.00 mmHg RVSP: 14.64 mmHg FINDINGS -------- This was a technically good study. The left ventricular size is normal. There is moderate concentric left ventricular hypertrophy. O verall left ventricular systolic function is low-normal with, an EF between 50 - 55 %. Normal LAP G rade 1 Diastolic Dysfunction The right ventricle is normal in size. The left atrial size is normal. Normal LA size by volume 22+/-6 ml/m2. The right atrial size is normal. Interatrial and interventricular septum intact. Aortic valve is trileaflet and is mildly thickened. There is moderate aortic regurgitation. The mitral valve is normal. The mitral valve leaflets are mildly thickened. Mild mitral annular c alcification present. Mild mitral regurgitation is present. The peak and mean MV gradients are 1 2.66mmHg 4.45mmHg as measured by doppler. The tricuspid valve appears structurally normal. Mild tricuspid regurgitation present. Right vent ricular systolic pressure is normal at < 35 mmHg. There is no pulmonic regurgitation present. 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 There is no pericardial effusion. CONCLUSIONS -------- 1. The left ventricular size is normal. 2. There is moderate concentric left ventricular hypertrophy. 3. Overall left ventricular systolic function is low-normal with, an EF between 50 - 55 %. 4. Normal LAP Grade 1 Diastolic Dysfunction 5. Aortic valve is trileaflet and is mildly thickened. 6. There is moderate aortic regurgitation. 7. The mitral valve leaflets are mildly thickened. 8. Mild mitral annular calcification present. 9. Mild mitral regurgitation is present. 10. The peak and mean MV gradients are 12.66mmHg 4.45mmHg as measured by doppler. 11. Mild tricuspid regurgitation present. 12. 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 There is no pericardial effusion. [employer]ATIONAL TRADE MANAGER: Anastasia Bond RDCS
--- NOTE | 2020-03-26 13:10 | P.CNPUL ---
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 His symptoms have been gradually worsening over a period of one week. Denied any fever or chills, denied any chest pain. Denied any leg swelling, no lightheadedness or dizziness. No headaches, no nausea vomiting or diarrhea. No calf tenderness. Patient was seen by his primary care physician who told him to start taking Lasix and the patient started taking Lasix however did not see improvement with his breathing. Chest x-ray in the emergency department showed no evidence of pneumothorax, pleural effusion or focal pneumonia, it did show hyperinflation compatible with COPD, there was pleural based calcification along the left apex that could be associated with asbestos related disease. EKG in the emergency department showed accelerated junctional rhythm with a rate of 91 BPM, with frequent PVCs and fusion complexes, ST and T-wave abnormality with consideration for inferolateral ischemia. Lab work was reviewed, white blood cell count was within normal limits at 8.9, hemoglobin of 15.1, lymphocyte count was 0.9, INR is 1.2, d-dimer was negative at 0.7, eventually. Renal profile is within normal limits, troponin was less than 0.018, proBNP was 1930. CT chest without contrast was obtained showing mild left lower lobe bronchiectasis, mild streak atelectasis, no evidence of mediastinal or hilar adenopathy. Patient has been afebrile, hemodynamically has been stable, his sats are 97% on 2 L. Echocardiogram reveals moderate concentric LVH, EF of 50-55%, moderate aortic regurgitation, mild mitral regurgitation, mild tricuspid regurgitation, PA pressure of less than 35 mmHg. patient does have wheezes on physical exam, he was started on nebulized bronchodilators, IV steroids. He is breathing significantly easier on today's exam compared to yesterday. Review of Systems All systems: negative Constitutional: Denies chills, Denies fever Eyes: denies blurred vision, denies pain Ears, nose, mouth and throat: Denies headache, Denies sore throat Cardiovascular: Denies chest pain, Denies shortness of breath Respiratory: Reports dyspnea, Reports wheezing, Denies cough Gastrointestinal: Denies abdominal pain, Denies diarrhea, Denies nausea, Denies vomiting Musculoskeletal: Denies myalgias Integumentary: Denies pruritus, Denies rash Neurological: Denies numbness, Denies weakness Psychiatric: Denies anxiety, Denies depression Endocrine: Denies fatigue, Denies weight change Past Medical History Past Medical History: Heart Failure, Eye Disorder, Hypertension, Renal Disease Additional Past Medical History / Comment(s): glacoma, surgical procedure on bilateral eyes, PTSD, chronic migraines Last Myocardial Infarction Date:: 11/19/18 History of Any Multi-Drug Resistant Organisms: None Reported Past Surgical History: Coronary Bypass/CABG, Tonsillectomy Additional Past Surgical History / Comment(s): CABG in 2004- numbness in left a rm with activity before procedure Past Anesthesia/Blood Transfusion Reactions: No Reported Reaction Past Psychological History: PTSD Additional Psychological History / Comment(s): Single, never . No children. 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 Born in [place] emigrated [facility] as a child is not returned back as an adult. Was a tobacco user. Denies alcohol or recreational drug use. Denied animal exposures Smoking Status: Never smoker Past Alcohol Use History: Rare Past Drug Use History: None Reported - Past Family History Father Family Medical History: Cancer, Congestive Heart Failure (CHF), Coronary Artery Disease (CAD) Additional Family Medical History / Comment(s): glacoma Mother Family Medical History: Congestive Heart Failure (CHF), Coronary Artery Disease (CAD) Additional Family Medical History / Comment(s): macular degeneration Medications and Allergies Home Medications Medication Instructions Recorded Confirmed Type Finasteride [Proscar] 5 mg PO DAILY 11/15/16 03/25/20 History Aspirin 81 mg PO DAILY 11/20/16 03/25/20 Rx Ergocalciferol [Vitamin D2 50,000 unit PO SA 05/25/18 03/25/20 History (DRISDOL)] Gabapentin [Neurontin] 200 mg PO TID 05/25/18 03/25/20 History Glycopyrrolate/Formoterol Fum 2 puff INHALATION RT-BID 05/25/18 03/25/20 History [Bevespi Aerosphere Inhaler] carvediloL [Coreg] 6.25 mg PO AC-BID@0700,1900 05/25/18 03/25/20 History Atorvastatin [Lipitor] 40 mg PO DAILY #30 tab 11/23/18 03/25/20 Rx Clopidogrel [Plavix] 75 mg PO DAILY #30 tab 11/23/18 03/25/20 Rx Isosorbide Mononitrate ER [Imdur] 30 mg PO DAILY #30 tab.er.24h 11/23/18 03/25/20 Rx Nitroglycerin Sl Tabs [Nitrostat] 0.4 mg SUBLINGUAL Q5M PRN #25 tab 11/23/18 03/25/20 Rx amLODIPine [Norvasc] 10 mg PO DAILY #30 tab 11/23/18 03/25/20 Rx Baclofen 5 mg PO Q8H 03/25/20 03/25/20 History Insulin Degludec [Tresiba 12 units SQ DAILY 03/25/20 03/25/20 History Flextouch U-200] Latanoprost Ophth [Xalatan 0.005%] 1 drop RIGHT EYE HS 03/25/20 03/25/20 History Losartan [Cozaar] 50 mg PO DAILY 03/25/20 03/25/20 History Rivaroxaban [Xarelto] 2.5 mg PO AC-BID 03/25/20 03/25/20 History Allergies Allergy/AdvReac Type Severity Reaction Status Date / Time No Known Allergies Allergy Verified 03/25/20 12:51 Physical Exam Vitals: Vital Signs Temp Pulse Pulse Resp BP BP Pulse Ox 03/26/20 10:55 88 03/26/20 10:40 84 03/26/20 07:56 97.6 F 96 16 122/70 97 03/26/20 07:27 88 03/26/20 07:17 88 03/26/20 07:16 88 03/26/20 07:02 88 03/26/20 03:00 97.6 F 82 20 134/68 97 03/25/20 21:03 104 H 03/25/20 21:00 97.5 F L 86 24 131/70 98 03/25/20 20:53 100 03/25/20 20:52 100 03/25/20 20:43 98 03/25/20 18:54 98 03/25/20 17:49 108 H 03/25/20 17:35 104 H 03/25/20 16:47 97.5 F L 18 160/81 96 03/25/20 15:04 98 16 133/77 99 Intake and Output 03/25/20 03/26/20 03/26/20 22:59 06:59 14:59 Intake Total 450 450 Balance 450 450 Intake: Oral 450 450 Other: Voiding Method Urinal Urinal Urinal # Voids 1 2 1 Weight 54.431 kg GENERAL EXAM: Alert, very pleasant, 84-year-old white male, on 2 L of oxygen pulse ox of 97%, comfortable in no apparent distress. HEAD: Normocephalic/atraumatic. EYES: Normal reaction of pupils, equal size. Conjunctiva pink, sclera white. NOSE: Clear with pink turbinates. THROAT: No erythema or exudates. NECK: No masses, no JVD, no thyroid enlargement, no adenopathy. CHEST: No chest wall deformity. Symmetrical expansion. LUNGS: Equal air entry with decreased breath sounds and scattered wheezes bilaterally CVS: Regular rate and rhythm, normal S1 and S2, no gallops, no murmurs, no rubs ABDOMEN: Soft, nontender. No hepatosplenomegaly, normal bowel sounds, no guarding or rigidity. EXTREMITIES: No clubbing, no edema, no cyanosis, 2+ pulses and upper and lower extremities. MUSCULOSKELETAL: Muscle strength and tone normal. SPINE: No scoliosis or deformity SKIN: No rashes CENTRAL NERVOUS SYSTEM: Alert and oriented -3. No focal deficits, tone is normal in all 4 extremities. PSYCHIATRIC: Alert and oriented -3. Appropriate affect. Intact judgment and insight. Results - Laboratory Findings CBC and BMP: 03/25/20 12:00 03/25/20 12:00 PT/INR, D-dimer PT 11.8 sec (9.0-12.0) 03/25/20 12:00 INR 1.2 (<1.2) H 03/25/20 12:00 D-Dimer 0.27 mg/L FEU (<0.60) 03/25/20 12:00 Abnormal lab findings: Abnormal Labs 03/25/20 03/25/20 03/25/20 12:00 12:00 12:00 Lymphocytes # 0.9 L INR 1.2 H Glucose 171 H POC Glucose (mg/dL) 03/25/20 03/25/20 03/26/20 17:10 20:16 06:57 Lymphocytes # INR Glucose POC Glucose (mg/dL) 228 H 219 H 169 H 03/26/20 12:04 Lymphocytes # INR Glucose POC Glucose (mg/dL) 260 H - Diagnostic Findings Chest x-ray: report reviewed, image reviewed CT scan - chest: report reviewed, image reviewed Additional studies: EKG and echocardiogram reviewed Assessment and Plan Plan: Assessment: #1. Acute exacerbation of chronic obstructive pulmonary disease, chest x-ray showed hyperinflation of the lungs, no focal pneumonia, pleural effusions or pneumothorax. Pulmonary embolism ruled out on the basis of negative d-dimer #2. Mild left lower lobe bronchiectasis, mild streak atelectasis seen on the CT chest, no evidence of pneumonia #3. 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 His lung function will require further investigation on an outpatient basis in the office. Not oxygen dependent at baseline, patient is on Bevespi prescribed by Dr. Edge #4. History of coronary artery disease, status post 5 vessel bypass grafting in 2004 at the [facility], and previous history of stent placement #5. Essential hypertension #6. Hyperlipidemia #7. Diabetes mellitus type 2 #8. Paroxysmal atrial fibrillation on Xarelto #9. Previous history of non-ST elevated myocardial infarction #10. History of PTSD #11. Lifetime nonsmoker Plan: Continue current medical treatment, IV steroids, nebulized bronchodilators, chest x-ray and CT of the chest reviewed and discussed with the patient, no clear evidence of pneumonia, fluid overload, pulmonary masses or adenopathy. There is evidence of COPD some limited left lower lobe bronchiectasis, will continue current medical treatment, patient is starting to breathe easier. he can probably be considered for discharge home in the next 24 hours as long as he continues to improve, states his breathing is about 80% better compared to yesterday. He will need outpatient PFT in the outpatient setting, and patient will need follow-up with Dr. Hernandez in the office in 7-10 days. In the meantime we will continue to follow I performed a history & physical examination of the patient and discussed their management with my nurse practitioner, Tianna Gibson. I reviewed the nurse practitioner's note and agree with the documented findings and plan of care. Lung sounds are positive for diffuse wheezes throughout the lung avila. The findings and the impression was discussed with the patient. I attest to the documentation by the nurse practitioner. Time with Patient: Greater than 30
--- NOTE | 2020-03-26 13:43 | P.CRDCN ---
History of Present Illness History of present illness: sob no hypoxia, no cp HISTORY OF PRESENTING ILLNESS This is a pleasant 84-year-old male past medical history significant for paroxysmal atrial fibrillation, coronary artery disease status post bypass grafting and subsequent PCI to the SVG to diagonal branch in October 2018, hyperten kathryn, dyslipidemia, diabetes mellitus and COPD. He follows in the office with Dr. Sethi. We have been asked to see in consultation for A. fib. Resented to the hospital secondary to shortness of breath. He states for the last 2 days he has had episodes where he feels as though he is unable to catch his breath. He feels like his lungs are full and he can't take a deep breath. He checked his pulse ox at home and his oxygen saturation is in the high 90s. He denies associated chest pain, dizziness or palpitations. On arrival to the emergency department he was in A. fib with variable ventricular rates. He has converted spontaneously to sinus mechanism through the night. He is currently being treated for an acute exacerbation of COPD. Chest x-ray reveals underlying COPD with hyperinflation. CT of the chest reveals mild lower lobe bronchiectasis and mild streak atelectasis. Laboratory data reviewed, CBC unremarkable, d-dimer 0.27, sodium 137, potassium 3.9, creatinine 0.99, magnesium 1.9, troponin negative 1, NT proBNP 1930 and TSH 1.57. Current cardiac medications include Xarelto 2.5 mg twice a day, losartan 50 mg daily, Imdur 30 mg daily, carvedilol 6.25 mg twice a day, Plavix 75 mg daily, atorvastatin 40 mg daily, aspirin 81 mg daily and amlodipine 10 mg daily. Most recent echocardiogram obtained in October 2018 revealed impaired LV systolic function with ejection fraction 35-40%, moderate aortic regurgitation and mild mitral regurgitation. REVIEW OF SYSTEMS At the time of my exam: CONSTITUTIONAL: Denies fever or chills. CARDIOVASCULAR: Denies chest pain, shortness of breath, orthopnea, PND or palpitations. RESPIRATORY: Denies cough. GASTROINTESTINAL: Denies abdominal pain, diarrhea, constipation, nausea or vomiting. MUSCULOSKELETAL: Denies myalgias. NEUROLOGIC: Denies numbness, tingling or weakness. ENDOCRINE: Denies fatigue, weight change, polydipsia or polyurina. GENITOURINARY: Denies burning, hematuria or urgency with micturation. HEMATOLOGIC: Denies history of anemia or bleeding. PHYSICAL EXAMINATION Blood pressure 122/70 heart rate 88 afebrile and maintaining oxygen saturation on room air. CONSTITUTIONAL: No apparent distress. HEENT: Head is normocephalic. Pupils are equal, round. Sclerae anicteric. Mucous membranes of the mouth are moist. No JVD. No carotid bruit. CHEST EXAMINATION: Expiratory wheezes, no rales or rhonchi. No chest wall tenderness is noted on palpation or with deep breathing. HEART EXAMINATION: Regular rate and rhythm. S1, S2 heard. Systolic ejection murmur at the left sternal border, no gallops or rub. ABDOMEN: Soft, nontender. Positive bowel sounds. EXTREMITIES: 2+ peripheral pulses, no lower extremity edema and no calf tenderness. NEUROLOGIC EXAMINATION: Patient is awake, alert and oriented x3. ASSESSMENT Paroxysmal atrial fibrillation, currently maintaining sinus mechanism. Shortness of breath secondary to acute exacerbation of COPD Coronary artery disease status post bypass grafting and PCI of the SVG to diagonal branch October 2018 Hypertension Dyslipidemia Diabetes mellitus Ischemic cardiomyopathy Chronic systolic heart failure, clinically euvolemic PLAN Given his PCI was over 12 months ago, recommend discontinuation of aspirin. Continue plavix 75 mg daily and increase xarelto to 15 mg daily. Echocardiogram has been obtained and will be reviewed. Continue coreg, losartan, imdur and atorvastatin as previously ordered. Thank you kindly for this consultation. Nurse Practitioner note has been reviewed, I agree with a documented findings and plan of care. Patient was seen and examined. Past Medical History Past Medical History: Heart Failure, Eye Disorder, Hypertension, Renal Disease Additional Past Medical History / Comment(s): glacoma, surgical procedure on bilateral eyes, PTSD, chronic migraines Last Myocardial Infarction Date:: 11/19/18 History of Any Multi-Drug Resistant Organisms: None Reported Past Surgical History: Coronary Bypass/CABG, Tonsillectomy Additional Past Surgical History / Comment(s): CABG in 2004- numbness in left arm with activity before procedure Past Anesthesia/Blood Transfusion Reactions: No Reported Reaction Past Psychological History: PTSD Additional Psychological History / Comment(s): Single, never . No children. 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 Born in [facility] emigrated [facility] as a child is not returned back as an adult. Was a tobacco user. Denies alcohol or recreational drug use. Denied animal exposures Smoking Status: Never smoker Past Alcohol Use History: Rare Past Drug Use History: None Reported - Past Family History Father Family Medical History: Cancer, Congestive Heart Failure (CHF), Coronary Artery Disease (CAD) Additional Family Medical History / Comment(s): glacoma Mother Family Medical History: Congestive Heart Failure (CHF), Coronary Artery Disease (CAD) Additional Family Medical History / Comment(s): macular degeneration Medications and Allergies Home Medications Medication Instructions Recorded Confirmed Type Finasteride [Proscar] 5 mg PO DAILY 11/15/16 03/25/20 History Aspirin 81 mg PO DAILY 11/20/16 03/25/20 Rx Ergocalciferol [Vitamin D2 50,000 unit PO SA 05/25/18 03/25/20 History (DRISDOL)] Gabapentin [Neurontin] 200 mg PO TID 05/25/18 03/25/20 History Glycopyrrolate/Formoterol Fum 2 puff INHALATION RT-BID 05/25/18 03/25/20 History [Bevespi Aerosphere Inhaler] carvediloL [Coreg] 6.25 mg PO AC-BID@0700,1900 05/25/18 03/25/20 History Atorvastatin [Lipitor] 40 mg PO DAILY #30 tab 11/23/18 03/25/20 Rx Clopidogrel [Plavix] 75 mg PO DAILY #30 tab 11/23/18 03/25/20 Rx Isosorbide Mononitrate ER [Imdur] 30 mg PO DAILY #30 tab.er.24h 11/23/18 03/25/20 Rx Nitroglycerin Sl Tabs [Nitrostat] 0.4 mg SUBLINGUAL Q5M PRN #25 tab 11/23/18 03/25/20 Rx amLODIPine [Norvasc] 10 mg PO DAILY #30 tab 11/23/18 03/25/20 Rx Baclofen 5 mg PO Q8H 03/25/20 03/25/20 History Insulin Degludec [Tresiba 12 units SQ DAILY 03/25/20 03/25/20 History Flextouch U-200] Latanoprost Ophth [Xalatan 0.005%] 1 drop RIGHT EYE HS 03/25/20 03/25/20 History Losartan [Cozaar] 50 mg PO DAILY 03/25/20 03/25/20 History Rivaroxaban [Xarelto] 2.5 mg PO AC-BID 03/25/20 03/25/20 History Allergies Allergy/AdvReac Type Severity Reaction Status Date / Time No Known Allergies Allergy Verified 03/25/20 12:51 Physical Exam Vitals: Vital Signs Temp Pulse Pulse Resp BP BP Pulse Ox 03/26/20 07:56 97.6 F 96 16 122/70 97 03/26/20 07:27 88 03/26/20 07:17 88 03/26/20 07:16 88 03/26/20 07:02 88 03/26/20 03:00 97.6 F 82 20 134/68 97 03/25/20 21:03 104 H 03/25/20 21:00 97.5 F L 86 24 131/70 98 03/25/20 20:53 100 03/25/20 20:52 100 03/25/20 20:43 98 03/25/20 18:54 98 03/25/20 17:49 108 H 03/25/20 17:35 104 H 03/25/20 16:47 97.5 F L 18 160/81 96 03/25/20 15:04 98 16 133/77 99 03/25/20 12:36 93 03/25/20 12:10 89 03/25/20 11:21 97.4 F L 106 H 22 146/92 97 Intake and Output 03/25/20 03/26/20 03/26/20 22:59 06:59 14:59 Intake Total 450 450 Balance 450 450 Intake: Oral 450 450 Other: Voiding Method Urinal Urinal # Voids 1 2 Weight 54.431 kg Results 03/25/20 12:00 03/25/20 12:00 Cardiac Enzymes 03/25/20 03/25/20 Range/Units 12:00 12:00 AST 32 (17-59) U/L Troponin I 0.018 (0.000-0.034) ng/mL Coagulation 03/25/20 Range/Units 12:00 PT 11.8 (9.0-12.0) sec APTT 30.0 (22.0-30.0) sec CBC 03/25/20 Range/Units 12:00 WBC 8.9 (3.8-10.6) k/uL RBC 4.82 (4.30-5.90) m/uL Hgb 15.1 (13.0-17.5) gm/dL Hct 45.8 (39.0-53.0) % Plt Count 248 (150-450) k/uL Comprehensive Metabolic Panel 03/25/20 Range/Units 12:00 Sodium 137 (137-145) mmol/L Potassium 3.9 (3.5-5.1) mmol/L Chloride 100 (98-107) mmol/L Carbon Dioxide 27 (22-30) mmol/L BUN 20 (9-20) mg/dL Creatinine 0.99 (0.66-1.25) mg/dL Glucose 171 H (74-99) mg/dL Calcium 9.2 (8.4-10.2) mg/dL AST 32 (17-59) U/L ALT 17 (4-49) U/L Alkaline Phosphatase 103 (38-126) U/L Total Protein 7.0 (6.3-8.2) g/dL Albumin 4.4 (3.5-5.0) g/dL Current Medications Generic Name Dose Route Start Last Admin Trade Name Freq PRN Reason Stop Dose Admin Acetaminophen 650 mg 03/25/20 18:17 Acetaminophen Tab 325 Mg Tab PO Q6HR PRN Mild Pain or Fever > 100.5 Al Hydroxide/Mg Hydroxide 15 ml 03/25/20 18:17 Mag Hydrox/Al Hydrox/Simeth 30 Ml Cup PO Q6HR PRN Indigestion Albuterol/Ipratropium 3 ml 03/25/20 16:00 03/26/20 07:02 Ipratropium-Albuterol 3 Ml Neb INHALATION 3 ml RT-QID ZOFIA Administration Albuterol/Ipratropium 3 ml 03/25/20 18:02 Ipratropium-Albuterol 3 Ml Neb INHALATION RT-QID PRN Shortness Of Breath Or Wheezing Alprazolam 0.25 mg 03/25/20 18:17 Alprazolam 0.25 Mg Tab PO Q6HR PRN Anxiety Amlodipine Besylate 10 mg 03/26/20 09:00 Amlodipine 10 Mg Tab PO DAILY [facility] Aspirin 81 mg 03/26/20 09:00 Aspirin 81 Mg PO DAILY [facility] Atorvastatin Calcium 40 mg 03/26/20 09:00 Atorvastatin 40 Mg Tab PO DAILY [facility] Baclofen 5 mg 03/25/20 16:00 03/25/20 21:30 Baclofen 10 Mg Tab PO 5 mg Q8H [facility]OFIA Administration Budesonide 1 mg 03/25/20 20:00 03/26/20 07:02 Budesonide 1 Mg/2 Ml Nebu INHALATION 1 mg RT-BID ZOFIA Administration Calcium Carbonate/Glycine 1,000 mg 03/25/20 18:17 Calcium Carbonate 500 Mg Chewable PO Q4HR PRN Dyspepsia Carvedilol 6.25 mg 03/25/20 19:00 03/26/20 07:02 Carvedilol 6.25 Mg Tab PO 6.25 mg AC-BID@0700,1900 [facility]OFIA Administration Clopidogrel Bisulfate 75 mg 03/26/20 09:00 Clopidogrel 75 Mg Tab PO DAILY [facility] Finasteride 5 mg 03/26/20 09:00 Finasteride 5 Mg Tab PO DAILY [facility] Formoterol Fumarate 20 mcg 03/25/20 20:00 03/26/20 07:02 Formoterol Fumarate 20 Mcg/2 Ml Nebu INHALATION 20 mcg RT-BID [facility]OFIA Administration Gabapentin 200 mg 03/25/20 16:00 03/25/20 20:18 Gabapentin 100 Mg Cap PO 200 mg TID [facility]OF[facility] Administration Insulin Aspart 0 unit 03/25/20 17:56 03/26/20 07:03 Insulin Aspart (Novolog) 100 Unit/Ml Vial SQ 3 unit ACHS [facility] Administration Protocol Insulin Aspart 0 unit 03/25/20 21:00 03/26/20 06:49 Insulin Aspart (Novolog) 100 Unit/Ml Vial SQ Not Given ACHS [facility] Protocol Insulin Detemir 12 unit 03/26/20 09:00 Insulin Detemir (Levemir) 100 Unit/Ml Syr SQ DAILY [facility] Ipratropium [place] 0.5 mg 03/25/20 22:00 03/26/20 07:02 Ipratropium 0.5 Mg/2.5 Ml Nebu INHALATION Not Given QID [facility] Isosorbide Mononitrate 60 mg 03/25/20 18:30 03/25/20 20:18 Isosorbide Mononitrate Er 60 Mg Tab.Er.24h PO 60 mg DAILY [facility] Administration Lactulose 20 gm 03/25/20 18:17 Lactulose 20 Gm/30 Ml Cup PO DAILY PRN Constipation Latanoprost 1 drops 03/25/20 21:00 03/25/20 20:18 Latanoprost 0.005% Ophth Drops 2.5 Ml Btl RIGHT EYE 1 drops HS [facility] Administration Losartan Potassium 50 mg 03/26/20 09:00 Losartan 50 Mg Tab PO DAILY [facility] Magnesium Hydroxide 2,400 mg 03/25/20 18:17 Magnesium Hydroxide 2,400 Mg/10 Ml Cup PO DAILY PRN Constipation Melatonin 3 mg 03/25/20 18:17 Melatonin 3 Mg Tablet PO HS PRN Insomnia Methylprednisolone Sodium Succinate 40 mg 03/26/20 00:00 03/25/20 23:34 Methylprednisolone Sod Succi 40 Mg/Ml 1 Ml Vial IV 40 mg Q8HR [facility] Administration Miscellaneous Information 1 each 03/25/20 15:54 Rx Info: Iv Contrast Was Given 1 Each Misc MISCELLANE 03/27/20 15:56 DAILY PRN Per Protocol Naloxone HCl 0.2 mg 03/25/20 18:17 Naloxone 0.4 Mg/Ml 1 Ml Vial IV Q2M PRN Opioid Reversal Nitroglycerin 0.4 mg 03/25/20 15:57 Nitroglycerin Sl Tabs 0.4 Mg Tab SUBLINGUAL Q5M PRN Chest Pain Ondansetron HCl 4 mg 03/25/20 18:17 Ondansetron 4 Mg/2 Ml Vial IVP Q8HR PRN Nausea And Vomiting Rivaroxaban 2.5 mg 03/25/20 17:30 03/25/20 17:22 Rivaroxaban 2.5 Mg Tablet PO 2.5 mg AC-BID [facility]OFIA Administration Intake and Output 03/25/20 03/26/20 03/26/20 22:59 06:59 14:59 Intake Total 450 450 Balance 450 450 Intake: Oral 450 450 Other: Voiding Method Urinal Urinal # Voids 1 2 Weight 54.431 kg 03/25/20 12:00 03/25/20 12:00
[2020-03-26 17:27] LABS: Glucose,Whole Blood 217 mg/dL (75-99)
[2020-03-26] MEDS: RIVAROXABAN 15 MG TAB PO SCH (17:53)
--- NOTE | 2020-03-26 17:53 | P.PN ---
Progress Note - Text Progress Note Date: 03/26/20 Chief Complaint: Shortness of breath History of presenting complaint: This is a very pleasant 84-year-old patient being followed by Dr. barrios from [place]. Chronic stable medical conditions include diabetes, hypertension, coronary artery disease bypass, acute OH in October of 2018, paroxysmal atrial fibrillation, moderate aortic regurgitation, congestive heart failure with EF of 35%, moderate aortic regurgitation. Chronic lower back pain. In October 2018 patient underwent a cardiac catheterization he did have a stent placed to graft but there were other areas that could not be angioplastied or stented. For last 2 weeks patient has progressively been getting more and more short of breath. Does feel a heaviness in the chest. Has a slight dry cough. No fever no chills. Appetite is okay. No edema. Admitted with COPD exacerbation, unstable angina. Put on steroids bronchodilators, nitrates dose increased Today-feeling better. Up to the bathroom. No chest pressure. Breathing better. Appetite improving. Review of systems: Was done for constitutional, cardiovascular, GI, pulmonary. relevant finding as above Active Medications Acetaminophen (Acetaminophen Tab 325 Mg Tab) 650 mg PO Q6HR PRN PRN Reason: Mild Pain or Fever > 100.5 Al Hydroxide/Mg Hydroxide (Mag Hydrox/Al Hydrox/Simeth 30 Ml Cup) 15 ml PO Q6HR PRN PRN Reason: Indigestion Albuterol/Ipratropium (Ipratropium-Albuterol 3 Ml Neb) 3 ml INHALATION RT-QID S Last Admin: 03/26/20 14:43 Dose: 3 ml Documented by: Albuterol/Ipratropium (Ipratropium-Albuterol 3 Ml Neb) 3 ml INHALATION RT-QID PRN PRN Reason: Shortness Of Breath Or Wheezing Alprazolam (Alprazolam 0.25 Mg Tab) 0.25 mg PO Q6HR PRN PRN Reason: Anxiety Amlodipine Besylate (Amlodipine 10 Mg Tab) [address] [facility] Last Admin: 03/26/20 09:48 Dose: 10 mg Documented by: Atorvastatin Calcium (Atorvastatin 40 Mg Tab) [address] [facility] Last Admin: 03/26/20 09:48 Dose: 40 mg Documented by: Baclofen (Baclofen 10 Mg Tab) [address] [facility] Last Admin: 03/26/20 16:59 Dose: 5 mg Documented by: Budesonide (Budesonide 1 Mg/2 Ml Nebu) 1 mg INHALATION RT-BID [facility] Last Admin: 03/26/20 07:02 Dose: 1 mg Documented by: Calcium Carbonate/Glycine (Calcium Carbonate 500 Mg Chewable) 1,000 mg PO Q4HR PRN PRN Reason: Dyspepsia Carvedilol (Carvedilol 6.25 Mg Tab) 6.25 mg PO AC-BID@0700,1900 [facility] Last Admin: 03/26/20 07:02 Dose: 6.25 mg Documented by: Clopidogrel Bisulfate (Clopidogrel 75 Mg Tab) [address] [facility] Last Admin: 03/26/20 09:48 Dose: 75 mg Documented by: Finasteride (Finasteride 5 Mg Tab) [address] [facility] Last Admin: 03/26/20 09:48 Dose: 5 mg Documented by: Formoterol Fumarate (Formoterol Fumarate 20 Mcg/2 Ml Nebu) 20 mcg INHALATION RT-BID [facility] Last Admin: 03/26/20 07:02 Dose: 20 mcg Documented by: Gabapentin (Gabapentin 100 Mg Cap) [address] [facility] Last Admin: 03/26/20 16:59 Dose: 200 mg Documented by: Insulin Aspart (Insulin Aspart (Novolog) 100 Unit/Ml Vial) 0 unit SQ [facility]; Protocol Last Admin: 03/26/20 12:10 Dose: 8 unit Documented by: Insulin Aspart (Insulin Aspart (Novolog) 100 Unit/Ml Vial) 0 unit SQ [facility]; Protocol Last Admin: 03/26/20 17:30 Dose: Not Given Documented by: Insulin Detemir (Insulin Detemir (Levemir) 100 Unit/Ml Syr) [address] [facility] Ipratropium Mathews (Ipratropium 0.5 Mg/2.5 Ml Nebu) 0.[address] [facility] Last Admin: 03/26/20 14:43 Dose: Not Given Documented by: Isosorbide Mononitrate (Isosorbide Mononitrate Er 60 Mg Tab.Er.24h) [address] [facility] Last Admin: 03/26/20 09:48 Dose: 60 mg Documented by: Lactulose (Lactulose 20 Gm/30 Ml Cup) 20 gm PO DAILY PRN PRN Reason: Constipation Latanoprost (Latanoprost 0.005% Ophth Drops 2.5 Ml Btl) [address] [facility] Last Admin: 03/25/20 20:18 Dose: 1 drops Documented by: Losartan Potassium (Losartan 50 Mg Tab) [address] [facility] Last Admin: 03/26/20 09:48 Dose: 50 mg Documented by: Magnesium Hydroxide (Magnesium Hydroxide 2,400 Mg/10 Ml Cup) 2,400 mg PO DAILY PRN PRN Reason: Constipation Melatonin (Melatonin 3 Mg Tablet) 3 mg PO HS PRN PRN Reason: Insomnia Methylprednisolone Sodium Succinate (Methylprednisolone Sod Succi 40 Mg/Ml 1 Ml Vial) [address] [facility] Last Admin: 03/26/20 16:59 Dose: 40 mg Documented by: Miscellaneous Information (Rx Info: Iv Contrast Was Given 1 Each Misc) 1 each MISCELLANE DAILY PRN PRN Reason: Per Protocol Stop: 03/27/20 15:56 Naloxone HCl (Naloxone 0.4 Mg/Ml 1 Ml Vial) 0.2 mg IV Q2M PRN PRN Reason: Opioid Reversal Nitroglycerin (Nitroglycerin Sl Tabs 0.4 Mg Tab) 0.4 mg SUBLINGUAL Q5M PRN PRN Reason: Chest Pain Ondansetron HCl (Ondansetron 4 Mg/2 Ml Vial) 4 mg IVP Q8HR PRN PRN Reason: Nausea And Vomiting Rivaroxaban (Rivaroxaban 15 Mg Tab) 15 mg PO W/SUPPER [facility] Physical examination: VITAL SIGNS: 97.3, 87, 18, 126/61, 95% on 2 L GENERAL: Propper in bed, comfortable EYES: Pupils equal. Conjunctiva normal. NECK: JVD not raised; masses not palpable. HEART: First and second heart sounds are normal; no edema. LUNGS: Respiratory rate normal; decreased breath sounds. ABDOMEN: Soft, nontender, liver spleen not palpable, no masses palpable. PSYCH: Alert and oriented x3; mood and affect anxious. INVESTIGATIONS, reviewed in the clinical context: White count 8.9 hemoglobin 15.1 platelets 248 potassium 3.9 creatinine 0.99 Troponin I 0.018, proBNP 1930 EKG tracing personally reviewed by me-ST segment depression, sinus rhythm Chest x-ray film personally reviewed by me and looked at the report-scoliosis, osteopenia, hyperinflation, pleural-based calcifications at the left apex Assessment: -Acute COPD exacerbation-improving -Possible unstable angina. 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 No diabetes. Plan: Discussed with the patient. Doing better. Cutback the dose of Solu-Medrol. Continue bronchodilators. Continue Imdur. Encouraged to ambulate. Hopefully home tomorrow
[2020-03-26 19:58] LABS: Glucose,Whole Blood 231 mg/dL (75-99)
[2020-03-26] MEDS: LATANOPROST 0.005% OPHTH DROPS 2.5 ML BTL RIGHT EYE SCH (20:55)
[2020-03-27] MEDS: BACLOFEN 10 MG TAB PO SCH ×4 (01:51→23:41)
[2020-03-27] MEDS: methylPREDNISolone SOD SUCCI 40 MG/ML 1 ML VIAL IV SCH ×4 (01:51→23:42)
[2020-03-27] MEDS: INSULIN ASPART (NovoLOG) 100 UNIT/ML VIAL SQ SCH ×8 (06:04→20:24)
[2020-03-27 06:58] LABS: Glucose,Whole Blood 174 mg/dL (75-99)
[2020-03-27] MEDS: carvediloL 6.25 MG TAB PO SCH ×2 (07:02→20:24)
[2020-03-27] MEDS: FORMOTEROL FUMARATE 20 MCG/2 ML NEBU INHALATION SCH ×2 (09:08→20:18)
[2020-03-27] MEDS: IPRATROPIUM-ALBUTEROL 3 ML NEB INHALATION SCH ×4 (09:08→20:18)
[2020-03-27] MEDS: BUDESONIDE 1 MG/2 ML NEBU INHALATION SCH ×2 (09:08→20:18)
[2020-03-27] MEDS: GABAPENTIN 100 MG CAP PO SCH ×3 (10:23→20:25)
[2020-03-27] MEDS: amLODIPine 10 MG TAB PO SCH (10:23)
[2020-03-27] MEDS: FINASTERIDE 5 MG TAB PO SCH (10:24)
[2020-03-27] MEDS: CLOPIDOGREL 75 MG TAB PO SCH (10:24)
[2020-03-27] MEDS: ATORVASTATIN 40 MG TAB PO SCH (10:24)
[2020-03-27] MEDS: LOSARTAN 50 MG TAB PO SCH (10:24)
[2020-03-27] MEDS: ISOSORBIDE MONONITRATE ER 60 MG TAB.ER.24H PO SCH (10:24)
[2020-03-27] MEDS: INSULIN DETEMIR (LEVEMIR) 100 UNIT/ML SYR SQ SCH (10:25)
[2020-03-27 10:38] LABS: Glucose,Whole Blood 226 mg/dL (75-99)
--- NOTE | 2020-03-27 11:59 | P.PN ---
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 His symptoms have been gradually worsening over a period of one week. Denied any fever or chills, denied any chest pain. Denied any leg swelling, no lightheadedness or dizziness. No headaches, no nausea vomiting or diarrhea. No calf tenderness. Patient was seen by his primary care physician who told him to start taking Lasix and the patient started taking Lasix however did not see improvement with his breathing. Chest x-ray in the emergency department showed no evidence of pneumothorax, pleural effusion or focal pneumonia, it did show hyperinflation compatible with COPD, there was pleural based calcification along the left apex that could be associated with asbestos related disease. EKG in the emergency department showed accelerated junctional rhythm with a rate of 91 BPM, with frequent PVCs and fusion complexes, ST and T-wave abnormality with consideration for inferolateral ischemia. Lab work was reviewed, white blood cell count was within normal limits at 8.9, hemoglobin of 15.1, lymphocyte count was 0.9, INR is 1.2, d-dimer was negative at 0.7, eventually. Renal profile is within normal limits, troponin was less than 0.018, proBNP was 1930. CT chest without contrast was obtained showing mild left lower lobe bronchiectasis, mild streak atelectasis, no evidence of mediastinal or hilar adenopathy. Patient has been afebrile, hemodynamically has been stable, his sats are 97% on 2 L. Echocardiogram reveals moderate concentric LVH, EF of 50-55%, moderate aortic regurgitation, mild mitral regurgitation, mild tricuspid regurgitation, PA pressure of less than 35 mmHg. patient does have wheezes on physical exam, he was started on nebulized bronchodilators, IV steroids. He is breathing significantly easier on today's exam compared to yesterday. On 03/27/2020 patient seen in follow-up on cardiac observation floor. He states he still short of breath today, as a matter fact her breathing is little worse than yesterday, had episode of increased shortness of breath last night, and he states bring treatments were not helping much. Patient continues on IV Solu- Medrol, nebulized bronchodilators, he states he has a cough with production of clear sputum. He has had no fever or chills. No hemoptysis, no complaints of chest pain. No lower extremity swelling. Lung sounds revealed diminished breath sounds, with diffuse wheezing, sounding more bronchospastic on today's exam. Objective - Vital Signs Vital signs: Vital Signs Temp 97.7 F 03/27/20 03:00 Pulse 82 03/27/20 09:28 Resp 18 03/27/20 03:00 BP 143/62 03/27/20 03:00 Pulse Ox 97 03/27/20 03:00 Intake & Output 03/26/20 03/27/20 03/27/20 18:59 06:59 18:59 Intake Total 500 450 Balance 500 450 Intake: Oral 500 450 Other: Voiding Method Toilet Toilet Urinal Urinal # Voids 3 1 - Exam GENERAL EXAM: Alert, very pleasant, 84-year-old white male, on 2 L of oxygen pulse ox of 97%, comfortable in no apparent distress. HEAD: Normocephalic/atraumatic. EYES: Normal reaction of pupils, equal size. Conjunctiva pink, sclera white. NOSE: Clear with pink turbinates. THROAT: No erythema or exudates. NECK: No masses, no JVD, no thyroid enlargement, no adenopathy. CHEST: No chest wall deformity. Symmetrical expansion. LUNGS: Equal air entry with decreased breath sounds and scattered wheezes bilaterally CVS: Regular rate and rhythm, normal S1 and S2, no gallops, no murmurs, no rubs ABDOMEN: Soft, nontender. No hepatosplenomegaly, normal bowel sounds, no guarding or rigidity. EXTREMITIES: No clubbing, no edema, no cyanosis, 2+ pulses and upper and lower extremities. MUSCULOSKELETAL: Muscle strength and tone normal. SPINE: No scoliosis or deformity SKIN: No rashes CENTRAL NERVOUS SYSTEM: Alert and oriented -3. No focal deficits, tone is normal in all 4 extremities. PSYCHIATRIC: Alert and oriented -3. Appropriate affect. Intact judgment and insight. - Labs CBC & Chem 7: 03/25/20 12:00 03/25/20 12:00 Labs: Abnormal Lab Results - Last 24 Hours (Table) 03/26/20 03/26/20 03/26/20 Range/Units 12:04 17:26 19:57 POC Glucose (mg/dL) 260 H 217 H 231 H (75-99) mg/dL 03/27/20 03/27/20 Range/Units 06:56 10:37 POC Glucose (mg/dL) 174 H 226 H (75-99) mg/dL Microbiology - Last 24 Hours (Table) 03/25/20 12:19 Blood Culture - Preliminary Blood No Growth after 24 hours Assessment and Plan Plan: Assessment: #1. Acute exacerbation of chronic obstructive pulmonary disease, chest x-ray showed hyperinflation of the lungs, no focal pneumonia, pleural effusions or pneumothorax. Pulmonary embolism ruled out on the basis of negative d-dimer #2. Mild left lower lobe bronchiectasis, mild streak atelectasis seen on the CT chest, no evidence of pneumonia #3. 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 His lung function will require further investigation on an outpatient basis in the office. Not oxygen dependent at baseline, patient is on Bevespi prescribed by Dr. Edge #4. History of coronary artery disease, status post 5 vessel bypass grafting in 2004 at the [facility], and previous history of stent placement #5. Essential hypertension #6. Hyperlipidemia #7. Diabetes mellitus type 2 #8. Paroxysmal atrial fibrillation on Xarelto #9. Previous history of non-ST elevated myocardial infarction #10. History of PTSD #11. Lifetime nonsmoker Plan: Continue IV steroids, nebulized bronchodilators, will add antibiotic praful thromycin 500 mg milligram daily, still pretty dyspneic and bronchospastic, not quite back to baseline, we'll continue to follow I performed a history & physical examination of the patient and discussed their management with my nurse practitioner, Tianna Gibson. I reviewed the nurse practitioner's note and agree with the documented findings and plan of care. Lung sounds are positive for diffuse wheezes throughout the lung avila. The findings and the impression was discussed with the patient. I attest to the documentation by the nurse practitioner. Time with Patient: Less than 30
[2020-03-27 13:05] LABS: Glucose,Whole Blood 168 mg/dL (75-99)
[2020-03-27] MEDS: AZITHROMYCIN 500 MG TAB PO SCH (13:40)
[2020-03-27 16:44] VITALS: RESP 18
[2020-03-27 17:28] LABS: Glucose,Whole Blood 173 mg/dL (75-99)
[2020-03-27] MEDS: RIVAROXABAN 15 MG TAB PO SCH (17:40)
--- NOTE | 2020-03-27 18:13 | P.PN ---
Progress Note - Text Progress Note Date: 03/27/20 Chief Complaint: Shortness of breath History of presenting complaint: This is a very pleasant 84-year-old patient being followed by Dr. barrios from [place]. Chronic stable medical conditions include diabetes, hypertension, coronary artery disease bypass, acute [place] in October of 2018, paroxysmal atrial fibrillation, moderate aortic regurgitation, congestive heart failure with EF of 35%, moderate aortic regurgitation. Chronic lower back pain. In October 2018 patient underwent a cardiac catheterization he did have a stent placed to graft but there were other areas that could not be angioplastied or stented. For last 2 weeks patient has progressively been getting more and more short of breath. Does feel a heaviness in the chest. Has a slight dry cough. No fever no chills. Appetite is okay. No edema. Admitted with COPD exacerbation, unstable angina. Put on steroids bronchodilators, dose of Imdur increased. Today-patient had more short of but wheezing this morning. Continue with bronchodilators and steroids. Some sputum was brought up.. Review of systems: Was done for constitutional, cardiovascular, GI, pulmonary. relevant finding as above Active Medications Acetaminophen (Acetaminophen Tab 325 Mg Tab) 650 mg PO Q6HR PRN PRN Reason: Mild Pain or Fever > 100.5 Al Hydroxide/Mg Hydroxide (Mag Hydrox/Al Hydrox/Simeth 30 Ml Cup) 15 ml PO Q6HR PRN PRN Reason: Indigestion Albuterol/Ipratropium (Ipratropium-Albuterol 3 Ml Neb) 3 ml INHALATION RT-QID [facility] Last Admin: 03/27/20 16:31 Dose: 3 ml Documented by: Albuterol/Ipratropium (Ipratropium-Albuterol 3 Ml Neb) 3 ml INHALATION RT-QID PRN PRN Reason: Shortness Of Breath Or Wheezing Last Admin: 03/27/20 01:44 Dose: 3 ml Documented by: Alprazolam (Alprazolam 0.25 Mg Tab) 0.25 mg PO Q6HR PRN PRN Reason: Anxiety Amlodipine Besylate (Amlodipine 10 Mg Tab) 10 mg PO DAILY [facility] Last Admin: 03/27/20 10:23 Dose: 10 mg Documented by: Atorvastatin Calcium (Atorvastatin 40 Mg Tab) 40 mg PO DAILY [facility] Last Admin: 03/27/20 10:24 Dose: 40 mg Documented by: Azithromycin (Azithromycin 500 Mg Tab) 500 mg PO DAILY [facility] Last Admin: 03/27/20 13:40 Dose: 500 mg Documented by: Baclofen (Baclofen 10 Mg Tab) 5 mg PO Q8H [facility] Last Admin: 03/27/20 17:40 Dose: 5 mg Documented by: Budesonide (Budesonide 1 Mg/2 Ml Nebu) 1 mg INHALATION RT-BID [facility] Last Admin: 03/27/20 09:08 Dose: 1 mg Documented by: Calcium Carbonate/Glycine (Calcium Carbonate 500 Mg Chewable) 1,000 mg PO Q4HR PRN PRN Reason: Dyspepsia Carvedilol (Carvedilol 6.25 Mg Tab) 6.25 mg PO AC-BID@0700,1900 [facility] Last Admin: 03/27/20 07:02 Dose: 6.25 mg Documented by: Clopidogrel Bisulfate (Clopidogrel 75 Mg Tab) 75 mg PO DAILY [facility] Last Admin: 03/27/20 10:24 Dose: 75 mg Documented by: Finasteride (Finasteride 5 Mg Tab) 5 mg PO DAILY [facility] Last Admin: 03/27/20 10:24 Dose: 5 mg Documented by: Formoterol Fumarate (Formoterol Fumarate 20 Mcg/2 Ml Nebu) 20 mcg INHALATION RT-BID [facility] Last Admin: 03/27/20 09:08 Dose: 20 mcg Documented by: Gabapentin (Gabapentin 100 Mg Cap) 200 mg PO TID [facility] Last Admin: 03/27/20 17:40 Dose: 200 mg Documented by: Guaifenesin (Guaifenesin 600 Mg Tablet.Er) 1,200 mg PO Q12HR [facility] Insulin Aspart (Insulin Aspart (Novolog) 100 Unit/Ml Vial) 0 unit SQ [facility]; Protocol Last Admin: 03/27/20 17:40 Dose: 4 unit Documented by: Insulin Aspart (Insulin Aspart (Novolog) 100 Unit/Ml Vial) 0 unit SQ [facility]; Protocol Last Admin: 03/27/20 17:40 Dose: Not Given Documented by: Insulin Detemir (Insulin Detemir (Levemir) 100 Unit/Ml Syr) 12 unit SQ DAILY [facility] Last Admin: 03/27/20 10:25 Dose: 12 unit Documented by: Isosorbide Mononitrate (Isosorbide Mononitrate Er 60 Mg Tab.Er.24h) 60 mg PO DAILY [facility] Last Admin: 03/27/20 10:24 Dose: 60 mg Documented by: Lactulose (Lactulose 20 Gm/30 Ml Cup) 20 gm PO DAILY PRN PRN Reason: Constipation Latanoprost (Latanoprost 0.005% Ophth Drops 2.5 Ml Btl) 1 drops RIGHT EYE HS [facility] Last Admin: 03/26/20 20:55 Dose: 1 drops Documented by: Losartan Potassium (Losartan 50 Mg Tab) 50 mg PO DAILY [facility] Last Admin: 03/27/20 10:24 Dose: 50 mg Documented by: Magnesium Hydroxide (Magnesium Hydroxide 2,400 Mg/10 Ml Cup) 2,400 mg PO DAILY PRN PRN Reason: Constipation Melatonin (Melatonin 3 Mg Tablet) 3 mg PO HS PRN PRN Reason: Insomnia Methylprednisolone Sodium Succinate (Methylprednisolone Sod Succi 40 Mg/Ml 1 Ml Vial) 40 mg IV Q8HR [facility] Last Admin: 03/27/20 17:39 Dose: 40 mg Documented by: Naloxone HCl (Naloxone 0.4 Mg/Ml 1 Ml Vial) 0.2 mg IV Q2M PRN PRN Reason: Opioid Reversal Nitroglycerin (Nitroglycerin Sl Tabs 0.4 Mg Tab) 0.4 mg SUBLINGUAL Q5M PRN PRN Reason: Chest Pain Ondansetron HCl (Ondansetron 4 Mg/2 Ml Vial) 4 mg IVP Q8HR PRN PRN Reason: Nausea And Vomiting Rivaroxaban (Rivaroxaban 15 Mg Tab) 15 mg PO W/SUPPER [facility] Last Admin: 03/27/20 17:40 Dose: 15 mg Documented by: Physical examination: VITAL SIGNS: 98, 82, 22, 130/66, 97% on 2 L GENERAL: Propper in bed, comfortable EYES: Pupils equal. Conjunctiva normal. NECK: JVD not raised; masses not palpable. HEART: First and second heart sounds are normal; no edema. LUNGS: Respiratory rate increased; decreased breath sounds.mild wheezing ABDOMEN: Soft, nontender, liver spleen not palpable, no masses palpable. PSYCH: Alert and oriented x3; mood and affect anxious. INVESTIGATIONS, reviewed in the clinical context: [id number], [id number], 168, Admission testing White count 8.9 hemoglobin 15.1 platelets 248 potassium 3.9 creatinine 0.99 Troponin I 0.018, proBNP 1930 EKG tracing personally reviewed by me-ST segment depression, sinus rhythm Chest x-ray film personally reviewed by me and looked at the report-scoliosis, osteopenia, hyperinflation, pleural-based calcifications at the left apex Assessment: -Acute COPD exacerbation-slow to respond -Possible unstable angina.-better -Essential hypertension -Coronary artery disease with bypass and stent -Paroxysmal atrial fibrillation -Moderate aortic regurgitation nonrheumatic -Possible acute Congestive heart failure exacerbation from systolic dysfunction EF 35% from underlying coronary artery disease-improved -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 No diabetes. Plan: continue with Solu-Medrol. Continue bronchodilators. Continue Imdur. discussed with the patient. Follow with consultants.
[2020-03-27 20:11] LABS: Glucose,Whole Blood 227 mg/dL (75-99)
[2020-03-27] MEDS: LATANOPROST 0.005% OPHTH DROPS 2.5 ML BTL RIGHT EYE SCH (20:24)
[2020-03-27] MEDS: guaiFENesin 600 MG TABLET.ER PO SCH (20:24)
[2020-03-28 06:59] LABS: Glucose,Whole Blood 216 mg/dL (75-99)
[2020-03-28] MEDS: carvediloL 6.25 MG TAB PO SCH (07:00)
[2020-03-28] MEDS: INSULIN ASPART (NovoLOG) 100 UNIT/ML VIAL SQ SCH ×3 (07:00→11:52)
[2020-03-28] MEDS: FORMOTEROL FUMARATE 20 MCG/2 ML NEBU INHALATION SCH (08:34)
[2020-03-28] MEDS: BUDESONIDE 1 MG/2 ML NEBU INHALATION SCH (08:34)
[2020-03-28] MEDS: IPRATROPIUM-ALBUTEROL 3 ML NEB INHALATION SCH ×2 (08:34→11:45)
[2020-03-28] MEDS: methylPREDNISolone SOD SUCCI 40 MG/ML 1 ML VIAL IV SCH (09:47)
[2020-03-28] MEDS: guaiFENesin 600 MG TABLET.ER PO SCH (09:47)
[2020-03-28] MEDS: LOSARTAN 50 MG TAB PO SCH (09:48)
[2020-03-28] MEDS: BACLOFEN 10 MG TAB PO SCH (09:51)
[2020-03-28] MEDS: GABAPENTIN 100 MG CAP PO SCH (09:51)
[2020-03-28] MEDS: ISOSORBIDE MONONITRATE ER 60 MG TAB.ER.24H PO SCH (09:52)
[2020-03-28] MEDS: AZITHROMYCIN 500 MG TAB PO SCH (09:52)
[2020-03-28] MEDS: ATORVASTATIN 40 MG TAB PO SCH (09:52)
[2020-03-28] MEDS: amLODIPine 10 MG TAB PO SCH (09:52)
[2020-03-28] MEDS: FINASTERIDE 5 MG TAB PO SCH (09:53)
[2020-03-28] MEDS: CLOPIDOGREL 75 MG TAB PO SCH (09:53)
[2020-03-28] MEDS: INSULIN DETEMIR (LEVEMIR) 100 UNIT/ML SYR SQ SCH (09:54)
[2020-03-28 10:10] LABS: Glucose,Whole Blood 188 mg/dL (75-99)
[2020-03-28 11:51] VITALS: BP 170/81; TEMP 97.8
[2020-03-28 11:58] VITALS: PULSE 92
--- NOTE | 2020-03-28 13:05 | P.PN ---
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 His symptoms have been gradually worsening over a period of one week. Denied any fever or chills, denied any chest pain. Denied any leg swelling, no lightheadedness or dizziness. No headaches, no nausea vomiting or diarrhea. No calf tenderness. Patient was seen by his primary care physician who told him to start taking Lasix and the patient started taking Lasix however did not see improvement with his breathing. Chest x-ray in the emergency department showed no evidence of pneumothorax, pleural effusion or focal pneumonia, it did show hyperinflation compatible with COPD, there was pleural based calcification along the left apex that could be associated with asbestos related disease. EKG in the emergency department showed accelerated junctional rhythm with a rate of 91 BPM, with frequent PVCs and fusion complexes, ST and T-wave abnormality with consideration for inferolateral ischemia. Lab work was reviewed, white blood cell count was within normal limits at 8.9, hemoglobin of 15.1, lymphocyte count was 0.9, INR is 1.2, d-dimer was negative at 0.7, eventually. Renal profile is within normal limits, troponin was less than 0.018, proBNP was 1930. CT chest without contrast was obtained showing mild left lower lobe bronchiectasis, mild streak atelectasis, no evidence of mediastinal or hilar adenopathy. Patient has been afebrile, hemodynamically has been stable, his sats are 97% on 2 L. Echocardiogram reveals moderate concentric LVH, EF of 50-55%, moderate aortic regurgitation, mild mitral regurgitation, mild tricuspid regurgitation, PA pressure of less than 35 mmHg. patient does have wheezes on physical exam, he was started on nebulized bronchodilators, IV steroids. He is breathing significantly easier on today's exam compared to yesterday. On 03/27/2020 patient seen in follow-up on cardiac observation floor. He states he still short of breath today, as a matter fact her breathing is little worse than yesterday, had episode of increased shortness of breath last night, and he states bring treatments were not helping much. Patient continues on IV Solu- Medrol, nebulized bronchodilators, he states he has a cough with production of clear sputum. He has had no fever or chills. No hemoptysis, no complaints of chest pain. No lower extremity swelling. Lung sounds revealed diminished breath sounds, with diffuse wheezing, sounding more bronchospastic on today's exam. Patient was reevaluated today on 03/28/20, patient is feeling much better, breathing a lot easier. Hardly any cough, no wheezing, no shortness of breath, no fever, no chills, no hemoptysis, no chest pain. Objective - Vital Signs Vital signs: Vital Signs Temp 97.8 F 03/28/20 09:00 Pulse 92 03/28/20 11:57 Resp 18 03/28/20 09:00 BP 170/81 03/28/20 09:00 Pulse Ox 94 L 03/28/20 09:00 Intake & Output 03/27/20 03/28/20 03/28/20 18:59 06:59 18:59 Intake Total 9043 335 1333 Balance 0138 273 4723 Intake: Oral 0279 800 2397 Other: Voiding Method Toilet Toilet Toilet Urinal Urinal Urinal # Voids 2 3 - Exam GENERAL EXAM: Alert, very pleasant, 84-year-old white male, on room air. Head: Atraumatic, normocephalic. EENT: PERRLA, EOMI, no icterus, moist mucous membranes, no neck masses, no JVD, no stridor. CHEST: No chest wall deformity. Symmetrical expansion. LUNGS: Equal air entry with decreased breath sounds crackles and rhonchi or wheezes noted today. CVS: Regular rate and rhythm, normal S1 and S2, no gallops, no murmurs, no rubs ABDOMEN: Soft, nontender. No hepatosplenomegaly, normal bowel sounds, no guarding or rigidity. EXTREMITIES: No clubbing, no edema, no cyanosis, 2+ pulses and upper and lower extremities. MUSCULOSKELETAL: Muscle strength and tone normal. SPINE: No scoliosis or deformity SKIN: No rashes CENTRAL NERVOUS SYSTEM: Alert and oriented 3 focal neurologic deficits. PSYCHIATRIC: Normal mood, affect and normal mental status examination - Labs CBC & Chem 7: 03/25/20 12:00 03/25/20 12:00 Labs: Abnormal Lab Results - Last 24 Hours (Table) 03/27/20 03/27/20 03/27/20 Range/Units 13:03 17:27 20:07 POC Glucose (mg/dL) 168 H 173 H 227 H (75-99) mg/dL 03/28/20 03/28/20 Range/Units 06:58 10:08 POC Glucose (mg/dL) 216 H 188 H (75-99) mg/dL Microbiology - Last 24 Hours (Table) 03/25/20 12:19 Blood Culture - Preliminary Blood No Growth after 48 hours Assessment and Plan Assessment: Impression: Acute exacerbation of COPD History of coronary artery disease and previous CABG Benign essential hypertension. Paroxysmal atrial fibrillation. Type 2 diabetes. Lifelong nonsmoker. Suspect some bronchiectasis as noted on the CT of the chest on admission. Recommendation: Switch patient to oral prednisone 30 mg tapered over the next 21 days. Continue updrafts at home/do not 4 times a day and when necessary. Symbicort or Advair, maintenance. Zithromax 500 mg daily for 3 more days. Consider discharge planning today and follow up on outpatient basis. Continue Mucinex twice a day. Time with Patient: Less than 30
[2020-03-28 13:11] LABS: Glucose,Whole Blood 170 mg/dL (75-99)
--- NOTE | 2020-03-28 19:02 | DS ---
DISCHARGE SUMMARY I am covering for Dr. Cooper. FINAL DIAGNOSES: 1. Chronic obstructive pulmonary disease exacerbation with acute purulent tracheobronchitis. 2. Chest pain possible unstable angina. 3. Essential hypertension. 4. CAD CABG stent. 5. Paroxysmal atrial fibrillation. 6. Moderate aortic regurgitation for nonrheumatic. 7. Congestive heart failure acute exacerbation with acute on chronic systolic dysfunction ejection fraction 35% with underlying coronary artery disease. 8. Primary DJD. 9. Left scrotal hernia, asymptomatic. 10.Hyperglycemia secondary to steroids. The patient is being discharged in stable condition with guarded prognosis. Discharge cleared by Dr. Ventura from Pulmonary and Cardiology. HISTORY OF PRESENT ILLNESS: This 84-year-old gentleman with a past medical history medical history of multiple medical problems was admitted shortness of breath and chest pain. The patient was seen by Cardiology and as well as Pulmonology, Dr. Ventura. The . The patient was treated symptomatically. Patient improved significantly. Cardiology cleared the patient. Otherwise, patient was given steroids and IV steroids as well as bronchodilators. On exam, vitals are stable. Cardiovascular as mentioned. Respiratory, few scattered rhonchi. The patient will be discharged in stable condition. Guarded prognosis. Further plans to follow up followup with Primary Care and Cardiology as well as Pulmonology. DISCHARGE ADVICE AND MEDICATIONS: 1. Diet is cardiac diet. 2. Activity limited. 3. Followup with Dr. Edge as recommended. 4. Follow up with Cardiology and Dr. Ventura as recommended. MEDICATIONS: 1. Baclofen 5 mg p.o. every 8 hours. 2. Glycopyrrolate 2 puffs. 3. Coreg 6.25 mg. 4. Cozaar 50 mg daily. 5. Neurontin 200 mg p.o. t.i.d. 6. Proscar 5 mg p.o. daily. 7. Insulin degludec 12 units subcu daily. 8. Vitamin D2, 50,000 Monday. 9. Xalatan eyedrops 1 drop daily. 10.Aspirin 81 mg daily. 11.Imdur ER 60 mg daily. 12.Lipitor 40 mg daily. 13.Melatonin 3 mg at bedtime p.r.n. 14.Nitrostat p.r.n. 15.Norvasc 10 mg. 16.Plavix 75 mg p.o. daily. 17.Prednisone taper 40 mg for 3 days and 30 for 3 days and 20 for 3 days 10 for 3 days. 18.Xarelto 15 mg with supper. 19.Zithromax 500 mg daily for 5 days. MMODL / IJN: [id number] /
== END 2020-03-28 14:58 | disposition home or self-care (01) | DRG 190 ==
LOC: EC 11:17 → 3NCARDOBS 15:28 → INTOOBSV 15:28 → OBSVTOIN 03-27 12:10
PROVIDERS: ADMIT Hospitalist; ATTEND Hospitalist
DX: J44.0 Chronic obstructive pulmonary disease with (acute) lower respiratory infection (principal); I50.23 Acute on chronic systolic (congestive) heart failure; I25.110 Atherosclerotic heart disease of native coronary artery with unstable angina pectoris; J98.11 Atelectasis; E11.39 Type 2 diabetes mellitus with other diabetic ophthalmic complication; I48.0 Paroxysmal atrial fibrillation; I11.0 Hypertensive heart disease with heart failure; J44.1 Chronic obstructive pulmonary disease with (acute) exacerbation; E11.65 Type 2 diabetes mellitus with hyperglycemia; Z79.4 Long term (current) use of insulin; J20.9 Acute bronchitis, unspecified; I08.3 Combined rheumatic disorders of mitral, aortic and tricuspid valves; M54.5 Low back pain; G89.29 Other chronic pain; I25.5 Ischemic cardiomyopathy; E78.5 Hyperlipidemia, unspecified; H40.9 Unspecified glaucoma; H42 Glaucoma in diseases classified elsewhere; K40.90 Unilateral inguinal hernia, without obstruction or gangrene, not specified as recurrent; I25.2 Old myocardial infarction; N40.0 Benign prostatic hyperplasia without lower urinary tract symptoms; I49.3 Ventricular premature depolarization; G43.909 Migraine, unspecified, not intractable, without status migrainosus; F43.10 Post-traumatic stress disorder, unspecified; M47.896 Other spondylosis, lumbar region; T38.0X5A Adverse effect of glucocorticoids and synthetic analogues, initial encounter; M89.49 Other hypertrophic osteoarthropathy, multiple sites; Z95.5 Presence of coronary angioplasty implant and graft; Z95.1 Presence of aortocoronary bypass graft; Z79.82 Long term (current) use of aspirin; Z79.02 Long term (current) use of antithrombotics/antiplatelets; Z79.01 Long term (current) use of anticoagulants; Z79.899 Other long term (current) drug therapy; Z90.89 Acquired absence of other organs; Z86.79 Personal history of other diseases of the circulatory system; Z87.891 Personal history of nicotine dependence; Z95.828 Presence of other vascular implants and grafts; Z86.69 Personal history of other diseases of the nervous system and sense organs; Z87.448 Personal history of other diseases of urinary system; Z98.890 Other specified postprocedural states; Z82.49 Family history of ischemic heart disease and other diseases of the circulatory system; Z83.511 Family history of glaucoma; Z83.518 Family history of other specified eye disorder; Z80.9 Family history of malignant neoplasm, unspecified
CPT/HCPCS: 36415; 71046; 71250; 80053; 83605; 83735; 83880; 84443; 84484; 85025; 85379; 85610; 85730; 87040; 93005; 93306; 94640; 94760; 99285

== ENCOUNTER → 2020-07-27 | Outpatient (CLI) | payer MEDICARE ==
[2020-07-27 16:37] LABS: African American GFR (CKD) 78.6 (60.0-200.0); Albumin 4.6 g/dL (3.80-4.90); Albumin/Globulin Ratio 2.71 (1.60-3.17); Calcium 9.8 mg/dL (8.7-10.3); Chol/HDL Ratio 2.35; Globulin 1.7 g/dL (1.6-3.3); LDL Cholesterol,Calculated 50.2 mg/dL (0.0-131.0); Non-African American GFR(CKD) 67.8 (60.0-200.0); Potassium 4.9 mmol/L (3.5-5.5); Total Bilirubin 0.9 mg/dL (0.3-1.2); Total Protein 6.3 g/dL (6.2-8.2); VLDL Calculation 23.8 mg/dL (5.00-40.00)
== END | disposition home or self-care (01) ==
LOC: LABWHC1 08:39
PROVIDERS: ATTEND Internal Medicine Interventional Cardiology
DX: E78.2 Mixed hyperlipidemia (principal)
CPT/HCPCS: 36415; 80053; 80061

== ENCOUNTER → 2020-11-16 | Outpatient (CLI) | payer MEDICARE ==
[2020-11-16 16:16] LABS: African American GFR (CKD) 89.3 (60.0-200.0); Anion Gap 9.4 mmol/L (4.00-12.00); Calcium 9.4 mg/dL (8.7-10.3); Carbon Dioxide 28.6 mmol/L (21.6-31.8); Chol/HDL Ratio 2.68; LDL Cholesterol,Calculated 39.2 mg/dL (0.0-131.0); Non-African American GFR(CKD) 77.1 (60.0-200.0); Potassium 4.3 mmol/L (3.5-5.5); Total Bilirubin 0.7 mg/dL (0.2-1.2); VLDL Calculation 24.8 mg/dL (5.00-40.00)
== END | disposition home or self-care (01) ==
LOC: LABWHC1 08:11
PROVIDERS: ATTEND Nurse Practitioner Adult Health
DX: I10 Essential (primary) hypertension (principal); E78.2 Mixed hyperlipidemia
CPT/HCPCS: 36415; 80053; 80061